=== PATIENT | female | born 1990 | race Caucasian/White ===

== ENCOUNTER 2021-06-19 14:32 | Emergency (ER) | payer OTHER, SELFPAY ==
--- NOTE | ~2021-06-19 | XR_ITS ---
EXAMINATION: XR hip RT min 2V DATE: 06/19/2021 15:04 INDICATION: Right hip pain. TECHNIQUE: 3 views of right hip were obtained. COMPARISON: Pelvis and hip radiographs 09/19/2018 FINDINGS: Bone alignment is normal. No fracture. Right hip joint space is normal. Surgical clips over lie the pelvis. IMPRESSION: 1. Normal right hip. Reviewed, dictated and finalized at location A. GER RADIATION IMPRESSION: 1. Normal right hip.
[2021-06-19 14:38] VITALS: BP 122/94; PULSE 105; RESP 16; TEMP 36.9; O2SAT 100
--- NOTE | 2021-06-19 15:16 | ED.LOWEXIN ---
HPI - Extremity Injury (Lower) General Chief Complaint: Extremity Injury, Lower Stated Complaint: right hip pain Source: patient and RN notes reviewed Mode of arrival: ambulatory History of Present Illness HPI Narrative: This is a 30-year-old female who presented to urgent care with complaints of right hip pain after syncopal episode. Patient is being seen by her primary care physician for her syncope episode she has a table tilt test next week. Patient notes that she woke up after having a syncopal episode with her hip against a table since then she has been having pain in her hip area she notes that her pain is more intense when she stands straight up and walk. She is not feeling any pain while sitting down. The patient denies SOB, CP, palpitation, extremity numbness, lightheadedness, dizziness, constipation, diarrhea, chills, or fever. MD complaint: hip injury Related Data Home Medications Medication Instructions Recorded Confirmed albuterol sulfate 90 mcg/actuation 1 puff INHALATION Q4H PRN 06/06/20 06/19/21 aerosol inhaler aripiprazole 2 mg tablet 15 mg PO DAILY 06/06/20 06/19/21 divalproex 250 mg tablet,delayed 250 mg PO ONCE tablet 06/06/20 06/19/21 release amitriptyline 25 mg PO HS 06/19/21 06/19/21 Allergies Allergy/AdvReac Type Severity Reaction Status Date / Time adhesive tape Allergy Mild Rash Verified 06/19/21 14:55 gluten Allergy Mild Nausea and Verified 06/19/21 14:55 Vomiting prochlorperazine Allergy Unknown Nausea and Verified 06/19/21 14:55 Vomiting Review of Systems Review of Systems: A 14 organ system Review of Systems was performed and pertinent positives included in the HPI, otherwise remaining ROS is negative. [facility] Past Medical History Medical History Anxiety Bipolar 1 disorder Celiac disease Inflammatory arthritis Ovarian cancer PTSD (post-traumatic stress disorder) Vitamin D deficiency Surgical History Surgical History H/O: hysterectomy Family History Family History Grandparent Diabetes mellitus Mother Lupus Fibromyalgia Raynaud disease Rheumatoid arthritis Sibling Meningitis Sibling Autism Social History Social History Smoking status: Never smoker Alcohol intake: current Alcohol use details: 1 drink every 6 motnhs Substance use: never Additional occupation/education comments: [employer] Gender identity (if verbalized by the patient): Female Exam Narrative: GENERAL: This is a well-nourished, well-developed patient, in no apparent distress. HEAD: normocephalic, atraumatic. EYES: PERRL. Sclera clear/white. Vision is grossly intact. EARS: External ears normal, auditory canals clear and without drainage, TMs normal without perforation. Hearing grossly intact. NOSE: External nose normal with no obvious nasal discharge, nares without redness, no rhinorrhea. THROAT: Mucous membranes moist, posterior pharynx clear. NECK: Neck supple, non-tender without lymphadenopathy, masses or thyromegaly. CARDIOVASCULAR: Regular rate and rhythm without murmurs, gallops, or rubs. RESPIRATORY: Clear to auscultation. Breath sounds equal bilaterally. No wheezes, rales, or rhonchi. GASTROINTESTINAL: Abdomen soft, non-tender, nondistended. Bowel sounds are active. No hepato-splenomegaly, or palpable masses. No guarding. SKIN: warm, intact with no suspicious lesions or rash, good texture and turgor. NEURO: awake, alert, and oriented to person, place and time. There were no obvious focal neurologic abnormalities. Steady gait EXTREMITIES: Normal range of motion. No edema. No calf tenderness. Negative Homans sign bilaterally. Right hip tenderness BACK: Nontender without deformity or crepitance. No flank tenderness. Course Co
== END 2021-06-19 15:18 | disposition home or self-care (01) ==
PROVIDERS: Emergency Provider Nurse Practitioner; PCP Family Medicine
DX: S79.911A Unspecified injury of right hip, initial encounter (principal); W19.XXXA Unspecified fall, initial encounter; F41.9 Anxiety disorder, unspecified; M06.9 Rheumatoid arthritis, unspecified; Z85.43 Personal history of malignant neoplasm of ovary
CPT/HCPCS: 73502; 99213; G0463

== ENCOUNTER 2025-01-15 16:04 | Emergency (ER) | payer OTHER, SELFPAY ==
--- NOTE | 2025-01-15 16:15 | ED.URI ---
HPI - URI/Sore Throat General Chief Complaint: Upper Respiratory Infection Stated Complaint: SORE THROAT/STUFFY NOSE/HEADACHE/COLD Time Seen by Provider: 01/15/25 16:34 Source: patient and RN notes reviewed Mode of arrival: ambulatory Limitations: no limitations History of Present Illness HPI Narrative: 34-year-old female presents with concern for sore throat, stuffy nose, headache, chills, fatigue, malaise. Reports symptoms started this morning. Not taken any medication for her symptoms. MD elicited complaint: rhinorrhea and nasal congestion Related Data Home Medications ?Medication ?Instructions ?Recorded ?Confirmed ?Last Taken ?Type albuterol sulfate 90 mcg/actuation 1 puff inhalation Q4H PRN Dyspnea 06/06/20 06/19/21 Unknown History aerosol inhaler aripiprazole 2 mg tablet (Abilify) 15 mg PO DAILY 06/06/20 06/19/21 Unknown History divalproex 250 mg tablet,delayed 250 mg PO ONCE 06/06/20 06/19/21 Unknown History release (Depakote) amitriptyline 25 mg tablet 25 mg PO HS 06/19/21 06/19/21 Unknown History atomoxetine 25 mg capsule mg PO 01/15/25 Unknown History erenumab-aooe 140 mg/mL mg subcut 01/15/25 Unknown History subcutaneous auto-injector (Aimovig Autoinjector) lithium carbonate 300 mg mg PO 01/15/25 Unknown History tablet,extended release lithium carbonate 450 mg mg PO 01/15/25 Unknown History tablet,extended release lumateperone 42 mg capsule mg PO 01/15/25 Unknown History (Caplyta) midodrine 5 mg tablet mg 01/15/25 Unknown History pregabalin 150 mg capsule mg 01/15/25 Unknown History Allergies Allergy/AdvReac Type Severity Reaction Status Date / Time adhesive tape Allergy Mild Rash Verified 01/15/25 16:35 gluten Allergy Mild Nausea and Verified 01/15/25 16:35 Vomiting prochlorperazine Allergy Unknown Nausea and Verified 01/15/25 16:35 Vomiting Review of Systems Review of Systems: CONSTITUTIONAL: Denies malaise, chills EYES: Denies visual changes, redness, or discharge. ENT: Reports rhinorrhea, congestion, sore throat. Denies sinus pain, otalgia CARDIOVASCULAR: Denies chest pain, palpitations, or edema. RESPIRATORY: Denies cough. Denies dyspnea. GASTROINTESTINAL: Denies abdominal pain, nausea, vomiting, diarrhea SKIN: Denies rash or itching. MUSCULOSKELETAL: Denies myalgia. NEUROLOGIC: Reports headache. All systems reviewed & are unremarkable except as noted in HPI and below PMFSH Past Medical History Medical History Anxiety Bipolar 1 disorder Celiac disease Inflammatory arthritis Ovarian cancer PTSD (post-traumatic stress disorder) Vitamin D deficiency Surgical History Surgical History H/O: hysterectomy Family History Family History Grandparent Diabetes mellitus Mother Lupus Fibromyalgia Raynaud disease Rheumatoid arthritis Sibling Meningitis Sibling Autism Social History Social History Smoking status: Never smoker Alcohol intake: current Alcohol use details: 1 drink every 6 motnhs Substance use: never Living arrangements: with family Occupation/Education: occupation Additional occupation/education comments: [employer] Gender identity (if verbalized by the patient): Female Comments At time of signature, agree with nursing past medical, surgical, social and family history. There is no relevant family history pertinent to the presenting complaint Exam Narrative: GENERAL: Well-appearing, well-nourished, and in no acute distress. HEAD: Normocephalic EYES: PERRLA, conjunctivae clear ENT: Nares clear, turbinates edematous and erythematous, clear discharge. Mucous membranes moist. TM pearly medeiros with dull light reflex bilaterally; no tragal tenderness. Oropharynx not erythematous without lesions. Tonsils not enlarged and without exudate, no drooling, no hoarseness, no trismus, uvula midline. NECK: Supple. No lymphadenopathy CHEST: Clear to auscultation, breath sounds equal. No wheezing, rhonchi, rales, or stridor. No respiratory distress, speaks in full sentences. HEART: Regular rate and rhythm. No murmur heard. SKIN: Warm, dry, no rash. NEURO: Alert and oriented x3. PSYCH: Normal mood and affect Course Course Emergency Course: Patient is aware of diagnosis, understands and agrees to treatment plan. Anticipatory guidance given. Patient agrees to follow-up as directed and is aware of reasons to seek care at the emergency department. Portions of this record may have been created with voice recognition software Level of Care: Express Care Visit Vital Signs Vital signs: Reviewed. MDM - URI/Sore Throat MDM Narrative Medical decision making narrative: Differential diagnosis considered: Mijares virus, strep pharyngitis, allergic rhinitis, upper respiratory tract infection, sinusitis, rhinosinusitis, nasopharyngitis. viral pharyngitis, otitis media, otitis externa, pneumonia, bronchitis, viral cough syndrome, viral syndrome, and influenza. Exam findings show no acute concerns or changes; patient is non-toxic appearing and is in no distress. Patient is appropriate for outpatient treatment and follow-up. Lab Data Attestation: I reviewed the patient's lab results. Critical Care Time Critical Care Time Critical Care Time: No Discharge Plan Discharge Clinical Impression: Upper respiratory infection Patient Disposition: Home Condition: Stable Instructions: Upper Respiratory Infection (ED) Additional Instructions: -Take strict precautions to prevent the spread of your virus. Be diligent about covering your cough (even when you are alone) and washing your hands frequently. -You may contagious until you have been symptom and/or fever free for 24 hours without fever reducing medicine -Alternate Ibuprofen and Tylenol for pain and fever relief (per package directions) -Drink plenty of fluid - drink fluid with electrolytes such as Gatorade or other oral re-hydration solution. Avoid caffeine, which can make dehydration worse. -Get plenty of rest to help your body heal. -Use a cool mist humidifier for chest and nasal congestion. -Eat RAW honey or use cough drops to ease throat discomfort -Do not smoke or expose children to secondhand smoke -Wash your hands frequently. -Please follow-up with your primary care doctor in the next 1-2 days if your symptoms do not improve. -If you have any worsening of symptoms or any other concerns please go to the ED immediately. -Please take medications as prescribed and continue taking your home medications as usual. Patient Language: Paraguayan Prescriptions: New pseudoephedrine HCl [12 Hour Decongestant] 120 mg tablet extended release 120 mg PO Q12H PRN (Reason: nasal congestion) Qty: 20 0RF ipratropium bromide 21 mcg (0.03 %) spray,non-aerosol 2 spray NASAL TID PRN (Reason: nasal drainage) Qty: 30 0RF Rx Instructions: administer into each nostril No Action amitriptyline 25 mg Tablet 25 mg PO HS midodrine 5 mg tablet Patient Comments: PT TAKING FOR LOW BLOOD PRESSURE. DOCTOR IS HOLDING MEDICINE 01/14/25,01/15/25 DUE TO ELEVATED BLOOD PRESSURE. lithium carbonate 300 mg tablet extended release PO lithium carbonate 450 mg tablet extended release PO atomoxetine 25 mg capsule PO pregabalin 150 mg capsule Aimovig Autoinjector 140 mg/mL auto-injector SUBCUT Caplyta 42 mg capsule PO divalproex [Depakote] 250 mg tablet,delayed release (DR/EC) 250 mg PO ONCE aripiprazole [Abilify] 2 mg tablet 15 mg PO DAILY albuterol sulfate 90 mcg/actuation HFA aerosol inhaler 1 puff inhalation Q4H PRN (Reason: Dyspnea) Follow-up/Referrals: Urban,Mayelin [Other]
[2025-01-15 16:21] VITALS: BP 133/96; PULSE 85; RESP 16; TEMP 36.4; O2SAT 100
[2025-01-15 16:38] LABS: EDCOVIDSCREEN Negative (Negative); EDINFLUASCREEN Negative (Negative); EDINFLUBSCREEN Negative (Negative)
== END 2025-01-15 16:46 | disposition home or self-care (01) ==
PROVIDERS: Emergency Provider Nurse Practitioner
DX: J06.9 Acute upper respiratory infection, unspecified (principal); Z20.822 Contact with and (suspected) exposure to COVID-19; K90.0 Celiac disease; M19.90 Unspecified osteoarthritis, unspecified site; Z85.41 Personal history of malignant neoplasm of cervix uteri; F31.9 Bipolar disorder, unspecified
CPT/HCPCS: 87426; 87804; 99213; G0463

== ENCOUNTER 2025-01-21 19:47 | Emergency (ER) | payer OTHER, SELFPAY ==
--- NOTE | ~2025-01-21 | XR_ITS ---
HISTORY: trip/fall, injury COMPARISON: 09/19/2018 TECHNIQUE: 3 views of the right knee were performed FINDINGS: No acute or subacute fracture, erosion, lytic or sclerotic lesion. Medial tibiofemoral joint space narrowing is identified. Small suprapatellar joint effusion is identified. The infrapatellar joint space is clear. IMPRESSION: Small suprapatellar joint effusion, without acute fracture. Reviewed, dictated and finalized at location A.
--- OUTSIDE RECORDS SUMMARY | 2025-01-21 19:50 | XMS_ITS | Clinical Summary ---
Author Organization [facility] Address [address] [place] [address] Care Team Providers Care Veterinary Medicine Doctor Name Role Phone Mayelin Ruffin MD Primary Care Provider [phone] Allergies Active Allergy Reactions Criticality Noted Date Comments Adhesive Rash Medium 03/31/2021 Amoxicillin Other (See comments) Low 10/22/2020 PCP prefers pt Does not take Prochlorperazine Vomiting Low 08/05/2019 Doxycycline Nausea And Vomiting,Nausea & Vomiting Low 11/16/2022 Gluten Stomach upset,Other (See comments) Low 02/21/2018 Morphine Unknown 04/21/2020 Acetaminophen Agitation Low 11/26/2024 Medications pregabalin (LYRICA) 100 mg capsule 3 Active Advair Diskus 250-50 mcg/dose diskus inhaler Inhale 1 puff 2 (two) times a day Active hydrOXYzine (ATARAX) 25 mg tablet Take 1 tablet (25 mg total) by mouth every 6 (six) hours as needed for itching 20 tablet 4 Active cetirizine (ZyrTEC) 10 mg tablet Take 1 tablet (10 mg total) by mouth daily as needed for allergies 30 tablet 4 Active Caplyta 42 mg capsule Take 1 capsule (42 mg total) by mouth daily 4 Active ubrogepant (Ubrelvy) 100 mg tablet Take 1 tablet (100 mg total) by mouth once as needed for migraine for up to 40 doses May repeat dose once in 2 hours if no relief. Do not exceed 2 doses in 24 hours. 10 tablet 3 5 Active lithium ER (ESKALITH) 450 mg CR tablet Take 1 tablet (450 mg total) by mouth daily Active midodrine (PROAMATINE) 5 mg tabletIndications: Symptomatic Orthostatic Hypotension Take 1 tablet (5 mg total) by mouth 3 (three) times a day 270 tablet 3 5 11/09/19 26 Active atomoxetine (STRATTERA) 25 mg capsule Take 1 capsule (25 mg total) by mouth daily Active erenumab-aooe (Aimovig Autoinjector) 140 mg/mL auto-injectorIndic ations:Chronic migraine without aura, with intractable migraine, so stated, with status migrainosus Inject 1 mL (140 mg total) under the skin every 30 (thirty) days 3 mL 3 5 Active omeprazole (PriLOSEC) 40 mg capsule Take 1 capsule (40 mg total) by mouth daily 4 Active ondansetron ODT (ZOFRAN-ODT) 4 mg disintegrating tablet DISSOLVE ONE TABLET ON THE TONGUE EVERY 6 HOURS NEEDED FOR NAUSEA AND VOMITING 5 Active Active Problems Problem Noted Date Diagnosed Date Vision loss 01/13/2025 Orthostatic hypotension 09/30/2023 Cramps of lower extremity 07/06/2023 Obesity 07/06/2023 Pharyngitis 07/06/2023 Upper respiratory infection 07/06/2023 Low back pain 07/06/2023 Cataplexy 06/29/2023 Post concussion syndrome 06/29/2023 Recurrent syncope 06/29/2023 Chronic migraine without aur a, with intractable migraine, so stated, with status migrainosus 06/29/2023 Morbid obesity with body mass index of 40.0-49.9 04/13/2023 Tremor 12/20/2022 Plantar fasciitis of right foot 04/14/2022 Bipolar affective disorder in remission 04/20/20 21 Fibromyalgia 04/20/2021 Chronic migraine without aur a without status migrainosus, not intractable 01/29/2021 PTSD (post-traumatic stress disorder) 01/22/2020 Prediabetes 11/22/2019 History of ovarian cancer 11/14/2018 Vitamin D deficiency 11/14/2018 Seasonal allergic rhinitis 10/27/2018 Left flank pain 05/09/2017 Apnea 05/09/2017 Menopausal syndrome 03/21/2017 Headache 03/08/2017 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 Malignant neoplasm of ovary 07/09/2015 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/2013 Anxiety 12/19/2013 Anaclitic depression 12/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 Chronic back pain 12/19/2013 Asthma 12/19/2013 Celiac disease 12/19/2013 Lumbago 12/19/2013 Lymphedema 12/19/2013 Cyst of breast 08/08/2011 Malignant neoplasm of ovary 08/08/2008 Resolved Problems Problem Noted Date Diagnosed Date Resolved Date Non-intractable vomiting 12/19/2019 Right lower quadrant abdominal pain 12/19/2019 03/20/2020 History of UTI 12/19/2019 03/20/2020 Encounters Date Type Department Care Team Description 01/18/2025 6:46 AM CDT - 01/18/2025 11:59 PM CDT Hospital Encounter [facility] [address] [place] [address] Vision loss, bilateral; Bilateral hearing loss, unspecified hearing loss type; Recurrent syncope Discharge Disposition: Discharge to home or self care 01/18/2025 6:46 AM CDT - 01/18/2025 11:59 PM CDT Hospital Encounter [facility] [address] [place] [address] Vision loss, bilateral; Bilateral hearing loss, unspecified hearing loss type; Recurrent syncope Discharge Disposition: Discharge to home or self care 01/18/2025 6:45 AM CDT - 01/18/2025 11:59 PM CDT Hospital Encounter [facility] [address] [place] [address] Witnessed seizure-like activity (HCC) Discharge Disposition: Discharge to home or self care 01/17/2025 Telephone [facility] [address] [place] [address] Tiff Saunders 01/13/2025 9:11 PM CDT - 01/14/2025 12:09 AM CDT Emergency [facility] [address] [place] [address] Bacilio Jones MD Vision loss (Primary Dx) Discharge Disposition: Discharge to home or self care 01/06/2025 Results Follow-Up [facility] [address] [place] [address] Ritu Hui NP Throat culture Throat 01/04/2025 6:15 PM CDT Office Visit [facility] [address] [place] [address] Natalie Figueroa PA Sore throat (Primary Dx) 01/04/2025 6:00 PM CDT - 01/04/2025 11:59 [place] [address] Sore throat Discharge Disposition: Discharge to home or self care 01/01/2025 Results Follow-Up [facility] [address] [place] [phone] Aby Vasquez MA Folate, Vitamin D 25 hydroxy, Thyroid Function [place], Additional followed-up results: 3 12/29/2024 10:50 AM CDT Lab [address] [address] Vision loss, bilateral; Bilateral hearing loss, unspecified hearing loss type; Recurrent syncope; Morbid obesity with body mass index of 40.0-49.9 (HCC) 12/12/2024 2:30 PM CDT Office Visit [facility] [address] [place] [phone] Javi Garcia NP Chronic migraine without aura, with intractable migraine, so stated, with status migrainosus (Primary Dx); Post concussion syndrome; Morbid obesity with body mass index of 40.0-49.9 ([facility]); Tremor; Vision loss, bilateral; Bilateral hearing loss, unspecified hearing loss type; Recurrent syncope; Witnessed seizure-like activity (HCC) 11/26/2024 8:44 PM CDT - 11/27/2024 1:35 AM CDT Emergency [facility] [address] [place] [address] Sussy Narayan MD Syncope and collapse (Primary Dx) Discharge Disposition: Discharge to home or self care from Last 3 Months Immunizations Immunization Administration Dates Next Due Pfizer SARS-CoV-2 Monovalent Vaccination (12+ Yrs) PURPLE 06/27/2021,06/06/2021 Surgical History Surgery Date Site/Laterality Comments HYSTERECTOMY PORTACATH PLACEMENT PORT REMOVAL Medical History Medical History Date Comments Personal history of other ve nous thrombosis and embolism History of deep venous throm bosis - (Added by TW Conv) Personal history of diseases of skin or subcutaneous tissue History of cyst of breast - (Added by TW Conv) Other disorders of lung Bleomyci n lung toxicity - (Added by TW Conv) Asthma Ovarian cancer (HCC) Headache, tension-type Migraine Bipolar 1 disorder (HCC) PTSD (post-traumatic stress disorder) Celiac artery aneurysm Syncope Covid-19 Sx onset 07/12, t ested pos 07/15 Heart failure (HCC) H/O blood clots Chronic kidney disease Family History Medical History Relation Name Comments Cerebral palsy Brother 1 Hypertension Brother 1 Seizures Brother 1 Cerebral palsy Brother 2 Hypertension Brother 2 Seizures Brother 2 Diabetes Father Hypertension Father Pancreatic cancer Father Stroke Father Thyroid cancer Father Arrhythmia Maternal Grandmother Hypertension Mother Migraines Mother Seizures Mother Arthritis Other Cancer Other Gout Other Heart disease Other Mental illness Other Relation Name Status Comments Brother 1 Brother 2 Father Maternal Grandmother Mother Other Social History Tobacco Use Types Packs/Day Years Used Date Smoking Tobacco: Never Smokeless Tobacco: Never Tobacco Cessation:Counseling Given: Not Answered Alcohol Use Standard Drinks/Week Comments Not Currently 0 (1 standard drink = 0.6 oz pur e alcohol) AUDIT-C Answer Date Recorded Q1: How often do you have a drink containing alc ohol? Monthly or less 10/14/2023 Q2: How many drinks containi ng alcohol do you have on a typical day when you are drinking? 1 or 2 10/14/2023 Q3: How often do you have si x or more drinks on one occasion? Never 10/14/2023 Personal Safety Answer Date Recorded Have you ever been in or are you currently in a harmful physical or emotional relationship or is someone making you feel afraid or unsafe? Denies 01/13/2025 Comments No Sex and Gender Information Value Date Recorded Sex Assigned at Not on file Legal Sex Female 8:28 AM DIRECTOR CLINICAL PHARMACOLOGY Gender Identity Female 01/22/2021 5:39 PM CDT Sexual Orientation Bisexual 01/22/2021 5: 39 PM CDT Obstetrics History Para Term AB IAB SAB Ectopic Multiple Livin g Live Births 0 0 0 0 0 0 0 0 0 0 0 Last Filed Vital Signs Vital Sign Reading Time Taken Comments Blood Pressure 150/74 01/13/2025 11:30 PM CDT Pulse 83 01/13/2025 11:30 PM CDT Temperature 36.7 C (98.1 F) 01/13/2025 8:10 PM CDT Respiratory Rate 18 01/13/2025 8:10 PM CDT Oxygen Saturation 100% 01/13/2025 11:30 PM CDT Inhaled Oxygen Concentration - - Weight 122.5 kg (270 lb) 01/13/2025 8:10 PM CDT Height 162.6 cm (5' 4) 01/13/2025 8:10 PM CDT Body Mass Index 46.35 01/13/2025 8:10 PM CDT Plan of Treatment Health Maintenance Due Date Last Done Comments Depression Screening 1989 Hepatitis C Screening 1989 Varicella Vaccines (1 of 2 - 13+ 2-dose series) 2002 Hepatitis B Screening 2007 Regular Well Visit/Exam 18-64 2007 Pneumococcal vaccine <65 (2 of 2 - PCV) 07/01/2021 07/01/2020 Covid-19 Vaccine (3 - 2023- season) 2024 06/27/2021, 06/06/2021 DTaP/Tdap/Td Vaccine (2 - Td or Tdap) 11/02/2027 11/01/2017 Influenza Vaccine Completed 08/30/2024, , 05/31/2022, Additional history exists HPV Vaccines Aged Out No longer eligi ble based on patient's age to complete this topic Procedures Procedure Name Priority Date/Time Associated Diagnosis Comments CTA HEAD NECK W WO CONTRAST Schedule Routine, Read Routine (OP Routine) 01/18/2025 9:10 AM CDT Vision loss, bilateral Bilateral hearing loss, unspecified hearing loss type Recurrent syncope MRI BRAIN WO CONTRAST Schedule Routine, Read Routine (OP Routine) 01/18/2025 7:48 AM CDT Vision loss, bilateral Bilateral hearing loss, unspecified hearing loss type Recurrent syncope CT HEAD WO CONTRAST ED 01/13/2025 1 0:05 PM CDT EGFR STAT 01/13/2025 8:31 PM CDT HCG, BLOOD, QUANTITATIVE STAT 01/13/2025 8:31 PM CDT DIFFERENTIAL AUTO STAT 01/13/2025 8:3 1 PM CDT COMPREHENSIVE METABOLIC PANEL STAT 01/13/2025 8:31 PM CDT CBC WITH AUTO DIFFERENTIAL STAT 01/13/2025 8:31 PM CDT ECG 12-LEAD Routine 01/13/2025 8:23 PM CDT THROAT CULTURE Routine 01/04/2025 6:01 PM CDT Sore throat POCT RAPID STREP Routine 01/04/2025 5:56 PM CDT Sore throat LIPID PANEL Routine 12/29/2024 10:58 AM CDT Morbid obesity with body mass index of 40.0-49.9 (HCC) VITAMIN B12 Routine 12/29/2024 10:58 AM CDT Vision loss, bilateral Bilateral hearing loss, unspecified hearing loss type Recurrent syncope THYROID FUNCTION CASCADE Routine 12/29/2024 10:58 AM CDT Vision loss, bilateral Bilateral hearing loss, unspecified hearing loss type Recurrent syncope VITAMIN D 25 HYDROXY Routine 12/29/2024 10:58 AM CDT Vision loss, bilateral Bilateral hearing loss, unspecified hearing loss type Recurrent syncope FOLATE Routine 12/29/2024 10:58 AM CDT Vision loss, bilateral Bilateral hearing loss, unspecified hearing loss type Recurrent syncope URINALYSIS, MICROSCOPIC ONLY STAT 11/26/2024 11:31 PM CDT URINALYSIS AND REFLEX TO MICROSCOPIC AND CULTURE STAT 11/26/2024 11:31 PM CDT POCT HCG, URINE Routine 11/26/2024 11:[address] HEAD WO CONTRAST ED 11/26/2024 1 0:02 PM CDT LITHIUM LEVEL Add-On 11/26/2024 9:28 PM CDT EGFR STAT 11/26/2024 8:22 PM CDT DIFFERENTIAL AUTO STAT 11/26/2024 8:2 2 PM CDT COMPREHENSIVE METABOLIC PANEL STAT 11/26/2024 8:22 PM CDT CBC WITH AUTO DIFFERENTIAL STAT 11/26/2024 8:22 PM CDT ECG 12-LEAD STAT 11/26/2024 8:17 PM CDT from Last 3 Months Results * CTA Head Neck W WO Contrast (01/18/2025 9:10 AM CDT) Anatomical Region Laterality Modality Head and Neck N/A Computed Tomogra phy 01/18/2025 11:4 4 AM CDT Narrative 01/18/2025 10:11 PM CDT EXAM DESCRIPTION: CTA HEAD NECK W WO CONTRAST REASON FOR STUDY: Neuro deficit, acute, stroke suspected Intermittent vision loss and difficulty finding words x 1 month. Hx of ovarian cancer TECHNIQUE: Axial images were first obtained through the brain without contrast. Axial dynamic scanning technique with dynamic contrast enhancement through the intracranial and extracranial carotid and vertebral arteries. Multiplanar reconstruction. All stenosis measurements are based on NASCET criteria. 3D MIP images rendered on scanning unit and reviewed at time of interpretation. Automated exposure control was used as a dose optimization technique for this examination. CONTRAST TYPE/DOSE: 100mL of IOVERSOL 350 MG IODINE/ML INTRAVENOUS SYRINGE injected via intravenous COMPARISON: No comparison FINDINGS: BRAIN CEREBRUM: No hemorrhage, edema or mass effect. No recent infarct. Brain parenchyma volume well-maintained. WHITE MATTER: Normal. POSTERIOR FOSSA: No masses. No hemorrhage. No evidence for acute infarction. EXTRA-AXIAL SPACES: No fluid collections. No masses. ORBITS: Stable coarse calcification of the superolateral right globe. No significant abnormality. CALVARIUM: No fracture. SINUSES/MASTOIDS: No fluid or mucosal thickening. OTHER: No other significant abnormality. INTRACRANIAL VESSELS [place]: The anterior, middle, posterior cerebral arteries are all patent. No evidence of aneurysm or focal stenosis. POSTERIOR CIRCULATION: The distal vertebral arteries are patent as is the basilar artery. No aneurysm. BRAIN: No gross enhancing lesions as visualized. CAROTID CTA RIGHT CAROTIDS: No internal, external or common carotid stenosis. LEFT CAROTIDS: No internal, external or common carotid stenosis. LEFT VERTEBRAL: Patent. No significant stenosis. No dissection. RIGHT VERTEBRAL: Patent. No significant stenosis. No dissection. AORTIC ARCH: Normal three-vessel origin. Bilateral subclavian arteries are patent. No dissection. NECK SOFT TISSUE: No mass, adenopathy. No thyroid nodule greater than 1 cm. INCLUDED LUNGS: No acute abnormality. No worrisome nodules. OTHER: No other significant finding. IMPRESSION: BRAIN: No acute abnormalities. INTRACRANIAL CTA: Normal. CAROTID CTA: Normal CTA of the extra-cranial carotid and vertebral arteries. THIS IS AN ELECTRONICALLY VERIFIED FINAL REPORT 01/18/2025 10:11 PM - Electronically signed by Paul Acosta M.D. LC: LAMONTE Report ID: [id number] Reading Location: [id number] Procedure Note Reina Acosta MD - 01/18/2025 EXAM DESCRIPTION: CTA HEAD NECK W WO CONTRAST REASON FOR STUDY: Neuro deficit, acute, stroke suspected Intermittent vision loss and difficulty finding words x 1 month. Hx ofovarian cancer TECHNIQUE: Axial images were first obtained through the brain without contrast. Axial dynamic scanning technique with dynamic contrast enhancement throughthe intracranial and extracranial carotid and vertebral arteries. Multiplanar reconstruction. All stenosis measurements are based on NASCET criteria. 3D MIP images rendered on scanning unit and reviewed at time of interpretation. Automated exposure control was used as a dose optimization technique forthis examination. CONTRAST TYPE/DOSE: 100mL of IOVERSOL 350 MG IODINE/ML INTRAVENOUSSYRINGE injected via intravenous COMPARISON: No comparison FINDINGS: BRAIN CEREBRUM: No hemorrhage, edema or mass effect. No recent infarct. Brain parenchyma volume well-maintained. WHITE MATTER: Normal. POSTERIOR FOSSA: No masses. No hemorrhage. No evidence for acuteinfarction. EXTRA-AXIAL SPACES: No fluid collections. No masses. ORBITS: Stable coarse calcification of the superolateral right globe.No significant abnormality. CALVARIUM: No fracture. SINUSES/MASTOIDS: No fluid or mucosal thickening. OTHER: No other significant abnormality. INTRACRANIAL VESSELS [place]: The anterior, middle, posterior cerebral arteries areall patent. No evidence of aneurysm or focal stenosis. POSTERIOR CIRCULATION: The distal vertebral arteries are patent as isthe basilar artery. No aneurysm. BRAIN: No gross enhancing lesions as visualized. CAROTID CTA RIGHT CAROTIDS: No internal, external or common carotid stenosis. LEFT CAROTIDS: No internal, external or common carotid stenosis. LEFT VERTEBRAL: Patent. No significant stenosis. No dissection. RIGHT VERTEBRAL: Patent. No significant stenosis. No dissection. AORTIC ARCH: Normal three-vessel origin. Bilateral subclavian arteriesare patent. No dissection. NECK SOFT TISSUE: No mass, adenopathy. No thyroid nodule greater than 1cm. INCLUDED LUNGS: No acute abnormality. No worrisome nodules. OTHER: No other significant finding. IMPRESSION: BRAIN: No acute abnormalities. INTRACRANIAL CTA: Normal. CAROTID CTA: Normal CTA of the extra-cranial carotid and vertebralarteries. THIS IS AN ELECTRONICALLY VERIFIED FINAL REPORT 01/18/2025 10:11 PM - Electronically signed by Paul Acosta M.D. LC: LAMONTE Report ID: [id number] Reading Location: [id number] Javi Garcia NP IMG CT PROCEDURES Final Res ult * MRI Brain WO Contrast (01/18/2025 7:48 AM CDT) Anatomical Region Laterality Modality Head and Neck N/A Magnetic Resonan ce 01/18/2025 11:4 4 AM CDT Narrative 01/18/2025 10:13 PM CDT EXAM DESCRIPTION: MRI BRAIN WO CONTRAST REASON FOR STUDY: Neuro deficit, acute, stroke suspected Pt c/o vision loss and hearing loss for approx 1 month. No known injury. Pt states hx of migraines. Has not noticed headaches with these new symptoms. expressed concern of seizure-like activity during her previous syncopal episodes. Patient states occasionally she feels as if she is staring off into space and notes that her family is told she is hard to rouse during these episodes. Patient does report history of having pseudoseizures as diagnosis but she is unsure of specifics. TECHNIQUE: Multiplanar imaging includes non-contrasted T1, T2, FLAIR, and diffusion with ADC map sequences. Additional sequence(s) sensitive to blood products. Images stored on PACS. COMPARISON: No comparison FINDINGS: CEREBRUM: Images limited by excessive patient motion artifact. Within limitation, no hemorrhage, edema, or mass effect. No abnormality on blood sensitive gradient T2 weighted sequences to indicate hemosiderin or other chronic blood breakdown product. Thin-section coronal and T2 images were obtained perpendicular to the medial temporal lobes. The hippocampal formations are symmetric in size and signal. No findings present to indicate mesial temporal sclerosis as a cause for possible seizures. WHITE MATTER: Normal. POSTERIOR FOSSA: Brainstem and cerebellum appear unremarkable. DIFFUSION IMAGING: No recent infarction. EXTRAAXIAL SPACES: No hemorrhage. No mass. BRAIN VOLUME: Within normal limits for age. PITUITARY: Unremarkable. VASCULATURE: No flow disturbance identified. ORBITS: No masses. Globes normal. PARANASAL SINUSES AND MASTOIDS: Well-aerated with no fluid levels. No mucosa thickening. OTHER: No other significant finding. IMPRESSION: Motion compromised study. Within limitation, no abnormality identified. No acute infarction. No mass. No findings to indicate mesial temporal sclerosis as a cause for possible seizures. THIS IS AN ELECTRONICALLY VERIFIED FINAL REPORT 01/18/2025 10:13 PM - Electronically signed by Paul Acosta M.D. LC: LAMONTE Report ID: [id number] Reading Location: [id number] Procedure Note Reina Acosta MD - 01/18/2025 EXAM DESCRIPTION: MRI BRAIN WO CONTRAST REASON FOR STUDY: Neuro deficit, acute, stroke suspected Pt c/o vision loss and hearing loss for approx 1 month. No known injury.Pt states hx of migraines. Has not noticed headaches with these new symptoms. expressed concern of seizure-like activity during her previous syncopal episodes. Patient states occasionally she feels as if she is staring off into space and notes that her family is told she is hard torouse during these episodes. Patient does report history of havingpseudoseizures as diagnosis but she is unsure of specifics. TECHNIQUE: Multiplanar imaging includes non-contrasted T1, T2, FLAIR, and diffusion with ADC map sequences. Additional sequence(s) sensitive toblood products. Images stored on PACS. COMPARISON: No comparison FINDINGS: CEREBRUM: Images limited by excessive patient motion artifact. Within limitation, no hemorrhage, edema, or mass effect. No abnormality onblood sensitive gradient T2 weighted sequences to indicate hemosiderin or other chronic blood breakdown product. Thin-section coronal and T2 images were obtained perpendicular to the medial temporal lobes. The hippocampal formations are symmetric in size and signal. No findings present toindicate mesial temporal sclerosis as a cause for possible seizures. WHITE MATTER: Normal. POSTERIOR FOSSA: Brainstem and cerebellum appear unremarkable. DIFFUSION IMAGING: No recent infarction. EXTRAAXIAL SPACES: No hemorrhage. No mass. BRAIN VOLUME: Within normal limits for age. PITUITARY: Unremarkable. VASCULATURE: No flow disturbance identified. ORBITS: No masses. Globes normal. PARANASAL SINUSES AND MASTOIDS: Well-aerated with no fluid levels. [place] thickening. OTHER: No other significant finding. IMPRESSION: Motion compromised study. Within limitation, no abnormality identified. No acute infarction. No mass. No findings to indicate mesial temporalsclerosis as a cause for possible seizures. THIS IS AN ELECTRONICALLY VERIFIED FINAL REPORT 01/18/2025 10:13 PM - Electronically signed by Paul Acosta M.D. LC: LAMONTE Report ID: [id number] Reading Location: [id number] Javi Garcia TENTERER IMG MRI PROCEDURES Final Re sult * CT Head WO Contrast (01/13/2025 10:05 PM CDT) Anatomical Region Laterality Modality Head and Neck N/A Computed Tomogra phy 01/13/2025 10:1 3 PM CDT Narrative 01/13/2025 10:22 PM CDT EXAM DESCRIPTION: CT HEAD WO CONTRAST REASON FOR STUDY: Vision loss, binocular, vision loss lelo c/o dizziness states has periods of hearing and vision loss x 1 month Pt also stated she as new onset of headache since visit TECHNIQUE: Axial images acquired through the brain without intravenous contrast. Images stored on PACS. Automated exposure control was used as a dose optimization technique for this examination. COMPARISON: Head CT comparison 11/26/2024. MRI brain from 04/08/2020. FINDINGS: BRAIN: No hemorrhage, edema or mass effect. No recent infarct. Normal white matter. EXTRA-AXIAL SPACES: No fluid collections. No masses. CALVARIUM: No fracture. SINUSES/MASTOIDS: No fluid or mucosal thickening. ORBITS: There is a coarse calcification of the right superolateral globe. Please correlate with clinical factors. OTHER: No other significant abnormality. IMPRESSION: No acute intracranial findings. Coarse calcification of the right superolateral globe. Please correlate with clinical factors. THIS IS AN ELECTRONICALLY VERIFIED FINAL REPORT 01/13/2025 10:22 PM - Electronically signed by Paul Acosta M.D. LC: LAMONTE Report ID: [id number] Reading Location: [id number] Procedure Note Reina Acosta MD - 01/13/2025 EXAM DESCRIPTION: CT HEAD WO CONTRAST REASON FOR STUDY: Vision loss, binocular, vision loss lelo c/o dizziness states has periods of hearing and vision loss x 1 month Pt also stated she as new onset of headache since visit TECHNIQUE: Axial images acquired through the brain without intravenous contrast. Images stored on PACS. Automated exposure control was used asa dose optimization technique for this examination. COMPARISON: Head CT comparison 11/26/2024. MRI brain from 04/08/2020. FINDINGS: BRAIN: No hemorrhage, edema or mass effect. No recent infarct. Normal white matter. EXTRA-AXIAL SPACES: No fluid collections. No masses. CALVARIUM: No fracture. SINUSES/MASTOIDS: No fluid or mucosal thickening. ORBITS: There is a coarse calcification of the right superolateralglobe. Please correlate with clinical factors. OTHER: No other significant abnormality. IMPRESSION: No acute intracranial findings. Coarse calcification of the right superolateral globe. Please correlatewith clinical factors. THIS IS AN ELECTRONICALLY VERIFIED FINAL REPORT 01/13/2025 10:22 PM - Electronically signed by Paul Acosta M.D. LC: LAMONTE Report ID: [id number] Reading Location: [place] [address] Bacilio Jones MD IMG CT PROCEDURES Final Resu lt * eGFR (01/13/2025 8:31 PM CDT) eGFR 90 >=60 mL/min/1. 73 m2 Comment: Interpretive Data Reference Interval Normal >/= 90 mL/min/1.73m2 Mildly decreased* 60 - 89 mL/min/1.73m2 Mildly to moderately decreased 45 - 59 mL/min/1.73m2 Moderately to severely decreased 30 - 44 mL/min/1.73m2 Severely decreased 15 - 29 mL/min/1.73m2 Kidney Failure < 15 mL/min/1.73m2 *Relative to young adult level Estimated glomerular filtration rate is determined by the 2020 CKD-EPI equation recommended by the National Kidney Foundation (A Unifying Approach to GFR Estimation: Recommendations of the NKF-ASK Task Force on Reassessing the Inclusion of Race in Diagnosing Kidney Disease, JASN 202). The CKD-EPI equation should not be used for patients with unstable renal function and has not been validated in children and those over 70. Current interpretive data was last reviewed 2021. Blood 01/13/2025 8:31 PM CDT 01/13/2025 8:35 PM CDT us Bacilio Jones MD LAB BLOOD ORDERABLES Final R esult GE[facility] CESPED[facility] ([place]) 1 [facility] [place] [address] * Differential, auto (01/13/2025 8:31 PM CDT) Neutrophil abs 3.03 1.50 - 6.50 K/cumm Imm gran abs 0.03 0.00 - 0.10 K/cumm [facility] ([place]) Lymphocyte abs 2.44 0.80 - 3.30 K/cumm [facility] ([place]) Monocyte abs 0.64 0.20 - 0.80 K/cumm [facility] ([place]) Eosinophil abs 0.16 0.00 - 0.50 K/cumm [facility] ([place]) Basophil abs 0.06 0.00 - 0.10 K/cumm [facility] ([place]) Neutrophil pct 47.6 % [facility] ([place]) Comment: Interpretive Data Percent cell count reference ranges are not reported, since discordance with absolute values may lead to misinterpretation of CBC data. Current Interpretive Data was last revised on 2017. Imm gran pct 0.5 % [facility] ([place]) Comment: Interpretive Data Percent cell count reference ranges are not reported, since discordance with absolute values may lead to misinterpretation of CBC data. Current Interpretive Data was last revised on 2017. Lymphocyte pct 38.4 % [facility] ([place]) Comment: Interpretive Data Percent cell count reference ranges are not reported, since discordance with absolute values may lead to misinterpretation of CBC data. Current Interpretive Data was last revised on 2017. Monocyte pct 10.1 % [facility] ([place]) Comment: Interpretive Data Percent cell count reference ranges are not reported, since discordance with absolute values may lead to misinterpretation of CBC data. Current Interpretive Data was last revised on 2017. Eosinophil pct 2.5 % [facility] ([place]) Comment: Interpretive Data Percent cell count reference ranges are not reported, since discordance with absolute values may lead to misinterpretation of CBC data. Current Interpretive Data was last revised on 2017. Basophil pct 0.9 % [facility] ([place]) Comment: Interpretive Data Percent cell count reference ranges are not reported, since discordance with absolute values may lead to misinterpretation of CBC data. Current Interpretive Data was last revised on 2017. Blood 01/13/2025 8:31 PM CDT 01/13/2025 8:35 PM CDT Bacilio Jones MD LAB BLOOD ORDERABLES Final R esult [facility] ([place]) 1 [facility] Department [place] [address] * CBC with auto differential (01/13/2025 8:31 PM CDT) WBC 6.36 3.80 - 9.90 K/cumm Hgb 13.6 11.9 - 15.5 g/dL [facility] ([place]) Hct 41.0 35.6 - 45.5 % [facility] ([place]) Plt 238 150 - 400 K/cumm [facility] ([place]) MPV 9.9 9.1 - 12.3 fL [facility] ([place]) RBC 4.65 3.90 - 5.20 M/cumm [facility] ([place]) MCV 88.2 81.3 - 96.4 fL [facility] ([place]) MCH 29.2 27.1 - 33.3 pg [facility] ([place]) MCHC 33.2 32.3 - 35.7 g/dL [facility] ([place]) RDW CV 13.9 11.1 - 14.9 % [facility] ([place]) RDW SD 44.9 35.7 - 48.1 fL [facility] ([place]) NRBC abs 0.00 0.00 - 0.01 K/cumm [facility] ([place]) Blood 01/13/2025 8:31 PM CDT 01/13/2025 8:35 PM CDT Bacilio Jones MD LAB BLOOD ORDERABLES Final R esult Performing Organization Address City/[facility]/ZIP Co de Phone Number GE[facility] C[facility]ED[facility] ([place]) 1 [facility] [place] [address] * hCG, blood, quantitative (01/13/2025 8:31 PM CDT) [facility] hCG, quant <5.0 0.0 - 5.0 IUnits/L Comment: Interpretive Data Male: < 5 IU/L Non- premenopausal Female: <5 IU/L The [employer]ani hCG Beta Quant assay procedure was used. Results from different manufacturers or methods may not be comparable. Serial testing should be performed using the same method. Interpretive Data was last revised on 2023 Blood 01/13/2025 8:31 PM CDT 01/13/2025 8:56 PM CDT Bacilio Jones MD LAB BLOOD ORDERABLES Edited Result - Final Performing Organization Address [facility] Co de Phone Number [facility] ([place]) 1 [facility] [place] [address] * Comprehensive metabolic panel (01/13/2025 8:31 PM CDT) [facility] Sodium 136 135 - 145 mmol/L Potassium, pl 4.0 3.3 - 4.9 mmol/L [facility] ([place]) Chloride 99 97 - 110 mmol/L [facility] ([place]) CO2 26 22 - 32 mmol/L [facility] ([place]) Anion gap 12 2 - 15 mmol/L [facility] ([place]) BUN 10 6 - 25 mg/dL [facility] ([place]) Creatinine 0.86 0.60 - 1.10 mg/dL [facility] ([place]) Glucose 88 70 - 199 mg/dL [facility] ([place]) Comment: Interpretive Data Fasting glucose >/= 126 mg/dl is diagnostic for diabetes. Fasting is defined as no caloric intake for at least 8 hours. Fasting glucose between 100 mg/dl to 125 mg/dl is diagnostic of prediabetes. In a patient with classic symptoms of hyperglycemia or hyperglycemic crisis, a random glucose >/= 200 mg/dl is diagnostic for diabetes. In the absence of unequivocal hyperglycemia, results should be confirmed by repeat testing. The classification and Diagnosis of Diabetes Diabetes Care 2021; 46: S19-S40. Current interpretive data was last revised 2022. Calcium 10.1 8.5 - 10.3 mg/dL [facility] ([place]) Bilirubin, total 0.3 0.1 - 1.2 mg/dL [facility] ([place]) Protein, pl 7.6 6.5 - 8.5 g/dL [facility] ([place]) Albumin 4.4 3.5 - 5.0 g/dL [facility] ([place]) Alk phos 86 40 - 130 Units/L [facility] ([place]) ALT 34 7 - 45 Units/L [facility] ([place]) AST 23 10 - 45 Units/L [facility] ([place]) Blood 01/13/2025 8:31 PM CDT 01/13/2025 8:35 PM CDT Bacilio Jones MD LAB BLOOD ORDERABLES Final R esult [facility] ([place]) 1 [facility] Department of Laboratories [place] [id number] * ECG 12 lead (01/13/2025 8:23 PM CDT) 01/13/2025 8:23 PM CDT Narrative [facility] - 01/14/2025 6:41 AM CDT Vent Rate: 89 bpm RR Interval: 674 msec [place] Interval: 129 msec QRS Duration: 98 msec QT Interval: 348 msec QTC Interval: 394 msec P-R-T [place]: 15 - 11 - 4 degrees IMPRESSION: SINUS RHYTHM POSSIBLE LEFT ATRIAL ENLARGEMENT [-0.1mV P WAVE IN V1/V2] POSSIBLE ANTERIOR MYOCARDIAL INFARCTION , OF INDETERMINATE AGE [30 ms Q WAVE IN V3/V4, OR R < 0.2 mV IN V4] ABNORMAL ECG NO CHANGE FROM PREVIOUS TRACING NOTED Electronically Signed By: Hermes Ricci MD Bacilio Jones MD ECG ORDERABLES Final Result [facility] * Throat culture Throat (01/04/2025 6:01 PM CDT) Report Final Report: No growth of pathogens. Comment:Testing performed by : [facility], [address] [facility], [place]., [address] Throat 01/04/2025 6:01 PM CDT 01/05/2025 5:42 AM CDT Narrative GEOFF - 01/06/2025 1:51 AM CDT Testing performed by [facility] Microbiology Laboratory ([phone]). Natalie GALVIN LAB MICROBIOLOGY - GENERAL ORDERABLES Final Result Performing Organization Address [facility]/ZIP Co de Phone Number [place] [address] Department [place] [address] * POCT rapid strep A (01/04/2025 5:56 PM CDT) Rapid Strep A, POC Negative Negative Swab 01/04/2025 5:56 PM CDT Natalie GALVIN POINT OF CARE TEST ORDERABLES Final Result * Thyroid Function [place] (12/29/2024 10:58 AM CDT) TSH 1.77 0.30 - 4.20 mcIUnit/mL Blood 12/29/2024 10:5 8 AM CDT 12/29/2024 11:25 AM CDT Javi Garcia NP LAB BLOOD ORDERABLES Final Result [facility] ([place]) 1 [facility] Department [place] [address] * (ABNORMAL) Vitamin D 25 hydroxy (12/29/2024 10:58 AM CDT) Vitamin D 25-OH 9(L) 30 - 80 ng/mL Blood 12/29/2024 10:5 8 AM CDT 12/29/2024 11:25 AM CDT Javi Garcia TENTERER LAB BLOOD ORDERABLES Final Result GEOFF CESPEDES ([place]) 1 [facility] [place] [address] * Folate (12/29/2024 10:58 AM CDT) [facility] Folic acid 8.7 >=5.0 ng/mL Comment:Slightly Hemolyzed S pecimen. Results may be affected. Blood 12/29/2024 10:5 8 AM CDT 12/29/2024 11:25 AM CDT Javi Garcia TENTERER LAB BLOOD ORDERABLES Final Result Performing Organization Address City/[facility]/ZIP Co de Phone Number GEOFF CESPEDES ([place]) 1 [facility] [place] [address] * Vitamin B12 (12/29/2024 10:58 AM CDT) [facility] Vitamin B12 734 230 - 1,250 pg/mL Blood 12/29/2024 10:5 8 AM CDT 12/29/2024 11:25 AM CDT Javi Garcia TENTERER LAB BLOOD ORDERABLES Final Result Performing Organization Address City/[facility]/ZIP Co de Phone Number GEOFF CESPEDES ([place]) 1 [facility] [place] [address] * Lipid panel (12/29/2024 10:58 AM CDT) [facility] Cholesterol 169 30 - 199 mg/dL Comment: Interpretive Data Ages < or = 19 years Acceptable: <170 mg/dL Borderline high: 170-199 mg/dL High: >or= 200 mg/dL Ages > or = 20 years Desirable: <200 mg/dL Borderline high: 200-239 mg/dL High: >or= 240 mg/dL Literature References: 1. Expert Panel on Integrated Guidelines for Cardiovascular Health and Risk Reduction in Children and Adolescents. Pediatrics 2011;128:S213 2. NCEP Expert Panel. Circulation 2004;110:227 Current Interpretive Data was last revised on 2018. Triglycerides 77 <=149 mg/dL [facility] [place]) Comment: Interpretive Data Ages < or = 9 years Acceptable: <75 mg/dL Borderline high: 75-99 mg/dL High: >or= 100 mg/dL Ages 10 to 20 years Acceptable: <90 mg/dL Borderline high: 90-129 mg/dL High: >or= 130 mg/dL Ages > or = 20 years Desirable: <150 mg/dL Borderline high: 150-199 mg/dL High: 200-499 mg/dL Very high: >or= 499 mg/dL Literature References: 1. Expert Panel on Integrated Guidelines for Cardiovascular Health and Risk Reduction in Children and Adolescents. Pediatrics 2011;128:S213 2. NCEP Expert Panel. Circulation 2004;110:227 Current Interpretive Data was last revised on 2018. HDL 60 >=40 mg/dL [facility] [place]) Comment: Interpretive Data Ages < or = 19 years Acceptable: >45 mg/dL Borderline low: 40-45 mg/dL Low: <40 mg/dL Ages > or = 20 years Desirable: >or= 60 mg/dL Low: <40 mg/dL Literature References: 1. Expert Panel on Integrated Guidelines for Cardiovascular Health and Risk Reduction in Children and Adolescents. Pediatrics 2011;128:S213 2. NCEP Expert Panel. Circulation 2004;110:227 Current Interpretive Data was last revised on 2018. LDL, calculated 94 <=129 mg/dL [facility] [place]) Comment: Interpretive Data Ages < or = 19 years Acceptable: <110 mg/dL Borderline high: 110-129 mg/dL High: >or= 130 mg/dL Ages > or = 20 years Optimal: <100 mg/dL Near optimal: 100-129 mg/dL Borderline high: 130-159 mg/dL High: >160 mg/dL Calculated using the Peres LDL-C estimating equation. This equation was implemented on 2024. Prior to this date LDL-C was estimated using the Friedewald equation. Literature References: 1. Expert Panel on Integrated Guidelines for Cardiovascular Health and Risk Reduction in Children and Adolescents. Pediatrics 2011;128:S213 2. NCEP Expert Panel. Circulation 2004;110:227 3. Ja Man et al. STEWART Cardiol. 2019December 06;5(5):540-548. doi: 10.1001/[email or web address].2020.0013 Current Interpretive Data was last revised on 2024. Non-HDL Cholesterol 109 mg/dL [facility] C[facility] ([place]) Comment: Interpretive Data Ages < or = 19 years Acceptable: <120 mg/dL Borderline high: 120-144 mg/dL High: >145 mg/dL Ages > or = 20 years When triglycerides are >200 mg/dL, Non-HDL cholesterol is a secondary target of therapy with treatment goals that are 30 mg/dL greater than the LDL cholesterol target. Literature References: 1. Expert Panel on Integrated Guidelines for Cardiovascular Health and Risk Reduction in Children and Adolescents. Pediatrics 2011;128:S213 2. NCEP Expert Panel. Circulation 2004;110:227 Current Interpretive Data was last revised on 2018. Chol/HDL ratio 3 [facility] C[facility] ([place]) Blood 12/29/2024 10:5 8 AM CDT 12/29/2024 11:25 AM CDT Javi Garcia NP LAB BLOOD ORDERABLES Final Result [facility] C[facility] ([place]) 1 [facility] Department [place] [address] * (ABNORMAL) Urinalysis reflex to microscopic and culture Urine (11/26/2024 11:31 PM CDT) Color, ur Straw Yellow Clarity, ur Clear Clear GEOFF Ramirez ([place]) Specific gravity, ur 1.011 1.003 - 1.030 [facility] C[facility] ([place]) pH, urine 6.5 [facility] C[facility]ED[facility] ([place]) Comment: Interpretive Data U rine pH is affected by diet, medications, systemic acid-base disturbances, and renal tubular function. pH may affect urinary stone formation. For example, urine pH below 6.0 may help reduce the tendency for calcium phosphate stones and pH greater than 6.0 may reduce the tendency for uric acid stone formation. Source: [facility] [place] Current Interpretive Data was last revised on 2017 Protein, ur ql Negative Negative [facility] ([place]) Glucose, ur ql Negative Negative [facility] ([place]) Ketones, ur Negative Negative [facility] ([place]) Bilirubin, ur Negative Negative [facility] ([place]) Blood, ur Negative Negative [facility] ([place]) Urobilinogen, ur <2.0 <2.0 mg/dL [facility] ([place]) Nitrite, ur Negative Negative [facility] ([place]) Leukocyte esterase, ur 2+(A) Negative [facility] ([place]) UA reflex comment Reflex to microscopic UA will be performed. [facility] ([place]) Urine 11/26/2024 11:3 1 PM CDT 11/27/2024 12:18 AM CDT us Sussy Narayan MD LAB MICROBIOLOGY - GENERAL ORDER LEE Final Result Performing Organization Address City/[facility] Co de Phone Number [facility] ([place]) 1 [facility] Department [place] [address] * (ABNORMAL) Urinalysis, microscopic only (11/26/2024 11:31 PM CDT) WBC, ur 0-5 0 - 5 /HPF RBC, ur 0-2 0 - 2 /HPF [facility] ([place]) Epithelial cells, squamous, ur 1-5 0 - 5 /HPF [facility] ([place]) Bacteria, ur Trace(A) [facility] ([place]) Culture Reflex Comment Reflex conditions for urine culture (WBC >10) not met. [facility] ([place]) Urine 11/26/2024 11:3 1 PM CDT 11/27/2024 12:18 AM CDT us Leeroy Aleman MD LAB URINE ORDERABLES Final Res ult [facility] ([place]) 1 [facility] Department [place] [address] * POCT hCG, urine (11/26/2024 11:28 PM CDT) HCG, ur, POC Negative Negative Lot Number [id number] QC Backgroud Clear Acceptable QC Control Line Acceptable Urine 11/26/2024 11:2 8 PM CDT us Sussy Narayan MD POINT OF CARE TEST ORDERABLES Fi nal Result * CT Head WO Contrast (11/26/2024 10:02 PM CDT) Anatomical Region Laterality Modality Head and Neck N/A Computed Tomogra phy 11/26/2024 10:2 1 PM CDT Narrative 11/26/2024 10:25 PM CDT EXAM DESCRIPTION: CT HEAD WO CONTRAST REASON FOR STUDY: Syncope/presyncope, cerebrovascular cause suspected Multiple near syncope episodes today. TECHNIQUE: Axial images acquired through the brain without intravenous contrast. Images stored on PACS. Automated exposure control was used as a dose optimization technique for this examination. COMPARISON: 04/08/2020 FINDINGS: BRAIN: No hemorrhage, edema or mass effect. No recent infarct. The medeiros-white matter differentiation is preserved. No cerebral or cerebellar volume loss. Normal size and morphology of the ventricular system. No acute intraventricular hemorrhage. Basal cisterns are patent. No midline shift. EXTRA-AXIAL SPACES: No fluid collections. No masses. CALVARIUM: No fracture. SINUSES/MASTOIDS: No fluid or mucosal thickening. ORBITS: No significant abnormality. OTHER: No other significant abnormality. IMPRESSION: No acute intracranial findings. THIS IS AN ELECTRONICALLY VERIFIED FINAL REPORT 11/26/2024 10:25 PM - Electronically signed by Kelvin Levy M.D. AT: AT Report ID: [id number] Reading Location: [id number] Procedure Note Kelvin Levy MD - 11/26/2024 EXAM DESCRIPTION: CT HEAD WO CONTRAST REASON FOR STUDY: Syncope/presyncope, cerebrovascular cause suspected Multiple near syncope episodes today. TECHNIQUE: Axial images acquired through the brain without intravenous contrast. Images stored on PACS. Automated exposure control was used asa dose optimization technique for this examination. COMPARISON: 04/08/2020 FINDINGS: BRAIN: No hemorrhage, edema or mass effect. No recent infarct. The medeiros-white matter differentiation is preserved. No cerebral or cerebellar volume loss. Normal size and morphology of the ventricular system. Noacute intraventricular hemorrhage. Basal cisterns are patent. No midlineshift. EXTRA-AXIAL SPACES: No fluid collections. No masses. CALVARIUM: No fracture. SINUSES/MASTOIDS: No fluid or mucosal thickening. ORBITS: No significant abnormality. OTHER: No other significant abnormality. IMPRESSION: No acute intracranial findings. THIS IS AN ELECTRONICALLY VERIFIED FINAL REPORT 11/26/2024 10:25 PM - Electronically signed by Kelvin Levy M.D. AT: AT Report ID: [id number] Reading Location: [id number] us Sussy Narayan MD IMG CT PROCEDURES Final Result * [place] level (11/26/2024 9:28 PM CDT) [place] 0.6 0.6 - 1.2 mmol/L Comment:Testing performed by : [facility], [address] [place]., [address] Blood 11/26/2024 9:28 PM CDT 11/27/2024 8:56 AM CDT us Sussy Narayan MD LAB BLOOD ORDERABLES Final Resul t GEOFF CESPEDES ([place]) 1 [facility] Department [place] [address] * eGFR (11/26/2024 8:22 PM CDT) eGFR >90 >=60 mL/min/1. 73 m2 Comment: Interpretive Data Reference Interval Normal >/= 90 mL/min/1.73m2 Mildly decreased* 60 - 89 mL/min/1.73m2 Mildly to moderately decreased 45 - 59 mL/min/1.73m2 Moderately to severely decreased 30 - 44 mL/min/1.73m2 Severely decreased 15 - 29 mL/min/1.73m2 Kidney Failure < 15 mL/min/1.73m2 *Relative to young adult level Estimated glomerular filtration rate is determined by the 2020 CKD-EPI equation recommended by the National Kidney Foundation (A Unifying Approach to GFR Estimation: Recommendations of the NKF-ASK Task Force on Reassessing the Inclusion of Race in Diagnosing Kidney Disease, JASN 2020). The CKD-EPI equation should not be used for patients with unstable renal function and has not been validated in children and those over 70. Current interpretive data was last reviewed 2021. Blood 11/26/2024 8:22 PM CDT 11/26/2024 8:25 PM CDT us Leeroy Aleman MD LAB BLOOD ORDERABLES Final Res ult [facility] ([place]) 1 [facility] Department [place] [address] * Differential, auto (11/26/2024 8:22 PM CDT) Neutrophil abs 3.95 1.50 - 6.50 K/cumm Imm gran abs 0.02 0.00 - 0.10 K/cumm [facility] ([place]) Lymphocyte abs 2.05 0.80 - 3.30 K/cumm [facility] ([place]) Monocyte abs 0.57 0.20 - 0.80 K/cumm [facility] ([place]) Eosinophil abs 0.24 0.00 - 0.50 K/cumm [facility] ([place]) Basophil abs 0.06 0.00 - 0.10 K/cumm [facility] ([place]) Neutrophil pct 57.2 % [facility] ([place]) Comment: Interpretive Data Percent cell count reference ranges are not reported, since discordance with absolute values may lead to misinterpretation of CBC data. Current Interpretive Data was last revised on 2017. Imm gran pct 0.3 % [facility] ([place]) Comment: Interpretive Data Percent cell count reference ranges are not reported, since discordance with absolute values may lead to misinterpretation of CBC data. Current Interpretive Data was last revised on 2017. Lymphocyte pct 29.8 % [facility] ([place]) Comment: Interpretive Data Percent cell count reference ranges are not reported, since discordance with absolute values may lead to misinterpretation of CBC data. Current Interpretive Data was last revised on 2017. Monocyte pct 8.3 % [facility] ([place]) Comment: Interpretive Data Percent cell count reference ranges are not reported, since discordance with absolute values may lead to misinterpretation of CBC data. Current Interpretive Data was last revised on 2017. Eosinophil pct 3.5 % [facility] ([place]) Comment: Interpretive Data Percent cell count reference ranges are not reported, since discordance with absolute values may lead to misinterpretation of CBC data. Current Interpretive Data was last revised on 2017. Basophil pct 0.9 % [facility] ([place]) Comment: Interpretive Data Percent cell count reference ranges are not reported, since discordance with absolute values may lead to misinterpretation of CBC data. Current Interpretive Data was last revised on 2017. Blood 11/26/2024 8:22 PM CDT 11/26/2024 8:25 PM CDT us Sussy Narayan MD LAB BLOOD ORDERABLES Final Resul t [facility] ([place]) 1 [facility] Department [place] [address] * CBC with auto differential (11/26/2024 8:22 PM CDT) WBC 6.89 3.80 - 9.90 K/cumm Hgb 13.7 11.9 - 15.5 g/dL [facility] C[facility] ([place]) Hct 41.2 35.6 - 45.5 % [facility] ([place]) Plt 259 150 - 400 K/cumm [facility] ([place]) MPV 9.6 9.1 - 12.3 fL [facility] RBC 4.75 3.90 - 5.20 M/cumm [facility] ([place]) MCV 86.7 81.3 - 96.4 fL [facility] ([place]) MCH 28.8 27.1 - 33.3 pg [facility] ([place]) MCHC 33.3 32.3 - 35.7 g/dL [facility] ([place]) RDW CV 13.4 11.1 - 14.9 % [facility] ([place]) RDW SD 43.1 35.7 - 48.1 fL [facility] NRBC abs 0.00 0.00 - 0.01 K/cumm [facility] Blood 11/26/2024 8:22 PM CDT 11/26/2024 8:25 PM CDT us Sussy Narayan MD LAB BLOOD ORDERABLES Final Resul t [facility] ([place]) 1 [facility] [place] [address] * Comprehensive metabolic panel (11/26/2024 8:22 PM CDT) Sodium 138 135 - 145 mmol/L Potassium, pl 4.0 3.3 - 4.9 mmol/L [facility] Chloride 102 97 - 110 mmol/L [facility]) CO2 22 22 - 32 mmol/L [facility] ([place]) Anion gap 14 2 - 15 mmol/L [facility] BUN 16 6 - 25 mg/dL [facility] Creatinine 0.85 0.60 - 1.10 mg/dL [facility] ([place]) Glucose 95 70 - 199 mg/dL [facility] ([place]) Comment: Interpretive Data Fasting glucose >/= 126 mg/dl is diagnostic for diabetes. Fasting is defined as no caloric intake for at least 8 hours. Fasting glucose between 100 mg/dl to 125 mg/dl is diagnostic of prediabetes. In a patient with classic symptoms of hyperglycemia or hyperglycemic crisis, a random glucose >/= 200 mg/dl is diagnostic for diabetes. In the absence of unequivocal hyperglycemia, results should be confirmed by repeat testing. The classification and Diagnosis of Diabetes Diabetes Care 2021; 46: S19-S40. Current interpretive data was last revised 2022. Calcium 10.2 8.5 - 10.3 mg/dL [facility] ([place]) Bilirubin, total 0.2 0.1 - 1.2 mg/dL [facility] ([place]) Protein, pl 7.8 6.5 - 8.5 g/dL [facility] ([facility]) Albumin 4.6 3.5 - 5.0 g/dL [facility] Alk phos 95 40 - 130 Units/L [facility] ALT 38 7 - 45 Units/L [facility] ([facility]) AST 28 10 - 45 Units/L [facility] Comment:Slightly Hemolyzed S pecimen Blood 11/26/2024 8:22 PM CDT 11/26/2024 8:25 PM CDT us Sussy Narayan MD LAB BLOOD ORDERABLES Final Resul t Performing Organization Address City/[facility] de Phone Number GEOFF [facility] ([facility]) 1 [facility] Department [place] [address] * ECG 12 lead (11/26/2024 8:17 PM CDT) 11/26/2024 8:17 PM CDT Narrative [facility] - 11/27/2024 6:49 AM CDT Vent Rate: 100 bpm RR Interval: 598 msec [place] Interval: 126 msec QRS Duration: 108 msec QT Interval: 349 msec QTC Interval: 406 msec P-R-T [place]: 11 - 10 - 4 degrees IMPRESSION: SINUS TACHYCARDIA POSSIBLE LEFT ATRIAL ENLARGEMENT [-0.1mV P WAVE IN V1/V2] NONSPECIFIC ST \T\ T-WAVE ABNORMALITY ABNORMAL RHYTHM ECG NO CHANGE FROM PREVIOUS TRACING NOTED Electronically Signed By: Hermes Ricci MD us Sussy Narayan MD ECG ORDERABLES Final Result [facility] from Last 3 Months Insurance IDPA [facility] OPEN ACCESS [facility] ALLEGIANCE CIGNA ALLEGIANCE CIGNA ALLEGIANCE Care Teams Veterinary Medicine Doctor Relationship Specialty Start Date End Date Mayelin Ruffin MD [address] [place] [address] PCP - General Family Medicine 07/12/23
--- OUTSIDE RECORDS SUMMARY | 2025-01-21 19:50 | XMS_ITS | Encounter Summary ---
Author Organization [facility] Address [address] [place] [address] Care Team Providers Care Traffic Enumerator Name Role Phone Mayelin Ruffin MD Primary Care Provider [phone] Encounter Details Date Type Department Care Team (Late st Contact Info) Description 11/27/2024 Results Follow-Up [facility] - Family Medicine [address] [place] [address], [place] [address] Arash Abdullahi MD [address] [place] [phone] Social History Tobacco Use Types Packs/Day Years Used Date Smoking Tobacco: Never Smokeless Tobacco: Never Alcohol Use Standard Drinks/Week Comments Yes 0 (1 standard drink = 0.6 oz pur e alcohol) on holidays/special occasions PHQ-2 Answer Date Recorded Patient Health Questionnaire-2 Score 0 11/27/2024 Comments No Sex and Gender Information Value Date Recorded Sex Assigned at Female 07/05/2023 4:04 PM COMPUTER CUSTOMER SUPPORT SPECIALIST Legal Sex Female 4:40 PM CDT Gender Identity Female 07/05/2023 4:04 PM COMPUTER CUSTOMER SUPPORT SPECIALIST Sexual Orientation Bisexual 07/05/2023 4: 04 PM COMPUTER CUSTOMER SUPPORT SPECIALIST documented as of this encounter Functional Status * Over the past 2 weeks, how often have you been bothered by any of the following problems? Question Answer Date of Assessment Author Little interest or pleasure in doing things Not at all 11/27/2024 2:55 PM CDT Teresa Bowen MA Feeling down, depressed, or hopeless Not at all 11/27/2024 2:55 PM CDT Teresa Bowen MA Patient Health Questionnaire -2 Score 0 11/27/2024 2:55 PM CDT Teresa Bowen MA documented as of this encounter Plan of Treatment Upcoming Encounters Date Type Department Care Team (Late st Contact Info) Description 01/31/2025 1:00 PM CDT Office Visit [facility] - Family Medicine [address] [place] [address], [place] [phone] Mayelin Ruffin MD [address] [place] [address] [address] [place] [phone] 02/12/2025 4:20 PM CDT Office [place] [facility] [place] [address] [place] [address] [address] [place] [address] Candace Perez MD [address] [place] [address] [address] [place] [phone] 02/27/2025 2:40 PM CDT Office Visit [facility] - Family Medicine [address] [place] [phone] Mayelin Ruffin MD [address] [place] [address] [address] [place] [phone] 03/07/2025 3:30 PM CDT Office Visit [facility] - Cardiology [address] [facility], [facility] [address] [place] [address] Laurie Pop MD [address] [facility] [address] [place] [address] documented as of this encounter Visit Diagnoses Not on filedocumented in this encounter Care Teams Traffic Enumerator Relationship Specialty Start Date End Date Mayelin Ruffin MD [address] [place] [address] [address] [place] [address] PCP - General Family Medicine 06/29/23 documented as of this encounter
--- OUTSIDE RECORDS SUMMARY | 2025-01-21 19:50 | XMS_ITS | Encounter Summary ---
Author Organization [facility] Address [address] [place] [place] [address] Care Team Providers Care Painter Assistant Name Role Phone Mayelin Ruffin MD Primary Care Provider [phone] Reason for Visit * Reason Onset Date Comments MEDICATION REFILL 01/20/2025 Encounter Details Date Type Department Care Team (Late st Contact Info) Description 01/20/2025 Refill [facility] - Family Medicine [address] [place] [address], [facility] [place] [phone] Mayelin Ruffin MD [address] [place] [phone] MEDICATION REFILL Social History Tobacco Use Types Packs/Day Years Used Date Smoking Tobacco: Never Smokeless Tobacco: Never Alcohol Use Standard Drinks/Week Comments Yes 0 (1 standard drink = 0.6 oz pur e alcohol) on holidays/special occasions PHQ-2 Answer Date Recorded Patient Health Questionnaire-2 Score 0 11/27/2024 Comments No Sex and Gender Information Value Date Recorded Sex Assigned at Female 07/05/2023 4:04 PM FILM PROCESSING SHIFT SUPERVISOR Legal Sex Female 4:40 PM CDT Gender Identity Female 07/05/2023 4:04 PM FILM PROCESSING SHIFT SUPERVISOR Sexual Orientation Bisexual 07/05/2023 4: 04 PM FILM PROCESSING SHIFT SUPERVISOR documented as of this encounter Miscellaneous Notes * Telephone Encounter - Teresa Bowen MA - 01/21/2025 9:33 AM CDT Refill Request Svitlana Pabon DANIEL: 01/14/25 NOV due: NOV scheduled: 01/31/2025 LRF: 06/28/24 Qty Disp: 60 # of refills: 5 Allergies: Allergies[1] Pended Medication Order: Requested Prescriptions Pending Prescriptions Disp Refills pregabalin (Lyrica) 150 MG capsule 60 capsule 5 Sig: Take 1 (one) capsule by mouth 2 times daily [1] Allergies Allergen Reactions Tylenol [Acetaminophen] Psychiatric Anger/aggression Compazine [Prochlorperazine] Vomiting Doxycycline Vomiting Morphine Unknown Amoxicillin Other PCP prefers pt Does not take PCP prefers pt Does not take Adhesive Sensitivity Rash Wound Dressing Adhesive Rash Gluten Meal GI Discomfort documented in this encounter Plan of Treatment Upcoming Encounters Date Type Department Care Team (Late st Contact Info) Description 01/31/2025 1:00 PM CDT Office Visit [facility] - Family Medicine [address] [place] [phone] Mayelin Ruffin MD [address] [place] [address] [address] [place] [phone] 02/12/2025 4:20 PM CDT Office Visit [facility] - [address] [address] Candace Perez MD [address] [place] [phone] 02/27/2025 2:40 PM CDT Office Visit [facility] - Family Medicine [address] [place] [phone] Mayelin Ruffin MD [address] [place] [address] [address] [place] [address] 03/07/2025 3:30 PM CDT Office Visit [facility] - Cardiology [address] [facility], [address] [place] [address] Laurie Pop MD [address] [facility] [address] [place] [address] documented as of this encounter Visit Diagnoses Diagnosis Fibromyalgia Mylagia and myositis, unspecified documented in this encounter Care Teams Painter Assistant Relationship Specialty Start Date End Date Mayelin Ruffin MD [address] [place] [phone] PCP - General Family Medicine 06/29/23 documented as of this encounter
--- OUTSIDE RECORDS SUMMARY | 2025-01-21 19:50 | XMS_ITS | Encounter Summary ---
Author Organization [facility] Address [address] [facility] [place] [address] Care Team Providers Care Meeting Specialist Name Role Phone Mayelin Ruffin MD Primary Care Provider [phone] Reason for Visit * Reason Comments Refill Request Encounter Details Date Type Department Care Team (Late st Contact Info) Description 01/20/2025 Refill [facility] Family Medicine [address] [place] [address], [facility] [place] [phone] Mayelin Ruffin MD [address] [place] [phone] Refill Request Social History Tobacco Use Types Packs/Day Years Used Date Smoking Tobacco: Never Smokeless Tobacco: Never Alcohol Use Standard Drinks/Week Comments Yes 0 (1 standard drink = 0.6 oz pur e alcohol) on holidays/special occasions PHQ-2 Answer Date Recorded Patient Health Questionnaire-2 Score 0 11/27/2024 Comments No Sex and Gender Information Value Date Recorded Sex Assigned at Female 07/05/2023 4:04 PM WAD BLANKING PRESS ADJUSTER Legal Sex Female 4:40 PM CDT Gender Identity Female 07/05/2023 4:04 PM WAD BLANKING PRESS ADJUSTER Sexual Orientation Bisexual 07/05/2023 4: 04 PM WAD BLANKING PRESS ADJUSTER documented as of this encounter Miscellaneous Notes * Telephone Encounter - Teresa Bowen MA - 01/21/2025 9:36 AM CDT Duplicate documented in this encounter Plan of Treatment Upcoming Encounters Date Type Department Care Team (Late st Contact Info) Description 01/31/2025 1:00 PM CDT [facility] [address] [place] [address], [place] [phone] Mayelin Ruffin MD [address] [place] [address] [address] [place] [address] 02/12/2025 4:20 PM CDT Office Visit [facility] - [place] [address] [facility] [address] [place] [address] Candace Perez MD [facility] [address] [place] [phone] 02/27/2025 2:40 PM CDT Office Visit [facility] - Family Medicine [address] [place] [address], [place] [address] Mayelin Ruffin MD [address] [place] [address] [address] [place] [address] 03/07/2025 3:30 PM CDT Office Visit [facility] - Cardiology [address] [facility], [facility] [address] [place] [address] Laurie Pop MD [address] [facility] [address] [place] [address] documented as of this encounter Visit Diagnoses Diagnosis Fibromyalgia Mylagia and myositis, unspecified documented in this encounter Care Teams Meeting Specialist Relationship Specialty Start Date End Date Mayelin Ruffin MD [address] [place] [address] [address] [place] [address] PCP - General Family Medicine 06/29/23 documented as of this encounter
--- OUTSIDE RECORDS SUMMARY | 2025-01-21 19:50 | XMS_ITS | Clinical Summary ---
Author Organization [facility] Address [address] [place] [address] Phone Care Team Providers Care Residential Direct Support Professional Name Role Phone Mono García MD Primary Care Provider [phone] Allergies Active Allergy Reactions Criticality Noted Date Comments Acetaminophen Other (see Comments) Medium 11/12/2024 Anger/aggression Amoxicillin Other (see Comments) Low 10/22/2020 PCP prefers pt Does not take PCP prefers pt Does not take PCP prefers pt Does not take PCP prefers pt Does not take Prochlorperazine Vomiting 04/21/2020 Methylphenidate Other (see Comments) 12/10/2024 Doxycycline Vomiting 11/16/2022 Gluten Meal Nausea,Other (see Comments) Low 02/21/2018 Other reaction(s): Stomach upset Wound Dressing Adhesive Rash Medium 03/31/2021 Medications midodrine (PROAMATINE) 5 MG Tablet 2 Active ondansetron (ZOFRAN-ODT) 4 MG TABLET DISPERSIBLE 0 Active albuterol 108 (90 Base) MCG/ACT Aerosol Solution take 2 Puffs by inhalation. 8 Active hydrOXYzine (ATARAX) 25 MG Tablet Take 25 mg by mouth 3 times daily as needed for Anxiety. 5 Active lithium (ESKALITH) 450 MG Tablet Controlled Release Take 450 mg by mouth daily. Active omeprazole (PriLOSEC) 40 MG CAPSULE DELAYED RELEASE Take 1 Capsule by mouth daily. 4 Active Nurtec 75 MG TABLET DISPERSIBLE Take 75 mg by mouth as needed for Other (Migraine). 5 Active Ubrogepant 100 MG Tablet Take 100 mg by mouth as needed for Other (Migraine). 5 Active clonazePAM (KlonoPIN) 0.5 MG Tablet Take 0.5 mg by mouth as needed for Anxiety. Active Aimovig 140 MG/ML Solution Auto-injector by Subcutaneous route every 30 days. 4 Active Caplyta 42 MG Capsule Take 1 Capsule by mouth daily. 4 Active pregabalin (LYRICA) 150 MG Capsule Take 150 mg by mouth 2 times daily. Active ibuprofen (MOTRIN) 200 MG Tablet Take 200 mg by mouth every 8 hours as needed for Moderate or more severe pain. Active acetaminophen (TYLENOL) 500 MG Tablet Take 500 mg by mouth every 4 hours as needed for Moderate or more severe pain. Active dicyclomine (BENTYL) 20 MG Tablet Take 1 Tablet by mouth every 6 hours. 30 Tablet 5 Active Active Problems Problem Noted Date Diagnosed Date Bipolar 1 disorder with moderate ruma POTS (postural orthostatic tachycardia syndrome) 09/30/2023 Morbid obesity with body mass index of 40.0-49.9 04/13/2023 Fibromyalgia 04/20/2021 PTSD (post-traumatic stress disorder) 01/22/2020 Prediabetes 11/22/2019 Asthma 12/19/2013 Encounters Date Type Department Care Team Description 12/10/2024 12:30 PM CDT [facility] [address] [place] [address] Debby Quintana, OIL WELL LOGGING ENGINEER, AUDITOR SUPERVISOR Acute non-recurrent pansinusitis (Primary Dx); Acute cough; Nonintractable headache, unspecified chronicity pattern, unspecified headache type Discharge Disposition: Discharged to home or Selfcare 12/10/2024 Travel from Last 3 Months Immunizations Immunization Administration Dates Next Due Influenza Vaccine 08/30/2024 Influenza Vaccine, Quadrivalent, PF 04/09,05/31/2022,07/22/2021,2019 Influenza, Injectable, Quadrivalent 04/2019,05/26/2018,03/08/2018,2015 Influenza, Seasonal, Injecta ble, Undefined 04/14/2020 Influenza,Split Virus,Trivalent,Injectable,PF 08/30/2024 Pneumococcal Vaccine Adult - 23 Valent 07/01/2020 TDAP Vaccine 11/01/2017 Social History Tobacco Use Types Packs/Day Years Used Date Smoking Tobacco: Never Smokeless Tobacco: Never Tobacco Cessation:Counseling Given: Not Answered Alcohol Use Standard Drinks/Week Comments Not Currently 0 (1 standard drink = 0.6 oz pur e alcohol) Sexually Active Control Partners Comments Yes Comments No Sex and Gender Information Value Date Recorded Sex Assigned at Not on file Legal Sex Female 11:37 PM CDT Gender Identity Not on file Sexual Orientation Not on file Last Filed Vital Signs Vital Sign Reading Time Taken Comments Blood Pressure 142/92 12/10/2024 12:38 PM CDT Pulse 98 12/10/2024 12:38 PM CDT Temperature 36.3 C (97.3 F) 12/10/2024 12:38 PM CDT Respiratory Rate 18 12/10/2024 12:38 PM CDT Oxygen Saturation 98% 12/10/2024 12:38 PM CDT Inhaled Oxygen Concentration - - Weight 122.5 kg (270 lb) 09/15/2024 9:12 PM COLDFUSION Height 162.6 cm (5' 4) 09/15/2024 9:12 PM COLDFUSION Body Mass Index 46.35 09/15/2024 9:12 PM COLDFUSION Plan of Treatment Health Maintenance Due Date Last Done Comments Hepatitis C Virus (HCV) Screening 1989 Hepatitis B Immunization (1 of 3 - 19+ 3-dose series) 2008 Pneumococcal Immunization Combined (2 of 2 - PCV) 07/01/2021 07/01/2020 SARS-COV-2 Immunization (3 - 2023- season) 2024 06/27/2021, 06/06/2021 Td Immunization Every 10 Years (Adults With 1 Tdap) 11/02/2027 11/01/2017 Respiratory Syncytial Virus (RSV) Immunization (Adult) (1 - 1-dose 75+ series) 2064 DTaP/Tdap/Td Immunization Discontinued 11/01/2017 TdaP Immunization Discontinued 11/01/2017 Influenza Immunization Completed , 08/30/2024, 05/05/2023, Additional history exists Human Papillomavirus (HPV) Immunization Aged Out No longer eligible based on patient's age to complete this topic Meningococcal Immunization (ACWY) Aged Out No longer eligible based on patient's age to complete this topic Rotavirus Immunization Aged Out No lo nger eligible based on patient's age to complete this topic Procedures Procedure Name Priority Date/Time Associated Diagnosis Comments POC INFLUENZA A AND B BY MOLECULAR Routine 12/10/2024 1:00 PM CDT Acute cough Nonintractable headache, unspecified chronicity pattern, unspecified headache type POC SARS-COV-2 BY MOLECULAR Routine 12/10/2024 1:00 PM CDT Acute cough from Last 3 Months Results * POC SARS-COV-2 BY MOLECULAR (12/10/2024 1:00 PM CDT) SARSCOV2 Negative Negative, INVALID PROCEDURE CONTROL Valid 12/10/2024 1:00 PM CDT Debby Quintana APRN, [place] POINT OF CARE TEST ING (MANUAL) Final Result * POC INFLUENZA A AND B BY MOLECULAR (12/10/2024 1:00 PM CDT) INFLUENZA A RNA Negative Negative, Invalid INFLUENZA B RNA Negative Negative, Invalid PROCEDURE CONTROL Valid 12/10/2024 1:00 PM CDT Debby Quintana APRN, AUDITOR SUPERVISOR POINT OF CARE TEST ING (MANUAL) Final Result from Last 3 Months Insurance [facility] Care Teams Residential Direct Support Professional Relationship Specialty Start Date End Date Mono García MD [address] [place] [phone] PCP - General Emergency Medicine 11/24/20
--- OUTSIDE RECORDS SUMMARY | 2025-01-21 19:50 | XMS_ITS | Referral Summary ---
Author Organization [facility] Address 1 [place] [address] Care Team Providers Care Gamma Facilities Operator Name Role Phone Mayelin Ruffin MD Primary Care Provider +1- [phone] Encounters Date Type Department Care Team Description 01/18/2025 6:46 AM CDT - 01/18/2025 11:59 PM CDT Hospital Encounter [facility] [address] [place] [address] Vision loss, bilateral; Bilateral hearing loss, unspecified hearing loss type; Recurrent syncope Discharge Disposition: Discharge to home or self care 01/18/2025 6:46 AM CDT - 01/18/2025 11:59 PM CDT Hospital Encounter [facility] [address] [place] [address] Vision loss, bilateral; Bilateral hearing loss, unspecified hearing loss type; Recurrent syncope Discharge Disposition: Discharge to home or self care 01/18/2025 6:45 AM CDT - 01/18/2025 11:59 PM CDT Hospital Encounter [facility] Neu[facility] Disorders Testing [address] [place] [address] Witnessed seizure-like activity (HCC) Discharge Disposition: Discharge to home or self care 01/17/2025 Telephone [facility] [address] [place] [address] Tiff Saunders 01/13/2025 9:11 PM CDT - 01/14/2025 12:09 AM CDT Emergency [facility] Emergency Department 1 [place] [address] Bacilio Jones MD Vision loss (Primary Dx) Discharge Disposition: Discharge to home or self care 01/06/2025 Results Follow-Up [facility] [address] [place] [address] Ritu Hui NP Throat culture Throat 01/04/2025 6:00 PM CDT - 01/04/2025 11:59 PM CDT Hospital Encounter [address] [address] Sore throat Discharge Disposition: Discharge to home or self care 01/04/2025 6:15 PM CDT Office Visit [facility] [address] [place] [address] Natalie Figueroa PA Sore throat (Primary Dx) 01/01/2025 Results Follow-Up [facility] [address] [place] [phone] Aby Vasquez MA Folate, Vitamin D 25 hydroxy, Thyroid Function [place], Additional followed-up results: 3 12/29/2024 10:50 AM CDT Lab [address] [address] Vision loss, bilateral; Bilateral hearing loss, unspecified hearing loss type; Recurrent syncope; Morbid obesity with body mass index of 40.0-49.9 (HCC) 12/12/2024 2:30 PM CDT Office Visit [facility] [address] [place] [phone] Javi Garcia NP Chronic migraine without aura, with intractable migraine, so stated, with status migrainosus (Primary Dx); Post concussion syndrome; Morbid obesity with body mass index of 40.0-49.9 ([facility]); Tremor; Vision loss, bilateral; Bilateral hearing loss, unspecified hearing loss type; Recurrent syncope; Witnessed seizure-like activity (HCC) 11/26/2024 8:44 PM CDT - 11/27/2024 1:35 AM CDT Emergency [facility] Emergency Department 1 [place] [address] Sussy Narayan MD Syncope and collapse (Primary Dx) Discharge Disposition: Discharge to home or self care from Last 3 Months Allergies Active Allergy Reactions Criticality Noted Date [...] 12/19/2019 03/20/2020 History of UTI 12/19/2019 03/20/2020 Immunizations Immunization Administration Dates Next Due Pfizer SARS-CoV-2 Monovalent Vaccination (12+ Yrs) PURPLE 06/27/2021,06/06/2021 Social History Tobacco Use Types Packs/Day Years [...] on file Legal Sex Female 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 INTRACRANIAL VESSELS [place]: The anterior, middle, posterior cerebral [...] Paul Acosta M.D. LC: [place]TE Report ID: [id number] Reading Location: [id number] Procedure Note Reina Acosta MD - 01/18/2025 [...] OTHER: No other significant abnormality. INTRACRANIAL VESSELS [place]: The anterior, middle, posterior cerebral [...] Paul Acosta M.D. LC: [place]TE Report ID: [id number] Reading Location: [place] [address] Javi Garcia NP IMG CT PROCEDURES Final [...] 10:13 PM - Electronically signed by Paul Marteopherson M.D. LC: [place]TE Report ID: [id number] Reading Location: [id number] Procedure Note Reina Acosta MD - 01/18/2025 [...] 10:13 PM - Electronically signed by Paul Sotoerson M.D. LC: [place]AM[place]TE Report ID: [id number] Reading Location: [id number] Javi Garcia RETIREMENT ADMINISTRATOR IMG MRI PROCEDURES Final Re sult * [...] Paul Acosta M.D. LC: LAMONTE Report ID: [id number] Reading Location: [id number] Procedure Note Reina Acosta MD - 01/13/2025 [...] Paul Acosta M.D. LC: LAMONTE Report ID: [id number] Reading Location: [id number] Bacilio Jones MD IMG CT PROCEDURES Final [...] MD LAB BLOOD ORDERABLES Final R esult [facility] ([place]) 1 [facility] [place] [address] * Differential, auto (01/13/2025 8:31 PM CDT) Neutrophil abs 3.03 1.50 - 6.50 K/cumm Imm gran abs 0.03 0.00 - 0.10 K/cumm [facility] ([place]) Lymphocyte abs 2.44 0.80 - 3.30 K/cumm [facility] ([place]) Monocyte abs 0.64 0.20 - 0.80 K/cumm [facility] ([place]) Eosinophil abs 0.16 0.00 - 0.50 K/cumm [facility] ([place]) Basophil abs 0.06 0.00 - 0.10 K/cumm [facility] ([place]) Neutrophil pct 47.6 % [facility] ([place]) Comment: Interpretive Data Percent cell count reference ranges are not reported, since discordance with absolute values may lead to misinterpretation of CBC data. Current Interpretive Data was last revised on 2017. Imm gran pct 0.5 % [facility] ([place]) Comment: Interpretive Data Percent cell count reference ranges are not reported, since discordance with absolute values may lead to misinterpretation of CBC data. Current Interpretive Data was last revised on 2017. Lymphocyte pct 38.4 % [facility] ([place]) Comment: Interpretive Data Percent cell count reference ranges are not reported, since discordance with absolute values may lead to misinterpretation of CBC data. Current Interpretive Data was last revised on 2017. Monocyte pct 10.1 % [facility] ([place]) Comment: Interpretive Data Percent cell count reference ranges are not reported, since discordance with absolute values may lead to misinterpretation of CBC data. Current Interpretive Data was last revised on 2017. Eosinophil pct 2.5 % [facility] ([place]) Comment: Interpretive [...] MD LAB BLOOD ORDERABLES Final R esult [facility] ([place]) 1 [facility] Department [place] [address] * CBC with auto differential (01/13/2025 8:31 [...] BLOOD ORDERABLES Final R esult [facility] ([place]) 1 [facility] [place] [address] * hCG, blood, quantitative (01/13/2025 8:31 PM CDT) hCG, quant <5.0 0.0 - 5.0 IUnits/L [...] LAB BLOOD ORDERABLES Edited Result - Final [facility] ([place]) 1 [place] [address] * Comprehensive metabolic panel (01/13/2025 8:31 PM CDT) Sodium 136 135 - 145 mmol/L Potassium, pl 4.0 3.3 - 4.9 mmol/L [facility] ([place]) Chloride 99 97 - 110 mmol/L [facility] ([place]) CO2 26 22 - 32 mmol/L [facility] ([place]) Anion gap 12 2 - 15 mmol/L [facility] ([place]) BUN 10 6 - 25 mg/dL [facility] ([place]) Creatinine 0.86 0.60 - 1.10 mg/dL [facility] ([place]) Glucose 88 70 - 199 mg/dL [facility] ([place]) Comment: Interpretive Data Fasting glucose >/= [...] Final R esult [facility] ([place]) 1 [facility] [place] [address] * ECG 12 lead (01/13/2025 8:23 PM CDT) 01/13/2025 8:23 PM CDT Narrative [facility] - 01/14/2025 6:41 AM CDT Vent Rate: 89 bpm RR Interval: 674 msec NM Interval: 129 msec QRS Duration: 98 msec QT Interval: 348 msec QTC Interval: 394 msec P-R-T Ashby: 15 - 11 - 4 degrees IMPRESSION: SINUS RHYTHM POSSIBLE LEFT ATRIAL ENLARGEMENT [-0.1mV P WAVE IN V1/V2] POSSIBLE ANTERIOR MYOCARDIAL INFARCTION , OF INDETERMINATE AGE [30 ms Q WAVE IN V3/V4, OR R < 0.2 mV IN V4] ABNORMAL ECG NO CHANGE FROM PREVIOUS TRACING NOTED Electronically Signed By: Hermes Ricci MD Bacilio Jones MD ECG ORDERABLES Final Result [facility] * Throat culture Throat (01/04/2025 6:01 PM CDT) Report Final Report: No growth of pathogens. Comment:Testing performed by : [facility], [address] [place]., [address] Throat 01/04/2025 6:01 PM CDT 01/05/2025 5:42 AM CDT Narrative [facility] - 01/06/2025 1:51 AM CDT Testing performed by [facility] Microbiology Laboratory ([phone]). Natalie GALVIN LAB MICROBIOLOGY - GENERAL ORDERABLES Final Result Performing Organization Address [facility] Co de Phone Number [facility] [address] [address] Department of Laboratories [place], [place] [phone] * POCT rapid strep A (01/04/2025 5:56 PM CDT) Pathologist [facility] Rapid Strep A, POC Negative Negative Swab 01/04/2025 5:56 PM CDT Natalie GALVIN POINT OF CARE TEST ORDERABLES Final Result * Thyroid Function [place] (12/29/2024 10:58 AM CDT) TSH 1.77 0.30 - 4.20 mcIUnit/mL Blood 12/29/2024 10:5 8 AM CDT 12/29/2024 11:25 AM CDT Javi Garcia NP LAB BLOOD ORDERABLES Final Result Performing Organization Address City/[facility]/ZIP Co de Phone Number [facility] ([place]) 1 [facility] [place] [address] * (ABNORMAL) Vitamin D 25 hydroxy (12/29/2024 10:58 AM CDT) Pathologist [facility] Vitamin D 25-OH 9(L) 30 - 80 ng/mL Blood 12/29/2024 10:5 8 AM CDT 12/29/2024 11:25 AM CDT Javi Garcia RETIREMENT ADMINISTRATOR LAB BLOOD ORDERABLES Final Result [facility] ([place]) 1 [place] [address] * Folate (12/29/2024 10:58 AM CDT) [facility] Folic acid 8.7 >=5.0 ng/mL Comment:Slightly Hemolyzed S pecimen. Results may be affected. Blood 12/29/2024 10:5 8 AM CDT 12/29/2024 11:25 AM CDT Javi Garcia RETIREMENT ADMINISTRATOR LAB BLOOD ORDERABLES Final Result [facility] ([place]) 1 [facility] [place] [address] * Vitamin B12 (12/29/2024 10:58 AM CDT) Pathologist [facility] Vitamin B12 734 230 - 1,250 pg/mL Blood 12/29/2024 10:5 8 AM CDT 12/29/2024 11:25 AM CDT Javi Garcia RETIREMENT ADMINISTRATOR LAB BLOOD ORDERABLES Final Result [facility] ([place]) 1 [facility] [place] [address] * Lipid panel (12/29/2024 10:58 AM CDT) Cholesterol 169 30 - 199 mg/dL Comment: [...] on 2018. Triglycerides 77 <=149 mg/dL [facility] ([place]) Comment: Interpretive Data [...] on 2018. HDL 60 >=40 mg/dL [facility] ([place]) Comment: Interpretive Data Ages < or [...] 2018. LDL, calculated 94 <=129 mg/dL [facility] ([place]) Comment: Interpretive Data Ages < or = 19 years Acceptable: <110 mg/dL Borderline high: 110-129 mg/dL High: >or= 130 mg/dL Ages > or = 20 years Optimal: <100 mg/dL Near optimal: 100-129 mg/dL Borderline high: 130-159 mg/dL High: >160 mg/dL Calculated using the Ja LDL-C estimating equation. This equation was implemented on 2024. Prior to this date LDL-C was estimated using the Friedewald equation. Literature References: 1. Expert Panel on Integrated Guidelines for Cardiovascular Health and Risk Reduction in Children and Adolescents. Pediatrics 2011;128:S213 2. NCEP Expert Panel. Circulation 2004;110:227 3. Ja Man et al. STEWART Cardiol. 2020 December 06;5(5):540-548. doi: 10.1001/jamacardio.2020.0013 Current Interpretive Data was [...] 8 AM CDT 12/29/2024 11:25 AM CDT us Javi Garcia NP LAB BLOOD ORDERABLES Final Result [facility] ([place]) 1 [facility] Department [place] [address] * (ABNORMAL) Urinalysis reflex to microscopic and culture Urine (11/26/2024 11:31 PM CDT) Color, ur Straw Yellow Clarity, ur Clear Clear [facility] ([place]) Specific gravity, ur 1.011 1.003 - 1.030 [facility] ([place]) pH, urine 6.5 [facility] ([place]) Comment: Interpretive Data U rine pH is affected by diet, medications, systemic acid-base disturbances, and renal tubular function. pH may affect urinary stone formation. For example, urine pH below 6.0 may help reduce the tendency for calcium phosphate stones and pH greater than 6.0 may reduce the tendency for uric acid stone formation. Source: [facility] [place] Current Interpretive Data was last revised on [...] MICROBIOLOGY - GENERAL ORDER LEE Final Result [facility] ([place]) 1 [facility] Department [place] [address] * (ABNORMAL) Urinalysis, microscopic only (11/26/2024 11:31 [...] LAB URINE ORDERABLES Final Res ult [facility] ([place]) 1 [facility] [place] [address] * POCT hCG, urine (11/26/2024 11:28 PM [...] Kelvin Levy M.D. AT: AT Report ID: [id number] Reading Location: [id number] Procedure Note Kelvin Levy MD - 11/26/2024 [...] Kelvin Levy M.D. AT: AT Report ID: [id number] Reading Location: [id number] us Sussy Narayan MD IMG CT PROCEDURES Final Result * Shiro level (11/26/2024 9:28 PM CDT) Shiro 0.6 0.6 - 1.2 mmol/L Comment:Testing performed by : [facility], 1 [facility], [place]., [address] Blood 11/26/2024 9:28 PM CDT 11/27/2024 8:56 AM CDT us Sussy Narayan MD LAB BLOOD ORDERABLES Final Resul t [facility] ([place]) 1 [facility] Department [place] [address] * eGFR (11/26/2024 8:22 PM CDT) eGFR [...] MD LAB BLOOD ORDERABLES Final Res ult [facility]) 1 [facility] [place] [address] * Differential, auto (11/26/2024 8:22 PM CDT) Neutrophil abs 3.95 1.50 - 6.50 K/cumm Imm gran abs 0.02 0.00 - 0.10 K/cumm [facility] ([place]) Lymphocyte abs 2.05 0.80 - 3.30 K/cumm [facility] ([place]) Monocyte abs 0.57 0.20 - 0.80 K/cumm [facility] ([place]) Eosinophil abs 0.24 0.00 - 0.50 K/cumm [facility] ([place]) Basophil abs 0.06 0.00 - 0.10 K/cumm [facility] ([place]) Neutrophil pct 57.2 % [facility] ([place]) Comment: Interpretive [...] revised on 2017. Monocyte pct 8.3 % [facility] ([place]) Comment: Interpretive Data [...] CDT 11/26/2024 8:25 PM CDT us Sussy Narayna MD LAB BLOOD ORDERABLES Final Resul t [facility] ([place]) 1 [facility] Department [place] [address] * CBC with auto differential (11/26/2024 8:22 PM CDT) WBC 6.89 3.80 - 9.90 K/cumm Hgb 13.7 11.9 - 15.5 g/dL [facility] ([place]) Hct 41.2 35.6 - 45.5 % [facility] ([place]) Plt 259 150 - 400 K/cumm [facility] ([place]) MPV 9.6 9.1 - 12.3 fL [facility] ([place]) RBC 4.75 3.90 - 5.20 M/cumm [facility] ([place]) MCV 86.7 81.3 - 96.4 fL [facility] ([place]) MCH 28.8 27.1 - 33.3 pg [facility] ([place]) MCHC 33.3 32.3 - 35.7 g/dL [facility] ([place]) RDW CV 13.4 11.1 - 14.9 % [facility] ([place]) RDW SD 43.1 35.7 - 48.1 fL [facility] ([place] NRBC abs 0.00 0.00 - 0.01 K/cumm [facility] ([place] Blood 11/26/2024 8:22 PM CDT 11/26/2024 8:25 PM CDT us Sussy Narayan MD LAB BLOOD ORDERABLES Final Resul t [facility] ([place]) 1 [facility] Department [place] [address] * Comprehensive metabolic panel (11/26/2024 8:22 PM CDT) Sodium 138 135 - 145 mmol/L Potassium, pl 4.0 3.3 - 4.9 mmol/L [facility] ([place] Chloride 102 97 - 110 mmol/L [facility] ([place]) CO2 22 22 - 32 mmol/L [facility] ([place]) Anion gap 14 2 - 15 mmol/L [facility] ([place]) BUN 16 6 - 25 mg/dL [facility] ([place]) Creatinine 0.85 0.60 - 1.10 mg/dL [facility] ([place]) Glucose 95 70 - 199 mg/dL [facility] ([place] Comment: Interpretive Data Fasting glucose [...] Final Resul t [facility] ([place]) 1 [facility] [place] [address] * ECG 12 lead (11/26/2024 8:17 PM CDT) 11/26/2024 8:17 PM CDT Narrative [facility] - 11/27/2024 6:49 AM CDT Vent Rate: 100 bpm RR Interval: 598 msec NM Interval: 126 msec QRS Duration: 108 msec QT Interval: 349 msec QTC Interval: 406 msec P-R-T Ashby: 11 - 10 - 4 degrees IMPRESSION: SINUS TACHYCARDIA POSSIBLE LEFT ATRIAL ENLARGEMENT [-0.1mV P WAVE IN V1/V2] NONSPECIFIC ST \T\ T-WAVE ABNORMALITY ABNORMAL RHYTHM ECG NO CHANGE FROM PREVIOUS TRACING NOTED Electronically Signed By: Hermes Ricci MD us Sussy Narayan MD ECG ORDERABLES Final Result [facility] from Last 3 Months Insurance IDPA [facility] CIGNA OPEN ACCESS CIGNA ALLEGIANCE CIGNA ALLEGIANCE CIGNA ALLEGIANCE Care Teams Gamma Facilities Operator Relationship Specialty Start Date End Date Mayelin Ruffin MD [address] [place] [phone] PCP - General Family Medicine 07/12/23
--- OUTSIDE RECORDS SUMMARY | 2025-01-21 19:50 | XMS_ITS | Encounter Summary ---
Author Organization [facility] Healthcare Address [address] [place] [address] Care Team Providers Care Certified Flex Endoscope Reprocessor Name Role Phone Mayelin Ruffin MD Primary Care Provider +1- [phone] Encounter Details Date Type Department Care Team (Late st Contact Info) Description 01/01/2025 Results Follow-Up [facility] [address] [place] [address] [address] [address] Aby Vasquez MA Folate, Vitamin D 25 hydroxy, Thyroid Function [address], Additional followed-up results: 3 Social History Tobacco Use Types Packs/Day Years Used Date Smoking Tobacco: Never Smokeless Tobacco: Never Alcohol Use Standard Drinks/Week Comments Not Currently [...] making you feel afraid or unsafe? 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 Pt stated the CT she had in the ER showed something behind her right eye she was wondering if that was still there.Also was wondering if you got her EEG results. * Result Encounter Note - Aby Vasquez MA - 01/01/2025 8:45 AM CDT Lvm/ sent my chart message regarding lab results. documented in this encounter Plan of Treatment Not on file documented as of this encounter Visit Diagnoses Not on filedocumented in this encounter Care Teams Certified Flex Endoscope Reprocessor Relationship Specialty Start Date End Date Mayelin Ruffin MD [address] [place] [address] PCP - General Family Medicine 07/12/23 documented as of this encounter
--- OUTSIDE RECORDS SUMMARY | 2025-01-21 19:50 | XMS_ITS ---
Author Organization [facility] [employer] Address [address] [place] [address] Care Team Providers Care Gas Blender Name Role Phone RICHARD HOWARD MD Primary Care Provider Unavailab Xiang Lala Unavailable [phone] Allergies Allergen (clinical drug ingredient) Drug/Non Drug Allergy documented on EMR Reaction Allergy Type Onset Date Status Compazine Unknown Drug Allergy 12/08/2023 Active Gluten Gluten Unknown Allergy 12/08/2023 Active REASON FOR VISIT Follow Up Medications Medication SIG (Take, Route, Frequency, Duration) Notes Start Date End Date Status Albuterol Sulfate (2.5 MG/3ML) 0.083% Inhalation 12/08/2023 Active Or[place]own Carbonate ER 450 MG 1 tablet at bedtime Orally Once a day for 30 days Active Cetirizine HCl 10 MG Oral 12/08/2023 Active AIMOVIG AUTOINJECTOR 140 MG/ML SUBCUTANEOUS AUTO-INJECTOR *Reorder from [employer] for eRx and Interaction Alerts* 12/08/2023 Active Pregabalin 100 MG Oral 12/08/2023 A ctive hydrOXYzine HCl 25 MG 1 tablet Orally three times a day for 30 days As needed Active Orrstown Carbonate ER 450 MG 1 tablet at bedtime Orally Once a day for 30 days Active Midodrine HCl 2.5 MG Oral 12/08/2023 Active Nurtec 75 MG Oral *Reorder from [employer] for eRx and Interaction Alerts* 12/08/2023 Active Caplyta 42 MG 1 capsule Orally Once a day for 30 days Active clonazePAM 0.5 MG 1 tablet Oral Once a day for 30 days As needed Active Social History Sex Assigned At : Social History Observation Description Sex Assigned At Female Vital Signs Blood pressure systolic 142 mm Hg 01/08/20 25 Blood pressure diastolic 95 mm Hg 025 Heart Rate 80 /min 01/07/2025 Height 64.00 in 01/07/2025 Weight 270 lbs 01/07/2025 BMI 46.34 kg/m2 01/07/2025 Height-cm 162.56 cm 01/07/2025 Weight-kg 122.47 kg 01/07/2025 Encounters Encounter Location Date Provider [facility] [address] [facility] [address] [place] [address] 01/07/2025 Xiang Argueta Encounter for screen ing for depression Z13.31 ; Encounter for screening for cardiovascular disorders Z13.6 ; Dietary counseling and surveillance Z71.3 ; Bipolar disorder, current episode mixed, moderate F31.62 ; Post-traumatic stress disorder, chronic F43.12 ; Generalized anxiety disorder F41.1 ; Primary insomnia F51.01 ; Other extermination supervisor (current) drug therapy Z79.899 ; Major depressive disorder, recurrent severe without psychotic features 296.33 and Attention and concentration deficit R41.840 Assessments Encounter Date Diagnosis (ICD Code) Assessment Notes Treatment Notes Treatment Clinical Notes Section Notes 01/07/2025 Encounter for screening for depression (ICD-10 - Z13.31) 01/07/2025 Encounter for screening for cardiovascular disorders (ICD-10 - Z13.6) 01/07/2025 Dietary counseling and surveillance (ICD-10 - Z71.3) 01/07/2025 Bipolar disorder, current episode mixed, moderate (ICD-10 - F31.62) [place]own level:Performed on: 2024-11-27 09:17:21Result: 0.6 mmol/L (within normal range). 01/07/2025 Post-traumatic stress disorder, chronic (ICD-10 - F43.12) 01/07/2025 Generalized anxiety disorder (ICD-10 - F41.1) clonazepam 0.5mg daily prn, hydroxyzine 25mg tid prn 01/07/2025 Primary insomnia (ICD-10 - F51.01) 01/07/2025 Other senior care (current) drug therapy (ICD-10 - Z79.899) 01/07/2025 Major depressive disorder, recurrent severe without psychotic features (ICD9-CM - 296.33) 01/07/2025 Attention and concentration deficit (ICD-10 - R41.840) Negative reaction to Concerta. DO NOT recommend stimulant use. Plan Of Treatment Medication Medication Name Sig Start Date Stop Date Notes Atomoxetine HCl 25 MG 1 capsule Orally d aily for 30 days 01/07/2025 hydrOXYzine HCl 25 MG 1 tablet Orally th ree times a day for 30 days Orrstown Carbonate ER 450 MG 1 tablet at bedtime Orally Once a day for 30 days Caplyta 42 MG 1 capsule Orally Onc e a day for 30 days clonazePAM 0.5 MG 1 tablet Oral Once a day for 30 days Treatment Notes Assessment Notes Bipolar disorder, current ep isode mixed, moderate [place] level:Performed on: 2024-11-27 09:17:21Result: 0.6 mmol/L (within normal range). Generalized anxiety disorder clonazepam 0.5mg daily prn, hydroxyzine 25mg tid prn Attention and concentration deficit Nega tive reaction to Concerta. DO NOT recommend stimulant use. Next Appt Details Follow Up: 4 Weeks, Reason: f/u adhd, anxiety Provider Name:Maya Mojica, 02/14/2025 03:00:00 PM, [address] [facility] [address] [facility] [address], [place], [address], Progress Notes * WQAARYANCYIA CDOB:[birth year] (34 yo F)Acc No.[id number]:01/07/2025 Patient: LAWSON RAGLAND Provider: XIOMY GUZMAN :1990 A ge:34 Y S ex:Female Date:01/07/2025 Address:[address] [place], [place] [id number] Pcp:RICHARD HOWARD MD Subjective: * Chief Complaints: * 1 . Follow Up. * HPI: D epression screening: PHQ-9 L ittle interest or pleasure in doing things?Several days F eeling down, depressed, or hopeless N early every day T rouble falling or staying asleep, or sleeping too much N early every day F eeling tired or having little energy N early every day P oor appetite or overeating N early every day F eeling bad about yourself or that you are a failure, or have let yourself or your family down N early every day T rouble concentrating on things, such as reading the newspaper or watching television M ore than half the days M oving or speaking so slowly that other people could have noticed; or the opposite, being so fidgety or restless that you have been moving around a lot more than usual N early every day T houghts that you would be better off or of hurting yourself in some way N ot at all T otal Score 2 1 I nterpretation S evere Depression Intervention D epression Screening Findings P ositmichael F ollow-Up for Depression M entco health care management, Psychiatric follow-up S uicide Risk Assessment Performed 0 01/07/2025 __ date H istory of Presenting Problem: Elevated BP Elevated or Hypertensive blood pressure readingThe patient was seen today for Tele visit. [place] seen at [place] Pt is seen at other than [facility] the session was conducted via a HIPAA-compliance audio/visual platform. Anger management a ge 8 would throw knives at her mom. Anxiety w ith excessive worry, with panic attacks, with restlessness, with excessive worry, which has been long-standing, aggravated by, difficult work, financial and/or relationship issues. Depression w ith feelings of guilt, with decreased concentration, with inability to function, with difficulty sleeping, with feeling of hopelessness and helplessness, with sad mood. Mood lability b ipolar d/o. Psychosis r eports hallucinations, auditory and visual.? Sleep disturbance w ith difficulty falling asleep, with difficulty staying asleep. ADHD h er mom reports she was always easily distracted, would be attention seeking, pester people. Depression screening done She started Atomoxetine for ADHD. Reports she has had increase in moodiness, not able to enjoy things, nightmares. P ast Medication history: Depakote- tremors, P rozac- violent, lamotrigine- vomiting, celexa, Wellbutrin, Seroquel- sick, Latuda- nausea, melatonin, ambien, Zyprexa, vraylar- stomach issues, risperidone, abilify, buspar, Concerta- no appetite, vomit if tried to eat, atomoxetine- made zhang. * Medical History: [facility] ward: Bipolar affective disorder, current episode depression, Bipolar I disorder, Celiac disease, Chronic post-traumatic stress disorder, Generalized anxiety disorder, Long-term current use of drug therapy, Long-term drug therapy, Migraine, Moderate mixed bipolar I disorder, Nightmares associated with chronic post-traumatic stress disorder, Obesity, Osteoarthritis, Primary insomnia, ,, Imported from Highlights: On November 02, 2024, the patient had multiple encounters with healthcare providers at [facility]. The patient was seen by Dr. Nitin Eason DO, for an anesthesia event. The same day, the patient underwent surgery for biliary dyskinesia, a condition affecting the gallbladder, under the care of Dr. Savanna Roberts MD. The patient also had a hospital encounter on the same day for the same condition, again under the care of Dr. Roberts. Additionally, the patient had a travel event on the same day, but no healthcare provider was involved in this event., Imported from PhoneAndPhone: The patient had an emergency visit on 11/26/2024 at [facility], attended by Dr. Sussy Narayan, due to syncope and collapse. The following day, 11/27/2024, the patient had a hospital encounter, followed by a results follow-up with Dr. Arash Abdullahi at [facility]. During an office visit on the same day with Dr. Abdullahi, several issues were identified: bacteria in urine, dilated cardiomyopathy, dysuria, and psychogenic syncope. The patient was also followed up after hospital discharge. Additionally, the patient has uncomplicated asthma of unspecified severity and persistence.. * Social History: M igrated Social History: M igrated Social History: Alcohol Intake: Occasional 01/21/2022,Tobacco Years: Never smoker 06/10/2020,Smoking Status: 0 09/14/2023. * Medications: T aking Midodrine HCl 2.5 MG Tablet Oral , Taking Nurtec 75 MG Tablet Disintegrating Oral , Notes to Pharmacist: *Reorder from [employer] for eRx and Interaction Alerts*, Taking Pregabalin 100 MG Capsule Oral , Taking Cetirizine HCl 10 MG Tablet Oral , Taking AIMOVIG AUTOINJECTOR 140 MG/ML SUBCUTANEOUS AUTO-INJECTOR , Notes to Pharmacist: *[facility] eRx and Interaction Alerts*, Taking Albuterol Sulfate (2.5 MG/3ML) 0.083% Nebulization Solution Inhalation , Taking Orrstown Carbonate ER 450 MG Tablet Extended Release 1 tablet at bedtime Orally Once a day , Taking Caplyta 42 MG Capsule 1 capsule Orally Once a day , Taking clonazePAM 0.5 MG Tablet 1 tablet Oral Once a day As needed, Taking hydrOXYzine HCl 25 MG Tablet 1 tablet Orally three times a day As needed, Taking Orrstown Carbonate ER 450 MG Tablet Extended Release 1 tablet at bedtime Orally Once a day , Taking Atomoxetine HCl 25 MG Capsule 1 capsule Orally daily , stop date 02/05/2025, Medication List reviewed and reconciled with the patient * Allergies: C ompazine: Allergy - Onset Date 12/08/2023, Gluten: Allergy - Onset Date 12/08/2023. Objective: * Vitals: B P:142/95mm Hg, HR:80/min, Wt:270lbs, Wt-k.47 kg, Ht: 64.00 in, Ht-cm: 162.56 cm, BMI:46.34Index, Body Surface Area: 2.35. * Examination: P sychiatry: Appearance: w ell-groomed, well-nourished, .... Affect / mood: a ppropriate, full range. Attention: g ood. Attitude: c ooperative. Suicidal ideation: n one. Memory status: n o impairment noted. Degree of awareness of surroundings: w ithin normal limits.? Delusions: n o. Hallucinations: n o. Insight: g ood. Intellectual functioning: n o impairment noted. Judgement: g ood. Orientation: a wake, alert and oriented x 3. Perceptual disorders: n o perceptual disorder noted. Psychomotor activity: w ithin normal range. Speech / language: a ppropriate pitch/modulation, clear and coherent, normal rate, volume, and articulation (RVR), proper grammar used. Thought content: a ppropriate. Thought process: i ntact. Assessment: * Assessment: 1. E ncounter for screening for depression - Z13.31 (Primary) 2 . E ncounter for screening for cardiovascular disorders - Z13.6 3 . D ietary counseling and surveillance - Z71.3 4 . B ipolar disorder, current episode mixed, moderate - F31.62 5 . P ost-traumatic stress disorder, chronic - F43.12 6 .?Generalized anxiety disorder - F41.1 7 . P rimary insomnia - F51.01 ? 8 . O ther senior care (current) drug therapy - Z79.899 9 . M ajor depressive disorder, recurrent severe without psychotic features - 296.33 1 0. A ttention and concentration deficit - R41.840 Plan: * Treatment: 2. G eneralized anxiety disorder Continue clonazePAM Tablet, 0.5 MG, 1 tablet, Oral, Once a day As needed, 30 days, 30 Tablet, Refills 1; R efill hydrOXYzine HCl Tablet, 25 MG, 1 tablet, Orally, three times a day As needed, 30 days, 90 Tablet, Refills 3. Notes: clonazepam 0.5mg daily prn, hydroxyzine 25mg tid prn 3. A ttention and concentration deficit Stop Atomoxetine HCl Capsule, 25 MG, 1 capsule, Orally, daily, 30 days, 30 Capsule. Notes: Negative reaction to Concerta. DO NOT recommend stimulant use. * Procedure Codes: 9 6127 BEHAV ASSMT W/SCORE & DOCD/STAND INSTRUMENT, 1036F TOBACCO NON-USER, G8950 PREHTN/HTN BP DOC INDCD F/U DOC, G8950 PREHTN/HTN BP DOC INDCD F/U DOC, G8431 CLIN DEPRESSION SCREEN DOC, G8753 MOST RECENT SYSTOLIC BP >= 140MM HG, G8755 MOST RECENT DIASTOLIC BP >= 90MM HG * Preventive Medicine: Counseling: B P Management: PRE-HYPERTENSIVE FOLLOW-UP PLAN: F ollow-up 2-3 months LIFESTYLE RECOMMENDATION: L ifestyle education REFERRAL TO ALTERNATIVE / PRIMARY CARE PROVIDER: R eferral to general physician Screenings: D epression screening Have you had a recent depression screening? Y es * Follow Up: 4 Weeks (Reason: f/u adhd, anxiety) * Billing Information: * Visit Code: 25840 OFFICE OUTPATIENT VISIT 25 MINUTES DETAILED HISTORY AND EXAM/MODERATE MEDICAL DECISION MAKING. * Procedure Codes: 69819 BEHAV ASSMT W/SCORE & DOCD/STAND INSTRUMENT. 1036F TOBACCO NON-USER. G8950 PREHTN/HTN BP DOC INDCD F/U DOC. G8950 PREHTN/HTN BP DOC INDCD F/U DOC. G8431 CLIN DEPRESSION SCREEN DOC. G8753 MOST RECENT SYSTOLIC BP >= 140MM HG. G8755 MOST RECENT DIASTOLIC BP >= 90MM HG. * Electronic signature of Juan Luis beckman Kendall PMHNP on 01/21/2025 at 07:50 PM CDT Sign off status: Pending * Provider: Ezio ARGUETA PMHNP Date: 01/07/2025 Generated for Sridhar ramírez/Rosina/Thai on: 0 01/21/2025 07:50 PM CDT History and Physical Notes * HPI (History of Present Illness) Category Sub-Category Detail Notes Category Not es History of Presenting Problem Anxiety with excessive worry, with p anic attacks, with restlessness, with excessive worry, which has been long-standing, aggravated by, difficult work, financial and/or relationship issues Depression screening done She started Atomoxetine for ADHD. Reports she has had increase in moodiness, not able to enjoy things, nightmares. Depression with feelings of belkys lt, with decreased concentration, with inability to function, with difficulty sleeping, with feeling of hopelessness and helplessness, with sad mood Anger management age 8 would throw kn anand at her mom Sleep disturbance with difficulty fall ing asleep, with difficulty staying asleep Psychosis reports hallucinatio ns, auditory and visual Mood lability bipolar d/o ADHD her mom reports she was always easily distracted, would be attention seeking, pester people Depression screening PHQ-9 Little inte rest or pleasure in doing things: Several days Feeling down, depressed, or hopeless: Ne tatiana every day Trouble falling or staying asleep, or sl eeping too much: Nearly every day Feeling tired or having little energy: N early every day Poor appetite or overeating: Nearly ever y day Feeling bad about yourself o r that you are a failure, or have let yourself or your family down: Nearly every day Trouble concentrating on thi ngs, such as reading the newspaper or watching television: More than half the days Moving or speaking so slowly that other people could have noticed; or the opposite, being so fidgety or restless that you have been moving around a lot more than usual: Nearly every day Thoughts that you would be b sree off or of hurting yourself in some way: Not at all Total Score: 21 Interpretation: Severe Depression Intervention Depression Screening Findings: P ositve Follow-Up for Depression: [facility] health care management, Psychiatric follow-up Suicide Risk Assessment Performed: 01/07 __ date Examination Category Sub-Category Detail Notes Category Not es Psychiatry Appearance: well-groomed, well-nourished , ... Attitude: cooperative Psychomotor activity: within normal rang e Attention: good Degree of awareness of surroundings: wit hin normal limits Orientation: awake, alert and dede ented x 3 Affect / mood: appropriate, full ra nge Speech / language: appropriate pitch/mo dulation, clear and coherent, normal rate, volume, and articulation (RVR), proper grammar used Insight: good Judgement: good Thought process: intact Thought content: appropriate Perceptual disorders: no perceptual diso rder noted Suicidal ideation: none Intellectual functioning: no impairment noted Memory status: no impairment noted Delusions: no Hallucinations: no
--- OUTSIDE RECORDS SUMMARY | 2025-01-21 19:50 | XMS_ITS | Encounter Summary ---
Author Organization [facility] Address [address] [place] [address] Phone Care Team Providers Care Hand Candle Molder Name Role Phone Mono García MD Primary Care Provider Terry Looney MD Primary Care Provider Mayelin Ruffin MD Primary Care Provider [phone] Encounter Details Date Type Department Care Team (Late st Contact Info) Description 01/12/2021 Telephone [facility] Cardiology [address] [facility] [address] [place] [address] [place] [address] Aleta Do Social History Tobacco Use Types Packs/Day Years Used Date Smoking Tobacco: Never Smokeless Tobacco: Never Alcohol Use Standard Drinks/Week Comments Not Currently 0 (1 standard drink = 0.6 oz pur e alcohol) Comments No Sex and Gender Information Value Date Recorded Sex Assigned at Not on file Legal Sex Female 8:28 AM ORGANIZATIONAL EFFECTIVENESS CONSULTANT Gender Identity Female 01/22/2021 5:39 PM CDT Sexual Orientation Bisexual 01/22/2021 5: 39 PM CDT documented as of this encounter Plan of Treatment Not on file documented as of this encounter Visit Diagnoses Not on filedocumented in this encounter Additional Health Concerns Infection Onset Date Last Indicated Resolved Time COVID: Suspected 07/15/2022 07/15/2022 07/15/2022 3:39 PM ORGANIZATIONAL EFFECTIVENESS CONSULTANT COVID19 07/15/2022 07/15/2022 07/25/2022 3:07 AM ORGANIZATIONAL EFFECTIVENESS CONSULTANT COVID: Recovered Comment:Added based on recent COVID infection. 07/25/2022 07/27/2022 10/23/2022 3:05 AM C DT COVID: Suspected 07/06/2023 07/06/2023 07/06/2023 5:14 PM ORGANIZATIONAL EFFECTIVENESS CONSULTANT COVID: Suspected 02/28/2024 02/28/2024 02/28/2024 6:59 PM CDT documented as of this encounter Care Teams Hand Candle Molder Relationship Specialty Start Date End Date Mono García MD [address] [facility] [place] [address] PCP - General 11/05/20 03/28/22 Terry Looney MD [address] [facility] [address] [place] [address] PCP - General Family Medicine 03/29/22 07/11/23 Mayelin Ruffin MD [address] [place] [address] PCP - General Family Medicine 07/12/23 documented as of this encounter
--- OUTSIDE RECORDS SUMMARY | 2025-01-21 19:50 | XMS_ITS | Encounter Summary ---
Author Organization [facility] Healthcare Address [address] [place] [address] Care Team Providers Care Per Diem Physical Therapist Name Role Phone Mayelin Ruffin MD Primary Care Provider [phone]- [phone] Encounter Details Date Type Department Care Team (Late st Contact Info) Description 01/06/2025 Results Follow-Up [facility] Medical Group Convenient Care at [address] [address] Ritu Hui, CARPET LAYER HELPER [address] [place] [address] Throat culture Throat Social History Tobacco Use Types Packs/Day Years [...] on file Legal Sex Female 8:28 AM FRUIT DRYER Gender Identity Female 01/22/2021 5:39 PM CDT Sexual Orientation Bisexual 01/22/2021 5: 39 PM CDT documented as of this encounter Miscellaneous Notes * Result Encounter Note - Tammie Dong MA - 01/06/2025 10:08 AM CDT Patient notified. documented in this encounter Plan of Treatment Not on file documented as of this encounter Visit Diagnoses Not on filedocumented in this encounter Care Teams Per Diem Physical Therapist Relationship Specialty Start Date End Date Mayelin Ruffin MD [address] [place] [phone] PCP - General Family Medicine 07/12/23 documented as of this encounter
--- OUTSIDE RECORDS SUMMARY | 2025-01-21 19:50 | XMS_ITS | Encounter Summary ---
Author Organization [facility] Address [address] [facility] [place] [address] Care Team Providers Care Warehouse Worker 2Nd Shift Name Role Phone Mayelin Rufifn MD Primary Care Provider Encounter Details Date Type Department Care Team (Late Contact Info) Description 01/15/2025 Results Follow-Up [facility] - Family [address], [place] [phone] Arash Abdullahi MD [address] [place] [phone] Social History Tobacco Use Types Packs/Day Years Used Date Smoking Tobacco: Never Smokeless Tobacco: Never Alcohol Use Standard Drinks/Week Comments Yes 0 (1 standard drink = 0.6 oz pur e alcohol) on holidays/special occasions PHQ-2 Answer Date Recorded Patient Health Questionnaire-2 Score 0 11/27/2024 Comments No Sex and Gender Information Value Date Recorded Sex Assigned at Female 07/05/2023 4:04 PM COMMERCIAL APPRAISER Legal Sex Female 4:40 PM CDT Gender Identity Female 07/05/2023 4:04 PM COMMERCIAL APPRAISER Sexual Orientation Bisexual 07/05/2023 4: 04 PM COMMERCIAL APPRAISER documented as of this encounter Plan of Treatment Upcoming Encounters Date Type Department Care Team (Late Contact Info) Description 01/31/2025 1:00 PM CDT Office Visit [facility] - [address] [phone] Mayelin Ruffin MD [address] [facility] [address] [place] [phone] 02/12/2025 4:20 PM CDT Office Visit [facility] Group - GI [address] [facility] [address] [place] [address] Candace Perez MD [address] [facility] [address] [place] [phone] 02/27/2025 2:40 PM CDT Office Visit [facility] - Family Medicine [facility] [facility], [place] [phone] Mayelin Ruffin MD [address] [facility] [address] [place] [phone] 03/07/2025 3:30 PM CDT Office Visit [facility] - Cardiology [address] [facility] [address] [place] [address] Laurie Pop MD [address] [facility] [address] [place] [address] documented as of this encounter Visit Diagnoses Not on filedocumented in this encounter Care Teams Warehouse Worker 2Nd Shift Relationship Specialty Start Date End Date Mayelin Ruffin MD [address] [facility] [address] [place] [phone] PCP - General Family Medicine 06/29/23 documented as of this encounter
--- OUTSIDE RECORDS SUMMARY | 2025-01-21 19:51 | XMS_ITS | Patient Health Record ---
Author Organization [facility] Address [address] [place] [address] Care Team Providers Care Ore Charger Name Role Phone RICHARD HOWARD MD Primary Care Provider Unavailab Xiang Lala Unavailable [phone] Maya Mojica Unavailable [phone] Bishop Natarajan Unavailable [phone] Allergies Allergen (clinical drug ingredient) Drug/Non Drug Allergy documented on EMR Reaction Allergy Type Onset Date Status Compazine Unknown Drug Allergy 12/08/2023 Active Gluten Gluten Unknown Allergy 12/08/2023 Active Results Component Value Reference Range Notes UDT Reviewed date:11/19/2024 05:10:40 PM Interpretation: Performing Lab: Notes/Report: THC NEG 0 - 50 ng/ml Cocaine NEG 0 - 300 ng/ml Amphetamine NEG 0 - 1000 ng/ml Buprenorphine (BUP) NEG 0 - 10 ng/ml Secobarbital (Bar) NEG 0 - 300 ng/ml Oxazepam (BZO) NEG 0 - 300 ng/ml 3-pozuqhnaak-0,4-mkltjagk-7,3-diphenylpyrrolidine (CYNTHIA P) NEG 0 - 300 ng/ml Methamphetamine (MET) NEG 0 - 1000 ng/ml Methylenedioxymethamphetamine (MDMA) NEG 0 - 500 ng/ml Morphine (MOP 300/[id number]) NEG 0 - 300 ng/ml Methadone (MTD) NEG 0 - 300 ng/ml Phencyclidine (PCP) NEG 0 - 25 ng/ml Nortriptyline (TCA) NEG 0 - 1000 ng/ml Oxycodone NEG 0 - 300 ng/ml x NEG 0 - 300 ng/ml Reason For Referral No Information Medications Medication SIG (Take, Route, Frequency, Duration) Notes Start Date End Date Status Albuterol Sulfate (2.5 MG/3ML) 0.083% Inhalation 12/08/2023 Active Pregabalin 100 MG Oral 12/08/2023 A ctive Nurtec 75 MG Oral *[facility] and Interaction Alert[facility]* 12/08/2023 Active AIMOVIG AUTOINJECTOR 140 MG/ML SUBCUTANEOUS AUTO-INJECTOR *Reorder from [facility] for eRx and Interaction Alerts* 12/08/2023 Active Cetirizine HCl 10 MG Oral 12/08/2023 Active hydrOXYzine HCl 25 MG 1 tablet Orally three times a day for 30 days As needed Active clonazePAM 0.5 MG 1 tablet Oral Once a day for 30 days As needed Active [place] Carbonate ER 450 MG 1 tablet at bedtime Orally Once a day for 30 days Active Caplyta 42 MG 1 capsule Orally Once a day for 30 days Active [place] Carbonate ER 450 MG 1 tablet at bedtime Orally Once a day for 30 days Active Immunizations Vaccine Route Administration Date Status Comme nts Influenza virus vaccine, quadrivalent (IIV4), split virus, 0.25 mL dosage Unknown 08/19/2015 Administered Influenza virus vaccine, quadrivalent (IIV4), split virus, 0.25 mL dosage Unknown 03/08/2018 Administered Influenza virus vaccine, quadrivalent (IIV4), split virus, 0.25 mL dosage Unknown 06/16/2019 Administered Influenza, injectable, MDCK, preservative free Unknown 06/16/2019 Administered Influenza, quadrivalent, spl it virus Unknown 06/16/2019 Administered Novel [id number], preservative free Unknown 04/10/2020 Administered Pfizer Biontech Covid-19 Vac cine 2nd dose Unknown 06/06/2021 Administered Pfizer Biontech Covid-19 Vac cine 2nd dose Unknown 06/27/2021 Administered Tdap Unknown 11/01/2017 Administered Social History Tobacco Use: Social History Observation Description Date Details (start date - stop date) Never Smoker NA - NA Sex Assigned At : Social History Observation Description Sex Assigned At Female Tobacco Control (Standard) Question Answer Notes Tobacco use: Nonsmoker AUDIT-C (Standard) Question Answer Notes Points 2 Interpretation Negative Did you have a drink contain ing alcohol in the past year? Yes How often did you have six o r more drinks on one occasion in the past year? Less than monthly (1 point) How many drinks did you have on a typical day when you were drinking in the past year? 1 or 2 drinks (0 point) How often did you have a dri nk containing alcohol in the past year? Monthly or less (1 point) Problems Problem Type SNOMED Code ICD Code Onset Dates Problem Status W/U Status Risk Notes Problem Bipolar affective disorder, currently depressed, mild (838553645) Bipolar disorder, current episode depressed, mild (F31.31) Active confirmed Problem Bipolar affective disorder, currently depressed, moderate (349424710) Bipolar disorder, current episode depressed, moderate (F31.32) 12/08/19 24 Active confirmed Problem Mixed bipolar affective disorder, moderate (145254033) Bipolar disorder, current episode mixed, moderate (F31.62) Active confirmed Problem Generalized anxiety disorder (81443285) Generalized anxiety disorder (F41.1) 12/08/19 24 Active confirmed Problem Posttraumatic stress disorder (85084404) Post-traumatic stress disorder, chronic (F43.12) 12/08/19 24 Active confirmed Problem Primary insomnia (4445065) Primary insomnia (F51.01) 12/08/19 24 Active confirmed Problem Attention deficit hyperactivity disorder, predominantly inattentive type (disorder) (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) Attention and concentration deficit (R41.840) Active confirmed Problem Attention deficit hyperactivity disorder (497910975) ADHD (attention deficit hyperactivity disorder) (F90.9) Active confirmed Vital Signs Heart Rate 80 /min 01/07/2025 Height-cm 162.56 cm 01/07/2025 Blood pressure diastolic 95 mm Hg 01/07/2025 Weight-kg 122.47 kg 01/07/2025 Height 64.00 in 01/07/2025 Blood pressure systolic 142 mm Hg 01/07/2025 Weight 270 lbs 01/07/2025 BMI 46.34 kg/m2 01/07/2025 Procedures Procedure Date Ordered Date Performed Result Body Sit e ADHD Testing 11/06/2024 11/19/2024 N/A Encounters Encounter Location Date Provider Diagnosis [facility] [place] [facility] [address] [address] 03/05/2024 Maya Mojica Post-traumatic stres s disorder, chronic F43.12 ; Bipolar disorder, current episode depressed, mild F31.31 and Generalized anxiety disorder F41.[address] [facility] [address] [facility] [address] [place] [address] 05/03/[address] 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 [address] [facility] [address] [place] [address] 01/26/2024 Xiang Argueta Bipolar disorder, current episode depressed, moderate F31.32 ; Post-traumatic stress disorder, chronic F43.12 ; Generalized anxiety disorder F41.1 and Primary insomnia F51.[address] [facility] [address] [facility] [address] [place] [address] 03/20/2024 Xiang Argueta Bipolar disorder, current episode depressed, moderate F31.32 ; Post-traumatic stress disorder, chronic F43.12 ; Generalized anxiety disorder F41.1 and Primary insomnia F51.[address] [facility] [address] [facility] [address] [place] [address] 05/08/2024 Xiang Argueta Bipolar disorder, current episode depressed, moderate F31.32 ; Post-traumatic stress disorder, chronic F43.12 ; Generalized anxiety disorder F41.1 and Primary insomnia F51.01 [facility], [facility] [address] [place] [address] 05/28/2024 Maya Mojica Bipolar disorder, current episode depressed, moderate F31.32 ; Post-traumatic stress disorder, chronic F43.12 and Generalized anxiety disorder F41.[address] [facility] [address] [place] [address] 06/05/2024 Xiang Shaha Post-traumatic stres s disorder, chronic F43.12 ; Generalized anxiety disorder F41.1 ; Primary insomnia F51.01 and Bipolar disorder, current episode mixed, moderate F31.62 [facility], [facility] [address] [address] 06/26/2024 Maya Hemann Bipolar disorder, current episode depressed, moderate F31.32 ; Post-traumatic stress disorder, chronic F43.12 and Generalized anxiety disorder F41.[address] [facility] [address] [address] 07/04/2024 Xiang Argueta Post-traumatic stres s disorder, chronic F43.12 ; Generalized anxiety disorder F41.1 ; Primary insomnia F51.01 and Bipolar disorder, current episode mixed, moderate F31.[address] [facility] [address] [address] 2024 Maya Hemann Bipolar disorder, current episode depressed, moderate F31.32 ; Post-traumatic stress disorder, chronic F43.12 and Generalized anxiety disorder F41.[address] 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 [address] [address] 08/20/2024 Maya Hemann Bipolar disorder, current episode depressed, moderate F31.32 ; Post-traumatic stress disorder, chronic F43.12 and Generalized anxiety disorder F41.[address] [facility] [address] [address] 08/31/2024 Maya Hemann Bipolar disorder, current episode depressed, moderate F31.32 ; Post-traumatic stress disorder, chronic F43.12 and Generalized anxiety disorder F41.1 [facility], [facility] [address] [address] 09/12/2024 Xiang Argueta Post-traumatic stres s disorder, chronic F43.12 ; Generalized anxiety disorder F41.1 ; Primary insomnia F51.01 ; Bipolar disorder, current episode mixed, moderate F31.62 ; Other alf (current) drug therapy Z79.899 and Major depressive disorder, recurrent severe without psychotic features 296.33 [place] [address] [address] 09/14/2024 Maya Hemann Bipolar disorder, current episode depressed, moderate F31.32 ; Post-traumatic stress disorder, chronic F43.12 and Generalized anxiety disorder F41.1 [place] [address] [address] 10/03/2024 Maya Hemann Bipolar disorder, current episode depressed, moderate F31.32 ; Post-traumatic stress disorder, chronic F43.12 and Generalized anxiety disorder F41.1 [place] [address] [address] 10/22/2024 Xiang Shaha [place] [address] [address] 11/06/2024 Xiang Argueta Bipolar disorder, current episode mixed, moderate F31.62 ; Post-traumatic stress disorder, chronic F43.12 ; Generalized anxiety disorder F41.1 ; Primary insomnia F51.01 ; 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.899 ; Major depressive disorder, recurrent severe without psychotic features 296.33 and Attention and concentration deficit R41.840 [place] [address] [address] 11/14/2024 Maya Hemann Bipolar disorder, current episode depressed, moderate F31.32 ; Post-traumatic stress disorder, chronic F43.12 and Generalized anxiety disorder F41.1 [place] [address] [address] 11/19/2024 Bishop Natarajan Lack of concentratio n R41.840 [place] [address] [address] 11/21/2024 Xiangsteven Negrooza Bipolar disorder, current episode mixed, moderate F31.62 ; Post-traumatic stress disorder, chronic F43.12 ; Generalized anxiety disorder F41.1 ; Primary insomnia F51.01 ; Other alf (current) drug therapy Z79.899 ; Major depressive disorder, recurrent severe without psychotic features 296.33 and ADHD (attention deficit hyperactivity disorder) F90.[address] [facility] [address] [place] [address] 11/23/2024 Maya Hemann Bipolar disorder, current episode depressed, moderate F31.32 ; Post-traumatic stress disorder, chronic F43.12 ; Generalized anxiety disorder F41.1 and ADHD (attention deficit hyperactivity disorder) F90.[address] [facility] [address] [place] [address] 12/07/2024 Xiang Argueta Bipolar disorder, current episode mixed, moderate F31.62 ; Post-traumatic stress disorder, chronic F43.12 ; Generalized anxiety disorder F41.1 ; Primary insomnia F51.01 ; Other alf (current) drug therapy Z79.899 ; Major depressive disorder, recurrent severe without psychotic features 296.33 and Attention and concentration deficit R41.[address] [facility] [address] [facility] [address] [place] [address] 01/08/2025 Maya Hemann Bipolar disorder, current episode depressed, moderate F31.32 ; Post-traumatic stress disorder, chronic F43.12 ; Generalized anxiety disorder F41.1 ; ADHD (attention deficit hyperactivity disorder) F90.9 and Encounter for screening for depression Z13.31 [facility], [facility] [address] [facility] [address] [place] [address] 01/16/2025 Maya Hemann Bipolar disorder, current episode depressed, moderate F31.32 ; Post-traumatic stress disorder, chronic F43.12 ; Generalized anxiety disorder F41.1 and ADHD (attention deficit hyperactivity disorder) F90.9 [facility], [facility] [address] [facility] [address] [place] [address] 01/08/2025 Xiang Argueta [facility], [facility] [address] [place] [address] 02/01/2024 Xiang Argueta [facility], [facility] [address] [facility] [address] [place] [address] 05/28/2024 Maya Mojica [facility], [facility] [address] [place] [address] 01/30/2024 Maya Mojica [facility], [facility] [address] [place] [address] 02/12/2024 [facility], [facility] [address] [place] [address] 05/22/2024 Maya [facility], [facility] [address] [place] [address] 05/22/2024 Maya [facility], [facility] [address] [place] [address] 09/14/2024 Xiang Argueta [facility], [facility] [address] [place] [address] 09/14/2024 [facility] [address] [place] [address] 10/01/2024 [facility], [facility] [address] [place] [address] 10/01/2024 [facility], [facility] [address] [place] [address] 10/01/2024 [facility] [address] [place] [address] 11/22/2024 [facility], [facility] [address] [place] [address] 11/28/2024 [facility], [facility] [address] [place] [address] 11/29/2024 [facility], [facility] [address] [place] [address] 12/14/2024 Xiang Argueta Assessments Encounter Date Diagnosis (ICD Code) Assessment Notes Treatment Notes Treatment Clinical Notes Section Notes 01/16/2025 Bipolar disorder, current episode depressed, moderate (ICD-10 - F31.32) 03/05/2024 Post-traumatic stress disorder, chronic (ICD-10 - F43.12) 05/28/2024 Bipolar disorder, current episode depressed, moderate (ICD-10 - F31.32) 05/28/2024 Post-traumatic stress disorder, chronic (ICD-10 - F43.12) 06/05/2024 Post-traumatic stress disorder, chronic (ICD-10 - F43.12) 1. Bipolar depression - mixed episode: - Patient reports worsening symptoms, including suicidal thoughts, irritability, racing thoughts, and difficulty sleeping. - Continue Caplyta 42 mg daily for bipolar disorder. Plan: - Initiate oxcarbazepine 150 mg twice a day as a mood stabilizer. - Reevaluate the effectiveness of the medication regimen in one month. 2. Insomnia: - Patient reports difficulty falling asleep and staying asleep, leading to exhaustion. Plan: - Encourage good sleep hygiene practices. - Monitor response to oxcarbazepine as it may help stabilize sleep patterns. 3. Anxiety: - Patient reports anxiety levels remaining stable. - Continue clonazepam as needed for anxiety. - Continue hydroxyzine 25 mg three times a day as needed for anxiety. 4. PTSD-related nightmares: - Continue prazosin 2 mg at bedtime for nightmares. 5. Impulsivity and financial concerns: - Patient reports managing impulsivity and maintaining control over finances. Plan: - Encourage continued self-monitoring and use of coping strategies. Follow-up: - Schedule a follow-up appointment in one month to assess the patient's response to the new medication regimen and overall mental health status. - Cancel the previously scheduled June 08 appointment. 06/26/2024 Bipolar disorder, current episode depressed, moderate (ICD-10 - F31.32) 06/26/2024 Post-traumatic stress disorder, chronic (ICD-10 - F43.12) 07/04/2024 Post-traumatic stress disorder, chronic (ICD-10 - F43.12) 1. Fibromyalgia: - Patient is currently on Lyrica 150 mg twice a day for fibromyalgia pain management. Plan: - Reevaluate in the spring and consider decreasing the dose to 100 mg twice a day if symptoms improve. 2. Urinary Tract Infection (UTI) : - Patient is currently on Keflex for the UTI. Plan: - Continue taking the prescribed antibiotics as directed. 3. Dissociative Identity Disorder (DID) - Suspected: - Patient reports recent therapy session with Maya, who suggested the possibility of DID. Plan: - Encourage the patient to continue therapy sessions and further evaluation for a definitive diagnosis. 4. Post-Traumatic Stress Disorder (PTSD): - Patient is currently on prazosin 2 mg at bedtime for PTSD symptoms. Plan: - Continue with the current regimen and monitor for any changes in symptoms. 5. Bipolar Disorder: - Patient is currently on oxcarbazepine 150 mg twice a day and reports some improvement in mood stability. Plan: - Increase the dose of Oxcarbazepine to 300 mg twice a day. - Monitor for any changes in symptoms. 6. Anxiety: - Patient is currently on clonazepam as needed for anxiety and hydroxyzine twice a day. Plan: - Refill hydroxyzine prescription. - Continue with the current regimen. 7. COVID-19: - Patient reports having contracted COVID-19 four times since February. Plan: - Encourage the patient to follow public health guidelines and maintain proper hygiene. - Advise patient to consult with their primary care provider for any concerns related to COVID-19. Follow-up: - Schedule a follow-up appointment in one month to assess the patient's response to the increased oxcarbazepine dose and overall mental health status. - The appointment can be conducted via telehealth if the patient prefers. 08/15/2024 Post-traumatic stress disorder, chronic (ICD-10 - F43.12) 1. Agitation and irritability: - Patient reports increased aggression and irritability since starting oxcarbazepine. Plan: - Discontinue oxcarbazepine by decreasing to once a day for 3 days, then stop. - Monitor patient's mood and irritability. 2. Insomnia: - Patient reports difficulty sleeping, going to bed at 5 AM and waking up at 8:30 AM for the past 3 nights. Plan: - Start lithium ER 300 mg at bedtime to help stabilize mood and potentially improve sleep. - Monitor sleep patterns and adjust treatment as needed. 3. Anxiety: - Patient reports increased anxiety since starting intense therapy with Maya. - Currently taking hydroxyzine twice a day. Plan: - Continue hydroxyzine as prescribed. - Monitor anxiety levels and consider adjusting medication or therapy as needed. 4. Bipolar disorder: - Patient has tried Depakote and lamotrigine with adverse effects. - Oxcarbazepine not providing desired results. Plan: - Start lithium ER 300 mg at bedtime as a mood stabilizer. - Monitor patient's mood and response to medication. - Adjust dosage or consider alternative treatments if necessary. 5. Weight management: - Patient's weight has remained stable since May 08. Plan: - Monitor weight during lithium treatment, as it can cause weight gain. - Encourage patient to maintain a healthy diet and exercise routine. 6. [place] level monitoring: Plan: - Have patient check lithium level at least a week after starting, preferably 10-12 hours after the night dose. - Monitor levels routinely to ensure therapeutic range. 7. Follow-up: Plan: - Schedule a follow-up appointment to assess patient's response to lithium and overall mental health status. - Adjust treatment plan as needed. 08/31/2024 Bipolar disorder, current episode depressed, moderate (ICD-10 - F31.32) 08/31/2024 Post-traumatic stress disorder, chronic (ICD-10 - F43.12) 09/14/2024 Bipolar disorder, current episode depressed, moderate (ICD-10 - F31.32) 09/14/2024 Post-traumatic stress disorder, chronic (ICD-10 - F43.12) 10/03/2024 Bipolar disorder, current episode depressed, moderate (ICD-10 - F31.32) 10/03/2024 Post-traumatic stress disorder, chronic (ICD-10 - F43.12) 11/06/2024 Bipolar disorder, current episode mixed, moderate (ICD-10 - F31.62) 11/19/2024 Lack of concentration (ICD-10 - R41.840) ADHD Clinical Report Summary - Svitlana Zavaleta Date of : 1990 Age Group: Female, 35-44 Assessment Date: November 19, 2024 1. ADHD Screening - ASRS Questionnaire Part A (Predictive): 6 Part B (Supporting): 12 Interpretation: Indicative of ADHD. The score in Part A exceeds the clinical threshold of 3, confirming a pattern of attention-related difficulties. The high Part B score reinforces broader symptom impact across daily life. 2. Cognitive Markers Summary Markers Outside Typical Range: 2 Attention (Feature Match): Elevated error rate Working Memory (Token Search): Low-average performance These markers reflect executive functioning vulnerabilities typical of ADHD, particularly within attentional control and working memory. 3. Cognitive Task Breakdown Planning (Spatial Planning) Score: 25 Percentile: 79 Interpretation: Strong planning skills. Suggests preserved ability to organize and sequence steps toward a goal, which can help compensate for other ADHD-related deficits. Spatial Working Memory (Token Search) Score: 5 Percentile: 23 Interpretation: Below-average performance in holding and updating visual-spatial information. May manifest as difficulty juggling tasks, retaining locations, or following visual-spatial instructions. Attention (Feature Match) Errors: 4 Percentile: 94 Reaction Time: 3003ms (49th percentile) Impulsivity: Less accurate but not faster Interpretation: High error rate indicates inattentiveness. Combined with a typical reaction speed, this suggests lapses in focus rather than impulsive speed. Performance is effortful but inconsistent. Response Inhibition (Double Trouble) Errors: 8 Percentile: 71 Overall Reaction Time: 3572ms (98th percentile) Variability: 1040ms (82nd percentile) Interpretation: Delayed and highly variable performance. Reflects cognitive overload or mental fatigue under interference, aligning with executive control difficulties often seen in ADHD. Sustained Attention (SART) Commission Errors: 15 (73rd percentile) Reaction Time Variability: 159ms (62nd percentile) Slowing After Errors: 94ms (78th percentile) Interpretation: Performance reflects preserved sustained attention with an effective adaptive response to errors. This suggests an effort to self-regulate despite executive strain. 4. Congruency of Results The profile is congruent: Subjective (ASRS) and objective ([place]) findings align. Impairments are primarily in working memory, attentional accuracy, and inhibitory consistency, which are barkley executive domains often impacted in ADHD. 5. Recommendations Clinical Follow-Up Proceed with clinical interview focused on real-life functional impacts such as task completion, organization, and impulsivity in personal and professional settings. If functioning is impaired, consider supporting documentation (e.g., employer or partner input). Medication Consideration Stimulant or non-stimulant ADHD treatment may be appropriate. Recommend to do routine urine drug screen, frequent follow-up to adjust dose, and monitor changes in blood pressure and weight. Cognitive Training Working Memory: Use apps like OpenBook, n-back tasks, or strategic sequencing games. Attention and Inhibition: Engage with attention games (e.g., Stroop or Go/No-Go tasks) and mindfulness-based focus practices. Consistency and Self-Monitoring: Build routines with break points and visual feedback to maintain consistent effort over time. Daily Strategies Use task chunking with brief timed intervals to manage attention. Incorporate checklists, reminder systems, and external structure to reduce cognitive load. Include exercise, sleep hygiene, and low-distraction workspaces to optimize baseline attention. 12/07/2024 Bipolar disorder, current episode mixed, moderate (ICD-10 - F31.62) [place] level:Perform ed on: 2024-11-27 09:17:21Resul t: 0.6 mmol/L (within normal range). 01/08/2025 Bipolar disorder, current episode depressed, moderate (ICD-10 - F31.32) 01/08/2025 Post-traumatic stress disorder, chronic (ICD-10 - F43.12) 01/26/2024 Bipolar disorder, current episode depressed, moderate (ICD-10 - F31.32) 1. Bipolar Depression - Patient is currently on Caplyta 10.5 mg daily, with some improvement in symptoms but PHQ-9 score remains at 14, indicating ongoing depression. Plan: - Increase Caplyta to 21 mg daily at bedtime. - Monitor for any side effects or changes in mood. - Reassess depression symptoms in one month. 2. Generalized anxiety disorder - Patient reports controlling panic attacks without the use of clonazepam, using hydroxyzine instead. Plan: - Continue clonazepam 0.5 mg daily as needed. - Encourage the use of hydroxyzine for panic attacks. 3. Nightmares - Patient is on prazosin 1 mg in the morning and 3 mg at bedtime, with a significant reduction in nightmares. Plan: - Continue prazosin at the current dosage. - Monitor for any changes in the frequency or intensity of nightmares. 4. POTS (Postural Orthostatic Tachycardia Syndrome) - Patient reports no recent passing out episodes and is considering driving again. Plan: - Encourage the patient to consult with their care giver and neurologist before making a decision about driving. - Monitor for any changes in POTS symptoms. Follow-up in one month to assess the patient's response to the increased Caplyta dosage and overall mental health status. 01/16/2025 Post-traumatic stress disorder, chronic (ICD-10 - F43.12) 01/07/2025 Encounter for screening for depression (ICD-10 - Z13.31) 11/23/2024 Bipolar disorder, current episode depressed, moderate (ICD-10 - F31.32) 11/23/2024 Post-traumatic stress disorder, chronic (ICD-10 - F43.12) 11/21/2024 Bipolar disorder, current episode mixed, moderate (ICD-10 - F31.62) 11/14/2024 Bipolar disorder, current episode depressed, moderate (ICD-10 - F31.32) 11/14/2024 Post-traumatic stress disorder, chronic (ICD-10 - F43.12) 09/12/2024 Post-traumatic stress disorder, chronic (ICD-10 - F43.12) 08/20/2024 Bipolar disorder, current episode depressed, moderate (ICD-10 - F31.32) 08/20/2024 Post-traumatic stress disorder, chronic (ICD-10 - F43.12) 2024 Bipolar disorder, current episode depressed, moderate (ICD-10 - F31.32) 2024 Post-traumatic stress disorder, chronic (ICD-10 - F43.12) 05/08/2024 Bipolar disorder, current episode depressed, moderate (ICD-10 - F31.32) 1. Hallucinations post-COVID infection: - Patient reports experiencing hallucinations, including high-pitched screams and shadowy visions, since recovering from COVID. These symptoms have been causing significant distress and sleep disturbances. Plan: - Increase Caplyta from 21 mg to 42 mg daily. Patient can take two 21 mg tablets to achieve the new dosage. - Monitor patient's response to the increased dosage and adjust as needed. 2. Anxiety and sleep disturbances: - Patient has been using clonazepam to help with sleep but does not want to continue using it long-term. The hallucinations and recent life changes have been contributing to increased anxiety and difficulty sleeping. Plan: - Address hallucinations with the increased Caplyta dosage, which may help alleviate anxiety and improve sleep. - Encourage the patient to practice good sleep hygiene and consider non-pharmacologi roger interventions for anxiety management, such as therapy or relaxation techniques. 3. Follow-up: - Schedule a follow-up appointment in 4-6 weeks to assess the patient's response to the increased Caplyta dosage and address any ongoing concerns. 03/20/2024 Bipolar disorder, current episode depressed, moderate (ICD-10 - F31.32) 1. Bipolar Depression - Patient is currently on Caplyta 10.5 mg daily, with some improvement in symptoms but PHQ-9 score remains at 14, indicating ongoing depression. Plan: - Increase Caplyta to 21 mg daily at bedtime. - Monitor for any side effects or changes in mood. - Reassess depression symptoms in one month. 2. Generalized anxiety disorder - Patient reports controlling panic attacks without the use of clonazepam, using hydroxyzine instead. Plan: - Continue clonazepam 0.5 mg daily as needed. - Encourage the use of hydroxyzine for panic attacks. 3. Nightmares - Patient is on prazosin 1 mg in the morning and 3 mg at bedtime, with a significant reduction in nightmares. Plan: - Continue prazosin at the current dosage. - Monitor for any changes in the frequency or intensity of nightmares. 4. POTS (Postural Orthostatic Tachycardia Syndrome) - Patient reports no recent passing out episodes and is considering driving again. Plan: - Encourage the patient to consult with their care giver and neurologist before making a decision about driving. - Monitor for any changes in POTS symptoms. Follow-up in one month to assess the patient's response to the increased Caplyta dosage and overall mental health status. 03/05/2024 Bipolar disorder, current episode depressed, mild (ICD-10 - F31.31) 03/05/2024 Generalized anxiety disorder (ICD-10 - F41.1) 09/12/2024 Generalized anxiety disorder (ICD-10 - F41.1) clonazepam 0.5mg daily prn, hydroxyzine 25mg tid prn 03/20/2024 Post-traumatic stress disorder, chronic (ICD-10 - F43.12) 1. Bipolar Depression - Patient is currently on Caplyta 10.5 mg daily, with some improvement in symptoms but PHQ-9 score remains at 14, indicating ongoing depression. Plan: - Increase Caplyta to 21 mg daily at bedtime. - Monitor for any side effects or changes in mood. - Reassess depression symptoms in one month. 2. Generalized anxiety disorder - Patient reports controlling panic attacks without the use of clonazepam, using hydroxyzine instead. Plan: - Continue clonazepam 0.5 mg daily as needed. - Encourage the use of hydroxyzine for panic attacks. 3. Nightmares - Patient is on prazosin 1 mg in the morning and 3 mg at bedtime, with a significant reduction in nightmares. Plan: - Continue prazosin at the current dosage. - Monitor for any changes in the frequency or intensity of nightmares. 4. POTS (Postural Orthostatic Tachycardia Syndrome) - Patient reports no recent passing out episodes and is considering driving again. Plan: - Encourage the patient to consult with their care giver and neurologist before making a decision about driving. - Monitor for any changes in POTS symptoms. Follow-up in one month to assess the patient's response to the increased Caplyta dosage and overall mental health status. 05/08/2024 Post-traumatic stress disorder, chronic (ICD-10 - F43.12) 1. Hallucinations post-COVID infection: - Patient reports experiencing hallucinations, including high-pitched screams and shadowy visions, since recovering from COVID. These symptoms have been causing significant distress and sleep disturbances. Plan: - Increase Caplyta from 21 mg to 42 mg daily. Patient can take two 21 mg tablets to achieve the new dosage. - Monitor patient's response to the increased dosage and adjust as needed. 2. Anxiety and sleep disturbances: - Patient has been using clonazepam to help with sleep but does not want to continue using it long-term. The hallucinations and recent life changes have been contributing to increased anxiety and difficulty sleeping. Plan: - Address hallucinations with the increased Caplyta dosage, which may help alleviate anxiety and improve sleep. - Encourage the patient to practice good sleep hygiene and consider non-pharmacologi roger interventions for anxiety management, such as therapy or relaxation techniques. 3. Follow-up: - Schedule a follow-up appointment in 4-6 weeks to assess the patient's response to the increased Caplyta dosage and address any ongoing concerns. 2024 Generalized anxiety disorder (ICD-10 - F41.1) 08/20/2024 Generalized anxiety disorder (ICD-10 - F41.1) 11/14/2024 Generalized anxiety disorder (ICD-10 - F41.1) 11/21/2024 Post-traumatic stress disorder, chronic (ICD-10 - F43.12) 11/23/2024 Generalized anxiety disorder (ICD-10 - F41.1) 01/07/2025 Encounter for screening for cardiovascular disorders (ICD-10 - Z13.6) 01/26/2024 Post-traumatic stress disorder, chronic (ICD-10 - F43.12) 1. Bipolar Depression - Patient is currently on Caplyta 10.5 mg daily, with some improvement in symptoms but PHQ-9 score remains at 14, indicating ongoing depression. Plan: - Increase Caplyta to 21 mg daily at bedtime. - Monitor for any side effects or changes in mood. - Reassess depression symptoms in one month. 2. Generalized anxiety disorder - Patient reports controlling panic attacks without the use of clonazepam, using hydroxyzine instead. Plan: - Continue clonazepam 0.5 mg daily as needed. - Encourage the use of hydroxyzine for panic attacks. 3. Nightmares - Patient is on prazosin 1 mg in the morning and 3 mg at bedtime, with a significant reduction in nightmares. Plan: - Continue prazosin at the current dosage. - Monitor for any changes in the frequency or intensity of nightmares. 4. POTS (Postural Orthostatic Tachycardia Syndrome) - Patient reports no recent passing out episodes and is considering driving again. Plan: - Encourage the patient to consult with their care giver and neurologist before making a decision about driving. - Monitor for any changes in POTS symptoms. Follow-up in one month to assess the patient's response to the increased Caplyta dosage and overall mental health status. 08/15/2024 Generalized anxiety disorder (ICD-10 - F41.1) clonazepam 0.5mg daily prn, hydroxyzine 25mg tid prn 1. Agitation and irritability: - Patient reports increased aggression and irritability since starting oxcarbazepine. Plan: - Discontinue oxcarbazepine by decreasing to once a day for 3 days, then stop. - Monitor patient's mood and irritability. 2. Insomnia: - Patient reports difficulty sleeping, going to bed at 5 AM and waking up at 8:30 AM for the past 3 nights. Plan: - Start lithium ER 300 mg at bedtime to help stabilize mood and potentially improve sleep. - Monitor sleep patterns and adjust treatment as needed. 3. Anxiety: - Patient reports increased anxiety since starting intense therapy with Maya. - Currently taking hydroxyzine twice a day. Plan: - Continue hydroxyzine as prescribed. - Monitor anxiety levels and consider adjusting medication or therapy as needed. 4. Bipolar disorder: - Patient has tried Depakote and lamotrigine with adverse effects. - Oxcarbazepine not providing desired results. Plan: - Start lithium ER 300 mg at bedtime as a mood stabilizer. - Monitor patient's mood and response to medication. - Adjust dosage or consider alternative treatments if necessary. 5. Weight management: - Patient's weight has remained stable since May 08. Plan: - Monitor weight during lithium treatment, as it can cause weight gain. - Encourage patient to maintain a healthy diet and exercise routine. 6. [place] level monitoring: Plan: - Have patient check lithium level at least a week after starting, preferably 10-12 hours after the night dose. - Monitor levels routinely to ensure therapeutic range. 7. Follow-up: Plan: - Schedule a follow-up appointment to assess patient's response to lithium and overall mental health status. - Adjust treatment plan as needed. 01/08/2025 Generalized anxiety disorder (ICD-10 - F41.1) 12/07/2024 Post-traumatic stress disorder, chronic (ICD-10 - F43.12) 11/06/2024 Post-traumatic stress disorder, chronic (ICD-10 - F43.12) 10/03/2024 Generalized anxiety disorder (ICD-10 - F41.1) 09/14/2024 Generalized anxiety disorder (ICD-10 - F41.1) 08/31/2024 Generalized anxiety disorder (ICD-10 - F41.1) 06/05/2024 Generalized anxiety disorder (ICD-10 - F41.1) clonazepam 0.5mg daily prn, hydroxyzine 25mg tid prn 1. Bipolar depression - mixed episode: - Patient reports worsening symptoms, including suicidal thoughts, irritability, racing thoughts, and difficulty sleeping. - Continue Caplyta 42 mg daily for bipolar disorder. Plan: - Initiate oxcarbazepine 150 mg twice a day as a mood stabilizer. - Reevaluate the effectiveness of the medication regimen in one month. 2. Insomnia: - Patient reports difficulty falling asleep and staying asleep, leading to exhaustion. Plan: - Encourage good sleep hygiene practices. - Monitor response to oxcarbazepine as it may help stabilize sleep patterns. 3. Anxiety: - Patient reports anxiety levels remaining stable. - Continue clonazepam as needed for anxiety. - Continue hydroxyzine 25 mg three times a day as needed for anxiety. 4. PTSD-related nightmares: - Continue prazosin 2 mg at bedtime for nightmares. 5. Impulsivity and financial concerns: - Patient reports managing impulsivity and maintaining control over finances. Plan: - Encourage continued self-monitoring and use of coping strategies. Follow-up: - Schedule a follow-up appointment in one month to assess the patient's response to the new medication regimen and overall mental health status. - Cancel the previously scheduled June 08 appointment. 07/04/2024 Generalized anxiety disorder (ICD-10 - F41.1) clonazepam 0.5mg daily prn, hydroxyzine 25mg tid prn 1. Fibromyalgia: - Patient is currently on Lyrica 150 mg twice a day for fibromyalgia pain management. Plan: - Reevaluate in the spring and consider decreasing the dose to 100 mg twice a day if symptoms improve. 2. Urinary Tract Infection (UTI) : - Patient is currently on Keflex for the UTI. Plan: - Continue taking the prescribed antibiotics as directed. 3. Dissociative Identity Disorder (DID) - Suspected: - Patient reports recent therapy session with Maya, who suggested the possibility of DID. Plan: - Encourage the patient to continue therapy sessions and further evaluation for a definitive diagnosis. 4. Post-Traumatic Stress Disorder (PTSD): - Patient is currently on prazosin 2 mg at bedtime for PTSD symptoms. Plan: - Continue with the current regimen and monitor for any changes in symptoms. 5. Bipolar Disorder: - Patient is currently on oxcarbazepine 150 mg twice a day and reports some improvement in mood stability. Plan: - Increase the dose of Oxcarbazepine to 300 mg twice a day. - Monitor for any changes in symptoms. 6. Anxiety: - Patient is currently on clonazepam as needed for anxiety and hydroxyzine twice a day. Plan: - Refill hydroxyzine prescription. - Continue with the current regimen. 7. COVID-19: - Patient reports having contracted COVID-19 four times since February. Plan: - Encourage the patient to follow public health guidelines and maintain proper hygiene. - Advise patient to consult with their primary care provider for any concerns related to COVID-19. Follow-up: - Schedule a follow-up appointment in one month to assess the patient's response to the increased oxcarbazepine dose and overall mental health status. - The appointment can be conducted via telehealth if the patient prefers. 06/26/2024 Generalized anxiety disorder (ICD-10 - F41.1) 05/28/2024 Generalized anxiety disorder (ICD-10 - F41.1) 01/16/2025 Generalized anxiety disorder (ICD-10 - F41.1) 06/05/2024 Primary insomnia (ICD-10 - F51.01) 1. Bipolar depression - mixed episode: - Patient reports worsening symptoms, including suicidal thoughts, irritability, racing thoughts, and difficulty sleeping. - Continue Caplyta 42 mg daily for bipolar disorder. Plan: - Initiate oxcarbazepine 150 mg twice a day as a mood stabilizer. - Reevaluate the effectiveness of the medication regimen in one month. 2. Insomnia: - Patient reports difficulty falling asleep and staying asleep, leading to exhaustion. Plan: - Encourage good sleep hygiene practices. - Monitor response to oxcarbazepine as it may help stabilize sleep patterns. 3. Anxiety: - Patient reports anxiety levels remaining stable. - Continue clonazepam as needed for anxiety. - Continue hydroxyzine 25 mg three times a day as needed for anxiety. 4. PTSD-related nightmares: - Continue prazosin 2 mg at bedtime for nightmares. 5. Impulsivity and financial concerns: - Patient reports managing impulsivity and maintaining control over finances. Plan: - Encourage continued self-monitoring and use of coping strategies. Follow-up: - Schedule a follow-up appointment in one month to assess the patient's response to the new medication regimen and overall mental health status. - Cancel the previously scheduled June 08 appointment. 08/15/2024 Primary insomnia (ICD-10 - F51.01) 1. Agitation and irritability: - Patient reports increased aggression and irritability since starting oxcarbazepine. Plan: - Discontinue oxcarbazepine by decreasing to once a day for 3 days, then stop. - Monitor patient's mood and irritability. 2. Insomnia: - Patient reports difficulty sleeping, going to bed at 5 AM and waking up at 8:30 AM for the past 3 nights. Plan: - Start lithium ER 300 mg at bedtime to help stabilize mood and potentially improve sleep. - Monitor sleep patterns and adjust treatment as needed. 3. Anxiety: - Patient reports increased anxiety since starting intense therapy with Maya. - Currently taking hydroxyzine twice a day. Plan: - Continue hydroxyzine as prescribed. - Monitor anxiety levels and consider adjusting medication or therapy as needed. 4. Bipolar disorder: - Patient has tried Depakote and lamotrigine with adverse effects. - Oxcarbazepine not providing desired results. Plan: - Start lithium ER 300 mg at bedtime as a mood stabilizer. - Monitor patient's mood and response to medication. - Adjust dosage or consider alternative treatments if necessary. 5. Weight management: - Patient's weight has remained stable since May 08. Plan: - Monitor weight during lithium treatment, as it can cause weight gain. - Encourage patient to maintain a healthy diet and exercise routine. 6. [place] level monitoring: Plan: - Have patient check lithium level at least a week after starting, preferably 10-12 hours after the night dose. - Monitor levels routinely to ensure therapeutic range. 7. Follow-up: Plan: - Schedule a follow-up appointment to assess patient's response to lithium and overall mental health status. - Adjust treatment plan as needed. 07/04/2024 Primary insomnia (ICD-10 - F51.01) 1. Fibromyalgia: - Patient is currently on Lyrica 150 mg twice a day for fibromyalgia pain management. Plan: - Reevaluate in the spring and consider decreasing the dose to 100 mg twice a day if symptoms improve. 2. Urinary Tract Infection (UTI) : - Patient is currently on Keflex for the UTI. Plan: - Continue taking the prescribed antibiotics as directed. 3. Dissociative Identity Disorder (DID) - Suspected: - Patient reports recent therapy session with Maya, who suggested the possibility of DID. Plan: - Encourage the patient to continue therapy sessions and further evaluation for a definitive diagnosis. 4. Post-Traumatic Stress Disorder (PTSD): - Patient is currently on prazosin 2 mg at bedtime for PTSD symptoms. Plan: - Continue with the current regimen and monitor for any changes in symptoms. 5. Bipolar Disorder: - Patient is currently on oxcarbazepine 150 mg twice a day and reports some improvement in mood stability. Plan: - Increase the dose of Oxcarbazepine to 300 mg twice a day. - Monitor for any changes in symptoms. 6. Anxiety: - Patient is currently on clonazepam as needed for anxiety and hydroxyzine twice a day. Plan: - Refill hydroxyzine prescription. - Continue with the current regimen. 7. COVID-19: - Patient reports having contracted COVID-19 four times since February. Plan: - Encourage the patient to follow public health guidelines and maintain proper hygiene. - Advise patient to consult with their primary care provider for any concerns related to COVID-19. Follow-up: - Schedule a follow-up appointment in one month to assess the patient's response to the increased oxcarbazepine dose and overall mental health status. - The appointment can be conducted via telehealth if the patient prefers. 11/06/2024 Generalized anxiety disorder (ICD-10 - F41.1) clonazepam 0.5mg daily prn, hydroxyzine 25mg tid prn 12/07/2024 Generalized anxiety disorder (ICD-10 - F41.1) clonazepam 0.5mg daily prn, hydroxyzine 25mg tid prn 01/08/2025 ADHD (attention deficit hyperactivity disorder) (ICD-10 - F90.9) 01/26/2024 Generalized anxiety disorder (ICD-10 - F41.1) 1. Bipolar Depression - Patient is currently on Caplyta 10.5 mg daily, with some improvement in symptoms but PHQ-9 score remains at 14, indicating ongoing depression. Plan: - Increase Caplyta to 21 mg daily at bedtime. - Monitor for any side effects or changes in mood. - Reassess depression symptoms in one month. 2. Generalized anxiety disorder - Patient reports controlling panic attacks without the use of clonazepam, using hydroxyzine instead. Plan: - Continue clonazepam 0.5 mg daily as needed. - Encourage the use of hydroxyzine for panic attacks. 3. Nightmares - Patient is on prazosin 1 mg in the morning and 3 mg at bedtime, with a significant reduction in nightmares. Plan: - Continue prazosin at the current dosage. - Monitor for any changes in the frequency or intensity of nightmares. 4. POTS (Postural Orthostatic Tachycardia Syndrome) - Patient reports no recent passing out episodes and is considering driving again. Plan: - Encourage the patient to consult with their care giver and neurologist before making a decision about driving. - Monitor for any changes in POTS symptoms. Follow-up in one month to assess the patient's response to the increased Caplyta dosage and overall mental health status. 01/16/2025 ADHD (attention deficit hyperactivity disorder) (ICD-10 - F90.9) 01/07/2025 Dietary counseling and surveillance (ICD-10 - Z71.3) 11/21/2024 Generalized anxiety disorder (ICD-10 - F41.1) clonazepam 0.5mg daily prn, hydroxyzine 25mg tid prn 11/23/2024 ADHD (attention deficit hyperactivity disorder) (ICD-10 - F90.9) 09/12/2024 Primary insomnia (ICD-10 - F51.01) 05/08/2024 Generalized anxiety disorder (ICD-10 - F41.1) clonazepam 0.5mg daily prn, hydroxyzine 25mg tid prn 1. Hallucinations post-COVID infection: - Patient reports experiencing hallucinations, including high-pitched screams and shadowy visions, since recovering from COVID. These symptoms have been causing significant distress and sleep disturbances. Plan: - Increase Caplyta from 21 mg to 42 mg daily. Patient can take two 21 mg tablets to achieve the new dosage. - Monitor patient's response to the increased dosage and adjust as needed. 2. Anxiety and sleep disturbances: - Patient has been using clonazepam to help with sleep but does not want to continue using it long-term. The hallucinations and recent life changes have been contributing to increased anxiety and difficulty sleeping. Plan: - Address hallucinations with the increased Caplyta dosage, which may help alleviate anxiety and improve sleep. - Encourage the patient to practice good sleep hygiene and consider non-pharmacologi roger interventions for anxiety management, such as therapy or relaxation techniques. 3. Follow-up: - Schedule a follow-up appointment in 4-6 weeks to assess the patient's response to the increased Caplyta dosage and address any ongoing concerns. 03/20/2024 Generalized anxiety disorder (ICD-10 - F41.1) 1. Bipolar Depression - Patient is currently on Caplyta 10.5 mg daily, with some improvement in symptoms but PHQ-9 score remains at 14, indicating ongoing depression. Plan: - Increase Caplyta to 21 mg daily at bedtime. - Monitor for any side effects or changes in mood. - Reassess depression symptoms in one month. 2. Generalized anxiety disorder - Patient reports controlling panic attacks without the use of clonazepam, using hydroxyzine instead. Plan: - Continue clonazepam 0.5 mg daily as needed. - Encourage the use of hydroxyzine for panic attacks. 3. Nightmares - Patient is on prazosin 1 mg in the morning and 3 mg at bedtime, with a significant reduction in nightmares. Plan: - Continue prazosin at the current dosage. - Monitor for any changes in the frequency or intensity of nightmares. 4. POTS (Postural Orthostatic Tachycardia Syndrome) - Patient reports no recent passing out episodes and is considering driving again. Plan: - Encourage the patient to consult with their care giver and neurologist before making a decision about driving. - Monitor for any changes in POTS symptoms. Follow-up in one month to assess the patient's response to the increased Caplyta dosage and overall mental health status. 03/20/2024 Primary insomnia (ICD-10 - F51.01) 1. Bipolar Depression - Patient is currently on Caplyta 10.5 mg daily, with some improvement in symptoms but PHQ-9 score remains at 14, indicating ongoing depression. Plan: - Increase Caplyta to 21 mg daily at bedtime. - Monitor for any side effects or changes in mood. - Reassess depression symptoms in one month. 2. Generalized anxiety disorder - Patient reports controlling panic attacks without the use of clonazepam, using hydroxyzine instead. Plan: - Continue clonazepam 0.5 mg daily as needed. - Encourage the use of hydroxyzine for panic attacks. 3. Nightmares - Patient is on prazosin 1 mg in the morning and 3 mg at bedtime, with a significant reduction in nightmares. Plan: - Continue prazosin at the current dosage. - Monitor for any changes in the frequency or intensity of nightmares. 4. POTS (Postural Orthostatic Tachycardia Syndrome) - Patient reports no recent passing out episodes and is considering driving again. Plan: - Encourage the patient to consult with their care giver and neurologist before making a decision about driving. - Monitor for any changes in POTS symptoms. Follow-up in one month to assess the patient's response to the increased Caplyta dosage and overall mental health status. 05/08/2024 Primary insomnia (ICD-10 - F51.01) 1. Hallucinations post-COVID infection: - Patient reports experiencing hallucinations, including high-pitched screams and shadowy visions, since recovering from COVID. These symptoms have been causing significant distress and sleep disturbances. Plan: - Increase Caplyta from 21 mg to 42 mg daily. Patient can take two 21 mg tablets to achieve the new dosage. - Monitor patient's response to the increased dosage and adjust as needed. 2. Anxiety and sleep disturbances: - Patient has been using clonazepam to help with sleep but does not want to continue using it long-term. The hallucinations and recent life changes have been contributing to increased anxiety and difficulty sleeping. Plan: - Address hallucinations with the increased Caplyta dosage, which may help alleviate anxiety and improve sleep. - Encourage the patient to practice good sleep hygiene and consider non-pharmacologi roger interventions for anxiety management, such as therapy or relaxation techniques. 3. Follow-up: - Schedule a follow-up appointment in 4-6 weeks to assess the patient's response to the increased Caplyta dosage and address any ongoing concerns. 09/12/2024 Bipolar disorder, current episode mixed, moderate (ICD-10 - F31.62) 11/21/2024 Primary insomnia (ICD-10 - F51.01) 01/07/2025 Bipolar disorder, current episode mixed, moderate (ICD-10 - F31.62) [place] level:Perform ed on: 2024-11-27 09:17:21Resul t: 0.6 mmol/L (within normal range). 01/26/2024 Primary insomnia (ICD-10 - F51.01) 1. Bipolar Depression - Patient is currently on Caplyta 10.5 mg daily, with some improvement in symptoms but PHQ-9 score remains at 14, indicating ongoing depression. Plan: - Increase Caplyta to 21 mg daily at bedtime. - Monitor for any side effects or changes in mood. - Reassess depression symptoms in one month. 2. Generalized anxiety disorder - Patient reports controlling panic attacks without the use of clonazepam, using hydroxyzine instead. Plan: - Continue clonazepam 0.5 mg daily as needed. - Encourage the use of hydroxyzine for panic attacks. 3. Nightmares - Patient is on prazosin 1 mg in the morning and 3 mg at bedtime, with a significant reduction in nightmares. Plan: - Continue prazosin at the current dosage. - Monitor for any changes in the frequency or intensity of nightmares. 4. POTS (Postural Orthostatic Tachycardia Syndrome) - Patient reports no recent passing out episodes and is considering driving again. Plan: - Encourage the patient to consult with their care giver and neurologist before making a decision about driving. - Monitor for any changes in POTS symptoms. Follow-up in one month to assess the patient's response to the increased Caplyta dosage and overall mental health status. 12/07/2024 Primary insomnia (ICD-10 - F51.01) 11/06/2024 Primary insomnia (ICD-10 - F51.01) 08/15/2024 Bipolar disorder, current episode mixed, moderate (ICD-10 - F31.62) 1. Agitation and irritability: - Patient reports increased aggression and irritability since starting oxcarbazepine. Plan: - Discontinue oxcarbazepine by decreasing to once a day for 3 days, then stop. - Monitor patient's mood and irritability. 2. Insomnia: - Patient reports difficulty sleeping, going to bed at 5 AM and waking up at 8:30 AM for the past 3 nights. Plan: - Start lithium ER 300 mg at bedtime to help stabilize mood and potentially improve sleep. - Monitor sleep patterns and adjust treatment as needed. 3. Anxiety: - Patient reports increased anxiety since starting intense therapy with Maya. - Currently taking hydroxyzine twice a day. Plan: - Continue hydroxyzine as prescribed. - Monitor anxiety levels and consider adjusting medication or therapy as needed. 4. Bipolar disorder: - Patient has tried Depakote and lamotrigine with adverse effects. - Oxcarbazepine not providing desired results. Plan: - Start lithium ER 300 mg at bedtime as a mood stabilizer. - Monitor patient's mood and response to medication. - Adjust dosage or consider alternative treatments if necessary. 5. Weight management: - Patient's weight has remained stable since May 08. Plan: - Monitor weight during lithium treatment, as it can cause weight gain. - Encourage patient to maintain a healthy diet and exercise routine. 6. [place] level monitoring: Plan: - Have patient check lithium level at least a week after starting, preferably 10-12 hours after the night dose. - Monitor levels routinely to ensure therapeutic range. 7. Follow-up: Plan: - Schedule a follow-up appointment to assess patient's response to lithium and overall mental health status. - Adjust treatment plan as needed. 07/04/2024 Bipolar disorder, current episode mixed, moderate (ICD-10 - F31.62) 1. Fibromyalgia: - Patient is currently on Lyrica 150 mg twice a day for fibromyalgia pain management. Plan: - Reevaluate in the spring and consider decreasing the dose to 100 mg twice a day if symptoms improve. 2. Urinary Tract Infection (UTI) : - Patient is currently on Keflex for the UTI. Plan: - Continue taking the prescribed antibiotics as directed. 3. Dissociative Identity Disorder (DID) - Suspected: - Patient reports recent therapy session with Maya, who suggested the possibility of DID. Plan: - Encourage the patient to continue therapy sessions and further evaluation for a definitive diagnosis. 4. Post-Traumatic Stress Disorder (PTSD): - Patient is currently on prazosin 2 mg at bedtime for PTSD symptoms. Plan: - Continue with the current regimen and monitor for any changes in symptoms. 5. Bipolar Disorder: - Patient is currently on oxcarbazepine 150 mg twice a day and reports some improvement in mood stability. Plan: - Increase the dose of Oxcarbazepine to 300 mg twice a day. - Monitor for any changes in symptoms. 6. Anxiety: - Patient is currently on clonazepam as needed for anxiety and hydroxyzine twice a day. Plan: - Refill hydroxyzine prescription. - Continue with the current regimen. 7. COVID-19: - Patient reports having contracted COVID-19 four times since February. Plan: - Encourage the patient to follow public health guidelines and maintain proper hygiene. - Advise patient to consult with their primary care provider for any concerns related to COVID-19. Follow-up: - Schedule a follow-up appointment in one month to assess the patient's response to the increased oxcarbazepine dose and overall mental health status. - The appointment can be conducted via telehealth if the patient prefers. 06/05/2024 Bipolar disorder, current episode mixed, moderate (ICD-10 - F31.62) 1. Bipolar depression - mixed episode: - Patient reports worsening symptoms, including suicidal thoughts, irritability, racing thoughts, and difficulty sleeping. - Continue Caplyta 42 mg daily for bipolar disorder. Plan: - Initiate oxcarbazepine 150 mg twice a day as a mood stabilizer. - Reevaluate the effectiveness of the medication regimen in one month. 2. Insomnia: - Patient reports difficulty falling asleep and staying asleep, leading to exhaustion. Plan: - Encourage good sleep hygiene practices. - Monitor response to oxcarbazepine as it may help stabilize sleep patterns. 3. Anxiety: - Patient reports anxiety levels remaining stable. - Continue clonazepam as needed for anxiety. - Continue hydroxyzine 25 mg three times a day as needed for anxiety. 4. PTSD-related nightmares: - Continue prazosin 2 mg at bedtime for nightmares. 5. Impulsivity and financial concerns: - Patient reports managing impulsivity and maintaining control over finances. Plan: - Encourage continued self-monitoring and use of coping strategies. Follow-up: - Schedule a follow-up appointment in one month to assess the patient's response to the new medication regimen and overall mental health status. - Cancel the previously scheduled June 08 appointment. 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 Agitation and irritability: - Patient reports increased aggression and irritability since starting oxcarbazepine. Plan: - Discontinue oxcarbazepine by decreasing to once a day for 3 days, then stop. - Monitor patient's mood and irritability. 2. Insomnia: - Patient reports difficulty sleeping, going to bed at 5 AM and waking up at 8:30 AM for the past 3 nights. Plan: - Start lithium ER 300 mg at bedtime to help stabilize mood and potentially improve sleep. - Monitor sleep patterns and adjust treatment as needed. 3. Anxiety: - Patient reports increased anxiety since starting intense therapy with Maya. - Currently taking hydroxyzine twice a day. Plan: - Continue hydroxyzine as prescribed. - Monitor anxiety levels and consider adjusting medication or therapy as needed. 4. Bipolar disorder: - Patient has tried Depakote and lamotrigine with adverse effects. - Oxcarbazepine not providing desired results. Plan: - Start lithium ER 300 mg at bedtime as a mood stabilizer. - Monitor patient's mood and response to medication. - Adjust dosage or consider alternative treatments if necessary. 5. Weight management: - Patient's weight has remained stable since May 08. Plan: - Monitor weight during lithium treatment, as it can cause weight gain. - Encourage patient to maintain a healthy diet and exercise routine. 6. [place] level monitoring: Plan: - Have patient check lithium level at least a week after starting, preferably 10-12 hours after the night dose. - Monitor levels routinely to ensure therapeutic range. 7. Follow-up: Plan: - Schedule a follow-up appointment to assess patient's response to lithium and overall mental health status. - Adjust treatment plan as needed. 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 DO NOT recommend stimulant use. 11/21/2024 ADHD (attention deficit hyperactivity disorder) (ICD-10 - F90.9) Use task chunking with brief timed intervals to manage attention.Inc orporate checklists, reminder systems, and external structure to reduce cognitive load.Include exercise, sleep hygiene, and low-distracti on workspaces to optimize baseline attention. Working Memory: Use apps like OpenBook, n-back tasks, or strategic sequencing games.Attenti on and Inhibition: Engage with attention games (e.g., Stroop or Go/No-Go tasks) and mindfulness-b ased focus practices.Con sistency and Self-Monitori ng: Build routines with break points and visual feedback to maintain consistent effort over time. 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 DO NOT recommend stimulant use. 09/12/2024 Other 1. Bipolar Disorder: - Patient reports improvement in mood stability since starting lithium, with a decrease in the need for lacrimalase. - Patient's lithium level was 0.5 on 08/25, which is below the preferred range of 0.6 to 1.2. Plan: - Increase lithium ER to 450 mg once a day. - Monitor for side effects and therapeutic response. - Recheck lithium level in 2 weeks, 12 hours after the last dose. - Adjust the dose as needed based on the results and clinical response. 2. Anxiety: - Patient stopped taking anxiety medication in the afternoon due to sleepiness. Plan: - Continue hydroxyzine and clonazepam as needed for anxiety symptoms. 3. ADHD and OCD symptoms: - Patient reports worsening of ADHD and OCD symptoms. Plan: - Hold off on ADHD testing until mood is stabilized. - Reevaluate attention symptoms after mood stabilization. 4. Sleep disturbances and nightmares: - Patient stopped taking prazosin for nightmares and reports no nightmares in the past two weeks. Plan: - Continue monitoring sleep quality. - Consider reintroducing prazosin if nightmares recur. 5. Oxcarbazepine discontinuation: - Patient has successfully tapered off oxcarbazepine and switched to lithium. Plan: - Monitor for any withdrawal symptoms or mood changes related to the discontinuation of oxcarbazepine. Follow-up: - Schedule a follow-up appointment in one month, either in-person or virtual, to assess the patient's response to the increased lithium dose and overall mental health status. 11/06/2024 Girish Zavaleta, female patient with bipolar disorder and suspected ADHD, recently underwent gallbladder removal surgery, presenting with ongoing irritability and difficulty functioning in the evenings. Bipolar Disorder Assessment: Patient reports relative mood stability when adherent to current medication regimen. Recent gallbladder surgery (functioning at 13%) may have impacted medication efficacy. Patient experiences irritability, particularly in the evenings. No current manic symptoms reported. [place] level in August was 0.5, prompting a dosage increase. Recent labs from hospital stay are pending. Plan: - Continue [place] ER 450 mg PO daily - Continue Caplyta 42 mg PO daily - Continue Clonazepam 0.5 mg PO daily PRN - Obtain lithium level - Consider lithium dose adjustment based on lab results if mood symptoms persist - Follow up in one month Suspected Attention Deficit Hyperactivity Disorder (ADHD) Assessment: Patient reports significant difficulty functioning between 3:30 PM and 8:00 PM, describing symptoms consistent with ADHD. Previous discussions about ADHD testing were deferred to optimize lithium levels. Patient has not been previously treated for ADHD. Differential diagnosis includes bipolar disorder vs. comorbid ADHD. Plan: - Schedule ADHD testing (45-60 minute in-office assessment) - Defer consideration of ADHD medication until after testing and evaluation of results Post-cholecystect gretel Status Assessment: Patient underwent laparoscopic cholecystectomy last Tuesday for a gallbladder functioning at 13%. Reports good post-operative recovery with minimal pain medication use. Appetite has returned, and patient is able to tolerate previously restricted foods. Plan: - Monitor blood sugar due to increased food intake post-surgery - Continue post-operative pain management as needed (patient reports using pain medication 3-4 times since surgery) the note is transcribed using speech recognition software. It is a reflection of a visit with the patient. It might have some inaccuracy, including medication names and transcribing errors, though efforts have been made to correct them. 11/21/2024 Girish Zavaleta, adult female, presents with symptoms of ADHD including feeling overwhelmed, difficulty keeping schedule on track, and trouble with task management. Attention Deficit Hyperactivity Disorder (ADHD) Assessment: Patient completed [facility] ADHD test on November 19, 2024, which was indicative of ADHD. Cognitive markers summary reflected executive functioning vulnerabilities typical of ADHD, particularly in attentional control and working memory. Spatial working memory was below average, manifesting as difficulty juggling tasks, retaining locations, and following instructions. Attention section showed high error rate indicating inattentiveness, with typical reaction speed, suggesting lapses in focus rather than impulsive speed. Response inhibition section demonstrated delayed and highly variable performance rates, reflecting cognitive overload or mental fatigue under interference. Sustained attention portion reflected preserved sustained attention with effective adaptive response to errors. Patient reports difficulty completing tasks, tendency to add more tasks before finishing current ones, and feeling overwhelmed when plans don't follow her mental expectations. Time management issues and procrastination are noted, which are common in ADHD. Patient has been using energy drinks to help with focus and calmness, though cautioned about potential side effects. Plan: - Initiate Concerta 18 mg PO daily in the morning for 14 days - Informed patient of stimulant nature, quicker onset of action compared to non-stimulants - Discussed potential for weight loss as a side effect - Patient to message provider before 14-day supply is finished to report effectiveness - Follow-up appointment scheduled in one month - Recommended behavioral modifications in addition to medication: - Setting timers - Using digital tools - Keeping calendars - Advised caution with energy drink consumption due to potential for increased anxiety and blood pressure the note is transcribed using speech recognition software. It is a reflection of a visit with the patient. It might have some inaccuracy, including medication names and transcribing errors, though efforts have been made to correct them. 12/07/2024 Girish Zavaleta, a patient with a history of lithium use, presented with severe side effects after starting methylphenidate (Concerta) for ADHD, including anorexia, vomiting, and transient visual and auditory disturbances. Adverse reaction to methylphenidate (Concerta) Assessment: Patient started methylphenidate (Concerta) 5 days ago and experienced severe side effects, including anorexia, vomiting, and inability to eat or drink. These symptoms progressed to episodes of transient blindness and deafness, leading to an ER visit. The patient discontinued the medication 4 days ago, but continued to experience intermittent sensory disturbances for 3-4 days after stopping. The severity of symptoms, particularly the sensory disturbances, may have been exacerbated by dehydration and potential lithium toxicity, although lithium level was 0.6 at the ER. The patient also reported loss of creativity while on the medication. Plan: - Discontinue methylphenidate (Concerta) permanently due to severe adverse reactions. - Educate patient on the importance of maintaining adequate hydration, especially while on lithium therapy. - Initiate atomoxetine 25 mg PO daily as a non-stimulant alternative for ADHD treatment. - Follow up in one month to assess response to atomoxetine and monitor for any side effects. Attention Deficit Hyperactivity Disorder (ADHD) Assessment: Patient has a history of ADHD with afternoon meltdowns. The methylphenidate trial showed improvement in afternoon symptoms but was discontinued due to severe side effects. Patient expresses willingness to try non-stimulant medication options or explore therapy before further pharmacological interventions. Plan: - Initiate atomoxetine 25 mg PO daily as a non-stimulant treatment for ADHD. - Educate patient that atomoxetine is less likely to affect creativity compared to stimulant medications. - Consider exploring therapy options as an adjunct or alternative to medication management. - Follow up in one month to assess efficacy and tolerability of atomoxetine. the note is transcribed using speech recognition software. It is a reflection of a visit with the patient. It might have some inaccuracy, including medication names and transcribing errors, though efforts have been made to correct them. Plan Of Treatment Future Test Test Name Order Date LITHIUM (613) 09/18/2024 Next Appt Details Provider Name:Maya Mojica, 02/14/2025 03:00:00 PM, [address], [place], [address], Insurance Providers Payer Name Payer Address Payer Phone Subscriber Number Group Number Insured Name Patient Relationship to Insured Coverage Start Date Coverage End Date [employer] - [employer] [address] [place] [phone] [id number] [employer]LLIN[employer]ULEIMAR[employer] Spouse - patient is the spouse of the insured Medical (General) History Medical History History ICD Code Problems: Bipolar affective disorder, cu rrent episode depression Bipolar I disorder Celiac disease Chronic post-traumatic stress disorder Generalized anxiety disorder Long-term current use of drug therapy Long-term drug therapy Migraine Moderate mixed bipolar I disorder Nightmares associated with chronic post- traumatic stress disorder Obesity Osteoarthritis Primary insomnia , Imported from Highlights: On November 02, 2024, the patient had multiple encounters with healthcare providers at [facility]. The patient was seen by Dr. Nitin [...] no healthcare provider was involved in this event. undefined Imported from Highlights: Th e patient had an emergency visit on 11/26/2024 at [facility], attended by Dr. Sussy Narayan, due to syncope and collapse. The following day, 11/27/2024, the patient had a hospital encounter, followed by a results follow-up with Dr. Arash Abdullahi at [facility]. During an office visit on the same day with Dr. Abdullahi, several issues were identified: bacteria in urine, dilated cardiomyopathy, dysuria, and psychogenic syncope. The patient was also followed up after hospital discharge. Additionally, the patient has uncomplicated asthma of unspecified severity and persistence. Surgical History Surgery Date(Month/Year) Hysterectomy/revise vagina (88792) 08/08 Other 03/08/2009
--- OUTSIDE RECORDS SUMMARY | 2025-01-21 19:51 | XMS_ITS | Clinical Summary ---
Author Organization [facility] Address [address] [place] [address] Care Team Providers Care Hearing Care Professional Name Role Phone Mayelin Ruffin MD Primary Care Provider [phone] Source Comments [facility],non-owned Affiliates and Associated Physician Practices is amultiple site organization consisting of ambulatory clinics and hospital sitesin [place], [place], [place] and [place]. This disclosure is being madepursuant to the Care Everywhere program and may not contain all information available regarding this patient. Last updated 18.[facility] Allergies Active Allergy Reactions Criticality Noted Date Comments Adhesive Sensitivity Rash Medium 03/31/2021 Amoxicillin Other Low 10/22/2020 PCP prefers pt Does not take PCP prefers pt Does not take Prochlorperazine Vomiting 02/21/2018 Doxycycline Vomiting 11/16/2022 Gluten Meal GI Discomfort 02/21/2018 Morphine Unknown 04/21/2020 Acetaminophen Psychiatric Medium 11/12/2024 Anger/aggression Wound Dressing Adhesive Rash Medium 03/31/2021 Medications * Be aware that medications may not be up to date on this document. Alwaysverify current medications with the patient. rizatriptan (Maxalt) 10 MG tablet TAKE 1 TABLET BY MOUTH EVERY 2 HOURS NEEDED SOON FEEL HEADACHE IS COMING. NOT TO EXCEED 2 TABLETS IN 24 HOURS 03/21/20 23 Active hydrOXYzine HCl (Atarax) 25 MG tablet Take 1 (one) tablet by mouth 3 times daily as needed 04/25/20 23 Active fluticasone-sa lmeterol (Advair Diskus) 250-50 MCG/ACT inhaler Inhale 1 (one) puff by mouth 2 times daily 60 Each 1 06/29/20 23 Active albuterol HFA (Proventil; Ventolin; Proair) 108 (90 Base) MCG/ACT inhaler INHALE 2 PUFFS BY MOUTH EVERY 4 HOURS NEEDED 6.7 g 2 08/23/19 24 Active cetirizine (ZyrTEC) 10 MG tablet Take 1 (one) tablet by mouth once daily as needed 12/20/19 24 Active Caplyta 10.5 MG CAPS Take 1 capsule by mouth once daily Takes 42 mg at bedtime 01/13/20 24 Active Nurtec 75 MG tablet as needed 12/21/19 24 Active triamcinolone acetonide (Kenalog) 0.1 % cream Apply to affected area 2 times daily 15 g 04/03/20 24 Active Additional Information Patient not taking.Reported on 01/14/2025 lithium CR (Lithobid) 300 MG tablet Take 1 (one) tablet by mouth at bedtime 08/15/19 25 Active erenumab-aooe (Aimovig) 140 MG/ML auto injector pen INJECT 1 SYRINGE SUBCUTANEOUSLY ONCE EVERY MONTH 3 mL 10/19/19 25 Active clonazePAM (KlonoPIN) 0.5 MG tablet Take 1 (one) tablet by mouth nightly as needed for Anxiety Active acetaminophen (Tylenol) 325 MG tablet Take 2 (two) tablets by mouth every 6 hours as needed for Pain Maximum allowable Acetaminophen amount = 4 Grams (4000 mg) / 24 hours. 30 tablet 11/03/19 25 Active Additional Information Patient not taking.Reported on 01/14/2025 oxyCODONE, immediate release, (Roxicodone) 5 MG tabletIndicati ons:Biliary dyskinesia Take 1 (one) tablet by mouth every 6 hours as needed for Pain 12 tablet 11/03/19 25 Active Additional Information Patient not taking.Reported on 01/14/2025 senna-docusate (Senokot-S) 8.6-50 MG tablet Take 1 (one) tablet by mouth once daily 30 tablet 11/03/19 25 Active Additional Information Patient not taking.Reported on 01/14/2025 ibuprofen (Motrin) 600 MG tablet Take 1 (one) tablet by mouth every 6 hours as needed for Pain 30 tablet 11/03/19 25 Active Additional Information Patient not taking.Reported on 01/14/2025 ondansetron, disintegrating , (Zofran ODT) 4 MG tablet Take 1 (one) tablet by mouth every 6 hours as needed for Nausea/Vomiting Allow tablet to dissolve on the tongue 12 tablet 11/03/19 25 Active cyclobenzaprin e (Flexeril) 10 MG tablet Take 1 (one) tablet by mouth 3 times daily 30 tablet 11/13/19 25 Active Additional Information Patient not taking.Reported on 01/14/2025 nitrofurantoin monohyd macro crystals (Macrobid) 100 MG capsuleIndicat ions:Dysuria,B acteria in urine Take 1 (one) capsule by mouth 2 times daily with morning and evening meal 10 capsule 11/28/19 25 Active Additional Information Patient not taking.Reported on 01/14/2025 pregabalin (Lyrica) 150 MG capsuleIndicat ions:Fibromyal donald Take 1 (one) capsule by mouth 2 times daily 60 capsule 5 01/22/20 25 026 Active midodrine (Proamatine) 5 MG tablet 2 times daily 02/09/20 23 025 Discontin ued(List Clean-Up) pregabalin (Lyrica) 150 MG capsuleIndicat ions:Fibromyal donald Take 1 (one) capsule by mouth 2 times daily 60 capsule 5 06/28/20 24 025 Discontin ued(Reord er) Active Problems Problem Noted Date Diagnosed Date Dilated cardiomyopathy 11/27/2024 Biliary dyskinesia 10/17/2024 Bipolar 1 disorder with moderate ruma POTS (postural orthostatic tachycardia syndrome) 09/30/2023 11/14/2023 PTSD (post-traumatic stress disorder) 06/29/2023 Chronic migraine without aur a, with intractable migraine, so stated, with status migrainosus 06/29/2023 Post concussion syndrome 06/29/2023 Celiac disease 06/29/2023 Morbid obesity with body mass index of 40.0-49.9 04/13/2023 11/14/2023 Tremor 12/20/2022 06/29/2023 Fibromyalgia 04/20/2021 Prediabetes 11/22/2019 11/14/2023 Vitamin D deficiency 11/14/2018 11/14/2023 Seasonal allergic rhinitis 10/27/201811/13 Apnea 05/09/2017 11/14/2023 Asthma 12/19/2013 06/29/2023 Cyst of breast 08/08/2011 11/14/2023 History of ovarian cancer 08/07/20082023 Overview (11/14/2023): Stage 3C when found; bilateral oophorectomy, hysterectomy with cervix and fallopian tubes - oncologist is at [facility] - s/p tumor removal - currently in remission since 10/10/2010 Resolved Problems Problem Noted Date Diagnosed Date Resolved Date Cramps of lower extremity 07/06/2023 11/14/2023 Pharyngitis 07/06/2023 11/14/2023 11/14/2023 Upper respiratory infection 07/06/2023 11/14/2023 11/14/2023 Recurrent syncope 06/29/2023 11/14/2023 Cataplexy 06/29/2023 11/14/2023 History of ovarian cancer 06/29/2023 Plantar fasciitis of right foot 04/14/2022 11/14/2023 Bipolar affective disorder in remission 04/20/2021 04/20/2021 Bipolar affective disorder in remission 04/20/2021 11/14/2023 Left flank pain 05/09/2017 11/14/2023 11/14/2023 Menopausal syndrome 03/21/2017 11/14/2023 11/14/19 24 Encounters Date Type Department Care Team Description 01/20/2025 Refill [facility] - Family Medicine [address] [place] [phone] Mayelin Ruffin MD MEDICATION REFILL 01/20/2025 Refill [facility] - Family Medicine [address] [place] [phone] Mayelin Ruffin MD Refill Request 01/15/2025 Telephone [facility] - Centralized Scheduling [address] [place] [phone] Mayelin Ruffin MD Patient Requested Call 01/15/2025 Results Follow-Up [facility] Family [facility] [address] [place] [phone] Arash Abdullahi MD 01/14/2025 4:35 PM CDT - 01/14/2025 11:59 PM CDT Hospital Encounter [facility] OP DRAW STATION [address] [place] [phone] Arash Abdullahi MD Discharge Disposition: Home or Self Care 01/14/2025 3:40 PM CDT Office Visit [facility] Family [facility] [address] [place] [phone] Arash Abdullahi MD Dizziness (Primary Dx); Mild pulmonary hypertension (HCC); Dilated cardiomyopathy (HCC); POTS (postural orthostatic tachycardia syndrome) 01/14/2025 Travel 01/14/[address] [facility] - Centralized Scheduling [address] [place] [phone] Mayelin Ruffin MD Question 11/27/2024 3:37 PM CDT - 11/27/2024 11:59 PM CDT Hospital Encounter [facility] OP DRAW STATION [address] [place] [phone] Discharge Disposition: Home or Self Care 11/27/2024 3:20 PM CDT Office Visit [facility] Family Medicine [address] [place] [phone] Arash Abdullahi MD Hospital discharge follow-up (Primary Dx); Psychogenic syncope; Dysuria; Bacteria in urine; Dilated cardiomyopathy (HCC); Uncomplicated asthma, unspecified asthma severity, unspecified whether persistent (HCC) 11/27/2024 Results Follow-Up [facility] Family Medicine [address] [place] [phone] Arash Abdullahi MD 11/27/2024 Travel 11/12/2024 2:30 PM CDT Office Visit [facility] - General Surgery [address] [facility] [address] [place] [address] Savanna Roberts MD Surgery follow-up (Primary Dx) 11/02/2024 7:27 AM CDT Anesthesia Event [facility] [address] [place] [phone] Nitin Eason DO Levin, Vitaly F, MD 11/02/2024 7:15 AM CDT - 11/02/2024 8:[address] [facility] [address] [place] [phone] Savanna Roberts MD LAPAROSCOPIC CHOLECYSTECTOMY 11/02/2024 5:33 AM CDT - 11/02/2024 10:57 AM CDT Hospital Encounter [facility] [address] [place] [phone] Savanna Roberts MD Surgery General Discharge Disposition: Home or Self Care 11/02/2024 Travel from Last 3 Months Immunizations Immunization Administration Dates Next Due INFLUENZA VACCINE, TRIV. (AF LURIA, FLUZONE TRIVALENT; 6MO+) (IIV3) 04/14/2020 FLU VACCINE QUAD IIV4 SPLIT 0.25 ML IM 06/16/2019,05/26/2018,08/19/2015 INFLUENZA VACCINE, QUADR. (A FLURIA, FLUZONE QUADRIVALENT; 6MO+) (IIV4) 03/08/2018 INFLUENZA VACCINE, QUADR. (F LUZONE; FLULAVAL; FLUARIX; AFLURIA QUADRIVALENT; 6MO+), 0.5 ML (IIV4) 05/05/2023,05/31/2022,07/22/2021,2019 INFLUENZA VACCINE, TRIV. (FL UZONE; FLULAVAL; FLUARIX; AFLURIA TRIVALENT; 6MO+), 0.5 ML (IIV3) 08/30/2024 PNEUMOCOCCAL PPSV23 07/01/2020 TDAP (7yrs+) 11/01/2017 Family History Medical History Relation Name Comments Autism Spectrum Disorder Brother 1 Bipolar Disorder Brother 1 Autism Spectrum Disorder Brother 2 jennifer f and blind Seizures Brother 3 Seizures Brother 4 Cancer - Pancreatic Father metastas is to thyroid Brain Tumor Mother Lupus Mother Other Mother fibromyalgia, r aynauds Other - Rheumatologic Mother Relation Name Status Comments Brother 1 Brother 2 Brother 3 Alive Brother 4 Alive Father Mother Social History Tobacco Use Types Packs/Day Years Used Date Smoking Tobacco: Never Smokeless Tobacco: Never Tobacco Cessation:Counseling Given: Not Answered Alcohol Use Standard Drinks/Week Comments Yes 0 (1 standard drink = 0.6 oz pur e alcohol) on holidays/special occasions PHQ-2 Answer Date Recorded Patient Health Questionnaire-2 Score 0 11/27/2024 Comments No Sex and Gender Information Value Date Recorded Sex Assigned at Female 07/05/2023 4:04 PM DOCUMENT CONTROL COORDINATOR Legal Sex Female 4:40 PM CDT Gender Identity Female 07/05/2023 4:04 PM DOCUMENT CONTROL COORDINATOR Sexual Orientation Bisexual 07/05/2023 4: 04 PM DOCUMENT CONTROL COORDINATOR Last Filed Vital Signs Vital Sign Reading Time Taken Comments Blood Pressure 137/95 01/14/2025 3:29 PM CDT Pulse 107 01/14/2025 3:29 PM CDT Temperature 36.5 C (97.7 F) 11/02/2024 9:10 AM CDT Respiratory Rate 18 11/12/2024 1:27 PM CDT Oxygen Saturation 96% 01/14/2025 3:29 PM CDT Inhaled Oxygen Concentration - - Weight 121.1 kg (267 lb) 01/14/2025 3:29 PM CDT Height 162.6 cm (5' 4) 01/14/2025 3:29 PM CDT Body Mass Index 45.83 01/14/2025 3:29 PM CDT Plan of Treatment Upcoming Encounters Date Type Department Care Team (Late st Contact Info) Description 01/31/2025 1:00 PM CDT Office Visit [facility] - Family Medicine [address] [place] [address], [place] [phone] Mayelin Ruffin MD [address] [place] [address] [place] [phone] 02/12/2025 4:20 PM CDT Office Visit [facility] - [address] [address] Candace Perez MD [address] [place] [phone] 02/27/2025 2:40 PM CDT Office Visit [facility] - Family Medicine [facility] [facility], [place] [phone] Mayelin Ruffin MD [address] [facility] [address] [place] [phone] 03/07/2025 3:30 PM CDT Office Visit [facility] - Cardiology [address] [facility] [place] [phone] Laurie Pop MD [address] [facility] [address] [place] [address] Health Maintenance Due Date Last Done Comments HIV SCREENING 2004 HEPATITIS C SCREENING 07/22/2007 HEPATITIS B VACCINE (1 of 3 - 19+ 3-dose series) 2008 PNEUMOCOCCAL VACCINE (2 of 2 - PCV) 07/01/2021 07/01/2020 COVID-19 VACCINE (3 - season) 2024 06/27/2021, 06/06/2021 DTAP/TDAP/TD VACCINES (2 - Td or Tdap) 11/02/2027 11/01/2017 ZOSTER VACCINE (1 of 2) 2039 INFLUENZA VACCINE Completed 08/30/2024, , 05/31/2022, Additional history exists HIB VACCINE Aged Out No longer eligi ble based on patient's age to complete this topic HPV VACCINE Aged Out No longer eligi ble based on patient's age to complete this topic MENINGOCOCCAL (Group B) VACCINE SHARED DECISION-MAKING Aged Out No longer eligible based on patient's age to complete this topic MENINGOCOCCAL GROUPS A/C/Y/W VACCINE Aged Out No longer eligible based on patient's age to complete this topic PAP SMEAR Discontinued Procedures Procedure Name Priority Date/Time Associated Diagnosis Comments TROPONIN-I HIGH SENSITIVE Routine 01/14/2025 5:21 PM CDT Dizziness URINALYSIS W/MICROSCOPIC REFLEX TO CULTURE Routine 11/27/2024 4:51 PM CDT Dysuria Bacteria in urine CARDIAC RHYTHM STRIP ORDER 11/06/2024 5:22 PM CDT PATHOLOGY TISSUE EXAM (STL) Routine 11/02/2024 8:03 AM CDT Biliary dyskinesia ENDOTRACHEAL TUBE NOTE Routine 11/02/2024 7:49 AM CDT NC LAP,CHOLECYSTECTOMY 11/02/2024 7:14 AM CDT Biliary dyskinesia Case Notes 11/02/24 POSITION: SUPINE LENGTH: 60 CASE #: 1ST EQUIPMENT: N/A Special Needs NEEDS 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 from Last 3 Months Results * TROPONIN-I HIGH SENSITIVE (01/14/2025 5:21 PM CDT) Troponin I High Sensitive <3 <=14 ng/L 01/14/2025 9:26 PM CDT [facility] Blood BLOOD SPECIMEN / Unknown Lab Venipuncture / Unknown 01/14/2025 5:21 PM CDT 01/14/2025 6:05 PM CDT us Arash Abdullahi MD LAB - CHEMISTRY ORDERABLES Final Result Performing Organization Address [facility]/ZIP Co de Phone Number [address] [address], [facility] [phone] * (ABNORMAL) URINALYSIS W/MICROSCOPIC REFLEX TO CULTURE (11/27/2024 4:51 PM CDT) Color UA Colorless(A ) Yellow, Straw 11/27/2024 5:37 PM CDT [facility] Clarity UA Clear Clear 11/27/2024 5:37 PM CDT [facility] Glucose UA Normal Normal 11/27/2024 5:37 PM CDT [facility] Bilirubin UA Negative Negative 11/27/2024 5:37 PM CDT [facility] Ketone UA Negative Negative 11/27/2024 5:37 PM CDT [facility] Specific [place] UA 1.010 1.005 - 1.030 11/27/2024 5:37 PM CDT [facility] Blood UA Negative Negative 11/27/2024 5:37 PM CDT [facility] pH UA 6.5 5.0 - 9.0 pH 11/27/2024 5:37 PM CDT [facility] Protein UA Negative Negative 11/27/2024 5:37 PM CDT [facility] Urobilinogen UA Normal Normal mg/dL 11/27/2024 5:37 PM CDT [facility] Nitrite UA Negative Negative 11/27/2024 5:37 PM CDT [facility] Leukocyte Esterase UA Negative Negative 11/27/2024 5:37 PM CDT [facility] RBC UA 0-2 0 - 5 # /hpf 11/27/2024 5:37 PM CDT [facility] WBC UA 0-5 0 - 5 # /hpf 11/27/2024 5:37 PM T [facility] Bacteria UA None Seen None Seen 11/27/2024 5:37 PM T [facility] Squamous Epithelial Cells 3-5 0 - 5 /hpf 11/27/2024 5:37 PM T [facility] Urine MID-STREAM URINE SPECIMEN / Unknown Collection / Unknown 11/27/2024 4:51 PM CDT 11/27/2024 5:29 PM CDT us Arash Abdullahi MD LAB - URINALYSIS ORDERABLES Arlin l Result Performing Organization Address [facility]/State/[facility] Co de Phone Number [address] [address], [facility] [phone] * CARDIAC RHYTHM STRIP ORDER (11/06/2024 5:22 PM CDT) Narrative 11/06/2024 5:22 PM CDT Ordered by an unspecified provider. us Scanned Document CARDIAC SERVICES ORDERABLES Fin al Result * PATHOLOGY TISSUE EXAM (STL) (11/02/2024 8:03 AM CDT) Case Report Surgical Pathology Report Case: [id number] Authorizing Provider: Savanna Roberts MD Collected: 11/02/2024 08:03 AM Ordering Location: [facility] Received: 11/02/2024 08:26 AM Pathologist: Rayray Hood MD Specimen: Gallbladder 11/05/2024 12:55 PM [facility] Final Diagnosis Gallbladder, cholecystectomy: - Chronic cholecystitis - Cholesterolosis 11/05/2024 12:[address] [facility] at 1255 CDT Clinical History K82.8 11/05/2024 12:[address] [facility] Gross Description The requisition and specimen container are identified with the patient's name and date of . Received in formalin, specimen A gallbladder is a 7.6 x 3.4 x 2.5 cm intact gallbladder with 0.5 cm portion of attached cystic duct. The serosa is perez-pink to purple, edematous with scattered hemorrhage. Opening shows yellow-red edematous mucosa with diffuse yellow stippling and trabeculation. The wall ranges from 0.1 to 0.3 cm in thickness. The lumen contains yellow-brown liquid bile. There are no stones or gross lesions. Heater Tender sections are submitted in cassette A1. /IKD 11/05/2024 12:55 PM [facility] Microscopic Description Microscopic examination substantiates the diagnosis above. 11/05/2024 12:55 PM [facility] Pathologist Location at [facility] 11/05/2024 12:[address] [facility] Disclaimer All histochemical and/or immunohistochemical results are interpreted with controls that demonstrate appropriate staining reactions before reporting results. Note on use of immunocytochemistry reagents: This test was developed and its performance characteristic determined by [facility], Department of Laboratory Medicine. It has not been cleared or approved by the U.S. Food and Drug Administration (FDA). The FDA has determined that such clearance or approval is not necessary. The test is used for clinical purpose. It should not be regarded as investigational or for research. This laboratory is certified to perform high complexity testing. The performance characteristics of the IHC/PRACHI assays have been validated on formalin-fixed paraffin embedded tissues only. The assays have not been validated on decalcified tissues. Results should be interpreted with caution. 11/05/2024 12:[address] [facility] Embedded Images 11/05/2024 12:[address] [facility] Pathology/Cytology ENTIRE GALLBLADDER / Unknown 11/02/2024 8:03 AM CDT 11/02/2024 8:26 AM CDT Comment:Pre-op diagnosis: Biliary dyskinesia [K82.8] us Savanna Roberts MD LAB - PATHOLOGY/CYTOLOGY LACEY BRANDON Final Result [facility] [address] [place] [address] * ETT LINE PERFORMABLE (11/02/2024 7:49 AM CDT) Narrative Rashad Wallace APRN-CRNA - 11/02/2024 7:49 AM CDT Rashad Wallace APRN-CRNA 11/02/2024 7:49 AM Endotracheal Tube Placement: Patient Location: OR. Intubation Event Date/Time: 11/02/2024 7:38 AM Procedure: intubation (11374) Procedure Section: Sedation: under general anesthesia. Indications for Airway Management: anesthesia Induction: standard IV Patient Position: supine Mask Ventilation: easy. Blade Type: Video Blade Size: 3 Laryngoscopy View: grade 1 (full cords) Intubation Adjuncts: stylet and video laryngoscope Tube: endotracheal tube Placement: oral Tube type: cuff - inflated Tube Size (MM): 7 Depth of Insertion (CM): 21 Measured From: teeth Cuff Inflated With: air Number of Attempts: 1. Placement Verified By: direct visualization and CO2 monitor Tube secured with: adhesive tape. Dentition unchanged? Yes Difficult Airway? No. Procedure Start Time: 11/02/2024 7:38 AM. Staff Section Anesthesia Provider: Rashad Wallace APRN-CRNA, Performed the procedure us Nitin Eason DO GENERAL ANESTHESIA ORDERABLES F inal Result from Last 3 Months Insurance [employer] Care Teams Hearing Care Professional Relationship Specialty Start Date End Date Mayelin Ruffin MD [address] [place] [phone] PCP - General Family Medicine 06/29/23
--- OUTSIDE RECORDS SUMMARY | 2025-01-21 19:51 | XMS_ITS | Data Portability ---
Author Organization [facility] Address [address] [place] [address] Assessment No assessment recorded. Plan of Treatment Reminders Order Date Submit Date Provider Last Modified By Organization Details Last Modified Time Details Appointments None recorded. Lab PPD (purified protein derivative ), skin test 2017 018 [email or web address] In-Office Order, Internal Use Only DO Not Attach Compendium DO Not Attach Compendium, Do Not Delete/merge, [id number] 8 12:40:03 MMR immunity, serum 2017 018 KLARISSA [facility], [address], [address], [address], 8 17:12:42 Referral urologist referral - please call patient to schedule appt. 2016 017 [email or web address] Not available 7 11:29:53 Procedures None recorded. Surgeries None recorded. Imaging None recorded. Medication Orders butalbital -acetamino phen-caffe ine 50 mg-325 mg-40 mg tablet 2017 018 [address] , [address], [place], [place], [id number], 8 13:20:41 amoxicilli n 500 mg capsule 2016 017 [id number], [address] , [place], [place], [id number], 7 13:19:08 ibuprofen 800 mg tablet 2016 017 INTERFACE [facility]- [address] , [address], [place], [place], [id number], 7 13:22:34 Patient TargetsNo targets recorded. Patient InstructionsNo instructions recorded. Reason for Referral Urologist Referral for Histo ry of hematuria Hematuria/ left flank pain please call patient to schedule appt. Referring Physician: Maximo Taveras, Internal Medicine, Encounter Date: 05/09/2017 Results Created Date Observation Date Name Description Value Unit Range Abnormal Flag Note LastModifiedBy Organization Detail LastModifiedTime 11/02/19 18 11/02/2017 MMR immun ity, serum rubella antibodies, IgG 4.39 index immune >0.99 Non-i mmune <0.90 Equiv ocal 0.90 - 0.99 Immun e >0.99 Not Available [facility] ([facility]) [address] [facility], [place], [address], 11/02/2017 17:12:42 11/02/19 18 11/02/2017 MMR immun ity, serum rubeola Ab, IgG 106.0 AU/mL immune >29.9 Negat randal <25.0 Equiv ocal 25.0 - 29.9 Posit randal >29.9 Prese nce of antib odies to Rubeo la is presu mptiv e evide nce of immun ity excep t when acute infec tion is suspe cted. Not Available [facility] ([facility]) [address] [facility], [place], [address], 11/02/2017 17:12:42 11/02/19 18 11/02/2017 MMR immun ity, serum mumps abs, IgG 12.8 AU/mL immune >10.9 Negat randal <9.0 Equiv ocal 9.0 - 10.9 Posit randal >10.9 A posit randal resul t gener ally indic ates past expos ure to Mumps virus or previ ous vacci natio n. Not Available [facility] ([facility]) [address] [facility], [place], [address], 11/02/2017 17:12:42 11/04/19 18 11/03/2017 PPD (nestor fied prote in deriv ative ), skin test Result Negati ve Not Available In-Office Order Internal Use Only DO Not Attach Compendium DO Not Attach Compendium, Do Not Delete/merge, [id number] 11/01/2017 12:51:45 04/27/20 17 04/26/2017 CT, abdom en + pelvi s, w/o contr ast No observ ation record ed. [address] [place], [address], 05/09/2017 14:37:18 10/12/19 18 10/11/2017 [place], kidne y No observ ation record ed. [address] (Imaging) [address] [place], [address], 10/20/2017 10:36:02 Result Notes None recorded. Problems Name Problem SNOMED Code Status Onset Date Resolution Date Notes Provider Name and Address Organization Details Recorded Time Tendernes s of mastoid 831963889 Active 2016 left Maximo Taveras MD Attn: Accounting ,[address] [place], [address] , [facility] 7 13:13:13 Active immunizat ion Active 2017 Maximo Taveras MD Attn: Accounting ,[address] [place], [address] , [place] - [facility] 8 12:50:34 Tuberculo sis screening Active 2017 Maximo Taveras MD Attn: Accounting ,[address] [place], [address] , [facility] 8 12:51:05 Bipolar disorder 60058656 Active Followe by Sybil Gonzalez in [facility]) Roxanne Au PA-C Attn: Accounting ,[address] [place], [address] , [place] [facility] 6 14:50:46 Malignant neoplasm of ovary 493171510 Active 2008 Stage 3C when found; bilateral oophorecto my, hysterecto my with cervix and fallopian tubes - oncologist is at [facility] - s/p tumor removal - currently in remission since 10/10/2010 Roxanne Au PA-C Attn: Accounting ,[address] [place], [place], [address] [place] [address] , [place] - [facility] 6 11:52:16 Asthma 724573467 Active Roxanne Au PA-C Attn: Accounting ,[address] [place], [place], [address] [place] [address] , [facility] 6 14:50:46 Cyst of breast 126500827 Active 2011 has been told in the past d/t caffeine 2011 Roxanne Au PA-C Attn: Accounting ,[address] [place], [place], [address] [place] [address] , [place] - [facility] 6 14:53:28 Chronic back pain 245941234 Active Laura Cooney MA null, [place] [facility] 6 15:56:47 Obesity 207181327 Active Roxanne Au PA-C Attn: Accounting ,[address] [place], [place], [address] [place] [address] , [place] - [facility] 6 11:52:16 Celiac disease 671794786 Active diagnosed as a baby and then re-dagnose d at 17 Roxanne Au PA-C Attn: Accounting ,[address] [place], [address] , [place] [facility] 6 14:53:28 Upper respirato ry infection 74743686 Active Roxanne Au PA-C Attn: Accounting ,[address] [place], [address] , [place] [facility] 6 11:52:16 Cramp in lower limb 232744686 Active Roxanne Au PA-C Attn: Accounting ,[address] [place], [address] , [place] [facility] 6 14:50:46 Increased liver function 68381536 Active Roxanne Au PA-C Attn: Accounting ,[address] [facility], [place], [address] , [place] [facility] 6 14:50:46 Allergic dispositi on 180274608 Active Roxanne Au PA-C Attn: Accounting ,[address] [facility], [place], [address] , [place] [facility] 6 14:50:46 Low back pain 196189482 Active Maximo Taveras MD Attn: Accounting ,[address] [facility], [place], [address] , [place] [facility] 6 13:11:57 Pharyngit is 682420106 Active Laura Cooney MA null, [place] [facility] 6 15:56:47 Headache 31642527 Active 2016 Maximo Taveras MD Attn: Accounting ,[address] [facility], [place], [address] , [place] [facility] 7 13:05:26 Menopausa l syndrome 767160833 Active 2016 Clifford Breen null, [place] [facility] 7 11:56:29 Apnea 2352662 Active 2016 Maximo Taveras MD Attn: Accounting ,[address] [facility], [place], [address] , [place] [facility] 7 14:43:44 Left flank pain 991153243 Active 2016 Maximo Taveras MD Attn: Accounting ,[address] [facility], [place], [address] , [place] [facility] 7 14:47:34 History of hematuria 512644967 Active 2016 Maximo Taveras MD Attn: Accounting ,[address] [facility], [place], [address] , [place] [facility] 7 14:48:04 Notes:Bleomycin toxicity - i n remission Problem Notes None recorded. Procedures Surgical History Date Name Laterality Status Provider Name and Address Organization Details Recorded Time 07/14/20 16 Date of Last Pap Smear completed Zaira Caraballo MA [facility] 09/02/2016 14:56:17 08/08/19 09 Hysterectomy completed Ebony LoganBENJAMÍN [facility] 08/19/2015 14:32:35 08/08/19 09 Other completed Ebony YasmanyBENJAMÍN [facility] 08/19/2015 14:32:35 Imaging Results None recorded. Procedure Notes None recorded. Medical Equipment None Reported. Allergies Allergen ID Allergen Name Allergen Category Reaction Reaction Severity Criticality Documentation Date Start Date Code Code System Note Provider Name and Address Organization Details Recorded Time 40546 Compazine medicatio n vomiting Not available Not available 08/19/2015 62520 6 RxNorm Ebony LoganBENJAMÍN null, [facility] 6 14:32:35 Medications Name Sig Start Date Stop Date Status Note LastModified by Organization Details LastModified Time Prescripti on - New active Not Available Not Available Not Available Prescripti on - Prior Authorizat ion Request active Not Available Not Available Not Available carisoprod ol 350 mg tablet Take 1 tablet every day by oral route at bedtime. 2016 active Not Available Not Available Not Avai lable cyclobenza chrissy 10 mg tablet Take 1 tablet(s ) 3 times a day by oral route. active Not Available Not Available No t Available amoxicilli n 500 mg capsule Take 1 capsule twice a day by oral route. 2016 active Not Available Not Available Not Avai lable medroxypro gesterone 10 mg tablet Take 1 tablet daily active Not Available Not Available No t Available buspirone 5 mg tablet active Not Available Not Available Not Available neomycin-p olymyxin-h ydrocort 3.5 mg/mL-10,0 00 unit/mL-1 % ear solution active Not Available Not Available Not Available albuterol sulfate 2.5 mg/3 mL (0.083 %) solution for nebulizati on active Not Available Not Available Not Available divalproex 250 mg tablet,del ayed release active Not Available Not Available Not Available cetirizine 10 mg tablet Take 1 tablet every day by oral route. 2015 active Not Available Not Available Not Avai lable azithromyc in 250 mg tablet active Not Available Not Available Not Available ibuprofen 800 mg tablet active Not Available Not Available Not Available hydrocodon e 5 mg-acetami nophen 325 mg tablet active Not Available Not Available No t Available ondansetro n HCl 4 mg tablet active Not Available Not Available Not Available prednisone 20 mg tablet active Not Available Not Available Not Available Provera 5 mg tablet Take 1 tablet every day by oral route. 2016 active Not Available Not Available Not Avai lable olanzapine 10 mg tablet Take 1 tablet every day by oral route for 30 days. active Rx by Sybil Nix Not Available Not Available Not Available acetaminop hen 500 mg tablet Take 1 tablet every 8 hours by oral route as needed. 2016 active Not Available Not Available Not Avai lable butalbital -acetamino phen-caffe ine 50 mg-325 mg-40 mg tablet Take 1 tablet every 6 hours by oral route. 11/08 completed Not Available Not Available Not Available ondansetro n 8 mg disintegra ting tablet active Not Available Not Available Not Available meloxicam 7.5 mg tablet active Not Available Not Available Not Available trazodone 100 mg tablet active Not Available Not Available Not Available divalproex 125 mg tablet,del ayed release active Not Available Not Available Not Available butalbital -aspirin-c affeine 50 mg-325 mg-40 mg capsule Take 1 capsule every 6 hours by oral route as needed. 2017 active Not Available Not Available Not Avai lable estradiol 2 mg tablet TAKE 1 TABLET DAILY active Not Available Not Available No t Available olanzapine 15 mg tablet 08/19 completed Not Available Not Available Not Available norethindr one acetate 5 mg tablet 1 qd active Not Available Not Available No t Available loratadine 10 mg tablet active Not Available Not Available Not Available metoclopra mide 10 mg tablet active Not Available Not Available Not Available amoxicilli n 875 mg-potassi um clavulanat e 125 mg tablet active Not Available Not Available Not Available Daily-Gaby tablet TAKE 1 TABLET BY MOUTH DAILY 2017 active Not Available Not Available Not Avai lable Evening Seney 500 mg capsule Take 1 capsule every day by oral route at bedtime. 2016 active Not Available Not Available Not Avai lable escitalopr am 10 mg tablet 08/19 completed Not Available Not Available Not Available escitalopr am 20 mg tablet Take 1 tablet every day by oral route for 30 days. active Not Available Not Available No t Available Vitamin D3 10 mcg (400 unit) capsule TAKE 1 CAPSULE BY MOUTH TWICE A DAY 2017 active Not Available Not Available Not Avai lable calcium 600 mg (as carbonate) -vitamin D3 10 mcg (400 unit) tablet TAKE 1 TABLET BY MOUTH TWICE A DAY 2017 active Not Available Not Available Not Avai lable vitamin E (dl, acetate) 180 mg (400 unit) capsule Take 1 capsule twice a day by oral route. 2016 active Not Available Not Available Not Avai lable Latuda 40 mg tablet active Not Available Not Available No t Available calcium 600 mg (as carbonate) -vitamin D3 20 mcg (800 unit) tablet Take 1 tablet twice a day by oral route for 30 days. 2016 active Not Available Not Available Not Avai lable Latuda 60 mg tablet active Not Available Not Available No t Available Asmanex HFA 100 mcg/actuat ion aerosol inhaler Inhale 2 puffs twice a day by inhalati on route. 2015 active Not Available Not Available Not Avai lable Vitals Date Recorded Body height Body mass index (BMI) Body weight Body temperature Oxygen saturation Oxygen saturation in Arterial blood by Pulse oximetry Heart rate Systolic blood pressure Diastolic blood pressure Provider Name and Address Organization Details Last Updated DateTime 8 165.1 cm 40.1 kg/m2 233438. 19 g 98.3 [degF] 99 % 99 % 60 /min 124 mm[Hg] 82 mm[Hg] Laura Cooney MA [facility] 8 11:50:18 Date Recorded Body height Body mass index (BMI) Body weight Body temperature Oxygen saturation Oxygen saturation in Arterial blood by Pulse oximetry Heart rate Systolic blood pressure Diastolic blood pressure Provider Name and Address Organization Details Last Updated DateTime 8 165.1 cm 40.1 kg/m2 778986. 19 g 98.3 [degF] 99 % 99 % 102 /min 126 mm[Hg] 80 mm[Hg] Laura Cooney [place] - [facility] 8 12:10:01 Date Recorded Body height Body mass index (BMI) Body weight Body temperature Oxygen saturation Oxygen saturation in Arterial blood by Pulse oximetry Heart rate Systolic blood pressure Diastolic blood pressure Provider Name and Address Organization Details Last Updated DateTime 7 165.1 cm 40.6 kg/m2 378434. 54 g 98.5 [degF] 99 % 99 % 81 /min 124 mm[Hg] 82 mm[Hg] Laura Cooney MA [facility] 7 14:19:35 Date Recorded Body height Body mass index (BMI) Body weight Body temperature Oxygen saturation Oxygen saturation in Arterial blood by Pulse oximetry Heart rate Systolic blood pressure Diastolic blood pressure Provider Name and Address Organization Details Last Updated DateTime 7 165.1 cm 40.4 kg/m2 897117. 23 g 98.5 [degF] 99 % 99 % 82 /min 122 mm[Hg] 78 mm[Hg] Laura Cooney MA [facility] 7 12:53:44 Social History Question Answer Notes LastModified by Organizat ion Details LastModified Time Tobacco Smoking Status Never Smoker Ebony Jade MA [facility], [facility] 08/19/2015 14:32:35 Do You Have An Advance Directive? No [email or web address] Information not available 08/19/2015 Is Blood Transfusion Acceptable In An Emergency? Yes Information not available 09/02/2016 What Is Your Level Of Caffeine Consumption? Moderate [email or web address] Information not available 08/19/2015 How Much Tobacco Do You Chew? None [email or web address] Information not available 08/19/2015 What Type Of Diet Are You Following? REGULAR [email or web address] Information not available 08/19/2015 Which Illicit Or Recreational Drugs Have You Used? 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 No [email or web address] Information not available 08/19/2015 Hard Of Hearing Or Deaf In One Or Both Ears? No [email or web address] Information not available 08/19/2015 Legally Blind In One Or Both Eyes? No [email or web address] Information not available 08/19/2015 Live Alone Or With Others? With Others [email or web address] Information not available 08/19/2015 What Was The Date Of Your Most Recent Tobacco Screening? 11/01/2017 Information not available 03/01/2019 How Many Children Do You Have? 0 [email or web address] Information not available 08/19/2015 Performs Monthly Self-breast Exam? No Discuss Self Exams C Pt And Given Info To Pt, Cbma Information not available 09/02/2016 Do You Use Protection During Sex? Always [email or web address] Information not available 08/19/2015 Seat Belts Used Routinely Yes [email or web address] Information not available 08/19/2015 Are You Sexually Active? Yes [email or web address] Information not available 08/19/2015 Smoke Alarm In Home Yes [email or web address] Information not available 08/19/2015 At What Age Did You Start Smoking Tobacco? 0 [email or web address] Information not available 08/19/2015 Are You Passively Exposed To Smoke? No [email or web address] Information not available 08/19/2015 How Much Tobacco Do You Smoke? No Information not available 08/19/2015 General Stress Level Low [email or web address] Information not available 08/19/2015 How Many Years Have You Smoked Tobacco? 0 [email or web address] Information not available 08/19/2015 Sex: Unknown Functional Status Question Answer Note LastModified by Organizat ion Details LastModified Time What is your level of alcohol consumption? Occasional [email or web address] Information not available 08/19/2015 Are you currently employed? No Information not available 08/19/2015 Are you able to care for yourself? 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 None [email or web address] Information not available 08/19/2015 Mental Status None recorded. Family History Relationship Description Onset Age of this Age Resolved Age Notes LastModified by Organization Details LastModified Time Mother Asthma [email or web address] Not available 12:11:25 Mother Tachycardia [email or web address] Not availabl e 01/27/2016 12:11:25 Brother Asthma [email or web address] Not available 12:11:25 Brother Attention deficit hyperactivit y disorder mroyma Not available 01/26 12:11:25 Brother Hypercholest erolemia mroyma Not available 2015 12:11:25 Father Heart disease mroyma Not available 2015 12:11:25 Father Malignant tumor of pancreas 65 65 [email or web address] Not available 2015 14:50:21 Medical History Condition Response Muscle, Joint, or Bone Problems Y Seizures/Epilepsy Y Acid Reflux (GERD) Y Cancer Y Blood Clots Y Asthma Y Gynecological History Statement/Question Response Abnormal Pap N STIs/STDs N HPV Vaccine N Current Control Method Hysterectom y If Post Menopausal, Age at Menopause 18 Sexually Active? Y Menses Monthly N Date of Last Pap Smear 07/14/2016 Sexual Problems? N LMP Approximate Desired Control Method None Obstetrics History GPAL:G 0 P 0 0 0 0 Type Value Multiple Births 0 Full Term 0 Induced 0 Spontaneous 0 Premature 0 Living 0 Ectopics 0 Total 0 Immunizations Vaccine Type Date Status Note Provider Nam e and Address Organization Details Recorded Time Tdap 8 completed Not Available [facility] 08/25/2019 02:35:21 Influenza, split virus, quadrivalent, preservative 6 completed Not Available [facility] 08/25/2019 02:32:12 Past Encounters Encounter ID Performer Location Encounter Start Date Encounter Closed Date Diagnosis/Indication Diagnosis SNOMED-CT Code Diagnosis ICD10 Code Diagnosis Note [id number] Fred Soto MD [facility] (Adult Med) [address] [place] [id number] 0 08/19/2015 13:57:36 08/19/2015 18:07:49 Chronic back pain 576945143 R52 Fell while doing chemo in 2008 and broke her back Obesity 519312735 E66.9 25YO F with a hx/o ovarian cancer s/p tumor, bilateral oophorecto my, JONAS with cervix removal in 2008 and is currently in remission here to establish care. Active or passive immunization 924230981 Z23 Upper resp iratory infection 47413742 J06.9 Advised to increase liquid intake Malignant neoplasm of ovary 661710934 C56.9 In remission Would like OBGYN to follow patient d/t hx/o cancer Oncology is also following patient and she f/u's with them yearly Bipolar disorder 0037459 4 F31.9 Followed by psych at [place] [id number] [facility] [address] [place] [phone] 09/10/2015 14:24:24 09/10/2015 14:55:07 Asthma 018826719 J45.909 States she has been on Advair in the past but right now she only has a rescue inhaler - when she has a maintenanc e inhaler she does not have issues with cough Will try Asmanex because it is covered under her insurance Cramp in lower limb 4499 52385 R25.2 Flexeril has helped for leg spasms and cramping in the past Will use PRN for leg cramps [id number] MD Jerry Baca (Adult Med) [address] [place] [phone] 11/11/2015 13:57:01 11/11/2015 14:52:22 Asthma 782121318 J45.909 States she has been on Advair in the past but right now she only has a rescue inhaler - when she has a maintenanc e inhaler she does not have issues with cough Will try Asmanex because it is covered under her insurance Bipolar disorder 9381203 4 F31.9 Followed by psych at [place] Increased liver function 90058476 R94.5 Chronic back pain 139299 002 R52 WIll refer to PT - back pain worsens after working out - discussed she may need help strengthen ing her back muscles Allergic disposition 609 757776 Z91.09 Cramp in lower limb 4499 38760 R25.2 flexeril working well [id number] [facility] [address] [place] [phone] 01/27/2016 11:55:00 01/27/2016 18:02:54 Low back pain 158623494 M54.5 [id number] MD Jerry Soni (Adult Med) [address] [place] [address] [phone] 04/19/2016 13:31:53 04/20/2016 10:00:29 Pharyngitis 381267778 J02.9 Strep screen negative Chronic back pain 942373 002 R52 Pain in throat 282744177 R07.0 [id number] MD Jerry Mchugh ([employer]) [address] [place] [address] [id number] 09/02/2016 14:04:49 09/06/2016 14:26:40 Bipolar disorder 66805139 F31.9 Menopausal syndrome 1237 86116 N95.9 Family [facility] surveillance 993711202 Z30.09 Fibrocysti c disease of breast 96112144 N60.12 Malignant neoplasm of ovary 087548101 C56.9 [id number] MD Jerry Soni (Adult Med) [address] [place] [address] [id number] 03/08/2017 10:50:35 03/08/2017 13:14:41 Cramp in lower limb 217586675 R25.2 Will try other muscle relaxant Headache 31012287 R51 [id number] MD Jerry Mchugh ([employer]) [address] [place] [address] [phone] 03/21/2017 09:44:04 03/22/2017 16:14:54 Menopausal syndrome 084258081 N95.9 Malignant neoplasm of ovary 477804325 C56.9 Stage 3C when found; bilateral oophorecto my, hysterecto my with cervix and fallopian tubes - oncologist is at [facility] - s/p tumor removal - currently in remission since 10/10/2010 Obesity 774025422 E66.9 [id number] MD Jerry Soni (Adult Med) [address] [place] [address] [id number] 05/09/2017 12:53:17 05/09/2017 15:21:36 History of hematuria 182227942 Z87.448 Left flank pain 77698751 9 R10.9 [id number] MD Jerry Soni (Adult Med) [address] [place] [address] [id number] 07/12/2017 11:34:50 07/12/2017 13:58:33 Asthma 654296865 J45.909 Headache 96772617 R51 Tenderness of mastoid 27 5234975 H92.09 [id number] MD Jerry Soni (Adult Med) [address] [place] [id number] 10/10/2017 11:21:06 10/10/2017 16:47:23 Headache 33427380 R51 Possible migraine. Discussed use of fioricet [id number] Maximo Taveras MD [facility] (Adult Med) [address] [place] [address] 11/01/2017 11:52:51 11/01/2017 15:29:34 Active immunization 20466996 Z23 Tuberculos is screening 804696218 Z11.1 Health Concerns Section Related Observation LastModified by Organization Detai ls LastModified Time None Recorded Concern Status LastModified by Organization Details LastModified Time None Recorded Advance Directives Directive N: Payers Insurance Date Sequence Insurance Name Policy Number Policy Christianson Covered Member ID Christianson Member ID Guarantor Name 12/11/2019 2 [place] Svitlana Chunky [id number] Svitlana Chunky 04/16/2018 PAYMENT PLAN Svitlana Chunky 12/11/2019 1 [place] [facility] Svitlana Chunky [id number] Svitlana Chunky 07/31/2017 PAYMENT PLAN Svitlana Chunky Notes Date Note Type Note Provider Name and Address Organization Details Recorded Time 05/09/2017 text/html Persist left fla nk pain x3wks. CT abdomen non-revealing. Pain persists. Hx of renal stones about two years ago Maximo Taveras MD Attn: Accounting,[address] [facility], [place], [address], [facility] 05/09/2017 14:56:22 07/12/2017 text/html Headaches have recurred since last visit. She has had to use her inhalers and has experienced left ear pain. Denies sore throat. Maximo Taveras MD Attn: Accounting,[address] [facility], [place], [address], [facility] 07/12/2017 13:20:15 10/10/2017 text/html Seen in urgent care one week ago for three day headache associated with photophobia, noise sensitivity and nausea. Pain in frontal and occipital areas. This was first episode. Maximo Taveras MD Attn: Accounting,[address] [place], [address], [facility] 10/10/2017 12:19:21 11/01/2017 text/html Needs pre-employment physical Maximo Taveras MD Attn: Accounting,[address] [facility], [place], [address], [place] [facility] 11/01/2017 12:54:35 OBGyn Episode No OBEpisode recorded.
--- OUTSIDE RECORDS SUMMARY | 2025-01-21 19:51 | XMS_ITS | Clinical Summary ---
Author Organization [facility] [employer] [place] Address [address] [place] [address] [place] [address] Care Team Providers Care Real Estate Underwriter Name Role Phone Mayelin Ruffin MD Primary Care Provider [phone] Allergies Active Allergy Reactions Criticality Noted Date Comments Adhesive Rash Medium 03/31/2021 Amoxicillin Other (See Comments) Low 10/22/2020 PCP prefers pt Does not take Doxycycline Nausea and Vomiting Low 11/18/2022 Gluten Other (See Comments) Low 02/21/2018 Other reaction(s): Stomach upset Morphine Unknown 04/21/2020 Prochlorperazine Nausea and Vomiting Low 11/20/2017 Medications albuterol HFA 90 mcg inhalerIndicatio ns:Mild intermittent asthma, unspecified whether complicated Take 2 Puffs by inhalation every 4 hours as needed for Shortness of Breath. 18 Gram 3 0 Active albuterol (PROVENTIL,SHWETA AUBREE) 2.5 mg /3 mL (0.083 %) Solution for NebulizationIndi cations:Mild intermittent asthma without complication Take 3 mL (2.5 mg) by inhalation every 4 hours as needed for Shortness of Breath or Wheezing. 90 mL 2 1 Active erenumab-aooe (AIMOVIG) 70 mg/mL Auto-Injector Inject 140 mg by subcutaneous injection. 1 Active triamcinolone acetonide (KENALOG) 0.1 % Cream Apply to affected area 2 times daily. 30 Gram 1 Active midodrine (PROAMATINE) 2.5 mg Tablet Take 2 Tablets by mouth 3 times daily. 2 Active divalproex (DEPAKOTE ER) 500 mg Extended Release 24 hour tablet Take by mouth 2 times daily. Pt states she takes 500mg morning and 1000mg nightly 2 Active clonazePAM (KlonoPIN) 0.5 mg Tablet Take 0.5 mg by mouth 1 time daily as needed. 2 Active vitamin E, dl,tocopheryl acet, (vitamin E, DL,acetate,) 400 unit Capsule 2 times daily. Active rimegepant (Nurtec ODT) 75 mg Tablet, Rapid Dissolve TAKE 1 TABLET (75 MG TOTAL) BY MOUTH DAILY NEEDED (MIGRAINE) 2 Active prazosin (MINIPRESS) 2 mg capsule Take 1 Capsule by mouth daily. 2 Active amitriptyline (ELAVIL) 25 mg tabletIndication s:Sleep disturbances Take 2 Tablets (50 mg) by mouth daily at bedtime. 180 Tablet 3 Active pregabalin (LYRICA) 100 mg CapsuleIndicatio ns:Fibromyalgia TAKE 1 CAPSULE EVERY 12 HOURS 180 Capsule 3 Active ondansetron (ZOFRAN ODT) 4 mg Tablet, Rapid Dissolve Take 1 Tablet (4 mg) by mouth every 8 hours as needed for Nausea/Emesis. Dissolve tablet on top of tongue, then swallow with saliva. 10 Tablet 3 Active ARIPiprazole (ABILIFY) 30 mg tablet Take 30 mg by mouth daily. 3 Active Insulin Milliken, Disposable, (Abigail Pen Needle) 32 gauge x 5/32 Needle 30 Each by [facility].(Non-Drug; Combo Route) route daily. 30 Each 3 Active Active Problems Problem Noted Date Diagnosed Date Morbid obesity with body mass index of 40.0-49.9 04/13/2023 Tremor 12/20/2022 Plantar fasciitis of right foot 04/14/2022 Fibromyalgia 04/14/2022 PTSD (post-traumatic stress disorder) 01/22/2020 Prediabetes 11/22/2019 Celiac disease 11/14/2018 History of ovarian cancer 11/14/2018 History of pseudoseizure 11/14/2018 Vitamin D deficiency 11/14/2018 Seasonal allergic rhinitis 10/27/2018 Asthma 02/28/2018 Anxiety 12/19/2013 Bronchial asthma 12/19/2013 Malignant neoplasm of ovary 08/08/2008 Resolved Problems Problem Noted Date Diagnosed Date Resolved Date Bipolar disorder, current ep isode mixed, moderate 11/14/2018 10/01/2020 Immunizations Immunization Administration Dates Next Due (ADACEL/BOOSTRIX)(10 YR UP) TDAP VACCINE, 0.5ML, IM 11/01/2017 (PFIZER)(12 YR UP) COVID-19 VACCINE - EMERGENCY USE AUTHORIZATION, MRNA, [id number](PF) 30 MCG/0.3 ML IM SUSP 06/27/2021,06/06/2021 (PNEUMOVAX 23)(50 YRS UP) PN EUMOCOCCAL POLYSACCHARIDE (PPV23) 0.5 ML, IM 07/01/2020 INFLUENZA VACCINE QUADRIVALENT 6 MOS UP IM 05/26,08/19/2015 INFLUENZA VACCINE QUADRIVALE NT 6 MOS UP PF IM 05/31/2022,07/22/2021,04/10/2020 Influenza Seasonal Unspecifi ed Formulation IM 04/14/2020 Family History Medical History Relation Name Comments Blindness Brother 1 Jtc Hearing Loss Brother 1 Jtc Hypertension Brother 1 Jtc No Known Problems Brother 2 Cancer Father Godfrey Heart Disease Father Godfrey Reall bad chf before he was 45 cardiomapthy hereditary start at 19 Hypertension Father Godfrey Other Father Godfrey 3 heart attacks before 50 Pancreatic Cancer Father Godfrey Stroke Father Godfrey Before 50 Thyroid Cancer Father Godfrey No Known Problems Maternal Grandfather Heart Disease Maternal Grandmother Great grandma Afib and had a pacemaker Asthma Mother [place] Other Mother [place] fibro SLE Mother [place] Unknown Paternal Grandfather Not sure Unknown Paternal Grandmother Not sure Relation Name Status Comments Brother 1 Jtc Alive Brother 2 Alive Father Godfrey Maternal Grandfather Alive Maternal Grandmother Great grandma Alive Mother [place] Alive Paternal Grandfather Not sure Paternal Grandmother Not sure Social History Tobacco Use Types Packs/Day Years Used Date Smoking Tobacco: Never Smokeless Tobacco: Never Tobacco Cessation:Counseling Given: Not Answered Alcohol Use Standard Drinks/Week Comments Not Currently 0 (1 standard drink = 0.6 oz pur e alcohol) occasionally Comments No Sex and Gender Information Value Date Recorded Sex Assigned at Not on file Legal Sex Female 9:53 AM CDT Gender Identity Not on file Sexual Orientation Not on file Last Filed Vital Signs Vital Sign Reading Time Taken Comments Blood Pressure 122/82 04/13/2023 7:18 AM CDT Pulse 62 04/13/2023 7:18 AM CDT Temperature 36.3 C (97.4 F) 04/13/2023 7:18 AM CDT Respiratory Rate 18 04/13/2023 7:18 AM CDT Oxygen Saturation 97% 04/13/2023 7:18 AM CDT Inhaled Oxygen Concentration - - Weight 131.5 kg (290 lb) 04/13/2023 7:18 AM CDT Height 165.1 cm (5' 5) 04/13/2023 7:18 AM CDT Body Mass Index 48.26 04/13/2023 7:18 AM CDT Plan of Treatment Health Maintenance Due Date Last Done Comments HEPATITIS B VACCINES (1 of 3 - 19+ 3-dose series) 2008 COVID-19 Vaccine ( season) 2024 06/27/2021, 06/06/2021 Pre-Diabetes and Diabetes Screening 11/18/2025 11/18/2022, 04/14/2022, 04/15/2021, Additional history exists DTAP/TDAP/TD VACCINES (2 - Td or Tdap) 11/02/2027 11/01/2017 INFLUENZA VACCINE Completed 08/30/2024, , 05/31/2022, Additional history exists HPV VACCINES Aged Out No longer eligi ble based on patient's age to complete this topic Procedures Procedure Name Priority Date/Time Associated Diagnosis Comments HEMOGLOBIN A1C Routine 11/18/2022 8:55 AM CDT Screening for condition from Last 3 Months or Most Recently Relevant to Health Maintenance Results * HEMOGLOBIN A1C (11/18/2022 8:55 AM CDT) HEMOGLOBIN A1C 5.5 <5.7 % of total Hgb [facility] Comment: For the purpose of screening for the presence of diabetes: <5.7% Consistent with the absence of diabetes 5.7-6.4% Consistent with increased risk for diabetes (prediabetes) > or =6.5% Consistent with diabetes This assay result is consistent with a decreased risk of diabetes. Currently, no consensus exists regarding use of hemoglobin A1c for diagnosis of diabetes in children. According to [place] Diabetes Association (ADA) guidelines, hemoglobin A1c <7.0% represents optimal control in non- diabetic patients. Different metrics may apply to specific patient populations. Standards of Medical Care in Diabetes(ADA). ESTIMATED AVERAGE GLUCOSE (MG/DL) 111 mg/dL [facility] ESTIMATED AVERAGE GLUCOSE (MMOL/L) 6.2 mmol/L [facility] Comment: Test Performed at: [facility] [id number] [facility] [place] [address] Elma Stoll MD Blood 11/18/2022 8:55 AM CDT 11/19/2022 5:47 AM CDT Natalie Quintana PRODUCT CRAFTSMAN CHEMISTRY ORDERABLES F inal Result [facility] [phone] [facility] [id number] [facility] [place] [address] from Last 3 Months or Most Recently Relevant to Health Maintenance Insurance [facility] OPEN ACCESS Care Teams Real Estate Underwriter Relationship Specialty Start Date End Date Mayelin Ruffin MD [address] [facility] [address] [place] [phone] PCP - General Family Practice 09/19/23
[2025-01-21 19:53] VITALS: BP 136/90; PULSE 88; RESP 14; TEMP 36.3; O2SAT 99
[2025-01-21 20:09] LABS: BEDSIDEPREGUCG Negative (Negative)
--- OUTSIDE RECORDS SUMMARY | 2025-01-21 20:31 | XMS_ITS | Encounter Summary ---
Author Organization [facility] Healthcare Address [address] [place] [address] Care Team Providers Care Manager Primary Name Role Phone Mayelin Ruffin MD Primary Care Provider [phone] Encounter Details Date Type Department Care Team (Late st Contact Info) Description 01/01/2025 Results Follow-Up [facility] [address] [place] [address] [address], [place] [address] Aby Vasquez MA Folate, Vitamin D 25 hydroxy, Thyroid Function Vinson, Additional followed-up results: 3 Social History Tobacco [...] on file Legal Sex Female 8:28 AM SOLARIS ADMINISTRATOR Gender Identity Female 01/22/2021 5:39 PM CDT [...] on filedocumented in this encounter Care Teams Manager Primary Relationship Specialty Start Date End Date Mayelin Ruffin MD [address] [place] [address] PCP - General Family Medicine 07/12/23 documented as of this encounter
--- OUTSIDE RECORDS SUMMARY | 2025-01-21 20:32 | XMS_ITS | Clinical Summary ---
Author Organization [facility] [employer] Address [address] [facility] [place] [address] Care Team Providers Care Clay Pigeon Setter Name Role Phone Mayelin Ruffin MD Primary Care Provider [phone] Source Comments [facility],non-owned Affiliates and Associated Physician Practices is amultiple site organization consisting of ambulatory clinics and hospital sitesin [place], [place], [place] and [place]. This disclosure is being madepursuant to the Care Everywhere program and may not contain all information available regarding this patient. Last updated 18.[facility] Allergies Active Allergy Reactions Criticality Noted Date [...] and fallopian tubes - oncologist is at [facility] - s/p tumor removal - currently in [...] [facility] [address] [place] [phone] Mayelin Ruffin MD MEDICATION REFILL 01/20/2025 Refill [facility] [address] [place] [phone] Mayelin Ruffin MD Refill Request 01/15/2025 Telephone [facility] - Centralized Scheduling [address] [place] [phone] Mayelin Ruffin MD Patient Requested Call 01/15/2025 Results Follow-Up [facility] Family [facility] [address] [place] [phone] Arash Abdullahi MD 01/14/2025 4:35 PM CDT - 01/14/2025 11:59 PM CDT Hospital Encounter [facility] OP DRAW STATION [address] [place] [address] Arash Abdullahi MD Discharge Disposition: Home or Self Care 01/14/2025 3:40 PM CDT Office Visit [facility] Family Medicine [address] [place] [phone] Arash Abdullahi MD Dizziness (Primary Dx); Mild pulmonary hypertension (HCC); Dilated cardiomyopathy (HCC); POTS (postural orthostatic tachycardia syndrome) 01/14/2025 Travel 01/14/2025 Telephone [facility] - Centralized Scheduling [address] [place] [address] Mayelin Ruffin MD Question 11/27/2024 3:37 PM CDT - 11/27/2024 11:59 PM CDT Hospital Encounter [facility] OP DRAW STATION [address] [place] [address] Discharge Disposition: Home or Self Care 11/27/2024 3:20 PM CDT Office Visit [facility] Physician [facility] Family [facility] [address] [place] [phone] Arash Abdullahi MD Hospital discharge follow-up (Primary Dx); Psychogenic syncope; Dysuria; Bacteria in urine; Dilated cardiomyopathy (HCC); Uncomplicated asthma, unspecified asthma severity, unspecified whether persistent (HCC) 11/27/2024 Results Follow-Up [facility] Physician [facility] [address] [place] [phone] Arash Abdullahi MD 11/27/2024 Travel 11/12/2024 2:30 PM CDT Office Visit [facility] - [facility] Surgery [address] [facility] [address] [place] [address] Savanna Roberts MD Surgery follow-up (Primary Dx) 11/02/2024 7:27 AM CDT Anesthesia Event [facility] [address] [place] [address] Nitin Eason DO Levin, Vitaly F, MD 11/02/2024 7:15 AM CDT - 11/02/2024 8:45 AM CDT Surgery [facility] [address] [place] [address] Savanna Roberts MD LAPAROSCOPIC CHOLECYSTECTOMY 11/02/2024 5:33 AM CDT - 11/02/2024 10:57 AM CDT Hospital Encounter [facility] [address] [place] [address] Savanna Roberts MD Surgery General Discharge Disposition: [...] Sex Assigned at Female 07/05/2023 4:04 PM DIRECTOR OF MATH Legal Sex Female 4:40 PM CDT Gender Identity Female 07/05/2023 4:04 PM DIRECTOR OF MATH Sexual Orientation Bisexual 07/05/2023 4: 04 PM DIRECTOR OF MATH Last Filed Vital Signs Vital Sign Reading [...] Description 01/31/2025 1:00 PM CDT Office Visit [facility] - Family Medicine [address] [place] [address], [place] [phone] Mayelin Ruffin MD [address] [place] [address] [place] [phone] 02/12/2025 4:20 PM CDT Office Visit [facility] - [address] [address] Candace Perez MD [address] [place] [phone] 02/27/2025 2:40 PM CDT [facility] [facility], [place] [phone] Mayelin Ruffin MD [address] [facility] [address] [place] [phone] 03/07/2025 3:30 PM CDT Office Visit [facility] - Cardiology [address] [facility] [place] [address] Laurie Pop MD [address] [facility] [address] [place] [address] Health Maintenance Due Date Last Done Comments [...] TUBE NOTE Routine 11/02/2024 7:49 AM CDT [place] LAP,CHOLECYSTECTOMY 11/02/2024 7:14 AM CDT Biliary dyskinesia Case Notes 11/02/24 POSITION: SUPINE LENGTH: 60 CASE #: 1ST EQUIPMENT: N/A Special Needs NEEDS METAL SPRAYING MACHINE OPERATOR from Last 3 Months Results * TROPONIN-I HIGH SENSITIVE (01/14/2025 5:21 PM CDT) Troponin I High Sensitive <3 <=14 ng/L 01/14/2025 9:26 PM CDT [facility] Blood BLOOD SPECIMEN / Unknown Lab Venipuncture / Unknown 01/14/2025 5:21 PM CDT 01/14/2025 6:05 PM CDT us Arash Abdullahi MD LAB - CHEMISTRY ORDERABLES Final Result Performing Organization Address [facility]/ZIP Co de Phone Number [address] [address], [facility] [phone] * (ABNORMAL) URINALYSIS W/MICROSCOPIC REFLEX TO CULTURE (11/27/2024 4:51 PM CDT) Color UA Colorless(A ) Yellow, Straw 11/27/2024 5:37 PM CDT [facility] Clarity UA Clear Clear 11/27/2024 5:37 PM CDT [facility] Glucose UA Normal Normal 11/27/2024 5:37 PM CDT [facility] Bilirubin UA Negative Negative 11/27/2024 5:37 PM CDT [facility] Ketone UA Negative Negative 11/27/2024 5:37 PM CDT [facility] Specific [place] UA 1.010 1.005 - 1.030 11/27/2024 5:37 PM CDT [facility] Blood UA Negative Negative 11/27/2024 5:37 PM CDT [facility] pH UA 6.5 5.0 - 9.0 pH 11/27/2024 5:37 PM CDT [facility] Protein UA Negative Negative 11/27/2024 5:37 PM CDT [facility] Urobilinogen UA Normal Normal mg/dL 11/27/2024 5:37 PM CDT [facility] Nitrite UA Negative Negative 11/27/2024 5:37 PM CDT [facility] Leukocyte Esterase UA Negative Negative 11/27/2024 5:37 PM CDT [facility] RBC UA 0-2 0 - 5 # /hpf 11/27/2024 5:37 PM CDT [facility] WBC UA 0-5 0 - 5 # /hpf 11/27/2024 5:37 PM T [facility] Bacteria UA None Seen None Seen 11/27/2024 5:37 PM T [facility] Squamous Epithelial Cells 3-5 0 - 5 /hpf 11/27/2024 5:37 PM T [facility] Urine MID-STREAM URINE SPECIMEN / Unknown Collection / Unknown 11/27/2024 4:51 PM CDT 11/27/2024 5:29 PM CDT us Arash Abdullahi MD LAB - URINALYSIS ORDERABLES Arlin l Result Performing Organization Address [facility]/State/[facility] Co de Phone Number [address] [address], [facility] [phone] * CARDIAC RHYTHM STRIP ORDER (11/06/2024 5:22 PM CDT) Narrative 11/06/2024 5:22 PM CDT Ordered by an unspecified provider. us Scanned Document CARDIAC SERVICES ORDERABLES Fin al Result * PATHOLOGY TISSUE EXAM (STL) (11/02/2024 8:03 AM CDT) Case Report Surgical Pathology Report Case: [id number] Authorizing Provider: Savanna Roberts MD Collected: 11/02/2024 08:03 AM Ordering Location: [facility] Received: 11/02/2024 08:26 AM Pathologist: Rayray Hood MD Specimen: Gallbladder 11/05/2024 12:55 PM [facility] Final Diagnosis Gallbladder, cholecystectomy: - Chronic cholecystitis - Cholesterolosis 11/05/2024 12:55 PM T [facility] at 1255 CDT Clinical History K82.8 11/05/2024 12:55 PM T [facility] Gross Description The requisition and specimen [...] There are no stones or gross lesions. Pasteurizer Helper sections are submitted in cassette A1. /IKD 11/05/2024 12:55 PM [facility] Microscopic Description Microscopic examination substantiates the diagnosis above. 11/05/2024 12:55 PM [facility] Pathologist Location at [facility] 11/05/2024 12:55 PM T [facility] Disclaimer All histochemical and/or immunohistochemical results are interpreted with controls that demonstrate appropriate staining reactions before reporting results. Note on use of immunocytochemistry reagents: This test was developed and its performance characteristic determined by [facility], Department of Laboratory Medicine. It has [...] interpreted with caution. 11/05/2024 12:55 PM CDT [facility] Embedded Images 11/05/2024 12:55 PM CDT [facility] Pathology/Cytology ENTIRE GALLBLADDER / Unknown 11/02/2024 8:03 AM CDT 11/02/2024 8:26 AM CDT Comment:Pre-op diagnosis: Biliary dyskinesia [K82.8] us Savanna Roberts MD LAB - PATHOLOGY/CYTOLOGY LACEY BRANDON Final Result [facility] [address] [place] [address] * ETT LINE PERFORMABLE (11/02/2024 7:49 AM CDT) Narrative Rashad Wallace APRN-CRNA - 11/02/2024 7:49 AM CDT Rashad Wallace APRN-CRNA 11/02/2024 7:49 AM Endotracheal Tube Placement: Patient Location: OR. Intubation Event Date/Time: 11/02/2024 7:38 AM Procedure: intubation ([id number]) Procedure Section: Sedation: under general anesthesia. Indications [...] Last 3 Months Insurance [employer] Care Teams Clay Pigeon Setter Relationship Specialty Start Date End Date Mayelin Ruffni MD [address] [place] [phone] PCP - General Family Medicine 06/29/23
--- OUTSIDE RECORDS SUMMARY | 2025-01-21 20:32 | XMS_ITS | Encounter Summary ---
Author Organization [facility] Address [address] [place] [address] Phone Care Team Providers Care Binder Technician Name Role Phone Mono García MD Primary Care Provider Terry Looney MD Primary Care Provider Mayelin Ruffin MD Primary Care Provider [phone]- [phone] Encounter Details Date Type Department Care Team (Late st Contact Info) Description 01/12/2021 Telephone [facility] Cardiology [address] [facility] Medicine 8th [place] [address] [place] [address] Aleta Do Social History Tobacco Use Types Packs/Day Years Used Date Smoking Tobacco: Never Smokeless Tobacco: Never Alcohol Use Standard Drinks/Week Comments Not Currently 0 (1 standard drink = 0.6 oz pur e alcohol) Comments No Sex and Gender Information Value Date Recorded Sex Assigned at Not on file Legal Sex Female 8:28 AM SUPERINTENDENT PLANT PROTECTION Gender Identity Female 01/22/2021 5:39 PM CDT Sexual Orientation Bisexual 01/22/2021 5: 39 PM CDT documented as of this encounter Plan of Treatment Not on file documented as of this encounter Visit Diagnoses Not on filedocumented in this encounter Additional Health Concerns Infection Onset Date Last Indicated Resolved Time COVID: Suspected 07/15/2022 07/15/2022 07/15/2022 3:39 PM SUPERINTENDENT PLANT PROTECTION COVID19 07/15/2022 07/15/2022 07/25/2022 3:07 AM SUPERINTENDENT PLANT PROTECTION COVID: Recovered Comment:Added based on recent COVID infection. 07/25/2022 07/27/2022 10/23/2022 3:05 AM C DT COVID: Suspected 07/06/2023 07/06/2023 07/06/2023 5:14 PM SUPERINTENDENT PLANT PROTECTION COVID: Suspected 02/28/2024 02/28/2024 02/28/2024 6:59 PM CDT documented as of this encounter Care Teams Binder Technician Relationship Specialty Start Date End Date Mono García MD [address] [place] [address] PCP - General 11/05/20 03/28/22 Terry Looney MD [address] [facility] [address] [place] [address] PCP - General Family Medicine 03/29/22 07/11/23 Mayelin Ruffin MD [address] [place] [phone] PCP - General Family Medicine 07/12/23 documented as of this encounter
--- OUTSIDE RECORDS SUMMARY | 2025-01-21 20:32 | XMS_ITS | Encounter Summary ---
Author Organization [facility] Address [address] [facility] [place] [address] Care Team Providers Care Diffusion Furnace Operator Name Role Phone Mayelin Ruffin MD Primary Care Provider [phone] Reason for Visit * Reason Comments Refill Request Encounter Details Date Type Department Care Team (Late st Contact Info) Description 01/20/2025 Refill [facility] - Family Medicine [address] [place] [address], [facility] [place] [phone] Mayelin Ruffin MD [address] [place] [phone] Refill Request Social History Tobacco Use Types Packs/Day Years Used Date Smoking Tobacco: Never Smokeless Tobacco: Never Alcohol Use Standard Drinks/Week Comments Yes 0 (1 standard drink = 0.6 oz pur e alcohol) on holidays/special occasions PHQ-2 Answer Date Recorded Patient Health Questionnaire-2 Score 0 11/27/2024 Comments No Sex and Gender Information Value Date Recorded Sex Assigned at Female 07/05/2023 4:04 PM CASEWORKER PROTECTIVE SERVICES Legal Sex Female 4:40 PM CDT Gender Identity Female 07/05/2023 4:04 PM CASEWORKER PROTECTIVE SERVICES Sexual Orientation Bisexual 07/05/2023 4: 04 PM CASEWORKER PROTECTIVE SERVICES documented as of this encounter Miscellaneous Notes * Telephone Encounter - Teresa Bowen MA - 01/21/2025 9:36 AM CDT Duplicate documented in this encounter Plan of Treatment Upcoming Encounters Date Type Department Care Team (Late st Contact Info) Description 01/31/2025 1:00 PM CDT Office [facility] [address] [place] [address], [place] [address] Mayelin Ruffin MD [address] [place] [address] [address] [place] [address] 02/12/2025 4:20 PM CDT Office Visit [facility] - GI [address] [facility] [address] [place] [address] Candace Perez MD [facility] [address] [place] [phone] 02/27/2025 2:40 PM CDT Office Visit [facility] - Family Medicine [address] [place] [address], [place] [address] Mayelin Ruffin MD [address] [place] [address] [address] [place] [address] 03/07/2025 3:30 PM CDT Office Visit [facility] - Cardiology [address] [facility], [facility] [address] [place] [address] Laurie Pop MD [address] [facility] [address] [place] [address] documented as of this encounter Visit Diagnoses Diagnosis Fibromyalgia Mylagia and myositis, unspecified documented in this encounter Care Teams Diffusion Furnace Operator Relationship Specialty Start Date End Date Mayelin Ruffin MD [address] [place] [address] [address] [place] [address] PCP - General Family Medicine 06/29/23 documented as of this encounter
--- OUTSIDE RECORDS SUMMARY | 2025-01-21 20:32 | XMS_ITS | Encounter Summary ---
Author Organization [facility] Address [address] [facility] [place] [address] Care Team Providers Care Pole Setter Name Role Phone Mayelin Ruffin MD Primary Care Provider [phone] Reason for Visit * Reason Onset Date Comments MEDICATION REFILL 01/20/2025 Encounter Details Date Type Department Care Team (Late st Contact Info) Description 01/20/2025 Refill [facility] - Family Medicine [address] [place] [address], [facility] [place] [phone] Mayelin Ruffin MD [address] [place] [phone] MEDICATION REFILL Social History Tobacco Use Types Packs/Day Years Used Date Smoking Tobacco: Never Smokeless Tobacco: Never Alcohol Use Standard Drinks/Week Comments Yes 0 (1 standard drink = 0.6 oz pur e alcohol) on holidays/special occasions PHQ-2 Answer Date Recorded Patient Health Questionnaire-2 Score 0 11/27/2024 Comments No Sex and Gender Information Value Date Recorded Sex Assigned at Female 07/05/2023 4:04 PM LANDSCAPE MANAGEMENT TECHNICIAN Legal Sex Female 4:40 PM CDT Gender Identity Female 07/05/2023 4:04 PM LANDSCAPE MANAGEMENT TECHNICIAN Sexual Orientation Bisexual 07/05/2023 4: 04 PM LANDSCAPE MANAGEMENT TECHNICIAN documented as of this encounter Miscellaneous Notes [...] Description 01/31/2025 1:00 PM CDT Office Visit [facility] - Family Medicine [address] [place] [phone] Mayelin Ruffin MD [address] [place] [address] [address] [place] [phone] 02/12/2025 4:20 PM CDT Office Visit [facility] - [address] [address] Candace Perez MD [address] [place] [phone] 02/27/2025 2:40 PM CDT Office Visit [facility] - Family Medicine [address] [place] [phone] Mayelin Ruffin MD [address] [place] [address] [address] [place] [address] 03/07/2025 3:30 PM CDT Office Visit [facility] - Cardiology [address] [facility] [place] [address] Laurie Pop MD [address] [facility] [address] [place] [address] documented as of this encounter Visit Diagnoses Diagnosis Fibromyalgia Mylagia and myositis, unspecified documented in this encounter Care Teams Pole Setter Relationship Specialty Start Date End Date Mayelin Ruffin MD [address] [place] [phone] PCP - General Family Medicine 06/29/23 documented as of this encounter
--- OUTSIDE RECORDS SUMMARY | 2025-01-21 20:32 | XMS_ITS | Clinical Summary ---
Author Organization [facility] Address [address] [place] [address] Phone Care Team Providers Care Marketing Research Coordinator Name Role Phone Mono García MD Primary Care Provider [phone] Allergies Active Allergy Reactions Criticality Noted Date [...] 12/10/2024 12:30 PM CDT [facility] [address] [place] [address] Debby Quintana, PLAN REP, BOOKKEEPING TEACHER Acute non-recurrent pansinusitis (Primary Dx); Acute cough; [...] 122.5 kg (270 lb) 09/15/2024 9:12 PM LAST [facility]WYER Height 162.6 cm (5' 4) 09/15/2024 9:12 PM LAST SAWYER Body Mass Index 46.35 09/15/2024 9:12 PM LAST SAWYER Plan of Treatment Health Maintenance Due Date [...] 12/10/2024 1:00 PM CDT Debby Quintana APRN, BOOKKEEPING TEACHER POINT OF CARE TEST ING (MANUAL) Final Result from Last 3 Months Insurance [facility] Care Teams Marketing Research Coordinator Relationship Specialty Start Date End Date Mono García MD [address] [place] [phone] PCP - General Emergency Medicine 11/24/20
--- OUTSIDE RECORDS SUMMARY | 2025-01-21 20:32 | XMS_ITS | Clinical Summary ---
Author Organization [facility] Address 1 [place] [address] Care Team Providers Care Nursing Agency Manager Name Role Phone Mayelin Ruffin MD Primary Care Provider [phone] Allergies Active Allergy Reactions Criticality Noted Date [...] - 01/18/2025 11:59 PM CDT Hospital Encounter [facility] 1 [place] [address] Vision loss, bilateral; Bilateral hearing loss, unspecified hearing loss type; Recurrent syncope Discharge Disposition: Discharge to home or self care 01/18/2025 6:46 AM CDT - 01/18/2025 11:59 PM CDT Hospital Encounter [facility] 1 [place] [address] Vision loss, bilateral; Bilateral hearing loss, unspecified hearing loss type; Recurrent syncope Discharge Disposition: Discharge to home or self care 01/18/2025 6:45 AM CDT - 01/18/2025 11:59 PM CDT Hospital Encounter [facility] Neurological Disorders Testing 1 [place] [address] Witnessed seizure-like activity (HCC) Discharge Disposition: Discharge to home or self care 01/17/2025 Telephone [facility] 1 [place] [address] Tiff Saunders 01/13/2025 9:11 PM CDT - 01/14/2025 12:09 AM CDT Emergency [facility] Emergency Department 1 [place] [address] Bacilio Jones MD Vision loss (Primary Dx) Discharge Disposition: Discharge to home or self care 01/06/2025 Results Follow-Up [facility] [place] [address] [facility] [address] [place] [address] Ritu Hui NP Throat culture Throat 01/04/2025 6:15 PM CDT Office Visit [facility] [place] [address] [facility] [address] [place] [address] Natalie Figueroa PA Sore throat (Primary Dx) 01/04/2025 6:00 PM CDT - 01/04/2025 11:59 PM [place] [address] Sore throat Discharge Disposition: Discharge to home or self care 01/01/2025 Results Follow-Up [facility] [address] [place] [phone] Aby Vasquez MA Folate, Vitamin D 25 hydroxy, Thyroid Function [place], Additional followed-up results: 3 12/29/2024 10:50 AM CDT Lab [address] [address] Vision loss, bilateral; Bilateral hearing loss, unspecified hearing loss type; Recurrent syncope; Morbid obesity with body mass index of 40.0-49.9 (HCC) 12/12/2024 2:30 PM CDT Office Visit [facility] [address] [place] [phone] Javi Garcia NP Chronic migraine without aura, with intractable migraine, so stated, with status migrainosus (Primary Dx); Post concussion syndrome; Morbid obesity with body mass index of 40.0-49.9 ([facility]); Tremor; Vision loss, bilateral; Bilateral hearing loss, unspecified hearing loss type; Recurrent syncope; Witnessed seizure-like activity (HCC) 11/26/2024 8:44 PM CDT - 11/27/2024 1:35 AM CDT Emergency [facility] Emergency Department 1 [place] [address] Sussy Narayan MD Syncope and collapse (Primary [...] on file 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 INTRACRANIAL VESSELS [place]: The anterior, middle, posterior cerebral [...] Paul Acosta M.D. LC: [place] Report ID: [id number] Reading Location: [id number] Procedure Note Reina Acosta MD - 01/18/2025 [...] OTHER: No other significant abnormality. INTRACRANIAL VESSELS [place]: The anterior, middle, posterior cerebral [...] Paul Acosta M.D. LC: [place] Report ID: [id number] Reading Location: [id number] Javi Garcia NP IMG CT PROCEDURES Final [...] Paul Acosta M.D. LC: [place] Report ID: [id number] Reading Location: [id number] Procedure Note Reina Acosta MD - 01/18/2025 [...] Paul Acosta M.D. LC: [place] Report ID: [id number] Reading Location: [id number] Javi Garcia MEDICAL ADMINISTRATIVE ASSISTANT IMG MRI PROCEDURES Final Re sult * [...] Paul Acosta M.D. LC: [place] Report ID: [id number] Reading Location: [id number] Procedure Note Reina Acosta MD - 01/13/2025 [...] Paul Acosta M.D. LC: [place] Report ID: [id number] Reading Location: [place] [address] Bacilio Jones MD IMG CT PROCEDURES Final [...] BLOOD ORDERABLES Final R esult [facility] ([place]) 1 [facility] Department [place] [address] * Differential, auto (01/13/2025 8:31 PM CDT) Neutrophil abs 3.03 1.50 - 6.50 K/cumm Imm gran abs 0.03 0.00 - 0.10 K/cumm [facility] ([place]) Lymphocyte abs 2.44 0.80 - 3.30 K/cumm [facility] ([place]) Monocyte abs 0.64 0.20 - 0.80 K/cumm [facility] ([place]) Eosinophil abs 0.16 0.00 - 0.50 K/cumm [facility] ([place]) Basophil abs 0.06 0.00 - 0.10 K/cumm [facility] ([place]) Neutrophil pct 47.6 % [facility] ([place]) Comment: Interpretive Data Percent cell count reference ranges are not reported, since discordance with absolute values may lead to misinterpretation of CBC data. Current Interpretive Data was last revised on 2017. Imm gran pct 0.5 % [facility] ([place]) Comment: Interpretive Data Percent cell count reference ranges are not reported, since discordance with absolute values may lead to misinterpretation of CBC data. Current Interpretive Data was last revised on 2017. Lymphocyte pct 38.4 % [facility] ([place]) Comment: Interpretive Data Percent cell count reference ranges are not reported, since discordance with absolute values may lead to misinterpretation of CBC data. Current Interpretive Data was last revised on 2017. Monocyte pct 10.1 % [facility] ([place]) Comment: Interpretive Data Percent cell count reference ranges are not reported, since discordance with absolute values may lead to misinterpretation of CBC data. Current Interpretive Data was last revised on 2017. Eosinophil pct 2.5 % [facility] ([place]) Comment: Interpretive Data Percent cell count reference [...] Final R esult [facility] ([place]) 1 [facility] Department [place] [address] * CBC with auto differential (01/13/2025 8:31 [...] ORDERABLES Final R esult Performing Organization Address City/[facility]/ZIP Co de Phone Number [facility] ([place]) 1 [facility] [place] [address] * hCG, blood, quantitative (01/13/2025 8:31 PM CDT) [facility] hCG, quant <5.0 0.0 - 5.0 IUnits/L [...] Edited Result - Final Performing Organization Address [facility] Co de Phone Number [facility] ([place]) 1 [facility] [place] [address] * Comprehensive metabolic panel (01/13/2025 8:31 PM CDT) [facility] Sodium 136 135 - 145 mmol/L Potassium, pl 4.0 3.3 - 4.9 mmol/L [facility] ([place]) Chloride 99 97 - 110 mmol/L [facility] ([place]) CO2 26 22 - 32 mmol/L [facility] ([place]) Anion gap 12 2 - 15 mmol/L [facility] ([place]) BUN 10 6 - 25 mg/dL [facility] ([place]) Creatinine 0.86 0.60 - 1.10 mg/dL [facility] ([place]) Glucose 88 70 - 199 mg/dL [facility] ([place]) Comment: Interpretive Data Fasting glucose [...] Final R esult [facility] ([place]) 1 [facility] Department of Laboratories [place] [id number] * ECG 12 lead (01/13/2025 8:23 PM CDT) 01/13/2025 8:23 PM CDT Narrative [facility] - 01/14/2025 6:41 AM CDT Vent Rate: 89 bpm RR Interval: 674 msec AL Interval: 129 msec QRS Duration: 98 msec QT Interval: 348 msec QTC Interval: 394 msec P-R-T [place]: 15 - 11 - 4 degrees IMPRESSION: SINUS RHYTHM POSSIBLE LEFT ATRIAL ENLARGEMENT [-0.1mV P WAVE IN V1/V2] POSSIBLE ANTERIOR MYOCARDIAL INFARCTION , OF INDETERMINATE AGE [30 ms Q WAVE IN V3/V4, OR R < 0.2 mV IN V4] ABNORMAL ECG NO CHANGE FROM PREVIOUS TRACING NOTED Electronically Signed By: Hermes Ricci MD Bacilio Jones MD ECG ORDERABLES Final Result [facility] * Throat culture Throat (01/04/2025 6:01 PM CDT) Report Final Report: No growth of pathogens. Comment:Testing performed by : [facility], [address] [facility], [place]., [address] Throat 01/04/2025 6:01 PM CDT 01/05/2025 5:42 AM CDT Narrative GE[facility] - 01/06/2025 1:51 AM CDT Testing performed by [facility] Microbiology Laboratory ([phone]). Natalie GALVIN LAB MICROBIOLOGY - GENERAL ORDERABLES Final Result Performing Organization Address [facility]/ZIP Co de Phone Number [place] [address] [address] Department [place] [address] * POCT rapid strep A (01/04/2025 5:56 PM CDT) Rapid Strep A, POC Negative Negative Swab 01/04/2025 5:56 PM CDT Natalie GALVIN POINT OF CARE TEST ORDERABLES Final Result * Thyroid Function [place] (12/29/2024 10:58 AM CDT) TSH 1.77 0.30 - 4.20 mcIUnit/mL Blood 12/29/2024 10:5 8 AM CDT 12/29/2024 11:25 AM CDT Javi Garcia NP LAB BLOOD ORDERABLES Final Result [facility] ([place]) 1 [facility] Department [place] [address] * (ABNORMAL) Vitamin D 25 hydroxy (12/29/2024 10:58 AM CDT) Vitamin D 25-OH 9(L) 30 - 80 ng/mL Blood 12/29/2024 10:5 8 AM CDT 12/29/2024 11:25 AM CDT Javi Garcia MEDICAL ADMINISTRATIVE ASSISTANT LAB BLOOD ORDERABLES Final Result [facility] ([place]) 1 [facility] [place] [address] * Folate (12/29/2024 10:58 AM CDT) [facility] Folic acid 8.7 >=5.0 ng/mL Comment:Slightly Hemolyzed S pecimen. Results may be affected. Blood 12/29/2024 10:5 8 AM CDT 12/29/2024 11:25 AM CDT Javi Garcia MEDICAL ADMINISTRATIVE ASSISTANT LAB BLOOD ORDERABLES Final Result Performing Organization Address City/[facility]/ZIP Co de Phone Number [facility] ([place]) 1 [facility] [place] [address] * Vitamin B12 (12/29/2024 10:58 AM CDT) [facility] Vitamin B12 734 230 - 1,250 pg/mL Blood 12/29/2024 10:5 8 AM CDT 12/29/2024 11:25 AM CDT Javi Garcia MEDICAL ADMINISTRATIVE ASSISTANT LAB BLOOD ORDERABLES Final Result Performing Organization Address City/[facility]/ZIP Co de Phone Number [facility] ([place]) 1 [facility] [place] [address] * Lipid panel (12/29/2024 10:58 AM CDT) [facility] Cholesterol 169 30 - 199 mg/dL Comment: [...] LAB BLOOD ORDERABLES Final Result [facility] ([place]) 1 [facility] Department [place] [address] * (ABNORMAL) Urinalysis reflex to microscopic and culture Urine (11/26/2024 11:31 PM CDT) Color, ur Straw Yellow Clarity, ur Clear Clear [facility] ([place]) Specific gravity, ur 1.011 1.003 - 1.030 [facility] ([place]) pH, urine 6.5 [facility] ([place]) Comment: Interpretive Data U rine pH is affected by diet, medications, systemic acid-base disturbances, and renal tubular function. pH may affect urinary stone formation. For example, urine pH below 6.0 may help reduce the tendency for calcium phosphate stones and pH greater than 6.0 may reduce the tendency for uric acid stone formation. Source: [facility] [employer] Current Interpretive Data was last revised on [...] ORDER LEE Final Result Performing Organization Address City/[facility] Co de Phone Number [facility] ([place]) 1 [facility] Department [place] [address] * (ABNORMAL) Urinalysis, microscopic only (11/26/2024 11:31 [...] Final Res ult [facility] ([place]) 1 [facility] Department [place] [address] * POCT hCG, urine (11/26/2024 11:28 PM [...] Kelvin Levy M.D. AT: AT Report ID: [id number] Reading Location: [id number] Procedure Note Kelvin Levy MD - 11/26/2024 [...] Kelvin Levy M.D. AT: AT Report ID: [id number] Reading Location: [id number] us Sussy Narayan MD IMG CT PROCEDURES Final Result * [place] level (11/26/2024 9:28 PM CDT) [place] 0.6 0.6 - 1.2 mmol/L Comment:Testing performed by : [facility], 1 [place] [address] Blood 11/26/2024 9:28 PM CDT 11/27/2024 8:56 AM CDT us Sussy Narayan MD LAB BLOOD ORDERABLES Final Resul t [facility] ([place]) 1 [facility] Department [place] [address] * eGFR (11/26/2024 8:22 PM [...] MD LAB BLOOD ORDERABLES Final Res ult [facility] ([place]) 1 [facility] Department [place] [address] * Differential, auto (11/26/2024 8:22 PM CDT) Neutrophil abs 3.95 1.50 - 6.50 K/cumm Imm gran abs 0.02 0.00 - 0.10 K/cumm [facility] ([place]) Lymphocyte abs 2.05 0.80 - 3.30 K/cumm [facility] ([place]) Monocyte abs 0.57 0.20 - 0.80 K/cumm [facility] ([place]) Eosinophil abs 0.24 0.00 - 0.50 K/cumm [facility] ([place]) Basophil abs 0.06 0.00 - 0.10 K/cumm [facility] ([place]) Neutrophil pct 57.2 % [facility] ([place]) Comment: Interpretive Data Percent cell count reference [...] Final Resul t [facility] ([place]) 1 [facility] Department [place] [address] * CBC with auto differential (11/26/2024 8:22 PM CDT) WBC 6.89 3.80 - 9.90 K/cumm Hgb 13.7 11.9 - 15.5 g/dL [facility] ([place]) Hct 41.2 35.6 - 45.5 % [facility] ([place]) Plt 259 150 - 400 K/cumm [facility] ([place]) MPV 9.6 9.1 - 12.3 fL [facility] RBC 4.75 3.90 - 5.20 M/cumm [facility] ([place]) MCV 86.7 81.3 - 96.4 fL [facility] ([place]) MCH 28.8 27.1 - 33.3 pg [facility] ([place]) MCHC 33.3 32.3 - 35.7 g/dL [facility] ([place]) RDW CV 13.4 11.1 - 14.9 % [facility] ([place]) RDW SD 43.1 35.7 - 48.1 fL [facility] NRBC abs 0.00 0.00 - 0.01 K/cumm [facility] Blood 11/26/2024 8:22 PM CDT 11/26/2024 8:25 PM CDT us Sussy Narayan MD LAB BLOOD ORDERABLES Final Resul t [facility] ([place]) 1 [facility] Department [place] [address] * Comprehensive metabolic panel (11/26/2024 8:22 PM CDT) Sodium 138 135 - 145 mmol/L Potassium, pl 4.0 3.3 - 4.9 mmol/L [facility] Chloride 102 97 - 110 mmol/L [facility]) CO2 22 22 - 32 mmol/L [facility] ([place]) Anion gap 14 2 - 15 mmol/L [facility] ([place]) BUN 16 6 - 25 mg/dL [facility] ([place]) Creatinine 0.85 0.60 - [...] ORDERABLES Final Resul t Performing Organization Address City/[facility] de Phone Number [facility] ([place]) 1 [facility] Department [place] [address] * ECG 12 lead (11/26/2024 8:17 PM CDT) 11/26/2024 8:17 PM CDT Narrative [facility] - 11/27/2024 6:49 AM CDT Vent Rate: 100 bpm RR Interval: 598 msec AL Interval: 126 msec QRS Duration: 108 msec QT Interval: 349 msec QTC Interval: 406 msec P-R-T [place]: 11 - 10 - 4 degrees IMPRESSION: SINUS TACHYCARDIA POSSIBLE LEFT ATRIAL ENLARGEMENT [-0.1mV P WAVE IN V1/V2] NONSPECIFIC ST \T\ T-WAVE ABNORMALITY ABNORMAL RHYTHM ECG NO CHANGE FROM PREVIOUS TRACING NOTED Electronically Signed By: Hermes Ricci MD us Sussy Narayan MD ECG ORDERABLES Final Result [facility] from Last 3 Months Insurance IDPA [facility] OPEN [facility] HMO/PPO Address: [address] [place] [address] [facility] ALLEGIANCE CIGNA ALLEGIANCE CIGNA ALLEGIANCE Care Teams Nursing Agency Manager Relationship Specialty Start Date End Date Mayelin Ruffin MD [address] [place] [address] PCP - General Family Medicine 07/12/23
--- OUTSIDE RECORDS SUMMARY | 2025-01-21 20:32 | XMS_ITS | Referral Summary ---
Author Organization [facility] Address 1 [place] [address] Care Team Providers Care Treasury Director Name Role Phone Mayelin Ruffin MD Primary Care Provider +1- [phone] Encounters Date Type Department Care Team Description 01/18/2025 6:46 AM CDT - 01/18/2025 11:59 PM CDT Hospital Encounter [facility] [address] [place] [address] Vision loss, bilateral; Bilateral hearing loss, unspecified hearing loss type; Recurrent syncope Discharge Disposition: Discharge to home or self care 01/18/2025 6:46 AM CDT - 01/18/2025 11:59 PM CDT Hospital Encounter [facility] 1 [place] [address] Vision loss, bilateral; Bilateral hearing loss, unspecified hearing loss type; Recurrent syncope Discharge Disposition: Discharge to home or self care 01/18/2025 6:45 AM CDT - 01/18/2025 11:59 PM CDT Hospital Encounter [facility] Neurological Disorders Testing [address] [place] [address] Witnessed seizure-like activity (HCC) Discharge Disposition: Discharge to home or self care 01/17/2025 Telephone [facility] [address] [place] [address] Tiff Saunders 01/13/2025 9:11 PM CDT - 01/14/2025 12:09 AM CDT Emergency [facility] Emergency Department 1 [place] [address] Bacilio Jones MD Vision loss (Primary Dx) Discharge Disposition: Discharge to home or self care 01/06/2025 Results Follow-Up [facility] at [address] [place] [address] Ritu Hui NP Throat culture Throat 01/04/2025 6:00 PM CDT - 01/04/2025 11:59 PM CDT Hospital Encounter [address] [address] Sore throat Discharge Disposition: Discharge to home or self care 01/04/2025 6:15 PM CDT Office Visit [facility] at [address] [place] [address] Natalie Figueroa PA Sore throat (Primary Dx) 01/01/2025 Results Follow-Up [facility] [address] [place] [phone] Aby Vasquez MA Folate, Vitamin D 25 hydroxy, Thyroid Function [place], Additional followed-up results: 3 12/29/2024 10:50 AM CDT Lab [address] [address] Vision loss, bilateral; Bilateral hearing loss, unspecified hearing loss type; Recurrent syncope; Morbid obesity with body mass index of 40.0-49.9 (HCC) 12/12/2024 2:30 PM CDT Office Visit [facility] [address] [place] [phone] Javi Garcia NP Chronic migraine without aura, with intractable migraine, so stated, with status migrainosus (Primary Dx); Post concussion syndrome; Morbid obesity with body mass index of 40.0-49.9 ([facility]); Tremor; Vision loss, bilateral; Bilateral hearing loss, unspecified hearing loss type; Recurrent syncope; Witnessed seizure-like activity (HCC) 11/26/2024 8:44 PM CDT - 11/27/2024 1:35 AM CDT Emergency [facility] Emergency Department 1 [place] [address] Sussy Narayan MD Syncope and collapse (Primary [...] on file Legal Sex Female 8:28 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 INTRACRANIAL VESSELS [place]: The anterior, middle, posterior cerebral [...] Paul Acosta M.D. LC: LAMONTE Report ID: [id number] Reading Location: [id number] Procedure Note Reina Acosta MD - 01/18/2025 [...] OTHER: No other significant abnormality. INTRACRANIAL VESSELS [place]: The anterior, middle, posterior cerebral [...] Paul Acosta M.D. LC: LAMONTE Report ID: [id number] Reading Location: [place] [address] Javi Garcia NP IMG CT PROCEDURES Final [...] Paul Marteopherson M.D. LC: LAMONTE Report ID: [id number] Reading Location: [id number] Procedure Note Reina Acosta MD - 01/18/2025 [...] Paul Sotoerson M.D. LC: LAMONTE Report ID: [id number] Reading Location: [id number] Javi Garcia DEVULCANIZER CHARGER IMG MRI PROCEDURES Final Re sult * [...] Paul Acosta M.D. LC: LAMONTE Report ID: [id number] Reading Location: [id number] Procedure Note Reina Acosta MD - 01/13/2025 [...] Paul Acosta M.D. LC: LAMONTE Report ID: [id number] Reading Location: [id number] Bacilio Jones MD IMG CT PROCEDURES Final [...] MD LAB BLOOD ORDERABLES Final R esult [facility] 1 [facility] [place] [address] * Differential, auto (01/13/2025 8:31 PM CDT) Neutrophil abs 3.03 1.50 - 6.50 K/cumm Imm gran abs 0.03 0.00 - 0.10 K/cumm [facility] ([place]) Lymphocyte abs 2.44 0.80 - 3.30 K/cumm [facility]) Monocyte abs 0.64 0.20 - 0.80 K/cumm [facility]) Eosinophil abs 0.16 0.00 - 0.50 K/cumm [facility]) Basophil abs 0.06 0.00 - 0.10 K/cumm [facility]) Neutrophil pct 47.6 % [facility] Comment: Interpretive Data Percent cell count reference ranges are not reported, since discordance with absolute values may lead to misinterpretation of CBC data. Current Interpretive Data was last revised on 2017. Imm gran pct 0.5 % [facility] Comment: Interpretive Data Percent cell count reference [...] 2017. Monocyte pct 10.1 % [facility] Comment: Interpretive Data Percent cell count reference [...] Final R esult [facility] ([place]) 1 [facility] Department [place] [address] * CBC with auto differential (01/13/2025 8:31 [...] Final R esult [facility] ([place] 1 [facility] [place] [address] * hCG, blood, quantitative (01/13/2025 8:31 PM [...] Result - Final [facility] ([place]) 1 [place] [address] * Comprehensive metabolic panel (01/13/2025 8:31 PM CDT) Sodium 136 135 - 145 mmol/L Potassium, pl 4.0 3.3 - 4.9 mmol/L [facility] ([place]) Chloride 99 97 - 110 mmol/L [facility] ([place]) CO2 26 22 - 32 mmol/L [facility] ([place]) Anion gap 12 2 - 15 mmol/L [facility] ([place]) BUN 10 6 - 25 mg/dL [facility] ([place]) Creatinine 0.86 0.60 - 1.10 mg/dL [facility] ([place]) Glucose 88 70 - 199 mg/dL [facility] ([place]) Comment: Interpretive Data Fasting glucose [...] Final R esult [facility] ([place] 1 [facility] [place] [address] * ECG 12 lead (01/13/2025 8:23 PM CDT) 01/13/2025 8:23 PM CDT Narrative [facility] - 01/14/2025 6:41 AM CDT Vent Rate: 89 bpm RR Interval: 674 msec NH Interval: 129 msec QRS Duration: 98 msec QT Interval: 348 msec QTC Interval: 394 msec P-R-T Pett[place]rew: 15 - 11 - 4 degrees IMPRESSION: SINUS RHYTHM POSSIBLE LEFT ATRIAL ENLARGEMENT [-0.1mV P WAVE IN V1/V2] POSSIBLE ANTERIOR MYOCARDIAL INFARCTION , OF INDETERMINATE AGE [30 ms Q WAVE IN V3/V4, OR R < 0.2 mV IN V4] ABNORMAL ECG NO CHANGE FROM PREVIOUS TRACING NOTED Electronically Signed By: Hermes Ricci MD Bacilio Jones MD ECG ORDERABLES Final Result [facility] * Throat culture Throat (01/04/2025 6:01 PM CDT) Report Final Report: No growth of pathogens. Comment:Testing performed by : [facility], 1 [place]., [address] Throat 01/04/2025 6:01 PM CDT 01/05/2025 5:42 AM CDT Narrative [facility] - 01/06/2025 1:51 AM CDT Testing performed by [facility] Microbiology Laboratory ([phone]). Natalie GALVIN LAB MICROBIOLOGY - GENERAL ORDERABLES Final Result Performing Organization Address [facility] Co de Phone Number [facility] [address] Department of Laboratories [place], [place] [id number] * POCT rapid strep A (01/04/2025 5:56 PM CDT) Pathologist [facility] Rapid Strep A, POC Negative Negative Swab 01/04/2025 5:56 PM CDT Natalie GALVIN POINT OF CARE TEST ORDERABLES Final Result * Thyroid Function [place] (12/29/2024 10:58 AM CDT) TSH 1.77 0.30 - 4.20 mcIUnit/mL Blood 12/29/2024 10:5 8 AM CDT 12/29/2024 11:25 AM CDT Javi Garcia NP LAB BLOOD ORDERABLES Final Result Performing Organization Address City/[facility]/ZIP Co de Phone Number [facility] ([place]) [address] [facility] [place] [address] * (ABNORMAL) Vitamin D 25 hydroxy (12/29/2024 10:58 AM CDT) Pathologist [facility] Vitamin D 25-OH 9(L) 30 - 80 ng/mL Blood 12/29/2024 10:5 8 AM CDT 12/29/2024 11:25 AM CDT Javi Garcia DEVULCANIZER CHARGER LAB BLOOD ORDERABLES Final Result [facility] 1 [place] [address] * Folate (12/29/2024 10:58 AM CDT) [facility] Folic acid 8.7 >=5.0 ng/mL Comment:Slightly Hemolyzed S pecimen. Results may be affected. Blood 12/29/2024 10:5 8 AM CDT 12/29/2024 11:25 AM CDT Javi Garcia DEVULCANIZER CHARGER LAB BLOOD ORDERABLES Final Result [facility] [address] [facility] [place] [address] * Vitamin B12 (12/29/2024 10:58 AM CDT) Pathologist [facility] Vitamin B12 734 230 - 1,250 pg/mL Blood 12/29/2024 10:5 8 AM CDT 12/29/2024 11:25 AM CDT Javi Garcia DEVULCANIZER CHARGER LAB BLOOD ORDERABLES Final Result [facility] [address] [facility] [place] [address] * Lipid panel (12/29/2024 10:58 AM CDT) [...] ORDERABLES Final Result [facility] ([place] 1 [facility] Department [place] [address] * (ABNORMAL) Urinalysis reflex to microscopic and culture Urine (11/26/2024 11:31 PM CDT) Color, ur Straw Yellow Clarity, ur Clear Clear [facility] ([place]) Specific gravity, ur 1.011 1.003 - 1.030 [...] tendency for uric acid stone formation. Source: [facility] [employer] Current Interpretive Data was last revised on [...] - GENERAL ORDER LEE Final Result [facility] COUNTS INCLUDE 234 BEDS AT [facility] ([place]) 1 [facility] Department [place] [address] * (ABNORMAL) Urinalysis, microscopic only (11/26/2024 11:31 [...] URINE ORDERABLES Final Res ult [facility] ([place]) 1 [facility] [place] [address] * POCT hCG, urine (11/26/2024 11:28 PM [...] Kelvin Levy M.D. AT: AT Report ID: [id number] Reading Location: [id number] Procedure Note Kelvin Levy MD - 11/26/2024 [...] Kelvin Levy M.D. AT: AT Report ID: [id number] Reading Location: [id number] us Sussy Narayan MD IMG CT PROCEDURES Final Result * [place] level (11/26/2024 9:28 PM CDT) [place] 0.6 0.6 - 1.2 mmol/L Comment:Testing performed by : [facility], 1 [facility], [place]., [address] Blood 11/26/2024 9:28 PM CDT 11/27/2024 8:56 AM CDT us Sussy Narayan MD LAB BLOOD ORDERABLES Final Resul t [facility] ([place] 1 [facility] [place] [address] * eGFR (11/26/2024 8:22 PM CDT) eGFR [...] MD LAB BLOOD ORDERABLES Final Res ult [facility]) 1 [facility] Department [place] [address] * Differential, auto (11/26/2024 8:22 PM CDT) [...] Final Resul t [facility] ([place]) 1 [facility] [place] [address] * CBC with auto differential (11/26/2024 8:22 [...] RDW SD 43.1 35.7 - 48.1 fL [facility] NRBC abs 0.00 0.00 - 0.01 K/cumm [facility] Blood 11/26/2024 8:22 PM CDT 11/26/2024 8:25 PM CDT us Sussy Narayan MD LAB BLOOD ORDERABLES Final Resul t [facility] ([place]) 1 [facility] Department [place] [address] * Comprehensive metabolic panel (11/26/2024 8:22 PM CDT) Sodium 138 135 - 145 mmol/L Potassium, pl 4.0 3.3 - 4.9 mmol/L [facility] Chloride 102 97 - 110 mmol/L [facility]) CO2 22 22 - 32 mmol/L [facility] ([place]) Anion gap 14 2 - 15 mmol/L [facility] ([place]) BUN 16 6 - 25 mg/dL [facility] Creatinine 0.85 0.60 - 1.10 mg/dL [facility] Glucose 95 70 - 199 mg/dL [facility] Comment: Interpretive Data [...] Final Resul t [facility] ([place] 1 [facility] [place] [address] * ECG 12 lead (11/26/2024 8:17 PM CDT) 11/26/2024 8:17 PM CDT Narrative [facility] - 11/27/2024 6:49 AM CDT Vent Rate: 100 bpm RR Interval: 598 msec NH Interval: 126 msec QRS Duration: 108 msec QT Interval: 349 msec QTC Interval: 406 msec P-R-T Pettigrew: 11 - 10 - 4 degrees IMPRESSION: SINUS TACHYCARDIA POSSIBLE LEFT ATRIAL ENLARGEMENT [-0.1mV P WAVE IN V1/V2] NONSPECIFIC ST \T\ T-WAVE ABNORMALITY ABNORMAL RHYTHM ECG NO CHANGE FROM PREVIOUS TRACING NOTED Electronically Signed By: Hermes Ricci MD us Sussy Narayan MD ECG ORDERABLES Final Result [facility] from Last 3 Months Insurance IDPA [facility] CIGNA OPEN ACCESS CIGNA ALLEGIANCE CIGNA ALLEGIANCE CIGNA ALLEGIANCE Care Teams Treasury Director Relationship Specialty Start Date End Date Mayelin Ruffin MD [address] [place] [phone] PCP - General Family Medicine 07/12/23
--- OUTSIDE RECORDS SUMMARY | 2025-01-21 20:32 | XMS_ITS | Encounter Summary ---
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 documented in this encounter Plan of Treatment Not on file documented as of this encounter Visit Diagnoses Not on filedocumented in this encounter Care Teams Mechanical Technician Relationship Specialty Start Date End Date Mayelin Ruffin MD [address] [place] [phone] PCP - General Family Medicine 07/12/23 documented as of this encounter
--- OUTSIDE RECORDS SUMMARY | 2025-01-21 20:32 | XMS_ITS | Encounter Summary ---
Author Organization [facility] Address [address] [facility] [place] [address] Care Team Providers Care Tassel Making Machine Operator Name Role Phone Mayelin Ruffin MD Primary Care Provider [phone] Encounter Details Date Type Department Care Team (Late Contact Info) Description 01/15/2025 Results Follow-Up [facility] - Family [address], [place] [phone] Arash Abdullahi MD [address] [place] [phone] Social History Tobacco Use Types Packs/Day Years Used Date Smoking Tobacco: Never Smokeless Tobacco: Never Alcohol Use Standard Drinks/Week Comments Yes 0 (1 standard drink = 0.6 oz pur e alcohol) on holidays/special occasions PHQ-2 Answer Date Recorded Patient Health Questionnaire-2 Score 0 11/27/2024 Comments No Sex and Gender Information Value Date Recorded Sex Assigned at Female 07/05/2023 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 Legal Sex Female 4:40 PM CDT Gender Identity Female 07/05/2023 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 ATTORNEY Sexual Orientation Bisexual 07/05/2023 4: 04 PM CITY ATTORNEY documented as of this encounter Plan of Treatment Upcoming Encounters Date Type Department Care Team (Late Contact Info) Description 01/31/2025 1:00 PM CDT Office Visit [facility] - [address] [phone] Mayelin Ruffin MD [address] [facility] [address] [place] [phone] 02/12/2025 4:20 PM CDT Office Visit [facility] - GI [address] [facility] [address] [place] [address] Candace Perez MD [address] [facility] [address] [place] [phone] 02/27/2025 2:40 PM CDT Office Visit [facility] - Family Medicine [facility], [place] [phone] Myaelin Ruffin MD [address] [facility] [address] [place] [phone] 03/07/2025 3:30 PM CDT Office Visit [facility] - Cardiology [address] [facility] [address] [place] [address] Laurie Pop MD [address] [facility] [address] [place] [address] documented as of this encounter Visit Diagnoses Not on filedocumented in this encounter Care Teams Tassel Making Machine Operator Relationship Specialty Start Date End Date Mayelin Ruffin MD [address] [facility] [address] [place] [phone] PCP - General Family Medicine 06/29/23 documented as of this encounter
--- OUTSIDE RECORDS SUMMARY | 2025-01-21 20:32 | XMS_ITS | Clinical Summary ---
Author Organization [facility] [employer] Address [address] [place] [address] [place] [address] Care Team Providers Care Haul Cane Brakeman Name Role Phone Mayelin Ruffin MD Primary Care Provider [phone]- [phone] Allergies Active Allergy Reactions Criticality Noted Date [...] mg by mouth daily. 3 Active Insulin [place], Disposable, (Abigail Pen Needle) 32 gauge x 5/32 Needle 30 Each by [facility].(Non-Drug; Combo Route) route daily. 30 Each 3 [...] COVID-19 VACCINE - EMERGENCY USE AUTHORIZATION, MRNA, [id number](PF) 30 MCG/0.3 ML IM SUSP 06/27/2021,06/06/2021 (PNEUMOVAX [...] diagnosis of diabetes in children. According to [place] Diabetes Association (ADA) guidelines, hemoglobin A1c <7.0% represents optimal control in non- diabetic patients. Different metrics may apply to specific patient populations. Standards of Medical Care in Diabetes(ADA). ESTIMATED AVERAGE GLUCOSE (MG/DL) 111 mg/dL [facility] ESTIMATED AVERAGE GLUCOSE (MMOL/L) 6.2 mmol/L [facility] Comment: Test Performed at: [facility] [address] [facility] [place] [address] Elma Stoll MD Blood 11/18/2022 8:55 AM CDT 11/19/2022 5:47 AM CDT Natalie Quintana SAMPLE STITCHER CHEMISTRY ORDERABLES F inal Result [facility] [phone] [facility] [address] [facility] [place] [address] from Last 3 Months or Most Recently Relevant to Health Maintenance Insurance [facility] OPEN ACCESS Care Teams Haul Cane Brakeman Relationship Specialty Start Date End Date Mayelin Ruffin MD [address] [facility] [address] [place] [phone] PCP - General Family Practice 09/19/23
--- OUTSIDE RECORDS SUMMARY | 2025-01-21 20:32 | XMS_ITS | Encounter Summary ---
Author Organization [facility] Address [address] [facility] [place] [address] Care Team Providers Care Pin Machine Tender Name Role Phone Mayelin Ruffin MD Primary Care Provider [phone] Encounter Details Date Type Department Care Team (Late st Contact Info) Description 11/27/2024 Results Follow-Up [facility] - Family Medicine [address] [place] [address], [place] [address] Arash Abdullahi MD [address] [place] [phone] Social History Tobacco Use Types Packs/Day Years Used Date Smoking Tobacco: Never Smokeless Tobacco: Never Alcohol Use Standard Drinks/Week Comments Yes 0 (1 standard drink = 0.6 oz pur e alcohol) on holidays/special occasions PHQ-2 Answer Date Recorded Patient Health Questionnaire-2 Score 0 11/27/2024 Comments No Sex and Gender Information Value Date Recorded Sex Assigned at Female 07/05/2023 4:04 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 Legal Sex Female 4:40 PM CDT Gender Identity Female 07/05/2023 4:04 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 Sexual Orientation Bisexual 07/05/2023 4: 04 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 documented as of this encounter Functional Status [...] Description 01/31/2025 1:00 PM CDT [facility] - Family Medicine [address] [place] [address], [place] [phone] Mayelin Ruffin MD [address] [place] [address] [address] [place] [phone] 02/12/2025 4:20 PM CDT Office Visit [facility] [place] [address] [place] [address] [address] [place] [address] Candace Perez MD [address] [place] [address] [address] [place] [phone] 02/27/2025 2:40 PM CDT Office Visit [facility] - Family Medicine [address] [place] [phone] Mayelin Ruffin MD [address] [place] [address] [address] [place] [phone] 03/07/2025 3:30 PM CDT Office Visit [facility] - Cardiology [address] [facility] [address] [place] [address] Laurie Pop MD [address] [facility] [address] [place] [address] documented as of this encounter Visit Diagnoses Not on filedocumented in this encounter Care Teams Pin Machine Tender Relationship Specialty Start Date End Date Mayelin Ruffin MD [address] [place] [address] [address] [place] [address] PCP - General Family Medicine 06/29/23 documented as of this encounter
[2025-01-21] MEDS: ACETAMINOPHEN 500 MG TABLET 1000 MG PO (21:37)
--- NOTE | 2025-01-21 21:48 | ED_ITS ---
HPI - Extremity Injury (Lower) General Chief Complaint: Extremity Injury, Lower Stated Complaint: Right Knee Injury - tripped in shower last night Time Seen by Provider: 01/21/25 20:18 Source: patient Mode of arrival: ambulatory Limitations: no limitations History of Present Illness HPI Narrative: This is a 34 year old female that presents to the ER for right knee pain. Reports she slipped in the shower last night. Reports pain worse with ambulation. Denies decreased ROM or numbness. Related Data Home Medications ?Medication ?Instructions ?Recorded ?Confirmed ?Last Taken ?Type albuterol sulfate 90 mcg/actuation 1 puff inhalation Q4H PRN Dyspnea 06/06/20 06/19/21 Unknown History aerosol inhaler aripiprazole 2 mg tablet (Abilify) 15 mg PO DAILY 06/06/20 06/19/21 Unknown History divalproex 250 mg tablet,delayed 250 mg PO ONCE 06/06/20 06/19/21 Unknown History release (Depakote) amitriptyline 25 mg tablet 25 mg PO HS 06/19/21 06/19/21 Unknown History atomoxetine 25 mg capsule mg PO 01/15/25 Unknown History erenumab-aooe 140 mg/mL mg subcut 01/15/25 Unknown History subcutaneous auto-injector (Aimovig Autoinjector) lithium carbonate 300 mg mg PO 01/15/25 Unknown History tablet,extended release lithium carbonate 450 mg mg PO 01/15/25 Unknown History tablet,extended release lumateperone 42 mg capsule mg PO 01/15/25 Unknown History (Caplyta) midodrine 5 mg tablet mg 01/15/25 Unknown History pregabalin 150 mg capsule mg 01/15/25 Unknown History Allergies Allergy/AdvReac Type Severity Reaction Status Date / Time adhesive tape Allergy Mild Rash Verified 01/21/25 19:58 gluten Allergy Mild Nausea and Verified 01/21/25 19:58 Vomiting prochlorperazine Allergy Unknown Nausea and Verified 01/21/25 19:58 Vomiting Review of Systems Review of Systems: CONSTITUTIONAL: Denies fever MUSCULOSKELETAL: Reports joint pain, and myalgia. NEUROLOGIC: Denies numbness All systems reviewed & are unremarkable except as noted in HPI and below PMFSH Past Medical History Medical History Anxiety Bipolar 1 disorder Celiac disease Inflammatory arthritis Ovarian cancer PTSD (post-traumatic stress disorder) Vitamin D deficiency Surgical History Surgical History H/O: hysterectomy Family History Family History Grandparent Diabetes mellitus Mother Lupus Fibromyalgia Raynaud disease Rheumatoid arthritis Sibling Meningitis Sibling Autism Social History Social History Smoking status: Never smoker Alcohol intake: current Alcohol use details: 1 drink every 6 motnhs Substance use: never Living arrangements: with family Occupation/Education: occupation Additional occupation/education comments: [employer] Gender identity (if verbalized by the patient): Female Exam Narrative: GENERAL: Well-appearing, well-nourished, and in no acute distress. HEAD: Normocephalic, atraumatic. EYES: EOMI. EXTREMITIES: Normal range of motion. No edema or obvious deformity. Normal DP pulse. Normal sensation SKIN: Warm, dry, no rash. NEURO: No focal deficits. Alert and oriented x3. PSYCH: Normal mood and affect Course Course Emergency Course: Patient updated on workup and agrees with plan of care Vital Signs Vital signs: Vital Signs Temperature 97.4 F L 01/21/25 19:53 Pulse Rate 88 01/21/25 19:53 Respiratory Rate 14 01/21/25 19:53 Blood Pressure 136/90 01/21/25 19:53 Pulse Oximetry 99 01/21/25 19:53 Oxygen Delivery Room Air 01/21/25 19:53 Temperature 97.4 F L 01/21/25 19:53 Pulse Rate 88 01/21/25 19:53 Respiratory Rate 14 01/21/25 19:53 Blood Pressure 136/90 01/21/25 19:53 Pulse Oximetry 99 01/21/25 19:53 Oxygen Delivery Room Air 01/21/25 19:53 MDM - Extremity Injury (Lower) MDM Narrative Medical decision making narrative: Patient presents the emergency department for right knee pain after an injury last night. She is neurovascularly intact. Right knee x-ray shows small suprapatellar joint effusion, no acute fracture. Patient placed in Ross wrap and given crutches. She is to follow up with primary provider. She was given warnings to return to the ER Differential Diagnosis Differential diagnosis: Likely acute internal derangement of knee Lab Data Attestation: I reviewed the patient's lab results. Labs: Lab Results 01/21/25 Range/Units 20:07 POC Urine HCG, Qual Negative (Negative) Imaging Data Radiologist's impression: ITS Impressions Knee X-Ray 01/21/25 20:50 IMPRESSION: Small suprapatellar joint effusion, without acute fracture. Critical Care Time Critical Care Time Critical Care Time: No Discharge Plan Discharge Clinical Impression: Right knee sprain Qualifiers: Encounter type: initial encounter Involved ligament of knee: unspecified ligament Qualified Code(s): S83.91XA - Sprain of unspecified site of right knee, initial encounter Patient Disposition: Home Condition: Stable Instructions: Knee Sprain (ED) Additional Instructions: Return to the ER if you experience fever, redness and swelling of your extremity, numbness or any other symptoms that are concerning to you Wear ROSS wrap and use crutches. No weight on the affected leg until able to bear weight without pain. Ice and elevate extremity. Pain medication as needed and directed. Follow up with your doctor for further care. Patient Language: French Prescriptions: No Action amitriptyline 25 mg Tablet 25 mg PO HS midodrine 5 mg tablet Patient Comments: PT TAKING FOR LOW BLOOD PRESSURE. DOCTOR IS HOLDING MEDICINE 01/14/25,01/15/25 DUE TO ELEVATED BLOOD PRESSURE. lithium carbonate 300 mg tablet extended release PO lithium carbonate 450 mg tablet extended release PO atomoxetine 25 mg capsule PO pregabalin 150 mg capsule Aimovig Autoinjector 140 mg/mL auto-injector SUBCUT Caplyta 42 mg capsule PO pseudoephedrine HCl [12 Hour Decongestant] 120 mg tablet extended release 120 mg PO Q12H PRN (Reason: nasal congestion) Qty: 20 0RF ipratropium bromide 21 mcg (0.03 %) spray,non-aerosol 2 spray NASAL TID PRN (Reason: nasal drainage) Qty: 30 0RF Rx Instructions: administer into each nostril divalproex [Depakote] 250 mg tablet,delayed release (DR/EC) 250 mg PO ONCE aripiprazole [Abilify] 2 mg tablet 15 mg PO DAILY albuterol sulfate 90 mcg/actuation HFA aerosol inhaler 1 puff inhalation Q4H PRN (Reason: Dyspnea) Follow-up/Referrals: PHYSICIAN NOT ON STAFF,NONSTAFF [Primary Care Provider] -
== END 2025-01-21 22:16 | disposition home or self-care (01) ==
PROVIDERS: Emergency Medicine; Emergency Provider Physician Assistant
DX: S83.91XA Sprain of unspecified site of right knee, initial encounter (principal); F41.9 Anxiety disorder, unspecified; F31.9 Bipolar disorder, unspecified; K90.0 Celiac disease; Z85.43 Personal history of malignant neoplasm of ovary; W18.2XXA Fall in (into) shower or empty bathtub, initial encounter
CPT/HCPCS: 73562; 81025; 99283; A9270

== ENCOUNTER 2025-05-04 22:08 | Emergency (ER) | payer OTHER, SELFPAY ==
[2025-05-04] VITALS (7 sets, daily range): BP systolic 121–142; BP diastolic 70–87; PULSE 83; RESP 20; TEMP 36.2; O2SAT 98–100
--- NOTE | 2025-05-04 22:45 | ED_ITS ---
HPI - Headache General Chief Complaint: Headache Stated Complaint: Migraine Time Seen by Provider: 05/04/25 22:15 History of Present Illness HPI Narrative: Patient is a 34-year-old female who presents to the ER with complaints of a migraine that started this morning. She reports she has a history of migraines and took all of her home medications around 2:00 p.m. without much relief. 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 She sees Neurology at [facility]. They advised her to come to the ER for a migraine cocktail. If this does not help relieve her headache then she is to go to [facility] tomorrow for specialized treatment. Patient prefers not to have a CT scan performed tonight. She reports her most recent CT scan was approximately 2 weeks ago. Patient reports she was recently taken off lithium, as her neurologist wondered if this was increasing the pressure in her head, causing her migraines to worsen. She denies any other medical history relevant to this ER visit. Patient endorses nausea and vomiting a little bit.She denies any recent sore throats, visual changes, or numbness/tingling her extremities. Related Data Home Medications ?Medication ?Instructions ?Recorded ?Confirmed ?Last Taken ?Type albuterol sulfate 90 mcg/actuation 1 puff inhalation Q 4H PRN Dyspnea 06/06/20 06/19/21 Unknown History aerosol inhaler aripiprazole 2 mg tablet (Abilify) 15 mg PO DAILY 05/1006/19/21 Unknown History divalproex 250 mg tablet,delayed 250 mg PO ONCE 06/19/21 Unknown History release (Depakote) amitriptyline 25 mg tablet 25 mg PO HS 06/19/21 Unknown History atomoxetine 25 mg capsule mg PO 01/15/25 Unknown Hist ory erenumab-aooe 140 mg/mL mg subcut 01/15/25 Unknown History subcutaneous auto-injector (Aimovig Autoinjector) lithium carbonate 300 mg mg PO 01/15/25 Unknown Hist ory tablet,extended release lithium carbonate 450 mg mg PO 01/15/25 Unknown Hist ory tablet,extended release lumateperone 42 mg capsule mg PO 01/15/25 Unknown His tory (Caplyta) midodrine 5 mg tablet mg 01/15/25 Unknown History pregabalin 150 mg capsule mg 01/15/25 Unknown History Allergies Allergy/AdvReac Type Severity Reaction Status Date / Time adhesive tape Allergy Mild Rash Verified 01/21/25 19:58 gluten Allergy Mild Nausea and Verified 01/21/25 19:58 Vomiting prochlorperazine Allergy Unknown Nausea and Verified 01/21/25 19:58 Vomiting Review of Systems Review of Systems: All systems reviewed & are unremarkable except as noted in HPI and below PMFSH Past Medical History Medical History Vitamin D deficiency Inflammatory arthritis Ovarian cancer Celiac disease Anxiety Bipolar 1 disorder PTSD (post-traumatic stress disorder) Surgical History Surgical History H/O: hysterectomy Family History Family History Grandparent Diabetes mellitus Mother Lupus Fibromyalgia Raynaud disease Rheumatoid arthritis Sibling Meningitis Sibling Autism Social History Social History Smoking status: Never smoker Alcohol intake: current Alcohol use details: 1 drink every 6 motnhs Substance use: never Living arrangements: with family Occupation/Education: occupation Additional occupation/education comments: [employer] Gender identity (if verbalized by the patient): Female Exam Narrative: GENERAL: Well appearing, well-nourished, non-toxic, in no acute distress. HEAD: Normocephalic, atraumatic. NECK: Supple. No adenopathy, no masses. RESPIRATORY: Airway patent, respirations nonlabored. Clear to auscultation bilaterally, no rales, rhonchi, wheezing. CARDIOVASCULAR: Regular rate and rhythm without murmurs, rubs, or gallops. Peripheral pulses 2+ and equal bilaterally. ABDOMINAL: Soft, nontender, nondistended, no hepatosplenomegaly. Normoactive BS. MUSCULOSKELETAL: Moves all extremities. Strength/ROM intact without gross deformities. SKIN: Warm, dry, normal color. No rashes. NEURO: A&O X3. Speech clear. Cranial nerves II-XII intact. No ataxic movements. PSYCHIATRIC: Appropriate mood and affect. Normal interaction. Course Vital Signs Vital signs: Vital Signs Temperature 36.2 C L 05/04/25 22:12 Pulse Rate 83 05/04/25 22:12 Respiratory Rate 20 05/04/25 22:12 Blood Pressure 141/87 H 05/04/25 22:12 Pulse Oximetry 100 05/04/25 22:12 Oxygen Delivery Room Air 05/04/25 22:12 Temperature 36.2 C L 05/04/25 22:12 Pulse Rate 83 05/04/25 22:12 Respiratory Rate 20 05/04/25 22:12 Blood Pressure 141/87 H 05/04/25 22:12 Pulse Oximetry 100 05/04/25 22:12 Oxygen Delivery Room Air 05/04/25 22:12 MDM - Headache MDM Narrative Medical decision making narrative: Patient is a 34-year-old female who presents to the ER with complaints of a migraine that started this morning. She reports she has a history of migraines and took all of her home medications around 2:00 p.m. without much relief. 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 She sees Neurology at [facility]. They advised her to come to the ER for a mi graine cocktail. If this does not help relieve her headache then she is to go to [facility] tomorrow for specialized treatment. Patient prefers not to have a CT scan performed tonight. She reports her most recent CT scan was approximately 2 weeks ago. Patient reports she was recently taken off lithium, as her neurologist wondered if this was increasing the pressure in her head, causing her migraines to worsen. She denies any other medical history relevant to this ER visit. Patient endorses nausea and vomiting a little bit.She denies any recent sore throats, visual changes, or numbness/tingling her extremities. Labs Ordered: None necessary Imaging Ordered: Patient requesting no CT scan Medications Ordered: 1 L normal saline IV bolus, Toradol 15 mg IV, Benadryl 25 mg IV, Decadron 10 mg IV, Reglan 10 mg IV, magnesium sulfate IV Diagnosis: migraine headache Patient Education/Shared MDM: Patient endorses improvement of symptoms following medication administration. She is strongly advised to maintain hydration status upon discharge and follow-up with her neurologist as soon as possible. She will not be discharged home with any new prescriptions. Strict return precautions provided. Patient verbalized understanding and is in agreement with plan. Vital signs stable at time of discharge. All questions answered. Differential Diagnosis Differential diagnosis: Likely migraine, tension headache, headache and other (Cluster headache) Discharge Plan Discharge Clinical Impression: Migraine, Headache Patient Disposition: Home Condition: Stable Instructions: Antibiotic Form, Migraine Headache (ED) Additional Instructions: Please return to the ER with any worsening symptoms. Follow-up with your neurologist as soon as possible. Take all medications as prescribed, including regularly scheduled medications. Please remember to drink lots of water. Patient Language: Vietnamese Prescriptions: No Action amitriptyline 25 mg Tablet 25 mg PO HS midodrine 5 mg tablet Patient Comments: PT TAKING FOR LOW BLOOD PRESSURE. DOCTOR IS HOLDING MEDICINE 01/14/25,01/15/25 DUE TO ELEVATED BLOOD PRESSURE. lithium carbonate 300 mg tablet extended release PO lithium carbonate 450 mg tablet extended release PO atomoxetine 25 mg capsule PO pregabalin 150 mg capsule Aimovig Autoinjector 140 mg/mL auto-injector SUBCUT Caplyta 42 mg capsule PO pseudoephedrine HCl [12 Hour Decongestant] 120 mg tablet extended release 120 mg PO Q12H PRN (Reason: nasal congestion) Qty: 20 0RF ipratropium bromide 21 mcg (0.03 %) spray,non-aerosol 2 spray NASAL TID PRN (Reason: nasal drainage) Qty: 30 0RF Rx Instructions: administer into each nostril divalproex [Depakote] 250 mg tablet,delayed release (DR/EC) 250 mg PO ONCE aripiprazole [Abilify] 2 mg tablet 15 mg PO DAILY albuterol sulfate 90 mcg/actuation HFA aerosol inhaler 1 puff inhalation Q4H PRN (Reason: Dyspnea) Follow-up/Referrals: PHYSICIAN NOT ON STAFF,NONSTAFF [Primary Care Provider] Time of Disposition: 00:08
[2025-05-04] MEDS: SODIUM CHLORIDE 0.9% IV 1,000 ML 999 ML IV CONT (23:20)
[2025-05-04] MEDS: METOCLOPRAMIDE HCL INJ 10 MG/2 ML VIAL IV PUSH (23:22)
[2025-05-04] MEDS: KETOROLAC 15 MG/ML VIAL (*BKC) IV PUSH (23:22)
[2025-05-04] MEDS: dexAMETHasone SOD PHOS INJ 10 MG/ML 1 ML VIAL IV PUSH (23:22)
[2025-05-04] MEDS: MAGNESIUM SULF 1 GM/D5W 100 ML 1 GM/100 ML BAG IVPB (23:27)
[2025-05-05] VITALS: BP 107/72; PULSE 52; RESP 18; O2SAT 98
[2025-05-05 00:01] VITALS: O2SAT 98
[2025-05-05 00:42] VITALS: BP 121/85; PULSE 60; RESP 14; O2SAT 98
== END 2025-05-05 00:43 | disposition home or self-care (01) ==
PROVIDERS: Emergency Provider Registered Nurse
DX: G43.909 Migraine, unspecified, not intractable, without status migrainosus (principal); M19.90 Unspecified osteoarthritis, unspecified site; Z85.43 Personal history of malignant neoplasm of ovary; F41.9 Anxiety disorder, unspecified; F31.9 Bipolar disorder, unspecified
CPT/HCPCS: 96365; 96375; 99284; J1100; J1200; J1885; J2765; J3475; J7030

== ENCOUNTER 2025-05-17 19:24 | Emergency (ER) | payer OTHER, SELFPAY ==
--- NOTE | ~2025-05-17 | CT_ITS ---
EXAMINATION: CT abdomen pelvis w con DATE: 05/17/2025 23:40 INDICATION: Abdominal pain. Difficulty urinating. TECHNIQUE: Computed tomography (CT) of the abdomen and pelvis was performed with 100 mL Omnipaque 350 intravenous contrast. Automated exposure control and iterative reconstruction technique were employed. The dose-length product was 1509.50 mGy-cm. COMPARISON: None. FINDINGS: The visualized portions of the lung bases demonstrate mild atelectasis. No pleural effusion. The heart size is normal. No pericardial effusion. The liver and spleen are normal. There are changes of cholecystectomy. The pancreas, adrenal glands, and kidneys are normal. There are no dilated loops of bowel. The appendix is normal. There is linear chronic calcified thrombus in the inferior vena cava, common iliac veins, and left external iliac vein. There are no pathologically enlarged lymph nodes. There is no free intraperitoneal fluid. There is mild thoracic spondylosis. Pelvic surgical clips are noted. IMPRESSION: 1. No etiology for the patient's symptoms. Reviewed, dictated and finalized at location E.
[2025-05-17 19:30] VITALS: BP 142/84; PULSE 75; RESP 18; TEMP 36.2; O2SAT 100
[2025-05-17 19:44] LABS: BEDSIDEPREGUCG Negative (Negative)
[2025-05-17 19:47] LABS: Add Urine Microscopic? YES; Appearance Urine Clear (Clear); Glucose Urine UA Negative (Negative); Leukocyte Esterase Ur Trace LEU/UL (Negative); Nitrate Urine Negative (Negative); Non Pathogenic Casts 0-2; Specific Grav Ur 1.007 (1.001-1.035)
[2025-05-17 21:29] VITALS: BP 129/79; PULSE 62; RESP 18; O2SAT 95
--- NOTE | 2025-05-17 22:07 | PC.NURSE ---
This Rn attempted to get IV on pt and was unsuccessful. PA notified. Rn with ultrasound certification will attempt on pt.
[2025-05-17 22:41] LABS: Hematocrit 38.9 % (37.0-47.0); Hemoglobin 13.0 g/dL (12.0-15.0); Immature Granulocyte Percent A 0.2 % (0-0.5); Lymphocytes Absolute Auto 1.93 K/mm3 (0.9-3.2); Mean Corpuscular HGB Conc 33.4 g/dl (32-36); Mean Corpuscular Hemoglobin 28.5 pg (26-34); Mean Corpuscular Volume 85.3 fl (80-100); Nucleated Red Blood Cells Absolute Auto 0.000 K/mm3 (0.0-0.012); Nucleated Red Blood Cells Perc 0.0 % (0.0-0.2); Platelet Count Result 188 k/mm3 (150-375); Red Blood Count 4.56 M/mm3 (4.2-5.4); White Blood Count 4.5 K/mm3 (4.5-10.0)
[2025-05-17 22:52] LABS: Alanine Aminotransferase 74 U/L (6-35); Albumin Level 4.7 g/dL (3.5-5.1); Alkaline Phosphatase 71 U/L (38-126); Anion Gap 8 mmol/L (4-12); Aspartate Amino Transferase 53 U/L (14-36); Bilirubin,Total 0.3 mg/dL (0.2-1.3); Blood Urea Nitrogen 18 mg/dL (7-17); Calcium 9.7 mg/dL (8.4-10.2); Carbon Dioxide 22 mmol/L (22-30); Chloride 109 mmol/L (98-107); Estimated CRCL calculation 105 ml/min; Estimated Glomerular Filt Rate > 60; Glucose 89 mg/dL (65-110); Potassium 3.8 mmol/L (3.4-5.0); Sodium 139 mmol/L (137-145); Total Protein 7.9 g/dL (6.3-8.2)
[2025-05-18 00:51] VITALS: BP 134/66; PULSE 72; RESP 18; O2SAT 100
[2025-05-18 01:01] VITALS: BP 130/98; PULSE 80; RESP 18; O2SAT 100
[2025-05-18] MEDS: MORPHINE SULFATE (*CRX) 4 MG/ML INJ IV PUSH (01:12)
[2025-05-18] MEDS: ONDANSETRON INJ 4 MG/2 ML VIAL IV PUSH (01:12)
[2025-05-18 01:16] VITALS: BP 132/80; PULSE 69; RESP 20; O2SAT 100
[2025-05-18 01:31] VITALS: BP 123/75; PULSE 76; RESP 18; O2SAT 99
[2025-05-18 01:46] VITALS: BP 112/77; PULSE 58; RESP 18; O2SAT 100
--- NOTE | 2025-05-18 02:05 | ED.GENADULT ---
HPI - General Adult General Chief complaint: Urogenital-Female Stated complaint: urinary urgency, decreased UO, hematuria Time Seen by Provider: 05/17/25 21:29 Source: patient Mode of arrival: ambulatory Limitations: no limitations History of Present Illness HPI narrative: Patient is a 34-year-old female, past medical history of ovarian cancer, s/p hysterectomy, who presents the ED with report of difficulty urinating. Patient reports she has been having intermittent urinary frequency, dysuria over the past few days. States this is not completely abnormal for her. She reports having decreased urine output today, states she went several hours without having to urinate despite drinking plenty of fluids. She feels urge to urinate, but is unable to pass any urine. States she has passed a small amount of blood, noticed most with wiping. Reports diffuse abdominal discomfort. Reports bilateral back pain, though states this is not abnormal for her either. Reports nausea, denies vomiting. Denies fevers. States she has history of kidney failure while undergoing treatment for her previous cancer in 2008. Related Data Home Medications ?Medication ?Instructions ?Recorded ?Confirmed ?Last Taken ?Type albuterol sulfate 90 mcg/actuation 1 puff inhalation Q4H PRN Dyspnea 06/06/20 06/19/21 Unknown History aerosol inhaler aripiprazole 2 mg tablet (Abilify) 15 mg PO DAILY 06/06/20 06/19/21 Unknown History divalproex 250 mg tablet,delayed 250 mg PO ONCE 06/06/20 06/19/21 Unknown History release (Depakote) amitriptyline 25 mg tablet 25 mg PO HS 06/19/21 06/19/21 Unknown History atomoxetine 25 mg capsule mg PO 01/15/25 Unknown History erenumab-aooe 140 mg/mL mg subcut 01/15/25 Unknown History subcutaneous auto-injector (Aimovig Autoinjector) lithium carbonate 300 mg mg PO 01/15/25 Unknown History tablet,extended release lithium carbonate 450 mg mg PO 01/15/25 Unknown History tablet,extended release lumateperone 42 mg capsule mg PO 01/15/25 Unknown History (Caplyta) midodrine 5 mg tablet mg 01/15/25 Unknown History pregabalin 150 mg capsule mg 01/15/25 Unknown History Allergies Allergy/AdvReac Type Severity Reaction Status Date / Time adhesive tape Allergy Mild Rash Verified 05/17/25 19:33 gluten Allergy Mild Nausea and Verified 05/17/25 19:33 Vomiting prochlorperazine Allergy Unknown Nausea and Verified 05/17/25 19:33 Vomiting Review of Systems Review of Systems: All systems reviewed & are unremarkable except as noted in HPI. All systems reviewed & are unremarkable except as noted in HPI and below PMFSH Past Medical History Medical History Vitamin D deficiency Inflammatory arthritis Ovarian cancer Celiac disease Anxiety Bipolar 1 disorder PTSD (post-traumatic stress disorder) Surgical History Surgical History H/O: hysterectomy Family History Family History Grandparent Diabetes mellitus Mother Lupus Fibromyalgia Raynaud disease Rheumatoid arthritis Sibling Meningitis Sibling Autism Social History Social History Smoking status: Never smoker Alcohol intake: current Alcohol use details: 1 drink every 6 motnhs Substance use: never Living arrangements: with family Occupation/Education: occupation Additional occupation/education comments: [employer] Gender identity (if verbalized by the patient): Female Exam Narrative: GENERAL: Well appearing, morbidly obese with BMI of 44.2, non-toxic, in no acute distress. HEAD: Normocephalic, atraumatic. RESPIRATORY: Airway patent, respirations nonlabored. Clear to auscultation bilaterally, no rales, rhonchi, wheezing. CARDIOVASCULAR: Regular rate and rhythm without murmurs, rubs, or gallops. ABDOMINAL: Soft, mild diffuse tenderness, worst over suprapubic region, no rebound, nondistended. Normoactive BS. No significant CVA tenderness MUSCULOSKELETAL: Moves all extremities. No gross deformities. PELVIC: Normal external genitalia. No evidence of bleeding. No genital lesions SKIN: Warm, dry, normal color. NEURO: A&O X3. Speech clear. Cranial nerves II-XII grossly intact. Steady gait. No ataxic movements. PSYCHIATRIC: Appropriate mood and affect. Normal interaction. Course Vital Signs Vital signs: Vital Signs Temperature 97.1 F L 05/17/25 19:30 Pulse Rate 75 05/17/25 19:30 Respiratory Rate 18 05/17/25 19:30 Blood Pressure 142/84 H 05/17/25 19:30 Pulse Oximetry 100 05/17/25 19:30 Oxygen Delivery Room Air 05/17/25 19:30 Temperature 98.2 F 05/18/25 03:05 Pulse Rate 80 05/18/25 03:05 Respiratory Rate 20 05/18/25 03:05 Blood Pressure 123/80 05/18/25 03:05 Pulse Oximetry 100 05/18/25 03:05 Oxygen Delivery Room Air 05/17/25 19:30 Medical Decision Making MDM Narrative Medical decision making narrative: Patient presented to ED with difficulty urinating, concern for UTI, abdominal discomfort. Vital signs are stable upon arrival. Patient in no acute distress. Bladder scan was performed, less then 180 mL of urine in bladder. Patient was able to urinate a large amount afterwards. No evidence of retention. Laboratory studies are unremarkable. No leukocytosis or anemia. Stable electrolytes. Stable kidney function. Minimal transaminitis. Normal bilirubin. Patient without focal right upper quadrant tenderness. UA with trace leuk esterase, 1+ blood, no signs of infection. Urine negative. CT scan of the abdomen/pelvis was obtained and without significant abnormalities. Does show possible enteritis. Pelvic exam was performed without evidence of bleeding. Discussed lab and imaging findings, overall reassuring findings with patient. Feel she is safe for discharge home with outpatient primary care and Urology follow-up. Discussed possibility of enteritis causing some discomfort. Will prescribe Bentyl for home. Discussed strict return precautions. She is in agreement with plan. Feels comfortable with discharge home. Discharged in stable condition. Medical Records Medical records reviewed: Yes I reviewed the external patient's medical records. Vital Signs Vital Signs: Vital Signs Temperature 97.1 F L 05/17/25 19:30 Pulse Rate 75 05/17/25 19:30 Respiratory Rate 18 05/17/25 19:30 Blood Pressure 142/84 H 05/17/25 19:30 Pulse Oximetry 100 05/17/25 19:30 Oxygen Delivery Room Air 05/17/25 19:30 Temperature 98.2 F 05/18/25 03:05 Pulse Rate 80 05/18/25 03:05 Respiratory Rate 20 05/18/25 03:05 Blood Pressure 123/80 05/18/25 03:05 Pulse Oximetry 100 05/18/25 03:05 Oxygen Delivery Room Air 05/17/25 19:30 Lab Data Lab results reviewed: Yes I reviewed the patient's lab results. 05/17/25 22:36 05/17/25 22:36 Labs: Lab Results 05/17/25 05/17/25 05/17/25 Range/Units 19:35 19:42 22:36 WBC 4.5 (4.5-10.0) K/mm3 RBC 4.56 (4.2-5.4) M/mm3 Hgb 13.0 (12.0-15.0) g/dL Hct 38.9 (37.0-47.0) % MCV 85.3 (80-100) fl MCH 28.5 (26-34) pg MCHC 33.4 (32-36) g/dl RDW 14.0 (11.5-14.5) % Plt Count 188 (150-375) k/mm3 MPV 10.5 H (7.4-10.4) fl Immature Gran % (Auto) 0.2 (0-0.5) % Neut % (Auto) 43.2 L (45.5-73.1) % Lymph % (Auto) 42.6 (18.3-44.2) % Collin % (Auto) 10.2 H (2.6-8.5) % Eos % (Auto) 2.9 (0-4.4) % Baso % (Auto) 0.9 (0.2-1.2) % Lymph # (Auto) 1.93 (0.9-3.2) K/mm3 Collin # (Auto) 0.5 (0.1-0.6) K/mm3 Eos # (Auto) 0.1 (0-0.3) K/mm3 Baso # (Auto) 0.0 (0.0-0.1) K/mm3 Abs Immat Gran (auto) 0.01 (0.00-0.031) K/mm3 Absolute Neuts (auto) 2.0 (1.3-6.7) K/mm3 Absolute Nucleated RBC 0.000 (0.0-0.012) K/mm3 Nucleated RBC % 0.0 (0.0-0.2) % Sodium 139 (137-145) mmol/L Potassium 3.8 (3.4-5.0) mmol/L Chloride 109 H (98-107) mmol/L Carbon Dioxide 22 (22-30) mmol/L Anion Gap 8 (4-12) mmol/L BUN 18 H (7-17) mg/dL Creatinine 0.82 (0.7-1.0) mg/dL Estim Creat Clear Calc 105 ml/min Estimated GFR > 60 (59 - ) Glucose 89 (65-110) mg/dL Calcium 9.7 (8.4-10.2) mg/dL Total Bilirubin 0.3 (0.2-1.3) mg/dL AST 53 H (14-36) U/L ALT 74 H (6-35) U/L Alkaline Phosphatase 71 (38-126) U/L Total Protein 7.9 (6.3-8.2) g/dL Albumin 4.7 (3.5-5.1) g/dL Urine Color Yellow (Yellow) Urine Appearance Clear (Clear) Urine pH 6.0 (5.0-9.0) Ur Specific [place] 1.007 (1.001-1.035) Urine Protein Negative (Negative) mg/dL Urine Glucose (UA) Negative (Negative) mg/dL Urine Ketones Negative (Negative) mg/dL Ur Blood (Man) 1+ H (Negative) Urine Nitrate Negative (Negative) Urine Bilirubin Negative (Negative) Urine Urobilinogen 0.2 (<2.0) mg/dL Leukocyte Esterase Rfl Trace H (Negative) RAAD/UL Urine RBC 0-2 (0-2) /hpf Urine WBC 0-5 (0-3) /hpf Ur Squamous Epith Cells None seen (Few) /hpf Urine Bacteria None seen /hpf Urine Casts 0-2 POC Urine HCG, Qual Negative (Negative) Imaging Data Attestation: I personally reviewed and interpreted this imaging study as follows: Radiologist's impression: STAT RAD CT abd/pelvis: Impression: Under distended bladder limits evaluation. Please correlate for urinalysis with concern for cystitis. Fluid and gas-filled small bowel loops may represent enteritis in the appropriate clinical setting. Discharge Plan Discharge Clinical Impression: Diffuse abdominal pain, Enteritis, Difficulty urinating Patient Disposition: Home Condition: Stable Instructions: Antibiotic Form, Dysuria (ED), Enteritis (ED) Additional Instructions: Your workup here was reassuring. Recommend Tylenol, ibuprofen, Bentyl as needed for further abdominal discomfort. Recommend follow-up with her primary care doctor and/or Urology for further evaluation. Return to the ED if you experience worsening or severe pain, difficulty urinating, unable to keep down food or drink, persistent fevers, or any other symptoms of concern. Patient Language: Lithuanian Prescriptions: New dicyclomine 20 mg tablet 20 mg PO TID PRN (Reason: Abdominal Discomfort) Qty: 10 0RF No Action amitriptyline 25 mg Tablet 25 mg PO HS midodrine 5 mg tablet Patient Comments: PT TAKING FOR LOW BLOOD PRESSURE. DOCTOR IS HOLDING MEDICINE 01/14/25,01/15/25 DUE TO ELEVATED BLOOD PRESSURE. lithium carbonate 300 mg tablet extended release PO lithium carbonate 450 mg tablet extended release PO atomoxetine 25 mg capsule PO pregabalin 150 mg capsule Aimovig Autoinjector 140 mg/mL auto-injector SUBCUT Caplyta 42 mg capsule PO pseudoephedrine HCl [12 Hour Decongestant] 120 mg tablet extended release 120 mg PO Q12H PRN (Reason: nasal congestion) Qty: 20 0RF ipratropium bromide 21 mcg (0.03 %) spray,non-aerosol 2 spray NASAL TID PRN (Reason: nasal drainage) Qty: 30 0RF Rx Instructions: administer into each nostril divalproex [Depakote] 250 mg tablet,delayed release (DR/EC) 250 mg PO ONCE aripiprazole [Abilify] 2 mg tablet 15 mg PO DAILY albuterol sulfate 90 mcg/actuation HFA aerosol inhaler 1 puff inhalation Q4H PRN (Reason: Dyspnea) Follow-up/Referrals: Mac Agosto MD [Physician, Urology] Referral Note: UROLOGY PHYSICIAN NOT ON STAFF,NONSTAFF [Primary Care Provider] Time of Disposition: 02:19
[2025-05-18 03:05] VITALS: BP 123/80; PULSE 80; RESP 20; TEMP 36.8; O2SAT 100
== END 2025-05-18 03:07 | disposition home or self-care (01) ==
PROVIDERS: Emergency Medicine; Emergency Provider Physician Assistant
DX: K52.9 Noninfective gastroenteritis and colitis, unspecified (principal); R30.0 Dysuria; R35.0 Frequency of micturition; R10.9 Unspecified abdominal pain; E55.9 Vitamin D deficiency, unspecified; M19.90 Unspecified osteoarthritis, unspecified site; K90.0 Celiac disease; F41.9 Anxiety disorder, unspecified; F31.9 Bipolar disorder, unspecified; F43.10 Post-traumatic stress disorder, unspecified; Z85.43 Personal history of malignant neoplasm of ovary; Z90.710 Acquired absence of both cervix and uterus; Z79.899 Other long term (current) drug therapy
CPT/HCPCS: 36415; 74177; 80053; 81001; 81025; 85025; 96374; 96375; 99284; J2270; J2405; Q9967

== ENCOUNTER 2025-05-24 20:15 | Emergency (ER) | payer OTHER, SELFPAY ==
--- OUTSIDE RECORDS SUMMARY | 2025-04-01 04:00 | XMS_ITS ---
Author Organization [facility] [employer] [facility] Address [facility] [address] Care Team Providers Care Field Court Researcher Name Role Phone LEE BECERRA, RICHARD Primary Care Provider Unavailab andry NegroozaXiang Unavailable [phone] Maya Cabrera Unavailable [phone] REASON FOR VISIT Therapy Follow Up Social History Sex Assigned At : Social History Observation Description Sex Assigned At Female Encounters Encounter Location Date Provider Diagnosis [facility] [place] [id number] [facility] [address] [place] [address] 04/01/2025 Maya Cabrera Plan Of Treatment Next Appt Details Provider Name:Maya Cabrera, 05/28/2025 02:00:00 PM, [address], [facility] [address], [place], [address], Progress Notes * LAWSON ZAVALETA CDOB:[birth year] (34 yo F)Acc No.[id number]:04/01/2025 Patient: LAWSON RAGLAND Provider: James CABRERA LCSW :1990 A ge:34 Y S ex:Female Date:04/01/2025 Address:[address] [place], [place] [id number] Pcp:RICHARD HOWARD MD Data: * Chief Complaints: * T herapy Follow Up Billing Information: * Procedure Codes: * Electronic signature of Maya Cabrera LCSW on 05/24/2025 at 08:18 PM CDT Sign off status: Pending Signatures: No Ad Hoc Signature Added * Provider: James CABRERA LCSW Date: 0 04/01/2025 Generated for Sridhar ramírez/Rosina/Thai on: 1 08:18 PM CDT
--- OUTSIDE RECORDS SUMMARY | 2025-05-08 09:30 | XMS_ITS ---
Author Organization [facility] [employer] [facility] Address [address] [facility] [address] [facility] [address] [place] [address] Care Team Providers Care Sport Internship Name Role Phone LEE BECERRA, RICHARD Primary Care Provider Unavailab Xiang Lala Unavailable [phone] REASON FOR VISIT Has other doctor's appt Social History Sex Assigned At : Social History Observation Description Sex Assigned At Female Encounters Encounter Location Date Provider Diagnosis [facility] [employer] [facility] [address] [facility] [address] [place] [address] 05/08/2025 Xiang Argueta Plan Of Treatment Next Appt Details Provider Name:Maya Mojica, 05/28/2025 02:00:00 PM, [address], [facility] [address], [place], [address], Progress Notes * LAWSON ZAVALETA CDOB:[birth year] (34 yo F)Acc No.[id number]:05/08/2025 Patient: LAWSON RAGLAND Melina Provider: XIOMY GUZMAN :1990 A ge:34 Y S ex:Female Date:05/08/2025 Address:[address] [place], [place] [id number] Pcp:RICHARD HOWARD MD Subjective: * Chief Complaints: * H as other doctor's appt * Electronic signature of XIOMY Lora on 05/24/2025 at 08:18 PM CDT Sign off status: Pending * Provider: MARY GUZMANP Date: 1 Generated for Sridhar ramírez/Rosina/Thai on: 08:18 PM CDT
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
--- OUTSIDE RECORDS SUMMARY | 2025-05-24 20:18 | XMS_ITS ---
Author Organization [facility] Address [address] [place] [address] Care Team Providers Care Decator Operator Name Role Phone Mayelin Ruffin MD Primary Care Provider [phone] Active Problems Problem Noted Date Diagnosed Date [...] breast 08/08/2011 Malignant neoplasm of ovary 08/08/2008 Current Treatment and Therapy Plans No current plan information found. Past Treatment and Therapy Plans No past plan information found. Lifetime Dose Tracking * Chemical Lifetime Dose Automatic Entry Manual Entr y Fluoro Time 0.383 minutes 0.383 minutes 0 minutes Air kerma at the reference point (Ka,r) 10.671 mGy 1 0.671 mGy 0 mGy Resolved Problems Problem Noted Date Diagnosed Date Resolved Date Non-intractable vomiting 12/19/2019 Right lower quadrant abdominal pain 12/19/2019 03/20/2020 History of UTI 12/19/2019 03/20/2020
--- OUTSIDE RECORDS SUMMARY | 2025-05-24 20:18 | XMS_ITS | Patient Health Record ---
Author Organization [facility] As appweevr [facility] Address [address] [place] [address] Care Team Providers Care Electrical Contacts Adjuster Name Role Phone RICHARD HOWARD MD Primary Care Provider Unavailab Xiang Lala Unavailable [phone] Maya Mojica Unavailable [phone] Bishop Natarajan Unavailable [phone] Allergies Allergen (clinical drug ingredient) Drug/Non Drug Allergy documented on EMR Reaction Allergy Type Onset Date Status Compazine Unknown Drug Allergy 12/08/2023 Active Gluten Gluten Unknown Allergy 12/08/2023 Active Results Component Value Reference Range Notes UDT Reviewed date:11/19/2024 05:10:40 PM Interpretation: Performing Lab: Notes/Report: Amphetamine (AMP) NEG 0 - 1000 ng/ml Buprenorphine (BUP) NEG 0 - 10 ng/ml Oxazepam (BZO) NEG 0 - 300 ng/ml Cocaine (CARLYN) NEG 0 - 300 ng/ml Methamphetamine (mAMP) NEG 0 - 300 ng/ml Methylenedioxymethamphetamine (MDMA) NEG 0 - 500 ng/ml Morphine (MOP) NEG 0 - 25 ng/ml Methadone (MTD) NEG 0 - 300 ng/ml Oxycodone (OXY) NEG 0 - 300 ng/ml THC NEG 0 - 50 ng/ml x NEG 0 - 1000 ng/ml x NEG 0 - 1000 ng/ml x NEG 0 - 300 ng/ml x NEG 0 - 300 ng/ml x NEG 0 - 300 ng/ml Reason For Referral No Information Medications Medication SIG (Take, Route, Frequency, Duration) Notes Start Date End Date Status AIMOVIG AUTOINJECTOR 140 MG/ML SUBCUTANEOUS AUTO-INJECTOR *Reorder from [facility] for eRx and Interaction Alerts* 12/08/2023 Active Albuterol Sulfate (2.5 MG/3ML) 0.083% Nebulization Solution Inhalation 12/08/2023 Active Pregabalin 100 MG Capsule Oral 12/08/2023 Active Cetirizine HCl 10 MG Tablet Oral 12/08/2023 Active Nurtec 75 MG Tablet Disintegrating Oral *Reorder from [facility] for eRx and Interaction Alerts* 12/08/2023 Active clonazePAM 0.5 MG Tablet 1 tablet Oral Once a day; Duration: 30 days As needed 05/09/2025 Active hydrOXYzine HCl 25 MG Tablet 1 tablet Orally three times a day; Duration: 30 days As needed 05/09/2025 Active Caplyta 42 MG Capsule 1 capsule Orally Once a day; Duration: 30 days 05/09/2025 Active Immunizations Vaccine Route Administration Date Status [...] spl it virus Unknown 06/16/2019 Administered Novel [id number], preservative free Unknown 04/10/2020 Administered Pfizer Biontech Covid-19 Vac cine 2nd dose Unknown 06/06/2021 Administered Pfizer Biontech Covid-19 Vac cine 2nd dose Unknown 06/27/2021 Administered Tdap Unknown 11/01/2017 Administered Social History Tobacco Use: Social History Observation Description Date Details (start date - stop date) Never Smoker NA - NA Sex Assigned At : Social History Observation Description Sex Assigned At Female Social History Miscellaneous: Social Info Question Answer Notes Advance Care Planning Are you your own decision-maker Yes Do you have Power of [employer] [facility] or [facility]? No Drug/Alcohol: Social Info Question Answer Notes AUDIT-C (Standard) Points 2 Interpretation Negative Did you have a drink contain ing alcohol in the past year? Yes How often did you have six or more drinks on one occasion in the past year? Less than monthly (1 point) How many drinks did you have on a typical day when you were drinking in the past year? 1 or 2 drinks (0 point) How often did you have a drink containing alcohol in the past year? Monthly or less (1 point) Tobacco Use: Social Info Question Answer Notes Tobacco Control (Standard) Tobacco use: Nonsmoker Additional Details Category Social Info Options Details Migrated Social History Migrated Social History Alcohol Intake: Occasional 01/21/2022,Tobacco Years: Never smoker 06/10/2020,Smoking Status: 0 09/14/2023 Problems Problem Type SNOMED Code ICD Code Onset Dates Problem Status W/U Status Risk Notes Problem Bipolar affective disorder, currently depressed, mild (370380354) Bipolar disorder, current episode depressed, mild (F31.31) Active confirmed Problem Bipolar affective disorder, currently depressed, moderate (997001278) Bipolar disorder, current episode depressed, moderate (F31.32) 12/08/19 24 Active confirmed Problem Mixed bipolar affective disorder, moderate (177076007) Bipolar disorder, current episode mixed, moderate (F31.62) Active confirmed Problem Generalized anxiety disorder (57645736) Generalized anxiety disorder (F41.1) 12/08/19 24 Active confirmed Problem Posttraumatic stress disorder (96414233) Post-traumatic stress disorder, chronic (F43.12) 12/08/19 24 Active confirmed Problem Primary insomnia (5485045) Primary insomnia (F51.01) 12/08/19 24 Active confirmed Problem Attention deficit hyperactivity disorder, predominantly inattentive type (disorder) (78957132) Attention and concentration deficit (R41.840) Active confirmed Problem Attention deficit hyperactivity disorder (272167772) ADHD (attention deficit hyperactivity disorder) (F90.9) Active [...] N/A Encounters Encounter Location Date Provider Diagnosis [facility] [address] [facility] [address] [place] [address] 05/09/2025 Xiang Argueta Bipolar disorder, current episode mixed, moderate F31.62 ; Post-traumatic stress disorder, chronic F43.12 ; Generalized anxiety disorder F41.1 ; Primary insomnia F51.01 and Attention and concentration deficit R41.840 [facility] [address] [facility] [address] [place] [address] 05/28/2024 Maya Hemann Bipolar disorder, current episode depressed, moderate F31.32 ; Post-traumatic stress disorder, chronic F43.12 and Generalized anxiety disorder F41.1 [facility] [address] [facility] [address] [place] [address] 06/05/2024 Xiang Argueta Post-traumatic stres s disorder, chronic F43.12 ; Generalized anxiety disorder F41.1 ; Primary insomnia F51.01 and Bipolar disorder, current episode mixed, moderate F31.62 [place] [address] [facility] [address] [place] [address] 06/26/2024 Maya Hemann Bipolar disorder, current episode depressed, moderate F31.32 ; Post-traumatic stress disorder, chronic F43.12 and Generalized anxiety disorder F41.1 [facility] [address] [facility] [address] [place] [address] 07/04/2024 Xiang Argueta Post-traumatic stres s disorder, chronic F43.12 ; Generalized anxiety disorder F41.1 ; Primary insomnia F51.01 and Bipolar disorder, current episode mixed, moderate F31.62 [place] [address] [facility] [address] [place] [address] 2024 Maya Hemann Bipolar disorder, current episode depressed, moderate F31.32 ; Post-traumatic stress disorder, chronic F43.12 and Generalized anxiety disorder F41.1 [facility] [address] [place] [address] 08/15/2024 Xiang Argueta Post-traumatic stres s disorder, chronic F43.12 ; Generalized anxiety disorder F41.1 ; Primary insomnia F51.01 ; Bipolar disorder, current episode mixed, moderate F31.62 and Other vermin exterminator (current) drug therapy Z79.899 [facility] [address] [place] [address] 08/20/2024 Maya Hemann Bipolar disorder, current episode depressed, moderate F31.32 ; Post-traumatic stress disorder, chronic F43.12 and Generalized anxiety disorder F41.1 [facility], [facility] [address] [place] [address] 08/31/2024 Maya Hemann Bipolar disorder, current episode depressed, moderate F31.32 ; Post-traumatic stress disorder, chronic F43.12 and Generalized anxiety disorder F41.1 [facility], [facility] [address] [place] [address] 09/12/2024 Xiang Argueta Post-traumatic stres s disorder, chronic F43.12 ; Generalized anxiety disorder F41.1 ; Primary insomnia F51.01 ; Bipolar disorder, current episode mixed, moderate F31.62 ; Other vermin exterminator (current) drug therapy Z79.899 and Major depressive disorder, recurrent severe without psychotic features 296.33 [facility] [address] [place] [address] 09/14/2024 Maya Hemann Bipolar disorder, current episode depressed, moderate F31.32 ; Post-traumatic stress disorder, chronic F43.12 and Generalized anxiety disorder F41.1 [facility] [address] [facility] [address] [place] [address] 10/03/2024 Maya Hemann Bipolar disorder, current episode depressed, moderate F31.32 ; Post-traumatic stress disorder, chronic F43.12 and Generalized anxiety disorder F41.1 [facility], [facility] [address] [place] [address] 10/22/2024 Xiang Argueta [facility] [address] [place] [address] 11/06/2024 Xiang Argueta Bipolar disorder, current episode mixed, moderate F31.62 ; Post-traumatic stress disorder, chronic F43.12 ; Generalized anxiety disorder F41.1 ; Primary insomnia F51.01 ; Other vermin exterminator (current) drug therapy Z79.899 ; Major depressive disorder, recurrent severe without psychotic features 296.33 and Attention and concentration deficit R41.840 [facility], [facility] [address] [place] [address] 11/14/2024 Maya Hemann Bipolar disorder, current episode depressed, moderate F31.32 ; Post-traumatic stress disorder, chronic F43.12 and Generalized anxiety disorder F41.[address] [address] 11/19/2024 Bishop Natarajan Lack of concentratio n R41.[address] [facility] [address] [place] [address] 11/21/2024 Xiang Argueta Bipolar disorder, current episode mixed, moderate F31.62 ; Post-traumatic stress disorder, chronic F43.12 ; Generalized anxiety disorder F41.1 ; Primary insomnia F51.01 ; Other vermin exterminator (current) drug therapy Z79.899 ; Major depressive disorder, recurrent severe without psychotic features 296.33 and ADHD (attention deficit hyperactivity disorder) F90.9 [facility] [employer] [address] [address] 11/23/2024 Maya Hemann Bipolar disorder, current episode depressed, moderate F31.32 ; Post-traumatic stress disorder, chronic F43.12 ; Generalized anxiety disorder F41.1 and ADHD (attention deficit hyperactivity disorder) F90.9 [facility] [employer] [address] [address] 12/07/2024 Xiang Argueta Bipolar disorder, current episode mixed, moderate F31.62 ; Post-traumatic stress disorder, chronic F43.12 ; Generalized anxiety disorder F41.1 ; Primary insomnia F51.01 ; Other vermin exterminator (current) drug therapy Z79.899 ; Major depressive disorder, recurrent severe without psychotic features 296.33 and Attention and concentration deficit R41.840 [facility] [employer] [place] [address] [facility] [address] [address] 01/07/2025 Xiang Argueta Encounter for screen ing for depression Z13.31 ; Encounter for screening for cardiovascular disorders Z13.6 ; Dietary counseling and surveillance Z71.3 ; Bipolar disorder, current episode mixed, moderate F31.62 ; Post-traumatic stress disorder, chronic F43.12 ; Generalized anxiety disorder F41.1 ; Primary insomnia F51.01 ; Other vermin exterminator (current) drug therapy Z79.899 ; Major depressive disorder, recurrent severe without psychotic features 296.33 and Attention and concentration deficit R41.840 [place] [address] [facility] [address] [address] 01/08/2025 Maya Hemann Bipolar disorder, current episode depressed, moderate F31.32 ; Post-traumatic stress disorder, chronic F43.12 ; Generalized anxiety disorder F41.1 ; ADHD (attention deficit hyperactivity disorder) F90.9 and Encounter for screening for depression Z13.[address] [address] 01/16/2025 Maya Hemann Bipolar disorder, current episode depressed, moderate F31.32 ; Post-traumatic stress disorder, chronic F43.12 ; Generalized anxiety disorder F41.1 and ADHD (attention deficit hyperactivity disorder) F90.[address] [address] 02/14/2025 Maya Hemann Bipolar disorder, current episode depressed, moderate F31.32 ; Post-traumatic stress disorder, chronic F43.12 ; Generalized anxiety disorder F41.1 and ADHD (attention deficit hyperactivity disorder) F90.9 [facility] [employer] [address] 02/18/2025 Xiang Argueta Bipolar disorder, current episode mixed, moderate F31.62 ; Post-traumatic stress disorder, chronic F43.12 ; Generalized anxiety disorder F41.1 ; Primary insomnia F51.01 and Attention and concentration deficit R41.840 [facility] [place] [id number] [address] 03/13/2025 Xiang Argueta Bipolar disorder, current episode mixed, moderate F31.62 ; Post-traumatic stress disorder, chronic F43.12 ; Generalized anxiety disorder F41.1 ; Primary insomnia F51.01 and Attention and concentration deficit R41.840 [place] [address] [address] 03/21/2025 Maya Hemann Bipolar disorder, current episode depressed, moderate F31.32 ; Post-traumatic stress disorder, chronic F43.12 ; Generalized anxiety disorder F41.1 and ADHD (attention deficit hyperactivity disorder) F90.9 [facility] [employer] [place] [address] [place] [address] 04/04/2025 Xiang Argueta Bipolar disorder, current episode mixed, moderate F31.62 ; Post-traumatic stress disorder, chronic F43.12 ; Generalized anxiety disorder F41.1 ; Primary insomnia F51.01 and Attention and concentration deficit R41.840 [facility], [facility] [address] [place] [address] 05/28/2024 [facility], [facility] [address] [place] [address] 01/08/20[facility] [address] [place] [address] 03/08/2025 [facility] [address] [place] [address] 03/08/2025 [facility], [facility] [address] [place] [address] 09/14/2024 [facility] [address] [place] [address] 09/14/2024 [facility] [address] [place] [address] 10/01/2024 [facility] [address] [place] [address] 10/01/2024 [facility] [address] [place] [address] 10/01/2024 [facility], [facility] [address] [place] [address] 11/22/2024 [facility] [address] [place] [address] 11/28/2024 [facility] [address] [place] [address] 11/29/2024 [facility] [address] [place] [address] 12/14/2024 [facility] [address] [place] [address] 02/13/2025 Xiang Argueta Generalized anxiety disorder F41.1 [facility], [facility] [address] [place] [address] 03/07/2025 Xiang Argueta [facility], [facility] [address] [place] [address] 03/07/2025 Xiang Argueta [facility], [facility] [address] [place] [address] 03/08/2025 Xiang Argueta [facility], [facility] [address] [place] [address] 03/08/2025 Xiang Argueta [facility], [facility] [address] [place] [address] 03/11/2025 Xiang Argueta [facility], [facility] [address] [place] [address] 03/11/2025 Xiang Argueta [facility], [facility] [address] [place] [address] 03/13/2025 Xiangsteven Negrooza [facility], [facility] [address] [facility] [address] [place] [address] 04/16/2025 Xiang Argueta Assessments Encounter Date Diagnosis (ICD Code) Assessment Notes Treatment Notes Treatment Clinical Notes Section Notes 05/28/2024 Bipolar disorder, current episode depressed, moderate [...] control over finances. Plan: - Encourage continued self-monitorin g and use of coping strategies. Follow-up: - [...] conducted via telehealth if the patient prefers. 2024 Bipolar disorder, current episode depressed, moderate (ICD-10 - F31.32) 2024 Post-traumatic stress disorder, chronic (ICD-10 - F43.12) 08/15/2024 Post-traumatic stress disorder, chronic (ICD-10 - [...] a healthy diet and exercise routine. 6. [place] level monitoring: Plan: - Have patient check lithium level at least a week after starting, preferably 10-12 hours after the night dose. - Monitor levels routinely to ensure therapeutic range. 7. Follow-up: Plan: - Schedule a follow-up appointment to assess patient's response to lithium and overall mental health status. - Adjust treatment plan as needed. 08/20/2024 Bipolar disorder, current episode depressed, moderate (ICD-10 - F31.32) 08/20/2024 Post-traumatic stress disorder, chronic (ICD-10 - F43.12) 08/31/2024 Bipolar disorder, current episode depressed, moderate [...] Post-traumatic stress disorder, chronic (ICD-10 - F43.12) 11/19/2024 Lack of concentration (ICD-10 - R41.840) ADHD Clinical Report Summary - Svitlana Zavaleta Date of : 1990 Age Group: Female, 35-44 Assessment Date: November 19, 2024 1. ADHD Screening - ASRS Questionnaire Part A (Predictive): 6 Part B (Supporting): 12 Interpretation: Indicative of ADHD. The score in Part A exceeds the clinical threshold of 3, confirming a pattern of attention-relate d difficulties. The high Part B score reinforces [...] Cognitive Training Working Memory: Use apps like [employer], n-back tasks, or strategic sequencing games. Attention and Inhibition: Engage with attention games (e.g., Stroop or Go/No-Go tasks) and mindfulness-base d focus practices. Consistency and Self-Monitoring: Build routines with break points and visual feedback to maintain consistent effort over time. Daily Strategies Use task chunking with brief timed intervals to manage attention. Incorporate checklists, reminder systems, and external structure to reduce cognitive load. Include exercise, sleep hygiene, and low-distraction workspaces to optimize baseline attention. 11/21/2024 Bipolar disorder, current episode mixed, moderate (ICD-10 - F31.62) 11/23/2024 Bipolar disorder, current episode depressed, moderate (ICD-10 - F31.32) 11/23/2024 Post-traumatic stress disorder, chronic (ICD-10 - F43.12) 12/07/2024 Bipolar disorder, current episode mixed, moderate (ICD-10 - F31.62) [place] level:Performed on: 2024-11-27 09:17:21Result: 0.6 mmol/L (within normal range). 01/07/2025 Encounter for screening for depression (ICD-10 - Z13.31) 01/08/2025 Bipolar disorder, current episode depressed, moderate (ICD-10 - F31.32) 01/08/2025 Post-traumatic stress disorder, chronic (ICD-10 - F43.12) 01/16/2025 Bipolar disorder, current episode depressed, moderate (ICD-10 - F31.32) 01/16/2025 Post-traumatic stress disorder, chronic (ICD-10 - F43.12) 02/13/2025 Generalized anxiety disorder (ICD-10 - F41.1) 02/14/2025 Bipolar disorder, current episode depressed, moderate (ICD-10 - F31.32) 02/14/2025 Post-traumatic stress disorder, chronic (ICD-10 - F43.12) 02/18/2025 Bipolar disorder, current episode mixed, moderate (ICD-10 - F31.62) [place] level:Performed on: 2024-11-27 09:17:21Result: 0.6 mmol/L (within normal range). 03/13/2025 Bipolar disorder, current episode mixed, moderate (ICD-10 - F31.62) [place] level:Performed on: 03/07/25 Result: 0.5 mmol/L (within normal range). CancelRx Response got Denied on 2025-05-09 12:01:51 for '[place] Carbonate ER 450 MG Tablet Extended Release'Pharmacy Notes: Unable to Cancel Rx. Please contact Pharmacy 03/13/2025 Post-traumatic stress disorder, chronic (ICD-10 - F43.12) 03/21/2025 Bipolar disorder, current episode depressed, moderate (ICD-10 - F31.32) 03/21/2025 Post-traumatic stress disorder, chronic (ICD-10 - F43.12) 04/04/2025 Bipolar disorder, current episode mixed, moderate (ICD-10 - F31.62) [place] level:Performed on: 03/07/25 Result: 0.5 mmol/L (within normal range). 04/04/2025 Post-traumatic stress disorder, chronic (ICD-10 - F43.12) 05/09/2025 Bipolar disorder, current episode mixed, moderate (ICD-10 - F31.62) 04/04/2025 Generalized anxiety disorder (ICD-10 - F41.1) clonazepam 0.5mg daily prn, hydroxyzine 25mg tid prn 03/21/2025 Generalized anxiety disorder (ICD-10 - F41.1) 03/13/2025 Generalized anxiety disorder (ICD-10 - F41.1) clonazepam 0.5mg daily prn, hydroxyzine 25mg tid prn 02/18/2025 Post-traumatic stress disorder, chronic (ICD-10 - F43.12) 05/09/2025 Post-traumatic stress disorder, chronic (ICD-10 - F43.12) 02/14/2025 Generalized anxiety disorder (ICD-10 - F41.1) 01/16/2025 Generalized anxiety disorder (ICD-10 - F41.1) 01/08/2025 Generalized anxiety disorder (ICD-10 - F41.1) 12/07/2024 Post-traumatic stress disorder, chronic (ICD-10 - F43.12) 11/23/2024 Generalized anxiety disorder (ICD-10 - F41.1) 01/07/2025 Encounter for screening for cardiovascular disorders (ICD-10 - Z13.6) 11/21/2024 Post-traumatic stress disorder, chronic (ICD-10 - F43.12) 11/14/2024 Generalized anxiety disorder (ICD-10 - F41.1) 11/06/2024 Post-traumatic stress disorder, chronic (ICD-10 - F43.12) 10/03/2024 Generalized anxiety disorder (ICD-10 - F41.1) 09/14/2024 Generalized anxiety disorder (ICD-10 - F41.1) 08/15/2024 Generalized anxiety disorder (ICD-10 - F41.1) [...] a healthy diet and exercise routine. 6. [place] level monitoring: Plan: - Have patient check lithium level at least a week after starting, preferably 10-12 hours after the night dose. - Monitor levels routinely to ensure therapeutic range. 7. Follow-up: Plan: - Schedule a follow-up appointment to assess patient's response to lithium and overall mental health status. - Adjust treatment plan as needed. 09/12/2024 Generalized anxiety disorder (ICD-10 - F41.1) clonazepam 0.5mg daily prn, hydroxyzine 25mg tid prn 08/31/2024 Generalized anxiety disorder (ICD-10 - F41.1) 08/20/2024 Generalized anxiety disorder (ICD-10 - F41.1) 2024 Generalized anxiety disorder (ICD-10 - F41.1) 06/05/2024 [...] control over finances. Plan: - Encourage continued self-monitorin g and use of coping strategies. Follow-up: - [...] 05/28/2024 Generalized anxiety disorder (ICD-10 - F41.1) 06/05/2024 [...] control over finances. Plan: - Encourage continued self-monitorin g and use of coping strategies. Follow-up: - Schedule a follow-up appointment in one month to assess the patient's response to the new medication regimen and overall mental health status. - Cancel the previously scheduled June 08 appointment. 07/04/2024 Primary insomnia (ICD-10 - F51.01) 1. [...] via telehealth if the patient prefers. 08/15/2024 Primary insomnia (ICD-10 - F51.01) 1. [...] a healthy diet and exercise routine. 6. [place] level monitoring: Plan: - Have patient check lithium level at least a week after starting, preferably 10-12 hours after the night dose. - Monitor levels routinely to ensure therapeutic range. 7. Follow-up: Plan: - Schedule a follow-up appointment to assess patient's response to lithium and overall mental health status. - Adjust treatment plan as needed. 09/12/2024 Primary insomnia (ICD-10 - F51.01) 11/06/2024 Generalized anxiety disorder (ICD-10 - F41.1) clonazepam 0.5mg daily prn, hydroxyzine 25mg tid prn 11/21/2024 Generalized anxiety disorder (ICD-10 - F41.1) clonazepam 0.5mg daily prn, hydroxyzine 25mg tid prn 01/07/2025 Dietary counseling and surveillance (ICD-10 - Z71.3) 11/23/2024 ADHD (attention deficit hyperactivity disorder) (ICD-10 - F90.9) 12/07/2024 Generalized anxiety disorder (ICD-10 - F41.1) clonazepam 0.5mg daily prn, hydroxyzine 25mg tid prn 01/16/2025 ADHD (attention deficit hyperactivity disorder) (ICD-10 - F90.9) 02/18/2025 Generalized anxiety disorder (ICD-10 - F41.1) clonazepam 0.5mg daily prn, hydroxyzine 25mg tid prn 02/14/2025 ADHD (attention deficit hyperactivity disorder) (ICD-10 - F90.9) 01/08/2025 ADHD (attention deficit hyperactivity disorder) (ICD-10 - F90.9) 03/13/2025 Primary insomnia (ICD-10 - F51.01) 03/21/2025 ADHD (attention deficit hyperactivity disorder) (ICD-10 - F90.9) 05/09/2025 Generalized anxiety disorder (ICD-10 - F41.1) clonazepam 0.5mg daily prn, hydroxyzine 25mg tid prn 04/04/2025 Primary insomnia (ICD-10 - F51.01) 04/04/2025 Attention and concentration deficit (ICD-10 - R41.840) Negative reaction to Concerta. DO NOT recommend stimulant use. 03/13/2025 Attention and concentration deficit (ICD-10 - R41.840) Negative reaction to Concerta. DO NOT recommend stimulant use. 02/18/2025 Primary insomnia (ICD-10 - F51.01) 05/09/2025 Primary insomnia (ICD-10 - F51.01) 12/07/2024 Primary insomnia (ICD-10 - F51.01) 01/07/2025 Bipolar disorder, current episode mixed, moderate (ICD-10 - F31.62) Brewerton level:Performed on: 2024-11-27 09:17:21Result: 0.6 mmol/L (within normal range). 11/21/2024 Primary insomnia (ICD-10 - F51.01) 11/06/2024 Primary insomnia (ICD-10 - F51.01) 09/12/2024 Bipolar disorder, current episode mixed, moderate (ICD-10 - F31.62) 08/15/2024 Bipolar disorder, current episode mixed, moderate [...] a healthy diet and exercise routine. 6. Brewerton level monitoring: Plan: - Have patient check [...] control over finances. Plan: - Encourage continued self-monitorin g and use of coping strategies. Follow-up: - Schedule a follow-up appointment in one month to assess the patient's response to the new medication regimen and overall mental health status. - Cancel the previously scheduled June 08 appointment. 08/15/2024 Other vermin exterminator (current) drug therapy (ICD-10 - Z79.899) 1. [...] a healthy diet and exercise routine. 6. Brewerton level monitoring: Plan: - Have patient check lithium level at least a week after starting, preferably 10-12 hours after the night dose. - Monitor levels routinely to ensure therapeutic range. 7. Follow-up: Plan: - Schedule a follow-up appointment to assess patient's response to lithium and overall mental health status. - Adjust treatment plan as needed. 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 DO NOT recommend stimulant use. 02/18/2025 Attention and concentration deficit (ICD-10 - R41.840) Negative reaction to Concerta. DO NOT recommend stimulant use. 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 Working Memory: Use apps like [employer], n-back tasks, or strategic sequencing games.Attention and Inhibition: Engage with attention games (e.g., Stroop or Go/No-Go tasks) and mindfulness-based focus practices.Consiste ncy and Self-Monitoring: Build routines with break points and visual feedback to maintain consistent effort over time. 01/07/2025 Primary insomnia (ICD-10 - F51.01) 12/07/2024 Attention and concentration deficit (ICD-10 - R41.840) Negative reaction to Concerta. DO NOT recommend stimulant use. 01/07/2025 Other usp (current) drug therapy (ICD-10 - Z79.899) 01/07/2025 [...] dose and overall mental health status. 11/06/2024 Other Svitlana Zavaleta, female patient with bipolar disorder and suspected ADHD, recently underwent gallbladder removal surgery, presenting with ongoing irritability and difficulty functioning in the evenings. Bipolar Disorder Assessment: Patient reports relative mood stability when adherent to current medication regimen. Recent gallbladder surgery (functioning at 13%) may have impacted medication efficacy. Patient experiences irritability, particularly in the evenings. No current manic symptoms reported. Brewerton level in August was 0.5, prompting a dosage increase. Recent labs from hospital stay are pending. Plan: - Continue Brewerton ER 450 mg PO daily - Continue [...] until after testing and evaluation of results Post-cholecystec pam Status Assessment: Patient underwent laparoscopic cholecystectomy last [...] Deficit Hyperactivity Disorder (ADHD) Assessment: Patient completed [employer] ADHD test on November 19, 2024, which [...] efforts have been made to correct them. 01/07/2025 Girish Zavaleta presents with worsening mood symptoms, sleep disturbances, and severe nightmares while on atomoxetine for ADHD, with a history of bipolar disorder and anxiety. Medication side effects (atomoxetine) Assessment: Patient reports significant side effects from atomoxetine, including emotional flattening, loss of enjoyment in activities, severe nightmares, and sleep disturbances. These side effects are causing significant distress and impacting daily functioning. The patient describes the nightmares as violent and disturbing, leading to night sweats and bedwetting. Sleep has been severely affected, with patient going to bed late (3-4 AM) and waking early (9 AM). The benefits of improved concentration do not outweigh the negative impacts on mood and sleep. Plan: - Discontinue atomoxetine 40 mg immediately - Monitor for improvement in mood and sleep patterns after discontinuation - Educate patient on potential withdrawal symptoms and when to seek medical attention Bipolar disorder Assessment: Patient is currently managed on Caplyta 42 mg for bipolar depression and lithium ER 450 mg daily at bedtime. Patient reports noticeable effects if lithium dose is missed, suggesting some degree of mood stabilization. However, patient is experiencing increased emotional lability, describing wanting to cry over everything and feeling depressed, though not to the extent of previous depressive episodes. Plan: - Continue Caplyta 42 mg for bipolar depression - Continue lithium ER 450 mg daily at bedtime - Monitor serum lithium levels (last level 0.6 on November 27) - Educate patient on importance of adequate hydration while on lithium - Monitor for changes in mood symptoms following atomoxetine discontinuation Anxiety Assessment: Patient reports ongoing anxiety symptoms and requests refill of hydroxyzine. Patient also mentions using clonazepam recently without noticeable effect, suggesting possible tolerance or inadequate dosing. Plan: - Refill hydroxyzine (dose not specified) - Reassess efficacy of current anxiety management at follow-up Neurological symptoms Assessment: Patient reports experiencing random thoughts of not being able to see or hear. Neurologist is investigating possible stenosis of the neck, post-concussion effects, and potential absence seizures. MRI and CTA scheduled for January 18 to evaluate these concerns. Plan: - Await results of scheduled MRI and CTA on January 18 - Follow up with neurology for interpretation of results and further management Vitamin D deficiency Assessment: Recent blood work revealed low vitamin D levels (reported as like 9). Plan: - Address vitamin D supplementation (dose not specified) the note is transcribed using speech recognition software. It is a reflection of a visit with the patient. It might have some inaccuracy, including medication names and transcribing errors, though efforts have been made to correct them. 02/18/2025 Other 11/26/24 lithium level 0.6 Svitlana Zavaleta, female patient with history of depression and anxiety, presents with worsening focus issues, self-destructive thoughts, and increased anxiety despite current medication regimen. Bipolar Disorder Assessment: Patient reports worsening symptoms including difficulty focusing, self-destructive thoughts, and increased anxiety. Current medication regimen includes Caplyta 42mg and lithium ER 450mg. Patient denies active suicidal ideation or self-harm but expresses thoughts of taking extra medication to calm down. Brewerton level was 0.6 on November 26. Patient's argumentativeness is increasing, though not as severe as before lithium treatment. Sleep has improved with current medication. Plan: - Continue Caplyta - Continue lithium ER - Monitor for worsening mood symptoms and medication efficacy - Follow up in 1 month Anxiety Disorder Assessment: Patient reports anxiety is through the roof and states the day is shot if morning anxiety medication is not taken within an hour of waking. Currently using hydroxyzine for morning anxiety management and clonazepam as needed. Plan: - Continue hydroxyzine - Continue clonazepam as needed - Monitor anxiety symptoms and medication efficacy Idiopathic Intracranial Hypertension (suspected) Assessment: Patient reports upcoming spinal tap to assess intracranial pressure due to extreme pressure on optical nerves causing vision loss. Possible shunt placement may be needed depending on pressure levels. Plan: - Defer medication changes pending results of intracranial pressure assessment and treatment - Await results of spinal tap and potential shunt placement the note is transcribed using speech recognition software. It is a reflection of a visit with the patient. It might have some inaccuracy, including medication names and transcribing errors, though efforts have been made to correct them. 03/13/2025 Other Svitlana Zavaleta, female patient with a history of psychiatric issues, recently hospitalized for increased intracranial pressure and vision concerns, presenting with ongoing management of idiopathic intracranial hypertension (IIH) and mood stabilization. Idiopathic Intracranial Hypertension (IIH) Assessment: Patient was recently hospitalized due to doubled intraocular pressure detected during an ophthalmology appointment, with risk of vision loss within 3 weeks if not addressed. Initial spinal tap resulted in a spinal leak. Lumbar puncture attempts in the ER were unsuccessful due to severe pain. Diagnosis of IIH was confirmed based on imaging studies and pressure readings (initial 13, increasing to 21.5 after Diamox administration). Patient reports 17 blown blood vessels. Initial treatment with Diamox resulted in severe reactions, including burning sensations. Currently on Topamax 150mg and 50mg for IIH management. Plan: - Continue Topamax for IIH management - Monitor efficacy of current medication regimen - Discuss potential need for surgical intervention (head shunt) if medication management proves ineffective - Follow up with rand maker as scheduled on March 21 Mood Disorder Assessment: Patient reports feeling not so good mentally. Current lithium level is 0.5, which is subtherapeutic compared to previous effective level of 0.6. Patient is currently on 450mg lithium at bedtime, along with Caplyta and Lyrica for mental health management. During recent hospitalization, there were issues with medication administration, including reduced Caplyta dosage and frequent use of as-needed medications, potentially causing rebound effects. Plan: - Increase lithium dosage to 750mg at bedtime - Continue Caplyta - Continue Lyrica - Follow up in 2 weeks to assess response to medication adjustments the note is transcribed using speech recognition software. It is a reflection of a visit with the patient. It might have some inaccuracy, including medication names and transcribing errors, though efforts have been made to correct them. 04/04/2025 Girish Zavaleta presents with worsening symptoms of idiopathic intracranial hypertension (IIH) including vision loss, despite recent medication adjustments, and is facing potential neurosurgical intervention. Idiopathic Intracranial Hypertension (IIH) Assessment: Patient reports worsening symptoms of IIH after initial improvement with new medication. She experienced complete vision loss twice recently, prompting after-hours consultations. 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 Eye pressure was reported as pretty good, but any pressure is considered dangerous due to the optic nerve's condition. Topamax dosage was recently increased, with one more potential increase allowed by the rand maker. Patient is being considered for shunt placement, with conflicting recommendations between neurology (head shunt) and ophthalmology (concerns about increased optical nerve pressure from surgical swelling with head shunt). Plan: - Increase Topamax to next dosage level as permitted by rand maker - Follow up with clinical neurologist on April 25 - Follow up with rand maker in 2-3 weeks - Continue monitoring for vision changes and IIH symptoms Medication Management - Brewerton Assessment: Patient is currently on lithium 450 mg and 300 mg, initiated around August (post-gallbladder surgery). She reports not noticing significant benefits from the 300 mg addition, experiencing increased fatigue instead. There are concerns about lithium potentially causing increased eye pressure, which conflicts with the need to reduce pressure to preserve vision. Plan: - Taper and discontinue lithium: - Week 1: Reduce to 450 mg daily - Week 2: Reduce to 300 mg daily - Week 3: Discontinue - Follow up in 3 weeks to assess response to lithium discontinuation the note is transcribed using speech recognition software. It is a reflection of a visit with the patient. It might have some inaccuracy, including medication names and transcribing errors, though efforts have been made to correct them. Plan Of Treatment Future Test Test Name Order Date LITHIUM (613) 09/18/2024 Next Appt Details Provider Name:Maya Mojica, 05/28/2025 02:00:00 PM, [address], [facility] [address], [place], [address], Insurance Providers Payer Name Payer Address Payer Phone Subscriber Number Group Number Insured Name Patient Relationship to Insured Coverage Start Date Coverage End Date [employer] - [employer] [address] [place] [address] [id number] [id number] Spouse - patient is the spouse of [...] had multiple encounters with healthcare providers at [facility]. The patient was seen by Dr. [...] had an emergency visit on 11/26/2024 at [facility], attended by Dr. Sussy Narayan, due to syncope and collapse. The following day, 11/27/2024, the patient had a hospital encounter, followed by a results follow-up with Dr. Arash Abdullahi at [facility]. During an office visit on the same day with Dr. Abdullahi, several issues were identified: bacteria in urine, dilated cardiomyopathy, dysuria, and psychogenic syncope. The patient was also followed up after hospital discharge. Additionally, the patient has uncomplicated asthma of unspecified severity and persistence. Surgical History Surgery Date(Month/Year) Hysterectomy/revise vagina (45860) 08/08 Other 03/08/2009
--- OUTSIDE RECORDS SUMMARY | 2025-05-24 20:18 | XMS_ITS | Encounter Summary ---
Author Organization [facility] Address [address] [place] [address] Phone Care Team Providers Care Developmental Specialist Name Role Phone Mono García MD Primary Care Provider Terry Looney MD Primary Care Provider [phone] Mayelin Ruffin MD Primary Care Provider [phone] Encounter Details Date Type Department Care Team (Late st Contact Info) Description 01/12/2021 Telephone [facility] Cardiology [address] [facility] 8th [place] [address] [place] [address] Aleta Do Social History Tobacco Use Types Packs/Day Years Used Date Smoking Tobacco: Never Smokeless Tobacco: Never Alcohol Use Standard Drinks/Week Comments Not Currently 0 (1 standard drink = 0.6 oz pur e alcohol) Comments No Sex and Gender Information Value Date Recorded Sex Assigned at Not on file Legal Sex Female 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 07/25/2022 07/27/2022 10/23/2022 3:05 AM C DT COVID: Suspected 07/06/2023 07/06/2023 07/06/2023 5:14 PM QUALITY ASSURANCE CLERK COVID: Suspected 02/28/2024 02/28/2024 02/28/2024 6:59 PM CDT documented as of this encounter Care Teams Developmental Specialist Relationship Specialty Start Date End Date Mono García MD [address] [place] [address] PCP - General 11/05/20 03/28/22 Terry Looney MD [address] [facility] [address] [place] [address] PCP - General Family Medicine 03/29/22 07/11/23 Mayelin Ruffin MD [address] [place] [id number] PCP - General Family Medicine 07/12/23 documented as of this encounter
--- OUTSIDE RECORDS SUMMARY | 2025-05-24 20:18 | XMS_ITS | Clinical Summary ---
Author Organization [facility] [employer] Address [address] [facility] [place] [address] Care Team Providers Care Roller Bearing Inspector Name Role Phone Mayelin Ruffin MD Primary Care Provider [phone] Source Comments [facility],non-owned Affiliates and Associated Physician Practices is amultiple site organization consisting of ambulatory clinics and hospital sitesin [place], [place], [place] and [place]. This disclosure is being madepursuant to the Care Everywhere program and may not contain all information available regarding this patient. Last updated 18.[facility] [employer] Allergies Active Allergy Reactions Criticality Noted Date Comments Adhesive Sensitivity Rash Medium 03/31/2021 Amoxicillin Other Low 10/22/2020 PCP prefers pt Does not take PCP prefers pt Does not take Compazine Unknown 12/08/2023 Acetazolamide Other 03/21/2025 [place] like mouth was on fire also tingling of toes Doxycycline Vomiting 11/16/2022 Gluten Meal Nausea and/or Vomiting,GI Discomfort High 02/21/2018 Causes severe abdominal pain, un retractable vomiting, mouth sores, hives Morphine Unknown 04/21/2020 Prochlorperazine Nausea and/or Vomiting,Vomiting 02/21/2018 Contains gluten Wound Dressing Adhesive Rash Medium 03/31/2021 Medications * Be aware that medications may not be up to date on this document. Alwaysverify current medications with the patient. hydrOXYzine HCl (Atarax) 25 MG tablet Take 1 (one) tablet by mouth 3 times daily as needed 023 Active albuterol HFA (Proventil; Ventolin; Proair) 108 (90 Base) MCG/ACT inhaler INHALE 2 PUFFS BY MOUTH EVERY 4 HOURS NEEDED 6.7 g 2 024 Active acetaminophen (Tylenol) 325 MG tablet Take 2 (two) tablets by mouth every 6 hours as needed for Pain Maximum allowable Acetaminophen amount = 4 Grams (4000 mg) / 24 hours. 30 tablet 025 Active fluticasone-jethro meterol (Advair Diskus) 250-50 MCG/ACT inhalerIndicati ons:Moderate persistent asthma without complication (HCC) Inhale 1 (one) puff by mouth 2 times daily 60 Each 1 025 Active Caplyta 42 MG capsule Take 1 (one) capsule by mouth once daily 025 Active topiramate (Topamax) 200 MG tablet Take 1 (one) tablet by mouth 2 times daily 180 tablet 2 025 Active ondansetron, disintegrating, (Zofran ODT) 4 MG tablet Take 1 (one) tablet by mouth every 6 hours as needed for Nausea/Vomiting Allow tablet to dissolve on the tongue 60 tablet 1 025 Active fremanezumab-vf rm (Ajovy) 225 MG/1.5ML injectionIndica tions:Insomnia, unspecified type,Migraine without aura and without status migrainosus, not intractable Inject 1.5 mL subcutaneously every 30 days 1.5 mL 5 025 Active butalbital-acet aminophen-caffe ine (Fioricet) 50-300-40 MG capsuleIndicati ons:Migraine without aura and without status migrainosus, not intractable Take 1 (one) capsule by mouth once daily as needed for Headache 20 capsule 2 025 Active Ubrelvy 100 MG tabletIndicatio ns:Insomnia, unspecified type,Psychogeni c nonepileptic seizure,Migrain e without aura and without status migrainosus, not intractable Take 1 (one) tablet by mouth daily as needed - may repeat one time for Migraine No more than 2 doses in 24 hours. 12 tablet 4 025 Active tirzepatide (Zepbound) 5 MG/0.5ML injectionIndica tions:Obesity,i diopathic intracranial hypertension Inject 5 (five) mg subcutaneously every 7 days (once a week) Reasons: Obesity, idiopathic intracranial hypertension 2 mL Active esomeprazole (NexIUM) 20 MG capsule Take 1 (one) capsule by mouth daily before breakfast 30 capsule 2 Active erenumab-aooe (Aimovig) 140 MG/ML auto injector pen INJECT 1 SYRINGE SUBCUTANEOUSLY ONCE EVERY MONTH 3 mL 025 2024 Discontinued(L ist Clean-Up) pregabalin (Lyrica) 150 MG capsuleIndicati ons:Fibromyalgi a Take 1 (one) capsule by mouth 2 times daily 60 capsule 5 025 2024 Discontinued(L ist Clean-Up) Ubrelvy 100 MG tablet Take 1 (one) tablet by mouth daily as needed - may repeat one time for Migraine 100 mg as a single dose; if symptoms persist or return, may repeat dose after >=2 hours. Maximum: 200 mg per 24 hours 025 2024 Discontinued(R eorder) tirzepatide (Zepbound) 2.5 MG/0.5ML injectionIndica tions:Obesity,i diopathic intracranial hypertension Inject 2.5 (two and one-half) mg subcutaneously every 7 days (once a week) Reasons: OBESITY, idiopathic intracranial hypertension 2 mL 025 2024 Discontinued lithium CR (Lithobid) 300 MG tablet Take 1 (one) tablet by mouth once daily Weaning off lithium 025 2024 Discontinued(L ist Clean-Up) butalbital-acet aminophen-caffe ine (Fioricet) 50-300-40 MG capsule Take 1 (one) capsule by mouth every 4 hours as needed for Headache 20 capsule 025 2024 Discontinued(R eorder) Active Problems Problem Noted Date Diagnosed Date Complicated migraine 05/06/2025 Encounter for medication management 04/16/2025 Hip injury 04/16/2025 Binocular vision loss 04/16/2025 Pseudotumor cerebri syndrome 03/31/2025 Pseudotumor cerebri 03/21/2025 Vision changes 03/06/2025 Dilated cardiomyopathy 11/27/2024 Biliary dyskinesia 10/17/2024 Bipolar 1 disorder with moderate ruma POTS (postural orthostatic tachycardia syndrome) 09/30/2023 11/14/2023 Inflammatory arthritis 07/06/2023 PTSD (post-traumatic stress disorder) 06/29/2023 Chronic migraine [...] and fallopian tubes - oncologist is at [facility] - s/p tumor removal - currently in remission since 10/10/2010 Resolved Problems Problem Noted Date Diagnosed Date Resolved Date Cramps of lower extremity 07/06/2023 11/14/2023 Upper respiratory infection 07/06/2023 11/14/2023 11/14/2023 Recurrent syncope 06/29/2023 11/14/2023 Cataplexy 06/29/2023 11/14/2023 History of ovarian cancer 06/29/2023 Plantar fasciitis of right foot 04/14/2022 11/14/2023 Bipolar affective disorder in remission 04/20/2021 04/20/2021 Bipolar affective disorder in remission 04/20/2021 11/14/2023 Left flank pain 05/09/2017 11/14/2023 11/14/2023 Menopausal syndrome 03/21/2017 11/14/2023 11/14/19 24 Encounters Date Type Department Care Team Description 05/14/2025 Travel 05/13/2025 Telephone [facility] - Internal Med [address] [place] [phone] Mayelin Ruffin MD Referral (To pulmonary) 05/08/2025 Telephone [facility] - Centralized Scheduling [address] [place] [address] Mayelin Ruffin MD Patient Requested Call 05/05/2025 11:35 PM CDT - 05/06/2025 3:11 AM CDT Emergency [facility] EMERGENCY DEPARTMENT [address] [place] [address] Marcus Sloan MD Acute intractable headache, unspecified headache type; Migraine with status migrainosus, not intractable, unspecified migraine type Discharge Disposition: Home or Self Care 05/04/2025 Telephone [facility] - Neurology [address] [place] [phone] Lilly Rome DO Headache 04/29/2025 Travel 04/25/2025 9:00 AM CDT Office Visit [facility] - Neurology [address] [place] [phone] Marie Parson, ADDICTIONS THERAPIST-RADIOGRAPHY TECHNICIAN Migraine without aura and without status migrainosus, not intractable (Primary Dx); Insomnia, unspecified type; Psychogenic nonepileptic seizure; IIH (idiopathic intracranial hypertension); Migraine with aura and without status migrainosus, not intractable 04/25/2025 Travel 04/19/2025 Orders Only [facility] - Family Medicine [address] [place] [phone] Cleo Daniel 04/19/2025 Refill [facility] - Family Medicine [address] [place] [phone] Mayelin Ruffin MD Headache; Refill Request; Patient Requested Call 04/19/2025 Telephone [facility] - Centralized Scheduling [address] [place] [address] Mayelin Ruffin MD Patient Requested Call 04/18/2025 8:20 AM CDT Clinical Support [facility] - Ophthalmology [address] [place] [phone] Daniel Calix MD IIOsorio (idiopathic intracranial hypertension) (Primary Dx); Papilledema 04/18/2025 8:15 AM CDT Office Visit [facility] - Ophthalmology [address] [place] [phone] Daniel Calix MD II (idiopathic intracranial hypertension) (Primary Dx); Papilledema 04/18/2025 8:10 AM CDT Clinical Support [facility] - Ophthalmology [address] [place] [phone] Daniel Calix MD II (idiopathic intracranial hypertension) (Primary Dx); Papilledema 04/18/2025 Travel 04/16/2025 Ophth Exam [facility] - Ophthalmology [address] [place] [phone] Elias Lozano MD 04/15/2025 10:22 PM CDT - 04/17/2025 7:45 PM CDT Hospital Encounter [facility] Early Admission Unit [address] [place] [address] [facility] Discharge Disposition: Home or Self Care 04/15/2025 Telephone [facility] - Ophthalmology [address] [place] [phone] Elias Lozano MD Eye Problem 04/09/2025 Telephone [facility] - Ophthalmology [address] [place] [phone] Carlos Youngblood MD Eye Problem 04/03/2025 11:40 AM CDT Clinical Support [facility] - Ophthalmology [address] [place] [phone] Daniel Calix MD Papilledema (Primary Dx) 04/03/2025 11:35 AM CDT [facility] Support [facility] [address] [place] [phone] Daniel Calix MD Papilledema (Primary Dx) 04/03/2025 11:30 AM CDT Clinical Support [facility] - Ophthalmology [address] [place] [phone] Daniel Calix MD Papilledema (Primary Dx) 04/03/2025 10:45 AM CDT Office Visit [facility] - Ophthalmology [address] [place] [phone] Daniel Calix MD Papilledema (Primary Dx); IIH (idiopathic intracranial hypertension) 04/03/2025 Travel 04/03/2025 Telephone [facility] - Family Medicine [facility] [place] [address] Nuvia Butler PA-C Vision Change 04/02/2025 Travel 04/01/2025 Telephone [facility] - Neurology [address] [place] [phone] Ceci Lr MD Follow-up 03/27/2025 Telephone [facility] - Ophthalmology [address] [place] [phone] Sanam Buck Question (Patient was calling back to see about scheduling she said she spoke to the international trade specialist physician last night message sent to Dr Youngblood to follow up) 03/26/2025 Telephone [facility] - Ophthalmology [address] [place] [phone] Carlos Youngblood MD Eye Problem 03/21/2025 4:00 PM CDT Office Visit [facility] Physician [facility] - Family Medicine [address] [place] [phone] Mayelin Ruffin MD Pseudotumor cerebri (Primary Dx); Morbid obesity (HCC); Dilated cardiomyopathy (HCC); Bipolar 1 disorder with moderate ruma (HCC) 03/21/2025 Travel 03/12/2025 Travel 03/12/2025 Transitional Care [facility] - Family Medicine [address] [place] [phone] Erica Conteh RN Hospital Follow-up 03/11/2025 Refill [facility] 5N ACUTE [address] [place] [address] Josy Phillips MD Refill Request 03/06/2025 12:17 AM CDT - 03/11/2025 2:09 PM CDT Hospital Encounter [facility] 5N ACUTE [address] [place] [address] Carol Munguia MD Atilgan, Deniz, MD Kafaie, Jafar, MD Neurology Discharge Disposition: Home or Self Care 03/05/2025 1:45 PM CDT Office Visit [facility] - Ophthalmology [address] [place] [phone] Daniel Calix MD Edema of optic disc of left eye (Primary Dx); Partial optic atrophy of right eye; Vision, loss, sudden, bilateral 03/05/2025 1:30 PM CDT Clinical Support [facility] - Ophthalmology [address] [place] [phone] Daniel Calix MD Papilledema (Primary Dx) 03/05/2025 1:25 PM CDT Clinical Support [facility] - Ophthalmology [address] [place] [phone] Daniel Calix MD Papilledema (Primary Dx) 03/05/2025 1:20 PM CDT Clinical Support [facility] - Ophthalmology [address] [place] [phone] Daniel Calix MD Vision, loss, sudden, bilateral (Primary Dx) 03/05/2025 Travel 03/02/2025 Orders Only [facility] - Family Medicine [address] [facility] [place] [address] Wild Patricio MD 02/28/2025 Travel 02/27/2025 2:40 PM CDT Video Visit [facility] Family Medicine [address] [place] [address], [place] [address] Mayelin Ruffin MD Chronic intractable headache, unspecified headache type ; Vision, loss, sudden, bilateral 02/26/2025 Telephone [facility] - Centralized Scheduling [address] [place] [phone] Mayelin Ruffin MD Patient Requested Call 02/23/2025 2:30 PM CDT - 02/23/2025 11:25 PM CDT Emergency [facility] EMERGENCY DEPARTMENT [address] [place] [address] Philippe Garcia MD History of lumbar puncture; Acute nonintractable headache, unspecified headache type Discharge Disposition: Home or Self Care 02/23/2025 Travel 02/22/2025 Telephone [facility] - Centralized Scheduling [facility] [place] [address] Mayelin Ruffin MD Patient Requested Call from Last 3 Months Immunizations Immunization Administration Dates Next Due INFLUENZA VACCINE, TRIV. (AF LURIA, FLUZONE TRIVALENT; 6MO+) (IIV3) 04/14/2020 FLU VACCINE QUAD IIV4 SPLIT 0.25 ML IM 06/16/2019,05/26/2018,08/19/2015 INFLUENZA A Q0Y1-84 VACCINE 04/10/2020 INFLUENZA VACCINE, CELL CULT URE, TRIV. (FLUCELVAX TRIVALENT; 6MO+), 0.5 ML (CCIIV3) 06/16/2019 INFLUENZA VACCINE, QUADR. (A FLURIA, FLUZONE QUADRIVALENT; [...] 3 Alive Brother 4 Alive Father Mother Alive Social History Tobacco Use Types Packs/Day Years Used Date Smoking Tobacco: Never Smokeless Tobacco: Never Alcohol Use Standard Drinks/Week Comments Not Currently 0 (1 standard drink = 0.6 oz pure alcohol) on holidays/special occasions AUDIT-C Answer Date Recorded Q1: How often do you have a drink containing alcohol? Never 04/16/2025 Q2: How many drinks containi ng alcohol do you have on a typical day when you are drinking? Patient does not drink Q3: How often do you have si x or more drinks on one occasion? Never 04/16/2025 Overall Financial Resource Strain (CARDIA) Answe r Date Recorded How hard is it for you to pa y for the very basics like food, housing, medical care, and heating? Not hard at all 04/16/2025 PHQ-2 Answer Date Recorded Patient Health Questionnaire-2 Score 0 02/27/2025 [facility] - Occupational Stress Questionnaire Answer Date Recorded Do you feel stress - tense, restless, nervous, or anxious, or unable to sleep at night because your mind is troubled all the time - these days? Not at all 04/16/2025 Hunger Vital Sign Answer Date Recorded Within the past 12 months, y ou worried that your food would run out before you got the money to buy more. Never true 04/16/20 25 Within the past 12 months, t he food you bought just didn't last and you didn't have money to get more. Never true 04/16/2025 PRAPARE - Transportation Answer Date Re corded In the past 12 months, has l ack of transportation kept you from medical appointments or from getting medications? No 04/2025 In the past 12 months, has l ack of transportation kept you from meetings, work, or from getting things needed for daily living? No 04/16/2025 Housing Stability Vital Sign Answer Ricardo e Recorded In the last 12 months, was t here a time when you were not able to pay the mortgage or rent on time? No 04/16/2025 In the past 12 months, how m any times have you moved where you were living? 0 04/16/2025 At any time in the past 12 m [facility], were you homeless or living in a correction (including now)? No 04/16/2025 Comments No Sex and Gender Information Value Date Recorded Sex Assigned at Female 07/05/2023 4:04 PM FOXING CUTTING MACHINE OPERATOR Legal Sex Female 4:40 PM CDT Gender Identity Female 07/05/2023 4:04 PM FOXING CUTTING MACHINE OPERATOR Sexual Orientation Bisexual 07/05/2023 4: 04 PM FOXING CUTTING MACHINE OPERATOR Last Filed Vital Signs Vital Sign Reading Time Taken Comments Blood Pressure 94/49 05/06/2025 2:30 AM CDT Pulse 58 05/06/2025 2:30 AM CDT Temperature 36.8 C (98.2 F) 05/05/2025 11:34 PM CDT Respiratory Rate 18 05/06/2025 2:30 AM CDT Oxygen Saturation 97% 05/06/2025 2:30 AM CDT Inhaled Oxygen Concentration 21% 04/17/2025 8 :41 AM CDT Weight 113.4 kg (250 lb) 05/05/2025 5:37 PM CDT Height 162.6 cm (5' 4) 05/05/2025 5:37 PM CDT Body Mass Index 42.91 05/05/2025 5:37 PM CDT Plan of Treatment Upcoming Encounters Date Type Department Care Team (Late st Contact Info) Description 06/26/2025 9:00 AM FOXING CUTTING MACHINE OPERATOR Office Visit [facility] - Neurology [address] [facility] [place] [address] Eva Salinas PA-C [address] [place] [address] 07/03/2025 2:30 PM FOXING CUTTING MACHINE OPERATOR Office Visit [facility] - Pulmonology [address] [facility] [place] [phone] Zia Warner DO [address] [place] [phone] 08/26/2025 3:00 PM FOXING CUTTING MACHINE OPERATOR Office Visit [facility] - Neurology [address] [facility] [place] [phone] Marie Parson, ADDICTIONS THERAPIST-RADIOGRAPHY TECHNICIAN [facility] [place] [phone] 09/25/2025 3:20 PM FOXING CUTTING MACHINE OPERATOR Office Visit [facility] - Sleep Services [address] [facility] [address] [place] [phone] Jeffeyr Dunaway MD [address] [facility] [address] [place] [address] Health Maintenance Due Date Last Done Comments HIV SCREENING 2004 HEPATITIS C SCREENING 07/22/2007 HEPATITIS B VACCINE (1 of 3 - 19+ 3-dose series) 2008 HPV VACCINE (1 - 3-dose SCDM series) 2016 PNEUMOCOCCAL VACCINE (2 of 2 - PCV) 07/01/2021 07/01/2020 COVID-19 VACCINE (3 - season) 2025 06/27/2021, 06/06/2021 INFLUENZA VACCINE (#1) 2025 , 05/05/2023, 05/31/2022, Additional history exists DTAP/TDAP/TD VACCINES (2 - Td or Tdap) 11/02/2027 11/01/2017 ZOSTER VACCINE (1 of 2) 2039 HIB VACCINE Aged Out No longer eligi ble based on patient's age to complete this topic MENINGOCOCCAL (Group B) VACCINE SHARED DECISION-MAKING Aged Out No longer eligible based on patient's age to complete this topic MENINGOCOCCAL GROUPS A/C/Y/W VACCINE Aged Out No longer eligible based on patient's age to complete this topic Procedures Procedure Name Priority Date/Time Associated Diagnosis Comments CT HEAD WO CONTRAST STAT 05/05/2025 6 :45 PM CDT Acute intractable headache, unspecified headache type COMPREHENSIVE METABOLIC PANEL STAT 05/05/2025 5:45 PM CDT CBC W AUTO DIFFERENTIAL STAT 05/05/2025 5:45 PM CDT OPTIC NERVE ANALYSIS OCT Routine 04/18/2025 8:09 AM CDT Papilledema IIH (idiopathic intracranial hypertension) CYTOLOGY NON-NUCLEAR MEDICAL TECHNOLOGIST PANEL (STL) STAT 04/17/2025 1:13 PM CDT Pseudotumor cerebri syndrome Pseudotumor cerebri Vision changes CELL COUNT W DIFFERENTIAL CSF STAT 04/17/2025 1:13 PM CDT PROTEIN CSF STAT 04/17/2025 1:13 PM CDT GLUCOSE CSF STAT 04/17/2025 1:13 PM CDT CULTURE CSF+GRAM STAIN STAT 04/17/2025 1:13 PM CDT FL LUMBAR PUNCTURE Routine 04/17/2025 1: 07 PM CDT Pseudotumor cerebri syndrome Pseudotumor cerebri Vision changes PT-INR STAT 04/17/2025 9:54 AM CDT CBC W/O DIFFERENTIAL Routine 04/17/2025 5:20 AM CDT PHOSPHORUS BLOOD Routine 04/17/2025 5:2 0 AM CDT MAGNESIUM BLOOD Routine 04/17/2025 5:20 AM CDT BASIC METABOLIC PANEL (CALCIUM TOTAL) Routine 04/17/2025 5:20 AM CDT MRI ORBITS OR FACE WO CONTRAST STAT 04/16/2025 6:14 PM CDT IIH (idiopathic intracranial hypertension) MRI ANGIO BRAIN VENOUS W CONT STAT 04/16/2025 6:12 PM CDT IIH (idiopathic intracranial hypertension) MRI BRAIN WO CONTRAST STAT 04/16/2025 2:19 PM CDT IIH (idiopathic intracranial hypertension) CBC W/O DIFFERENTIAL STAT 04/16/2025 6:43 AM CDT PHOSPHORUS BLOOD STAT 04/16/2025 6:43 AM CDT MAGNESIUM BLOOD STAT 04/16/2025 6:43 AM CDT BASIC METABOLIC PANEL (CALCIUM TOTAL) STAT 04/16/2025 6:43 AM CDT ERYTHROCYTE SEDIMENTATION RATE STAT 04/15/2025 8:37 PM CDT COMPREHENSIVE METABOLIC PANEL STAT 04/15/2025 8:37 PM CDT CBC W AUTO DIFFERENTIAL STAT 04/15/2025 8:[address] HEAD WO CONTRAST STAT 04/15/2025 8 :25 PM CDT Monocular vision loss IIH (idiopathic intracranial hypertension) FUNDUS PHOTO BOTH EYES Routine 04/03/2025 11:27 AM CDT Papilledema OPTIC NERVE ANALYSIS OCT Routine 04/03/2025 11:27 AM CDT Papilledema NYE AUTO VISUAL FIELD EXTENDED Routine 04/03/2025 11:27 AM CDT Papilledema PROTEIN CSF ADOLPH 03/11/2025 10:43 AM CDT GLUCOSE CSF Routine 03/11/2025 10:43 AM CDT CELL COUNT W DIFFERENTIAL CSF STAT 03/11/2025 10:43 AM CDT FL LUMBAR PUNCTURE Routine 03/11/2025 10 :40 AM CDT Vision changes BASIC METABOLIC PANEL (CALCIUM TOTAL) AM Draw 03/11/2025 3:26 AM CDT COMPREHENSIVE METABOLIC PANEL AM Draw 03/10/2025 3:11 PM CDT AMMONIA Routine 03/10/2025 3:11 PM CDT BASIC METABOLIC PANEL (CALCIUM TOTAL) AM Draw 03/08/2025 7:58 AM CDT Vision changes CBC W/O DIFFERENTIAL AM Draw 03/08/2025 7:58 AM CDT Vision changes MAGNESIUM BLOOD Routine 03/08/2025 7:58 AM CDT Vision changes PHOSPHORUS BLOOD Routine 03/08/2025 7:58 AM CDT Vision changes VITAMIN D 25-HYDROXY AM Draw 03/08/2025 7:58 AM CDT CARDIAC EKG ORDER 03/07/2025 10: 37 AM CDT LITHIUM LEVEL Routine 03/07/2025 8:37 AM CDT Vision changes PHOSPHORUS BLOOD Routine 03/07/2025 8:37 AM CDT Vision changes MAGNESIUM BLOOD Routine 03/07/2025 8:37 AM CDT Vision changes BASIC METABOLIC PANEL (CALCIUM TOTAL) AM Draw 03/07/2025 8:37 AM CDT Vision changes CBC W/O DIFFERENTIAL AM Draw 03/07/2025 8:37 AM CDT Vision changes MRI ANGIO BRAIN VENOUS W CONT STAT 03/06/2025 5:44 AM CDT Vision changes MRI ANGIO BRAIN ARTERIAL WO CONT STAT 03/06/2025 5:43 AM CDT Vision changes MRI ORBITS OR FACE WWO CONTRAST STAT 03/06/2025 5:42 AM CDT Vision changes MRI BRAIN WWO CONTRAST STAT 03/06/2025 5:42 AM CDT Vision changes PT-INR STAT 03/06/2025 3:17 AM CDT Vision changes LITHIUM LEVEL STAT 03/06/2025 1:28 AM CDT EKG 12-LEAD STAT 03/06/2025 1:23 AM CDT Vision changes CT HEAD WO CONTRAST STAT 03/05/2025 6 :21 PM CDT Vision changes C-REACTIVE PROTEIN ADOLPH 03/05/2025 5: 46 PM CDT ERYTHROCYTE SEDIMENTATION RATE STAT 03/05/2025 5:46 PM CDT COMPREHENSIVE METABOLIC PANEL STAT 03/05/2025 5:46 PM CDT CBC W AUTO DIFFERENTIAL STAT 03/05/2025 5:46 PM CDT OPTIC NERVE ANALYSIS OCT Routine 03/05/2025 1:17 PM CDT Papilledema FUNDUS PHOTO BOTH EYES Routine 03/05/2025 1:17 PM CDT Papilledema NYE AUTO VISUAL FIELD EXTENDED Routine 03/05/2025 1:17 PM CDT Vision, loss, sudden, bilateral COMPREHENSIVE METABOLIC PANEL STAT 02/23/2025 3:01 PM CDT CBC W AUTO DIFFERENTIAL STAT 02/23/2025 3:01 PM CDT CULTURE BLOOD STAT 02/23/2025 3:01 PM CDT CULTURE BLOOD STAT 02/23/2025 2:[address] HEAD WO CONTRAST STAT 02/23/2025 2 :00 PM CDT History of lumbar puncture from Last 3 Months Results * CT HEAD WO CONTRAST (05/05/2025 6:45 PM CDT) Only the most recent of4 resultswithin the time period is included. Anatomical Region Laterality Modality Head Computed Tomogra phy 05/05/2025 7:07 PM CDT Impressions 05/05/2025 8:31 PM CDT IMPRESSION: 1.No acute intracranial hemorrhage, midline shift, or significant mass effect. The report was drafted by Isidra Keenan MD (executive vice president and chief operating officer) 05/05/2025 7:10 PM. > Dictated by Isidra Keenan MD 05/05/2025 7:07 PM > Dictated by Health Consultant I, Edson Neely MD have personally reviewed and interpreted this examination/study. > Interpreting Provider: Edson Neely MD on 05/05/2025 8:31 PM Narrative 05/05/2025 8:31 PM CDT PROCEDURE: CT HEAD WO CONTRAST, DATE/TIME OF EXAM: 05/05/2025 6:45 PM, LOCATION [facility] INDICATION: R51.9: Acute intractable headache, unspecified headache type ADDITIONAL CLINICAL INFORMATION: Ordering Provider Reason For Exam: headache EXAMINATION: Computed tomography (CT) of the head without contrast TECHNIQUE: CT of the head was performed without contrast according to standard protocol. CT dose reduction technique was used, including Automated Exposure Control. COMPARISON: CT head without contrast from 04/15/2025 and MRI brain from 04/16/2025. FINDINGS: No acute intra- or extra-axial fluid collections are identified. The ventricles are of normal size, shape, and morphology. The basilar cisterns are patent. No mass effect or midline shift is seen. The medeiros-white matter differentiation is normal. Effacement of the sulci is likely a normal variant. Redemonstrated small calcifications along the lateral sclera compatible with sclerochoroidal calcifications, consider ophthalmology evaluation. Partially empty sella low-lying The liver The paranasal sinuses are clear. The mastoid air cells are clear. No soft tissue abnormality is identified. No acute osseous abnormality. Procedure Note Edson Neely MD - 05/05/2025 PROCEDURE: CT HEAD WO CONTRAST, DATE/TIME OF EXAM: 05/05/2025 6:45 PM, LOCATION [facility] INDICATION: R51.9: Acute intractable headache, unspecified headache type ADDITIONAL CLINICAL INFORMATION: Ordering Provider Reason For Exam: headache EXAMINATION: Computed tomography (CT) of the head without contrast TECHNIQUE: CT of the head was performed without contrast according to standard protocol. CT dose reduction technique was used, including Automated Exposure Control. COMPARISON: CT head without contrast from 04/15/2025 and MRI brain from 04/16/2025. FINDINGS: No acute intra- or extra-axial fluid collections are identified. The ventricles are of normal size, shape, and morphology. The basilarcisterns are patent. No mass effect or midline shift is seen. The medeiros-whitematter differentiation is normal. Effacement of the sulci is likely a normal variant. Redemonstrated small calcifications along the lateral sclera compatible with sclerochoroidal calcifications, consider ophthalmology evaluation. Partially empty sella low-lying The liver The paranasal sinuses are clear. The mastoid air cells areclear. No soft tissue abnormality is identified. No acute osseous abnormality. IMPRESSION: 1.No acute intracranial hemorrhage, midline shift, or significant mass effect. The report was drafted by Isidra Keenan MD (executive vice president and chief operating officer) 05/05/2025 7:10 PM. > Dictated by Isidra Keenan MD 05/05/2025 7:07 PM > Dictated by Health Consultant I, Edson Neely MD have personally reviewed and interpretedthis examination/study. > Interpreting Provider: Edson Neely MD on 05/05/2025 8:31 PM us Isa Castillo PA-C CT ORDERABLES Final Result * CBC W AUTO DIFFERENTIAL (05/05/2025 5:45 PM CDT) Only the most recent of4 resultswithin the time period is included. WBC 5.7 4.0 - 10.7 x10E9/L 05/05/2025 6:23 PM [facility] RBC Count 4.99 3.90 - 5.20 x10E12/L 05/05/2025 6:23 PM [facility] Hemoglobin 14.3 11.9 - 15.8 g/dL 05/05/2025 6:23 PM [facility] Hematocrit 41.5 34.8 - 46.1 % 05/05/2025 6:23 PM [facility] MCV 83.2 80.0 - 98.0 fL 05/05/2025 6:23 PM [facility] MCH 28.7 26.7 - 33.6 pg 05/05/2025 6:23 PM [facility] MCHC 34.5 31.7 - 36.3 g/dL 05/05/2025 6:23 PM [facility] RDW-CV 13.7 11.3 - 14.8 % 05/05/2025 6:23 PM [facility] Platelet Count 231 150 - 420 x10E9/L 05/05/2025 6:23 PM [facility] MPV 10.7 7.8 - 11.4 fL 05/05/2025 6:23 PM [facility] Neutrophil % 66.7 41.0 - 74.0 % 05/05/2025 6:23 PM [facility] Lymphocyte % 24.9 17.0 - 47.0 % 05/05/2025 6:23 PM [facility] Monocyte % 7.6 3.0 - 11.0 % 05/05/2025 6:23 PM [facility] Eosinophil % 0.2 0.0 - 7.0 % 05/05/2025 6:23 PM [facility] Basophil % 0.4 0.0 - 1.6 % 05/05/2025 6:23 PM [facility] Immature Granulocytes % 0.2 0.0 - 1.0 % 05/05/2025 6:23 PM [facility] Neutrophil Absolute 3.78 1.60 - 7.50 x10E9/L 05/05/2025 6:23 PM [facility] Lymphocyte Absolute 1.41 1.00 - 4.40 x10E9/L 05/05/2025 6:23 PM [facility] Monocyte Absolute 0.43 0.15 - 1.00 x10E9/L 05/05/2025 6:23 PM [facility] Eosinophil Absolute 0.01 0.00 - 0.60 x10E9/L 05/05/2025 6:23 PM [facility] Basophil Absolute 0.02 0.00 - 0.13 x10E9/L 05/05/2025 6:23 PM [facility] Blood BLOOD SPECIMEN / Unknown 05/05/2025 5:45 PM CDT 05/05/2025 6:18 PM CDT Isa Castillo PA-C LAB - HEMATOLOGY LACEY BRANDON Final Result [facility] [address] [place] [address], [facility] [phone] * (ABNORMAL) COMPREHENSIVE METABOLIC PANEL (05/05/2025 5:45 PM CDT) Only the most recent of5 resultswithin the time period is included. BUN 17 7 - 26 mg/dL 05/05/2025 6:45 PM [facility] Creatinine 0.88 0.56 - 0.96 mg/dL 05/05/2025 6:45 PM [facility] Sodium 137 136 - 145 mmol/L 05/05/2025 6:45 PM T [facility] Potassium 3.6 3.5 - 4.5 mmol/L 05/05/2025 6:45 PM [facility] Chloride 111(H) 98 - 107 mmol/L 05/05/2025 6:45 PM [facility] CO2 18(L) 22 - 29 mmol/L 05/05/2025 6:45 PM [facility] Glucose 85 70 - 99 mg/dL 05/05/2025 6:45 PM [facility] Calcium 10.1 8.4 - 10.2 mg/dL 05/05/2025 6:45 PM [facility] Protein Total 8.9(H) 6.0 - 8.3 g/dL 05/05/2025 6:45 PM [facility] Albumin 5.5(H) 3.4 - 5.0 g/dL 05/05/2025 6:45 PM [facility] Bilirubin Total 0.4 0.2 - 1.2 mg/dL 05/05/2025 6:45 PM [facility] Alkaline Phosphatase 103 40 - 150 U/L 05/05/2025 6:45 PM [facility] ALT 100(H) 5 - 55 U/L 05/05/2025 6:45 PM [facility] AST 42(H) 5 - 34 U/L 05/05/2025 6:45 PM [facility] Anion Gap 8 6 - 16 05/05/2025 6:45 PM [facility] BUN/Creatinine Ratio 19 7 - 23 05/05/2025 6:45 PM [facility] Osmolality Calculated 285 275 - 295 mOsm/kg 05/05/2025 6:45 PM [facility] Albumin/Globulin Ratio 1.6 1.1 - 2.3 05/05/2025 6:45 PM [facility] eGFR by CKD-EPI 88(L) >=90 mL/min/1.7 3 m2 05/05/2025 6:45 PM [facility] Comment:Estimated Glomerular Filtration Rate (eGFR) calculated using the CKD-EPI Creatinine Equation (2020), per the National Kidney Foundation and [place] [employer]ph[employer] recommendations. Blood BLOOD SPECIMEN / Unknown 05/05/2025 5:45 PM T 05/05/2025 6:18 PM CDT us Isa Castillo PA-C LAB - CHEMISTRY ORDER LEE Final Result [facility] [address] [place] [id number], [facility] [phone] * OPTIC NERVE ANALYSIS OCT (04/18/2025 8:09 AM CDT) Anatomical Region Laterality Modality Head External-Camera Photography Narrative 04/18/2025 9:06 AM CDT Images from the original result were not included. us Daniel Calix MD OPHTHALMOLOGY SCHED ORD W PAC S Edited Result - Final * CYTOLOGY NON-NUCLEAR MEDICAL TECHNOLOGIST PANEL (STL) (04/17/2025 1:13 PM CDT) Case Report Medical Cytology Report Case: [id number] Authorizing Provider: Aby Huffman MD Collected: 04/17/2025 01:13 PM Ordering Location: [facility] Early Admission Unit Received: 04/17/2025 01:35 PM Pathologist: Elias Guzman MD Specimen: CSF 04/18/2025 10:23 AM CDT [facility] Specimen Adequacy Adequate cellularity for evaluation. 04/18/2025 10:23 AM T [facility] Final Diagnosis Cerebrospinal fluid specimen: - Lymphocytes present. - No malignant cells identified. 04/18/2025 10:23 AM [facility] at 1023 CDT Clinical History Intractable headache and left eye pain 04/18/2025 10:23 AM [facility] Gross Description 1 Pap stained cytospin slide from 5 cc of clear, colorless fluid 04/18/2025 10:23 AM [facility] Microscopic Description Microscopic examination is performed and supports the final diagnosis. 04/18/2025 10:23 AM T [facility] Pathologist Location at [facility] 04/18/2025 10:23 AM CDT [facility] Disclaimer The performance characteristics of all immunohistochemical and indirect immunofluorescence stains (if any) cited in this report were determined by the Histopathology Laboratory of [facility]. Some of these tests rely on the use of analyte-specific reagents and are subject to specific labeling requirements by the US Food and Drug Administration. Such tests were developed by the [facility]ology Laboratory of [facility] and have not been cleared or approved by the FDA. The FDA has determined that such clearance and approval is not necessary. These tests are used for clinical purposes and should not be regarded as investigational or for research. This laboratory is certified under the Clinical Laboratory Improvement Amendments (CLIA) as qualified to perform high complexity clinical laboratory testing. This case has been personally reviewed and interpreted by the attending (teaching) pathologist. 04/18/2025 10:23 AM CDT [facility] Embedded Images 04/18/2025 10:23 AM CDT [facility] Pathology/Cytolo gy CEREBROSPINAL FLUID SPECIMEN / Unknown Collection / Unknown 04/17/2025 1:13 PM CDT 04/17/2025 1:35 PM CDT Aby Huffman MD LAB - PATHOLOGY/CYTOLOGY O RDERABLES Final Result [facility] [address] [phone] * CULTURE CSF+GRAM STAIN (04/17/2025 1:13 PM CDT) Culture No growth GRAZYNA 04/24/2025 7:05 AM CDT [facility] Gram Stain No organisms seen 025 7:05 AM CDT [facility] Gram Stain Rare Polymorphonuclear cells 04/24/2025 7:05 AM CDT [facility] Cerebral spinal fluid CEREBROSPINAL FLUID SPECIMEN / Unknown Collection / Unknown 04/17/2025 1:13 PM CDT 04/17/2025 1:21 PM CDT Narrative [facility] - 04/24/2025 7:05 AM CDT Components of this test may have been developed and performance characteristics determined by [facility]. The lab developed components have not been cleared or approved by the U.S. Food and Drug Administration. The FDA does not require this test go through premarket FDA review. This test is used for clinical purposes. It should not be regarded as investigation or for research. This laboratory is certified under the Clinical Laboratory Improvement Amendments (CLIA) as qualified to perform high complexity clinical laboratory testing. Aby Huffman MD LAB - MICROBIOLOGY ORDERAB LES Final Result Performing Organization Address City/[facility]/ZIP Co de Phone Number [facility] [address] [place] [address], [facility] [phone] * (ABNORMAL) CELL COUNT W DIFFERENTIAL CSF (04/17/2025 1:13 PM CDT) Only the most recent of2 resultswithin the time period is included. Tube Number [id number] 04/17/2025 1:44 PM CDT [facility] Xanthochromia ABSENT ABSENT 04/17/2025 1:44 PM CDT [facility] CSF Appearance CLEAR 04/17/2025 1:44 PM CDT [facility] CSF Color COLORLESS 04/17/2025 1:44 PM CDT [facility] Total Nucleated Cells CSF 2 <=5 x10E6/L 04/17/2025 1:44 PM CDT [facility] Comment:TNC less than or equ al to 5. No differential reported per policy. RBC Count CSF 64(H) 0 - 5 x10E6/L 04/17/2025 1:44 PM CDT [facility] Cerebral spinal fluid CEREBROSPINAL FLUID SPECIMEN / Unknown Collection / Unknown 04/17/2025 1:13 PM CDT 04/17/2025 1:21 PM CDT Aby Huffman MD LAB - BODY FLUID ORDERABLE S Final Result Performing Organization Address City/[facility]/ZIP Co de Phone Number [facility] [address] [place] [address], [place] [phone] * PROTEIN CSF (04/17/2025 1:13 PM CDT) Only the most recent of2 resultswithin the time period is included. Protein CSF 45 15 - 45 mg/dL 04/17/2025 2:07 PM CDT [facility] Cerebral spinal fluid CEREBROSPINAL FLUID SPECIMEN / Unknown Collection / Unknown 04/17/2025 1:13 PM CDT 04/17/2025 1:21 PM CDT Aby Huffman MD LAB - BODY FLUID ORDERABLE S Final Result [address] [address], [place] [phone] * GLUCOSE CSF (04/17/2025 1:13 PM CDT) Only the most recent of2 resultswithin the time period is included. Glucose CSF 60 40 - 70 mg/dL 04/17/2025 2:06 PM CDT [facility] Cerebral spinal fluid CEREBROSPINAL FLUID SPECIMEN / Unknown Collection / Unknown 04/17/2025 1:13 PM CDT 04/17/2025 1:21 PM CDT Aby Huffman MD LAB - BODY FLUID ORDERABLE S Final Result Performing Organization Address City/[facility]/ZIP Co de Phone Number [address] [address], [place] [phone] * FL Lumbar Puncture (04/17/2025 1:07 PM CDT) Only the most recent of2 resultswithin the time period is included. Anatomical Region Laterality Modality Spine Digital Radiogra phy 04/17/2025 1:19 PM CDT Impressions 05/12/2025 4:04 PM CDT IMPRESSION: 1.Successful lumbar puncture under fluoroscopic guidance at L2-3 with therapeutic and diagnostic CSF collection. 2.Opening Pressure: 22 cm H20 3.Closing Pressure: 15 cm H20 The report is dictated by Maulik Rogers Dr, (cath lab radiology technician) Attending Physician: Dr. Edson Neely Nozzle Tender: Dr. Maulik Rogers Dr, (cath lab radiology technician) The procedure was performed by the: The virtual customer assistant, and the attending radiologist was present for all critical and barkley portions of the procedure, and was immediately available to furnish services during the entire procedure. The attending radiologist performed the following procedural activities: Dr. Edson Andrade was there and supervised barkley portions of the procedure, not scrubbed. > Dictated by Health Consultant Edson Andrade MD have personally reviewed and interpreted this examination/study. > Interpreting Provider: Edson Neely MD on 05/12/2025 4:04 PM Narrative 05/12/2025 4:04 PM CDT PROCEDURE: FL LUMBAR PUNCTURE, DATE/TIME OF EXAM: 04/17/2025 1:14 PM, LOCATION [facility] INDICATION: G93.2: Pseudotumor cerebri syndrome G93.2: Pseudotumor cerebri H53.9: Vision changes ADDITIONAL CLINICAL INFORMATION: Ordering Provider Reason For Exam: Opening pressure - IIH Additional: Pre-existing history of idiopathic intracranial hypertension presenting with intractable headache and left eye pain EXAMINATION: Diagnostic lumbar puncture (LP) under fluoroscopic guidance TECHNIQUE: The risks and benefits of the lumbar puncture including, but not limited to, infection, bleeding, seizure, epidural hematoma, post spinal headache, cerebrospinal fluid (CSF) leak requiring blood patch procedure, nausea, vomiting, irritation or damage to nerves causing pain or permanent injury were discussed with the patient. After alternatives were discussed and the opportunity to ask questions was provided, the patient acknowledged understanding, gave verbal and written consent, and wished to proceed. Attending physician: Dr. Neely was present for the barkley portions of this procedure. The L3-4 level was localized with fluoroscopy. The skin overlying this level was then sterilely prepped, draped, and infiltrated with 1% lidocaine for local anesthesia. Under intermittent fluoroscopic guidance, a 20 gauge 5 inch spinal needle was inserted into the thecal sac at this level. Clear CSF was identified. A total of 19 ml of CSF was removed and placed into 4 specimen tubes. The patient tolerated the procedure well. The patient was then transferred to the career technical education instructor unit for further observation and two hours of bedrest. OPENING PRESSURE: 22 cm H20 CLOSING PRESSURE: 15 cm H20 FLUOROSCOPY TIME: 36.4 Procedure Note Edson Neely MD - 05/12/2025 PROCEDURE: FL LUMBAR PUNCTURE, DATE/TIME OF EXAM: 04/17/2025 1:14 PM, LOCATION [facility] INDICATION: G93.2: Pseudotumor cerebri syndrome G93.2: Pseudotumor cerebri H53.9: Vision changes ADDITIONAL CLINICAL INFORMATION: Ordering Provider Reason For Exam: Opening pressure - IIH Additional: Pre-existing history of idiopathic intracranial hypertension presenting with intractable headache and left eye pain EXAMINATION: Diagnostic lumbar puncture (LP) under fluoroscopic guidance TECHNIQUE: The risks and benefits of the lumbar puncture including, but not limited to, infection, bleeding, seizure, epidural hematoma, post spinal headache, cerebrospinal fluid (CSF) leak requiring blood patch procedure, nausea, vomiting, irritation or damage to nerves causing painor permanent injury were discussed with the patient. After alternativeswere discussed and the opportunity to ask questions was provided, the patient acknowledged understanding, gave verbal and written consent, and wishedto proceed. Attending physician: Dr. Neely was present for the barkley portions ofthis procedure. The L3-4 level was localized with fluoroscopy. The skin overlying this level was then sterilely prepped, draped, and infiltrated with 1%lidocaine for local anesthesia. Under intermittent fluoroscopic guidance, a 20gauge 5 inch spinal needle was inserted into the thecal sac at this level. Clear CSF was identified. A total of 19 ml of CSF was removed and placed into 4 specimen tubes. The patient tolerated the procedure well. The patient was then transferred to the career technical education instructor unit for further observation and two hours of bedrest. OPENING PRESSURE: 22 cm H20 CLOSING PRESSURE: 15 cm H20 FLUOROSCOPY TIME: 36.4 IMPRESSION: 1.Successful lumbar puncture under fluoroscopic guidance at L2-3 with therapeutic and diagnostic CSF collection. 2.Opening Pressure: 22 cm H20 3.Closing Pressure: 15 cm H20 The report is dictated by Maulik Rogers Dr, (cath lab radiology technician) Attending Physician: Dr. Edson Neely Nozzle Tender: Dr. Maulik Rogers Dr, (cath lab radiology technician) The procedure was performed by the: The virtual customer assistant, and the attending radiologist was present for allcritical and barkley portions of the procedure, and was immediately available [facility] services during the entire procedure. The attending radiologist performed the following procedural activities: Dr. Edson Andrade was there and supervised barkley portions of the procedure, not scrubbed. > Dictated by Health Consultant I, Edson Neely MD have personally reviewed and interpretedthis examination/study. > Interpreting Provider: Edson Neely MD on 05/12/2025 4:04 PM us Aby Huffman MD FLUOROSCOPY ORDERABLES Fin al Result * PT-INR (04/17/2025 9:54 AM CDT) Only the most recent of2 resultswithin the time period is included. PT 14.1 12.1 - 14.8 Seconds 04/17/2025 10:45 AM CDT [facility] INR 1.1 See Comment 04/17/2025 10:45 AM T [facility] Comment:The suggested therap eutic range for standard coumadin (warfarin) therapy is an INR of 2.0-3.0. For high-risk patients (Mechanical Mitral Valve Prosthesis, etc.), the suggested prophylactic therapeutic range is an INR of 2.5-3.5. Blood BLOOD SPECIMEN / Unknown Lab Venipuncture / Unknown 04/17/2025 9:54 AM CDT 04/17/2025 10:01 AM CDT us Aby Huffman MD LAB - COAGULATION ORDERABL ES Final Result [address] [address], [facility] [phone] * CBC W/O DIFFERENTIAL (04/17/2025 5:20 AM CDT) Only the most recent of4 resultswithin the time period is included. WBC 5.4 4.0 - 10.7 x10E9/L 04/17/2025 6:21 AM CDT [facility] RBC Count 4.26 3.90 - 5.20 x10E12/L 04/17/2025 6:21 AM CDT [facility] Hemoglobin 12.1 11.9 - 15.8 g/dL 04/17/2025 6:21 AM T [facility] Hematocrit 35.9 34.8 - 46.1 % 04/17/2025 6:21 AM [facility] MCV 84.3 80.0 - 98.0 fL 04/17/2025 6:21 AM [facility] MCH 28.4 26.7 - 33.6 pg 04/17/2025 6:21 AM [facility] MCHC 33.7 31.7 - 36.3 g/dL 04/17/2025 6:21 AM [facility] RDW-CV 13.9 11.3 - 14.8 % 04/17/2025 6:21 AM [facility] Platelet Count 219 150 - 420 x10E9/L 04/17/2025 6:21 AM [facility] MPV 10.3 7.8 - 11.4 fL 04/17/2025 6:21 AM [facility] Blood BLOOD SPECIMEN / Unknown Lab Venipuncture / Unknown 04/17/2025 5:20 AM CDT 04/17/2025 6:06 AM CDT us Rashad Chen MD LAB - HEMATOLOGY ORDERABLES F inal Result [address] [address], [facility] [phone] * (ABNORMAL) BASIC METABOLIC PANEL (CALCIUM TOTAL) (04/17/2025 5:20 AM T) Only the most recent of5 resultswithin the time period is included. BUN 16 7 - 26 mg/dL 04/17/2025 11:42 AM [facility] Creatinine 0.94 0.56 - 0.96 mg/dL 04/17/2025 11:42 AM [facility] Sodium 139 136 - 145 mmol/L 04/17/2025 11:42 AM [facility] Potassium 3.8 3.5 - 4.5 mmol/L 04/17/2025 11:42 AM [facility] Chloride 115(H) 98 - 107 mmol/L 04/17/2025 11:42 AM [facility] CO2 18(L) 22 - 29 mmol/L 04/17/2025 11:42 AM [facility] Glucose 88 70 - 99 mg/dL 04/17/2025 11:42 AM [facility] Calcium 9.4 8.4 - 10.2 mg/dL 04/17/2025 11:42 AM [facility] Anion Gap 6 6 - 16 04/17/2025 11:42 AM [facility] BUN/Creatinine Ratio 17 7 - 23 04/17/2025 11:42 AM [facility] Osmolality Calculated 289 275 - 295 mOsm/kg 04/17/2025 11:42 AM [facility] eGFR by CKD-EPI 81(L) >=90 mL/min/1.7 3 m2 04/17/2025 11:42 AM [facility] Comment:Estimated Glomerular Filtration Rate (eGFR) calculated using the CKD-EPI Creatinine Equation (2020), per the National Kidney Foundation and [place] [employer] recommendations. Blood BLOOD SPECIMEN / Unknown Lab Venipuncture / Unknown 04/17/2025 5:20 AM CDT 04/17/2025 6:07 AM CDT Rashad Chen MD LAB - CHEMISTRY ORDERABLES Fi nal Result [address] [address], [facility] [phone] * PHOSPHORUS BLOOD (04/17/2025 5:20 AM CDT) Only the most recent of4 resultswithin the time period is included. Phosphorus 4.0 2.9 - 5.1 mg/dL 04/17/2025 9:40 AM [facility] Blood BLOOD SPECIMEN / Unknown Lab Venipuncture / Unknown 04/17/2025 5:20 AM CDT 04/17/2025 6:07 AM CDT us Rashad Chen MD LAB - CHEMISTRY ORDERABLES Fi nal Result [address] [address], [facility] [phone] * MAGNESIUM BLOOD (04/17/2025 5:20 AM CDT) Only the most recent of4 resultswithin the time period is included. Magnesium 2.0 1.6 - 2.6 mg/dL 04/17/2025 9:40 AM CDT [facility] Blood BLOOD SPECIMEN / Unknown Lab Venipuncture / Unknown 04/17/2025 5:20 AM CDT 04/17/2025 6:07 AM CDT us Rashad Chen MD LAB - CHEMISTRY ORDERABLES Fi nal Result [facility] [address] [place] [address], [facility] [phone] * MRI Orbits or Face Wo Contrast (04/16/2025 6:14 PM CDT) Anatomical Region Laterality Modality Head Magnetic Resonan ce 04/17/2025 7:43 AM CDT Impressions 04/17/2025 11:13 AM CDT IMPRESSION: 1.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 Otherwise, the other dural sinuses appear normal without evidence of thrombus or stenosis. 2.Bilateral globes appear normal without optic nerve sheath edema. The report is dictated by Dick Moreland MD, (Health Consultant) > Dictated by Health Consultant I, Jasmina Donald MD have personally reviewed and interpreted this examination/study. > Interpreting Provider: Jasmina Donald MD on 04/17/2025 11:13 AM Narrative 04/17/2025 11:13 AM CDT PROCEDURE: MRI VENOUS BRAIN W CONT , MRI ORBITS OR FACE WO CONTRAST, DATE/TIME OF EXAM: 04/16/2025 6:14 PM, LOCATION [facility] INDICATION: G93.2: IIH (idiopathic intracranial hypertension) ADDITIONAL CLINICAL INFORMATION: Ordering Provider Reason For Exam: progression of IIH and venous sinus stenosis (accession [id number]), IIH progression (accession [id number]) EXAMINATION: Magnetic resonance imaging (MRI) of the orbits without contrast TECHNIQUE: MRI of the orbits was performed without intravenous contrast according to standard protocol. MRV of the head was performed utilizing contrast enhanced time-resolved technique after the uneventful administration of intravenous gadolinium. COMPARISON: MRI orbits and MRV 03/06/2025 FINDINGS: The globes and extraocular muscles appear normal. The lacrimal glands appear normal. The optic nerves are symmetric in size and signal. The optic chiasm and suprasellar cistern appear normal. Meckel's cave and the cavernous sinuses appear normal. The visible portions of the brain appear normal. The visible portions of the paranasal sinuses are clear. 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 Otherwise, the other dural sinuses appear normal without evidence of thrombus or stenosis. The internal cerebral veins, veins of Bruno, and visible portions of the internal jugular veins appear normal without evidence of thrombosis. Procedure Note Jasmina Donald MD - 04/17/2025 PROCEDURE: MRI VENOUS BRAIN W CONT , MRI ORBITS OR FACE WOCONTRAST, DATE/TIME OF EXAM: 04/16/2025 6:14 PM, LOCATION [facility] INDICATION: G93.2: IIH (idiopathic intracranial hypertension) ADDITIONAL CLINICAL INFORMATION: Ordering Provider Reason For Exam: progression of IIH and venous sinus stenosis (accession [id number]), IIH progression (accession [id number]) EXAMINATION: Magnetic resonance imaging (MRI) of the orbits without contrast TECHNIQUE: MRI of the orbits was performed without intravenous contrast according to standard protocol. MRV of the head was performed utilizing contrast enhanced time-resolved technique after the uneventful administration of intravenous gadolinium. COMPARISON: MRI orbits and MRV 03/06/2025 FINDINGS: The globes and extraocular muscles appear normal. The lacrimal glands appear normal. The optic nerves are symmetric in size and signal. Theoptic chiasm and suprasellar cistern appear normal. Meckel's cave and the cavernous sinuses appear normal. The visible portions of the brain appear normal. The visible portions of the paranasal sinuses are clear. 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 Otherwise, the other dural sinuses appear normalwithout evidence of thrombus or stenosis. The internal cerebral veins, veins of Bruno, and visible portions of the internal jugular veins appear normal without evidence of thrombosis. 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 Otherwise, the other dural sinuses appear normalwithout evidence of thrombus or stenosis. 2.Bilateral globes appear normal without optic nerve sheath edema. The report is dictated by Dick Moreland MD, (Health Consultant) > Dictated by Health Consultant I, Jasmina Donald MD have personally reviewed and interpreted this examination/study. > Interpreting Provider: Jasmina Donald MD on 04/17/2025 11:13 AM Rashad Chen MD MR ORDERABLES Final Result * MRI Angio Brain Venous W Cont (04/16/2025 6:12 PM CDT) Only the most recent of2 resultswithin the time period is included. 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 Otherwise, the other dural sinuses appear normal without evidence of thrombus or stenosis. 2.Bilateral globes appear normal without optic nerve sheath edema. The report is dictated by Dick Moreland MD, (Health Consultant) > Dictated by Health Consultant I, Jasmina Donald MD have personally reviewed and interpreted this examination/study. > Interpreting Provider: Jasmina Donald MD on 04/17/2025 11:13 AM Narrative 04/17/2025 11:13 AM CDT PROCEDURE: MRI VENOUS BRAIN W CONT , MRI ORBITS OR FACE WO CONTRAST, DATE/TIME OF EXAM: 04/16/2025 6:14 PM, LOCATION [facility] INDICATION: G93.2: IIH (idiopathic intracranial hypertension) ADDITIONAL CLINICAL INFORMATION: Ordering Provider Reason For Exam: progression of IIH and venous sinus stenosis (accession [id number]), IIH progression (accession [id number]) EXAMINATION: Magnetic resonance imaging (MRI) of the orbits without contrast TECHNIQUE: MRI of the orbits was performed without intravenous contrast according to standard protocol. MRV of the head was performed utilizing contrast enhanced time-resolved technique after the uneventful administration of intravenous gadolinium. COMPARISON: MRI orbits and MRV 03/06/2025 FINDINGS: The globes and extraocular muscles appear normal. The lacrimal glands appear normal. The optic nerves are symmetric in size and signal. The optic chiasm and suprasellar cistern appear normal. Meckel's cave and the cavernous sinuses appear normal. The visible portions of the brain appear normal. The visible portions of the paranasal sinuses are clear. 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 Otherwise, the other dural sinuses appear normal without evidence of thrombus or stenosis. The internal cerebral veins, veins of Bruno, and visible portions of the internal jugular veins appear normal without evidence of thrombosis. Procedure Note Jasmina Donald MD - 04/17/2025 PROCEDURE: MRI VENOUS BRAIN W CONT , MRI ORBITS OR FACE WOCONTRAST, DATE/TIME OF EXAM: 04/16/2025 6:14 PM, LOCATION [facility] INDICATION: G93.2: IIH (idiopathic intracranial hypertension) ADDITIONAL CLINICAL INFORMATION: Ordering Provider Reason For Exam: progression of IIH and venous sinus stenosis (accession [id number]), IIH progression (accession [id number]) EXAMINATION: Magnetic resonance imaging (MRI) of the orbits without contrast TECHNIQUE: MRI of the orbits was performed without intravenous contrast according to standard protocol. MRV of the head was performed utilizing contrast enhanced time-resolved technique after the uneventful administration of intravenous gadolinium. COMPARISON: MRI orbits and MRV 03/06/2025 FINDINGS: The globes and extraocular muscles appear normal. The lacrimal glands appear normal. The optic nerves are symmetric in size and signal. Theoptic chiasm and suprasellar cistern appear normal. Meckel's cave and the cavernous sinuses appear normal. The visible portions of the brain appear normal. The visible portions of the paranasal sinuses are clear. 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 Otherwise, the other dural sinuses appear normalwithout evidence of thrombus or stenosis. The internal cerebral veins, veins of Bruno, and visible portions of the internal jugular veins appear normal without evidence of thrombosis. 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 Otherwise, the other dural sinuses appear normalwithout evidence of thrombus or stenosis. 2.Bilateral globes appear normal without optic nerve sheath edema. The report is dictated by Dick Moreland MD, (Health Consultant) > Dictated by Health Consultant I, Jasmina Donald MD have personally reviewed and interpreted this examination/study. > Interpreting Provider: Jasmina Donald MD on 04/17/2025 11:13 AM us Rashad Chen MD MR ORDERABLES Final Result * MRI Brain Wo Contrast (04/16/2025 2:19 PM CDT) Anatomical Region Laterality Modality Head Magnetic Resonan ce 04/16/2025 2:58 PM CDT Impressions 04/16/2025 5:56 PM CDT IMPRESSION: 1.No evidence of acute intracranial findings are identified. 2.No evidence of restricted diffusion to suggest an acute infarction. 3.The patient has known idiopathic intracranial hypertension. > Dictated by Dick Moreland MD, (Health Consultant). > Dictated by Health Consultant I, Edson Neely MD have personally reviewed and interpreted this examination/study. > Interpreting Provider: Edson Neely MD on 04/16/2025 5:56 PM Narrative 04/16/2025 5:56 PM CDT PROCEDURE: MRI BRAIN WO CONTRAST, DATE/TIME OF EXAM: 04/16/2025 2:20 PM, LOCATION [facility] INDICATION: G93.2: IIH (idiopathic intracranial hypertension) ADDITIONAL CLINICAL INFORMATION: Ordering Provider Reason For Exam: Progression of IIH Technologist Note: Does the patient have a pacemaker or defibrillator?->No Does the patient have metal implants or stents?->No Additional: 34-year-old female with PMH of IIH (on topamax), TILA, PTSD, BPD (currently weaning off lithium) who presented to [facility] ED 04/15 for episodic L eye pain with b/l vision loss. She received Aimovig migraine injection Tuesday evening, and Tuesday @1600 experienced sensation of pressure like a bubble building up and popping behind her L eye and resulting in 10/10 pain and b/l vision loss for 15-20 minutes followed by 10/10 PEARSON. Vision returned 45 minutes later, accompanied by 5 minutes of hearing loss after which patient came to ED and experienced 2 more episodes proceeded by the same bubble popping sensation. Further endorsed non-pulsatile tinnitus that sounds like chewing. On Aimovig migraine injection since 2021. Patient diagnosed with IIH 03/2025 with opening pressure of 21 on prone LP 03/11. Trialed diamox and did not tolerate due to finger/toe/perioral paresthesias and burning sensation upon drinking water. Trialed and discharged on topamax 100 mg po bid. At ophthalmology f/u 04/03 patient reported episodic diplopia, postural vision changes, HAs. Exam demonstrated grade 1 papilledema and Topamax dose increased to 150 mg bid. EXAMINATION: Magnetic resonance imaging (MRI) of the brain without contrast TECHNIQUE: MRI of the brain was performed without contrast according to standard protocol. COMPARISON: CT head 04/15/2025, MRI brain 03/06/2025. FINDINGS: No evidence of acute or chronic hemorrhage is identified. No evidence of acute cerebral infarction is seen. The ventricles are of normal size, shape, and morphology. No mass lesion, edema, mass effect, or midline shift is seen. The pituitary height measures approximately 4.6 mm. The corpus callosum and sella appear otherwise grossly unremarkable. The posterior fossa, brainstem, and craniocervical junction appear normal. Suspected minimal flattening of the posterior globes. The paranasal sinuses are clear. The mastoid air cells are clear. Normal flow voids are demonstrated in the carotid arteries and basilar artery. The calvarium and visualized cervical spine appear grossly unremarkable. Procedure Note Edson Neely MD - 04/16/2025 PROCEDURE: MRI BRAIN WO CONTRAST, DATE/TIME OF EXAM: 04/16/2025 2:20 PM, LOCATION [facility] INDICATION: G93.2: IIH (idiopathic intracranial hypertension) ADDITIONAL CLINICAL INFORMATION: Ordering Provider Reason For Exam: Progression of IIH Technologist Note: Does the patient have a pacemaker ordefibrillator?->No Does the patient have metal implants or stents?->No Additional: 34-year-old female with PMH of IIH (on topamax), TILA, PTSD, BPD (currently weaning off lithium) who presented to [facility] ED 04/15 for episodic L eye pain with b/l vision loss. She received Aimovig migraine injection Tuesday evening, and Tuesday @1600 experienced sensation of pressure like a bubble building up and popping behind her L eye and resulting in 10/10 pain and b/l vision loss for 15-20 minutes followedby 10/10 PEARSON. Vision returned 45 minutes later, accompanied by 5 minutes of hearing loss after which patient came to ED and experienced 2 moreepisodes proceeded by the same bubble popping sensation. Further endorsed non-pulsatile tinnitus that sounds like chewing. On Aimovig migraine injection since 2021. Patient diagnosed with IIH 03/2025 with opening pressure of 21 on prone LP 03/11. Trialed diamox and did not tolerate dueto finger/toe/perioral paresthesias and burning sensation upon drinkingwater. Trialed and discharged on topamax 100 mg po bid. At ophthalmology /u04/03 patient reported episodic diplopia, postural vision changes, HAs. Exam demonstrated grade 1 papilledema and Topamax dose increased to 150 mgbid. EXAMINATION: Magnetic resonance imaging (MRI) of the brain withoutcontrast TECHNIQUE: MRI of the brain was performed without contrast according to standard protocol. COMPARISON: CT head 04/15/2025, MRI brain 03/06/2025. FINDINGS: No evidence of acute or chronic hemorrhage is identified. No evidence of acute cerebral infarction is seen. The ventricles are of normal size, shape, and morphology. No mass lesion, edema, mass effect, or midlineshift is seen. The pituitary height measures approximately 4.6 mm. The corpus callosum and sella appear otherwise grossly unremarkable. The posterior fossa, brainstem, and craniocervical junction appear normal. Suspected minimal flattening of the posterior globes. The paranasalsinuses are clear. The mastoid air cells are clear. Normal flow voids are demonstrated in the carotid arteries and basilar artery. The calvariumand visualized cervical spine appear grossly unremarkable. IMPRESSION: 1.No evidence of acute intracranial findings are identified. 2.No evidence of restricted diffusion to suggest an acute infarction. 3.The patient has known idiopathic intracranial hypertension. > Dictated by Dick Moreland MD, (Health Consultant). > Dictated by Health Consultant I, Edson Neely MD have personally reviewed and interpretedthis examination/study. > Interpreting Provider: Edson Neely MD on 04/16/2025 5:56 PM us Rashad Chen MD MR ORDERABLES Final Result * ERYTHROCYTE SEDIMENTATION RATE (04/15/2025 8:37 PM CDT) Only the most recent of2 resultswithin the time period is included. Erythrocyte Sedimentation Rate Westergren 14 0 - 20 MM/HR 04/16/2025 12:22 AM CDT [facility] Blood BLOOD SPECIMEN / Unknown Venipuncture / Unknown 04/15/2025 8:37 PM CDT 04/15/2025 8:53 PM CDT Rashad Chen MD LAB - HEMATOLOGY ORDERABLES F inal Result [facility] [address] [place] [address], [facility] [phone] * FUNDUS PHOTO BOTH EYES (04/03/2025 11:27 AM CDT) Anatomical Region Laterality Modality Head External-Camera Photography Narrative 04/03/2025 11:39 AM CDT Images from the original result were not included. Daniel Calix MD OPHTHALMOLOGY SCHED ORD W PAC S Edited Result - Final * OPTIC NERVE ANALYSIS OCT (04/03/2025 11:27 AM CDT) Anatomical Region Laterality Modality Head External-Camera Photography Narrative 04/03/2025 11:39 AM CDT Images from the original result were not included. Daniel Calix MD OPHTHALMOLOGY SCHED ORD W PAC S Edited Result - Final * NYE AUTO VISUAL FIELD EXTENDED (04/03/2025 11:27 AM CDT) Anatomical Region Laterality Modality Head External-Camera Photography Narrative 04/03/2025 11:40 AM CDT Images from the original result were not included. Daniel Calix MD OPHTHALMOLOGY SCHED ORD W PAC S Edited Result - Final * AMMONIA (03/10/2025 3:11 PM CDT) Ammonia 34 <=72 umol/L 03/10/2025 3:33 PM CDT [facility] Blood BLOOD SPECIMEN / Unknown Lab Venipuncture / Unknown 03/10/2025 3:11 PM CDT 03/10/2025 3:19 PM CDT us Rodney Crowell MD LAB - CHEMISTRY ORDERABLES Arlin l Result Performing Organization Address City/[facility]/ZIP Co de Phone Number [address] [address], [facility] [phone] * (ABNORMAL) VITAMIN D 25-HYDROXY (03/08/2025 7:58 AM CDT) Vitamin D, 25 Hydroxy 23.9(L) 30.0 - 80.0 ng/mL 03/08/2025 9:10 AM CDT [facility] Comment: The recommendations for 25-Hydroxy Vitamin D clinical decision points are as follows: Deficient: <20.0 ng/mL Insufficient: 20.0 - 29.9 ng/mL Sufficient: 30.0 - 100.0 ng/mL Potential Toxicity: >100 ng/mL Reference: The Endocrine Society Clinical Practice Guidelines. 2011 If the 25-Hydroxy Vitamin D results are inconsitent with clinical evidence, it is recommended that follow-up testing using a method such as LC/MS/MS be performed to confirm the result. Blood BLOOD SPECIMEN / Unknown Lab Venipuncture / Unknown 03/08/2025 7:58 AM CDT 03/08/2025 8:19 AM CDT us Rodney Crowell MD LAB - CHEMISTRY ORDERABLES Arlin l Result Performing Organization Address City/[facility]/ZIP Co de Phone Number [address] [address], [facility] [phone] * CARDIAC EKG ORDER (03/07/2025 10:37 AM CDT) Narrative 03/07/2025 10:37 AM CDT Ordered by an unspecified provider. us Scanned Document CARDIAC SERVICES ORDERABLES Fin al Result * LITHIUM LEVEL (03/07/2025 8:37 AM CDT) Only the most recent of2 resultswithin the time period is included. [employer], trough 0.50 0.50 - 1.20 mmol/L 03/07/2025 11:19 AM CDT [facility] Blood BLOOD SPECIMEN / Unknown Lab Venipuncture / Unknown 03/07/2025 8:37 AM CDT 03/07/2025 8:44 AM CDT Narrative [facility] - 03/07/2025 11:19 AM CDT There is no relationship between peak concentration and degree of intoxication. Response and side effects are individual. us Rodney Crowell MD LAB - CHEMISTRY ORDERABLES Arlin shen Result [facility] [address] [place] [id number], [facility] [phone] * MRI Angio Brain Arterial Wo Cont (03/06/2025 5:43 AM CDT) Anatomical Region Laterality Modality Head Magnetic Resonan ce 03/06/2025 7:48 AM CDT Impressions 03/06/2025 2:34 PM CDT IMPRESSION: 1.No evidence of acute intracranial hemorrhage or infarct. No intracranial mass. 2.Minimal bilateral flattening of the posterior globes and moderate tortuosity of both optic nerves may relate to intracranial hypertension. 3.No large arterial occlusions or significant stenoses identified in the head. 4.High-grade stenosis of the proximal left transverse sinus. The remaining dural venous sinuses appear grossly unremarkable. 5.No evidence of dural sinus thrombosis. 6.Overall findings are concerning for idiopathic intracranial hypertension. Clinical correlation is recommended. Fundus examination is recommended to exclude the possibility of papilledema. Report dictated by Curly Andrade MD (cath lab radiology technician). Preliminary findings reported by Mare King M.D. (cath lab radiology technician). > Dictated by Curly Andrade MD 03/06/2025 7:48 AM > Dictated by Health Consultant I, Edson Neely MD have personally reviewed and interpreted this examination/study. > Interpreting Provider: Edson Neely MD on 03/06/2025 2:34 PM Narrative 03/06/2025 2:34 PM CDT PROCEDURE: MRI BRAIN WWO CONTRAST, MRI ANGIO BRAIN VENOUS W CONT, MRI ANGIO BRAIN ARTERIAL WO CONT, MRI ORBITS OR FACE WWO CONTRAST, DATE/TIME OF EXAM: 03/06/2025 5:42 AM, LOCATION [facility] INDICATION: H53.9: Vision changes ADDITIONAL CLINICAL INFORMATION: Ordering Provider Reason For Exam: r/o cause for optic disc swelling and vision changes per ophtho Technologist Note: None Additional: None. CONTRAST: GADOBUTROL 1 MMOL/ML IV SSM SO:10 mL EXAMINATION: 1.Magnetic resonance imaging (MRI) of the brain without and with contrast 2.MRI of the orbits without and with contrast 3.Magnetic resonance venography (MRV) of the head with contrast 4.Magnetic resonance angiography (MRA) of the head without contrast HISTORY: H53.9: Vision changes TECHNIQUE: 1.MRI of the brain was performed prior to and following the uneventful administration of 10 mL Gadavist intravenous gadolinium contrast according to standard protocol. 2.MRI of the orbits was performed prior to and following the uneventful administration of 10 mL Gadavist intravenous gadolinium contrast according to standard protocol. 3.MRA of the head was performed without contrast. 4.MRV of the head was performed utilizing contrast enhanced time-resolved technique after the uneventful administration of 10 mL Gadavist intravenous gadolinium contrast. COMPARISON: CT of the head from CT 03/05/2025 FINDINGS: Brain: No evidence of acute or chronic hemorrhage is identified. No evidence of acute cerebral infarction is seen. The ventricles are of normal size, shape, and morphology. No mass effect or midline shift is seen. Trace periventricular white matter FLAIR hyperintensity is a nonspecific finding. No enhancing lesions are identified. The pituitary height measures approximately 4.9 mm. The corpus callosum and sella appear otherwise grossly unremarkable. The posterior fossa, brainstem, and craniocervical junction appear normal. The visualized portions of the mastoids appear normal. Normal flow voids are demonstrated in the carotid arteries and basilar artery. The calvarium and visualized cervical spine appear normal. Orbits: There is minimal flattening of the posterior globes, otherwise the globes appear normal. Extraocular muscles appear normal. The lacrimal glands appear normal. There is moderate tortuosity of the optic nerves bilaterally. No abnormal enhancement is identified in either optic nerve. The optic chiasm and suprasellar cistern appear normal. Meckel's cave and the cavernous sinuses appear normal. The visible portions of the paranasal sinuses are clear. Angiographic findings: The distal internal carotid arteries appear normal. The anterior and middle cerebral arteries appear normal. The distal vertebral arteries appear normal. The basilar artery and posterior cerebral arteries appear normal. No aneurysms, vascular occlusions, or intracranial stenoses are identified. Venographic findings: No evidence of dural sinus thrombosis. There is high-grade stenosis of the proximal left transverse sinus (Series 4, Image 14). The other dural venous sinuses appear normal. Decreased caliber of the left internal jugular vein with variant course. The internal cerebral veins, veins of Bruno, and visible portions of the internal jugular veins appear otherwise grossly unremarkable without evidence of thrombosis. Procedure Note Edson Neely MD - 03/06/2025 PROCEDURE: MRI BRAIN WWO CONTRAST, MRI ANGIO BRAIN VENOUS W CONT, MRI ANGIO BRAIN ARTERIAL WO CONT, MRI ORBITS OR FACE WWO CONTRAST, DATE/TIMEOF EXAM: 03/06/2025 5:42 AM, LOCATION [facility] INDICATION: H53.9: Vision changes ADDITIONAL CLINICAL INFORMATION: Ordering Provider Reason For Exam: r/o cause for optic disc swellingand vision changes per ophtho Technologist Note: None Additional: None. CONTRAST: GADOBUTROL 1 MMOL/ML IV SSM SO:10 mL EXAMINATION: 1.Magnetic resonance imaging (MRI) of the brain without and withcontrast 2.MRI of the orbits without and with contrast 3.Magnetic resonance venography (MRV) of the head with contrast 4.Magnetic resonance angiography (MRA) of the head without contrast HISTORY: H53.9: Vision changes TECHNIQUE: 1.MRI of the brain was performed prior to and following the uneventful administration of 10 mL Gadavist intravenous gadolinium contrastaccording to standard protocol. 2.MRI of the orbits was performed prior to and following the uneventful administration of 10 mL Gadavist intravenous gadolinium contrastaccording to standard protocol. 3.MRA of the head was performed without contrast. 4.MRV of the head was performed utilizing contrast enhancedtime-resolved technique after the uneventful administration of 10 mL Gadavistintravenous gadolinium contrast. COMPARISON: CT of the head from CT 03/05/2025 FINDINGS: Brain: No evidence of acute or chronic hemorrhage is identified. No evidence of acute cerebral infarction is seen. The ventricles are of normal size, shape, and morphology. No mass effect or midline shift is seen. Trace periventricular white matter FLAIR hyperintensity is a nonspecificfinding. No enhancing lesions are identified. The pituitary height measures approximately 4.9 mm. The corpus callosum and sella appear otherwise grossly unremarkable. The posterior fossa, brainstem, and craniocervical junction appear normal. The visualized portions of the mastoids appear normal. Normal flow voids are demonstrated in the carotid arteries and basilar artery. Thecalvarium and visualized cervical spine appear normal. Orbits: There is minimal flattening of the posterior globes, otherwise theglobes appear normal. Extraocular muscles appear normal. The lacrimal glands appear normal. There is moderate tortuosity of the optic nerves bilaterally. No abnormal enhancement is identified in either opticnerve. The optic chiasm and suprasellar cistern appear normal. Meckel's caveand the cavernous sinuses appear normal. The visible portions of the paranasal sinuses are clear. Angiographic findings: The distal internal carotid arteries appear normal. The anterior andmiddle cerebral arteries appear normal. The distal vertebral arteries appear normal. The basilar artery and posterior cerebral arteries appearnormal. No aneurysms, vascular occlusions, or intracranial stenoses areidentified. Venographic findings: No evidence of dural sinus thrombosis. There is high-grade stenosis ofthe proximal left transverse sinus (Series 4, Image 14). The other duralvenous sinuses appear normal. Decreased caliber of the left internal jugularvein with variant course. The internal cerebral veins, veins of Bruno, and visible portions of the internal jugular veins appear otherwise grossly unremarkable without evidence of thrombosis. IMPRESSION: 1.No evidence of acute intracranial hemorrhage or infarct. Nointracranial mass. 2.Minimal bilateral flattening of the posterior globes and moderate tortuosity of both optic nerves may relate to intracranial hypertension. 3.No large arterial occlusions or significant stenoses identified in the head. 4.High-grade stenosis of the proximal left transverse sinus. Theremaining dural venous sinuses appear grossly unremarkable. 5.No evidence of dural sinus thrombosis. 6.Overall findings are concerning for idiopathic intracranialhypertension. Clinical correlation is recommended. Fundus examination is recommendedto exclude the possibility of papilledema. Report dictated by Curly Andrade MD (cath lab radiology technician). Preliminary findings reported by Mare King M.D. (cath lab radiology technician). > Dictated by Curly Andrade MD 03/06/2025 7:48 AM > Dictated by Health Consultant Edson Andrade MD have personally reviewed and interpretedthis examination/study. > Interpreting Provider: Edson Neely MD on 03/06/2025 2:34 PM Rea Nash PA-C MR ORDERABLES Final Result * MRI Orbits or Face Wwo Contrast (03/06/2025 5:42 AM CDT) Anatomical Region Laterality Modality Head Magnetic Resonan ce 03/06/2025 7:48 AM CDT Impressions 03/06/2025 2:34 PM CDT IMPRESSION: 1.No evidence of acute intracranial hemorrhage or infarct. No intracranial mass. 2.Minimal bilateral flattening of the posterior globes and moderate tortuosity of both optic nerves may relate to intracranial hypertension. 3.No large arterial occlusions or significant stenoses identified in the head. 4.High-grade stenosis of the proximal left transverse sinus. The remaining dural venous sinuses appear grossly unremarkable. 5.No evidence of dural sinus thrombosis. 6.Overall findings are concerning for idiopathic intracranial hypertension. Clinical correlation is recommended. Fundus examination is recommended to exclude the possibility of papilledema. Report dictated by Curly Andrade MD (cath lab radiology technician). Preliminary findings reported by Mare King M.D. (cath lab radiology technician). > Dictated by Curly Andrade MD 03/06/2025 7:48 AM > Dictated by Health Consultant Edson Andrade MD have personally reviewed and interpreted this examination/study. > Interpreting Provider: Edson Neely MD on 03/06/2025 2:34 PM Narrative 03/06/2025 2:34 PM CDT PROCEDURE: MRI BRAIN WWO CONTRAST, MRI ANGIO BRAIN VENOUS W CONT, MRI ANGIO BRAIN ARTERIAL WO CONT, MRI ORBITS OR FACE WWO CONTRAST, DATE/TIME OF EXAM: 03/06/2025 5:42 AM, LOCATION [facility] INDICATION: H53.9: Vision changes ADDITIONAL CLINICAL INFORMATION: Ordering Provider Reason For Exam: r/o cause for optic disc swelling and vision changes per ophtho Technologist Note: None Additional: None. CONTRAST: GADOBUTROL 1 MMOL/ML IV SSM SO:10 mL EXAMINATION: 1.Magnetic resonance imaging (MRI) of the brain without and with contrast 2.MRI of the orbits without and with contrast 3.Magnetic resonance venography (MRV) of the head with contrast 4.Magnetic resonance angiography (MRA) of the head without contrast HISTORY: H53.9: Vision changes TECHNIQUE: 1.MRI of the brain was performed prior to and following the uneventful administration of 10 mL Gadavist intravenous gadolinium contrast according to standard protocol. 2.MRI of the orbits was performed prior to and following the uneventful administration of 10 mL Gadavist intravenous gadolinium contrast according to standard protocol. 3.MRA of the head was performed without contrast. 4.MRV of the head was performed utilizing contrast enhanced time-resolved technique after the uneventful administration of 10 mL Gadavist intravenous gadolinium contrast. COMPARISON: CT of the head from CT 03/05/2025 FINDINGS: Brain: No evidence of acute or chronic hemorrhage is identified. No evidence of acute cerebral infarction is seen. The ventricles are of normal size, shape, and morphology. No mass effect or midline shift is seen. Trace periventricular white matter FLAIR hyperintensity is a nonspecific finding. No enhancing lesions are identified. The pituitary height measures approximately 4.9 mm. The corpus callosum and sella appear otherwise grossly unremarkable. The posterior fossa, brainstem, and craniocervical junction appear normal. The visualized portions of the mastoids appear normal. Normal flow voids are demonstrated in the carotid arteries and basilar artery. The calvarium and visualized cervical spine appear normal. Orbits: There is minimal flattening of the posterior globes, otherwise the globes appear normal. Extraocular muscles appear normal. The lacrimal glands appear normal. There is moderate tortuosity of the optic nerves bilaterally. No abnormal enhancement is identified in either optic nerve. The optic chiasm and suprasellar cistern appear normal. Meckel's cave and the cavernous sinuses appear normal. The visible portions of the paranasal sinuses are clear. Angiographic findings: The distal internal carotid arteries appear normal. The anterior and middle cerebral arteries appear normal. The distal vertebral arteries appear normal. The basilar artery and posterior cerebral arteries appear normal. No aneurysms, vascular occlusions, or intracranial stenoses are identified. Venographic findings: No evidence of dural sinus thrombosis. There is high-grade stenosis of the proximal left transverse sinus (Series 4, Image 14). The other dural venous sinuses appear normal. Decreased caliber of the left internal jugular vein with variant course. The internal cerebral veins, veins of Bruno, and visible portions of the internal jugular veins appear otherwise grossly unremarkable without evidence of thrombosis. Procedure Note Edson Neely MD - 03/06/2025 PROCEDURE: MRI BRAIN WWO CONTRAST, MRI ANGIO BRAIN VENOUS W CONT, MRI ANGIO BRAIN ARTERIAL WO CONT, MRI ORBITS OR FACE WWO CONTRAST, DATE/TIMEOF EXAM: 03/06/2025 5:42 AM, LOCATION [facility] INDICATION: H53.9: Vision changes ADDITIONAL CLINICAL INFORMATION: Ordering Provider Reason For Exam: r/o cause for optic disc swellingand vision changes per ophtho Technologist Note: None Additional: None. CONTRAST: GADOBUTROL 1 MMOL/ML IV SSM SO:10 mL EXAMINATION: 1.Magnetic resonance imaging (MRI) of the brain without and withcontrast 2.MRI of the orbits without and with contrast 3.Magnetic resonance venography (MRV) of the head with contrast 4.Magnetic resonance angiography (MRA) of the head without contrast HISTORY: H53.9: Vision changes TECHNIQUE: 1.MRI of the brain was performed prior to and following the uneventful administration of 10 mL Gadavist intravenous gadolinium contrastaccording to standard protocol. 2.MRI of the orbits was performed prior to and following the uneventful administration of 10 mL Gadavist intravenous gadolinium contrastaccording to standard protocol. 3.MRA of the head was performed without contrast. 4.MRV of the head was performed utilizing contrast enhancedtime-resolved technique after the uneventful administration of 10 mL Gadavistintravenous gadolinium contrast. COMPARISON: CT of the head from CT 03/05/2025 FINDINGS: Brain: No evidence of acute or chronic hemorrhage is identified. No evidence of acute cerebral infarction is seen. The ventricles are of normal size, shape, and morphology. No mass effect or midline shift is seen. Trace periventricular white matter FLAIR hyperintensity is a nonspecificfinding. No enhancing lesions are identified. The pituitary height measures approximately 4.9 mm. The corpus callosum and sella appear otherwise grossly unremarkable. The posterior fossa, brainstem, and craniocervical junction appear normal. The visualized portions of the mastoids appear normal. Normal flow voids are demonstrated in the carotid arteries and basilar artery. Thecalvarium and visualized cervical spine appear normal. Orbits: There is minimal flattening of the posterior globes, otherwise theglobes appear normal. Extraocular muscles appear normal. The lacrimal glands appear normal. There is moderate tortuosity of the optic nerves bilaterally. No abnormal enhancement is identified in either opticnerve. The optic chiasm and suprasellar cistern appear normal. Meckel's caveand the cavernous sinuses appear normal. The visible portions of the paranasal sinuses are clear. Angiographic findings: The distal internal carotid arteries appear normal. The anterior andmiddle cerebral arteries appear normal. The distal vertebral arteries appear normal. The basilar artery and posterior cerebral arteries appearnormal. No aneurysms, vascular occlusions, or intracranial stenoses areidentified. Venographic findings: No evidence of dural sinus thrombosis. There is high-grade stenosis ofthe proximal left transverse sinus (Series 4, Image 14). The other duralvenous sinuses appear normal. Decreased caliber of the left internal jugularvein with variant course. The internal cerebral veins, veins of Bruno, and visible portions of the internal jugular veins appear otherwise grossly unremarkable without evidence of thrombosis. IMPRESSION: 1.No evidence of acute intracranial hemorrhage or infarct. Nointracranial mass. 2.Minimal bilateral flattening of the posterior globes and moderate tortuosity of both optic nerves may relate to intracranial hypertension. 3.No large arterial occlusions or significant stenoses identified in the head. 4.High-grade stenosis of the proximal left transverse sinus. Theremaining dural venous sinuses appear grossly unremarkable. 5.No evidence of dural sinus thrombosis. 6.Overall findings are concerning for idiopathic intracranialhypertension. Clinical correlation is recommended. Fundus examination is recommendedto exclude the possibility of papilledema. Report dictated by Curly Andrade MD (cath lab radiology technician). Preliminary findings reported by Mare King M.D. (cath lab radiology technician). > Dictated by Curly Andrade MD 03/06/2025 7:48 AM > Dictated by Health Consultant I, Edson Neely MD have personally reviewed and interpretedthis examination/study. > Interpreting Provider: Edson Neely MD on 03/06/2025 2:34 PM Rea Nash PA-C MR ORDERABLES Final Result * MRI Brain Wwo Contrast (03/06/2025 5:42 AM CDT) Anatomical Region Laterality Modality Head Magnetic Resonan ce 03/06/2025 7:48 AM CDT Impressions 03/06/2025 2:34 PM CDT IMPRESSION: 1.No evidence of acute intracranial hemorrhage or infarct. No intracranial mass. 2.Minimal bilateral flattening of the posterior globes and moderate tortuosity of both optic nerves may relate to intracranial hypertension. 3.No large arterial occlusions or significant stenoses identified in the head. 4.High-grade stenosis of the proximal left transverse sinus. The remaining dural venous sinuses appear grossly unremarkable. 5.No evidence of dural sinus thrombosis. 6.Overall findings are concerning for idiopathic intracranial hypertension. Clinical correlation is recommended. Fundus examination is recommended to exclude the possibility of papilledema. Report dictated by Curly Andrade MD (cath lab radiology technician). Preliminary findings reported by Mare King M.D. (cath lab radiology technician). > Dictated by Curly Andrdae MD 03/06/2025 7:48 AM > Dictated by Health Consultant I, Edson Neely MD have personally reviewed and interpreted this examination/study. > Interpreting Provider: Edson Neely MD on 03/06/2025 2:34 PM Narrative 03/06/2025 2:34 PM CDT PROCEDURE: MRI BRAIN WWO CONTRAST, MRI ANGIO BRAIN VENOUS W CONT, MRI ANGIO BRAIN ARTERIAL WO CONT, MRI ORBITS OR FACE WWO CONTRAST, DATE/TIME OF EXAM: 03/06/2025 5:42 AM, LOCATION [facility] INDICATION: H53.9: Vision changes ADDITIONAL CLINICAL INFORMATION: Ordering Provider Reason For Exam: r/o cause for optic disc swelling and vision changes per ophtho Technologist Note: None Additional: None. CONTRAST: GADOBUTROL 1 MMOL/ML IV SSM SO:10 mL EXAMINATION: 1.Magnetic resonance imaging (MRI) of the brain without and with contrast 2.MRI of the orbits without and with contrast 3.Magnetic resonance venography (MRV) of the head with contrast 4.Magnetic resonance angiography (MRA) of the head without contrast HISTORY: H53.9: Vision changes TECHNIQUE: 1.MRI of the brain was performed prior to and following the uneventful administration of 10 mL Gadavist intravenous gadolinium contrast according to standard protocol. 2.MRI of the orbits was performed prior to and following the uneventful administration of 10 mL Gadavist intravenous gadolinium contrast according to standard protocol. 3.MRA of the head was performed without contrast. 4.MRV of the head was performed utilizing contrast enhanced time-resolved technique after the uneventful administration of 10 mL Gadavist intravenous gadolinium contrast. COMPARISON: CT of the head from CT 03/05/2025 FINDINGS: Brain: No evidence of acute or chronic hemorrhage is identified. No evidence of acute cerebral infarction is seen. The ventricles are of normal size, shape, and morphology. No mass effect or midline shift is seen. Trace periventricular white matter FLAIR hyperintensity is a nonspecific finding. No enhancing lesions are identified. The pituitary height measures approximately 4.9 mm. The corpus callosum and sella appear otherwise grossly unremarkable. The posterior fossa, brainstem, and craniocervical junction appear normal. The visualized portions of the mastoids appear normal. Normal flow voids are demonstrated in the carotid arteries and basilar artery. The calvarium and visualized cervical spine appear normal. Orbits: There is minimal flattening of the posterior globes, otherwise the globes appear normal. Extraocular muscles appear normal. The lacrimal glands appear normal. There is moderate tortuosity of the optic nerves bilaterally. No abnormal enhancement is identified in either optic nerve. The optic chiasm and suprasellar cistern appear normal. Meckel's cave and the cavernous sinuses appear normal. The visible portions of the paranasal sinuses are clear. Angiographic findings: The distal internal carotid arteries appear normal. The anterior and middle cerebral arteries appear normal. The distal vertebral arteries appear normal. The basilar artery and posterior cerebral arteries appear normal. No aneurysms, vascular occlusions, or intracranial stenoses are identified. Venographic findings: No evidence of dural sinus thrombosis. There is high-grade stenosis of the proximal left transverse sinus (Series 4, Image 14). The other dural venous sinuses appear normal. Decreased caliber of the left internal jugular vein with variant course. The internal cerebral veins, veins of Bruno, and visible portions of the internal jugular veins appear otherwise grossly unremarkable without evidence of thrombosis. Procedure Note Edson Neely MD - 03/06/2025 PROCEDURE: MRI BRAIN WWO CONTRAST, MRI ANGIO BRAIN VENOUS W CONT, MRI ANGIO BRAIN ARTERIAL WO CONT, MRI ORBITS OR FACE WWO CONTRAST, DATE/TIMEOF EXAM: 03/06/2025 5:42 AM, LOCATION [facility] INDICATION: H53.9: Vision changes ADDITIONAL CLINICAL INFORMATION: Ordering Provider Reason For Exam: r/o cause for optic disc swellingand vision changes per ophtho Technologist Note: None Additional: None. CONTRAST: GADOBUTROL 1 MMOL/ML IV SSM SO:10 mL EXAMINATION: 1.Magnetic resonance imaging (MRI) of the brain without and withcontrast 2.MRI of the orbits without and with contrast 3.Magnetic resonance venography (MRV) of the head with contrast 4.Magnetic resonance angiography (MRA) of the head without contrast HISTORY: H53.9: Vision changes TECHNIQUE: 1.MRI of the brain was performed prior to and following the uneventful administration of 10 mL Gadavist intravenous gadolinium contrastaccording to standard protocol. 2.MRI of the orbits was performed prior to and following the uneventful administration of 10 mL Gadavist intravenous gadolinium contrastaccording to standard protocol. 3.MRA of the head was performed without contrast. 4.MRV of the head was performed utilizing contrast enhancedtime-resolved technique after the uneventful administration of 10 mL Gadavistintravenous gadolinium contrast. COMPARISON: CT of the head from CT 03/05/2025 FINDINGS: Brain: No evidence of acute or chronic hemorrhage is identified. No evidence of acute cerebral infarction is seen. The ventricles are of normal size, shape, and morphology. No mass effect or midline shift is seen. Trace periventricular white matter FLAIR hyperintensity is a nonspecificfinding. No enhancing lesions are identified. The pituitary height measures approximately 4.9 mm. The corpus callosum and sella appear otherwise grossly unremarkable. The posterior fossa, brainstem, and craniocervical junction appear normal. The visualized portions of the mastoids appear normal. Normal flow voids are demonstrated in the carotid arteries and basilar artery. Thecalvarium and visualized cervical spine appear normal. Orbits: There is minimal flattening of the posterior globes, otherwise theglobes appear normal. Extraocular muscles appear normal. The lacrimal glands appear normal. There is moderate tortuosity of the optic nerves bilaterally. No abnormal enhancement is identified in either opticnerve. The optic chiasm and suprasellar cistern appear normal. Meckel's caveand the cavernous sinuses appear normal. The visible portions of the paranasal sinuses are clear. Angiographic findings: The distal internal carotid arteries appear normal. The anterior andmiddle cerebral arteries appear normal. The distal vertebral arteries appear normal. The basilar artery and posterior cerebral arteries appearnormal. No aneurysms, vascular occlusions, or intracranial stenoses areidentified. Venographic findings: No evidence of dural sinus thrombosis. There is high-grade stenosis ofthe proximal left transverse sinus (Series 4, Image 14). The other duralvenous sinuses appear normal. Decreased caliber of the left internal jugularvein with variant course. The internal cerebral veins, veins of Bruno, and visible portions of the internal jugular veins appear otherwise grossly unremarkable without evidence of thrombosis. IMPRESSION: 1.No evidence of acute intracranial hemorrhage or infarct. Nointracranial mass. 2.Minimal bilateral flattening of the posterior globes and moderate tortuosity of both optic nerves may relate to intracranial hypertension. 3.No large arterial occlusions or significant stenoses identified in the head. 4.High-grade stenosis of the proximal left transverse sinus. Theremaining dural venous sinuses appear grossly unremarkable. 5.No evidence of dural sinus thrombosis. 6.Overall findings are concerning for idiopathic intracranialhypertension. Clinical correlation is recommended. Fundus examination is recommendedto exclude the possibility of papilledema. Report dictated by Curly Andrade MD (cath lab radiology technician). Preliminary findings reported by Mare King M.D. (cath lab radiology technician). > Dictated by Curly Andrade MD 03/06/2025 7:48 AM > Dictated by Health Consultant IEdson MD have personally reviewed and interpretedthis examination/study. > Interpreting Provider: Edson Neely MD on 03/06/2025 2:34 PM Rea Nash PA-C MR ORDERABLES Final Result * EKG 12-Lead (03/06/2025 1:23 AM CDT) Ventricular Rate 66 BPM [facility] Atrial Rate 66 BPM [facility] P-R Interval 128 ms [facility] QRS Duration ms 92 ms [facility] MUSE Q-T Interval ms 400 ms [facility] MUSE QTC Calculation (Bezet) 419 ms [facility] MUSE Calculated P [place] 13 degrees [facility] MUSE Calculated R [place] 4 degrees [facility] MUSE Calculated T [place] -2 degrees [facility] MUSE Interpretation EKG NORMAL SINUS RHYTHM WITH SINUS ARRHYTHMIA NONSPECIFIC ST AND T WAVE ABNORMALITY ABNORMAL ECG WHEN COMPARED WITH ECG OF 19-FEB-2025 15:00, NO SIGNIFICANT CHANGE WAS FOUND Confirmed by AUBREE BECERRA, SAMRONALD ([id number]) on 03/22/2025 3:51:50 PM [facility] 03/06/2025 1:23 AM CDT 03/22/2025 3:51 PM CDT Carol Munguia MD ECG ORDERABLES Edited Result - Final Performing Organization Address City/[facility]/ZIP Co de Phone Number [facility] * (ABNORMAL) C-REACTIVE PROTEIN (03/05/2025 5:46 PM CDT) C-Reactive Protein 1.2(H) <=0.5 mg/dL 03/05/2025 6:16 PM CDT [facility] Blood BLOOD SPECIMEN / Unknown Venipuncture / Unknown 03/05/2025 5:46 PM CDT 03/05/2025 5:51 PM CDT Rea Nash PA-C LAB - CHEMISTRY ORDERABLES Fi nal Result [facility] [address] [place] [address], [facility] [phone] * OPTIC NERVE ANALYSIS OCT (03/05/2025 1:17 PM CDT) Anatomical Region Laterality Modality Head External-Camera Photography Narrative 03/05/2025 3:17 PM CDT Images from the original result were not included. OD: nasal elevation artifcat OS: superior elevation us Daniel Calix MD OPHTHALMOLOGY SCHED ORD W PAC S Final Result * FUNDUS PHOTO BOTH EYES (03/05/2025 1:17 PM CDT) Anatomical Region Laterality Modality Head External-Camera Photography Narrative 03/05/2025 3:17 PM CDT Images from the original result were not included. OD: possible slight superior blurring, but very mild OS: superior and inferior blurring of the margins, more prominent Daniel Calix MD OPHTHALMOLOGY SCHED ORD W PAC S Final Result * NYE AUTO VISUAL FIELD EXTENDED (03/05/2025 1:17 PM CDT) Anatomical Region Laterality Modality Head External-Camera Photography Narrative 03/05/2025 3:16 PM CDT Images from the original result were not included. OD: very poor reliability with high Fns and FLs - unreliable OS: very poor reliability with high Fns and FLs - unreliable us Daniel Calix MD OPHTHALMOLOGY SCHED ORD W PAC S Final Result * CULTURE BLOOD (02/23/2025 3:01 PM CDT) Only the most recent of2 resultswithin the time period is included. Culture No growth day 5 GRAZYNA 02/28/2025 7:32 PM CDT [facility] Blood PERIPHERAL BLOOD / Unknown Venipuncture / Unknown 02/23/2025 3:01 PM CDT 02/23/2025 3:24 PM CDT Savanna Rust ADDICTIONS THERAPIST-RADIOGRAPHY TECHNICIAN LAB - MICROBIOLOGY O RDERABLES Final Result [facility] [address] [place], [place] [address], [facility] [phone] from Last 3 Months Insurance [facility] Advance Directives * Full Code (Latest Code Status on File) Date Activated Date Inactivated Comments 04/16/2025 2:52 AM 04/17/2025 9:23 PM * Full Code Date Activated Date Inactivated Comments 03/06/2025 1:48 AM 03/11/2025 3:09 PM Care Teams Roller Bearing Inspector Relationship Specialty Start Date End Date Mayelin Ruffin MD [address] [place] [id number] PCP - General Family Medicine 06/29/23
--- OUTSIDE RECORDS SUMMARY | 2025-05-24 20:18 | XMS_ITS | Encounter Summary ---
Author Organization [facility] Healthcare Address [address] [place] [address] Care Team Providers Care Lotus Notes Administrator Name Role Phone Mayelin Ruffin MD Primary Care Provider [phone] Encounter Details Date Type Department Care Team (Late st Contact Info) Description 02/21/2025 Telephone [facility] [address] [place] [address] Maya Ramírez RN Social History Tobacco Use Types Packs/Day Years [...] making you feel afraid or unsafe? 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
[2025-05-24 20:19] VITALS: BP 141/72; PULSE 57; RESP 18; TEMP 36.9; O2SAT 100
--- OUTSIDE RECORDS SUMMARY | 2025-05-24 20:19 | XMS_ITS | Encounter Summary ---
Author Organization [facility] Address [address] [facility] [place] [address] Care Team Providers Care Tire Balancer Name Role Phone Mayelin Ruffin MD Primary Care Provider [phone] Encounter Details Date Type Department Care Team (Late st Contact Info) Description 04/16/2025 Ophth Exam [facility] - Ophthalmology [address] [place] [address] Elias Lozano MD [address] [facility] [place] [address] Social History Tobacco Use Types Packs/Day Years [...] Recorded Patient Health Questionnaire-2 Score 0 02/27/2025 [place] [facility] - Occupational Stress [...] any time in the past 12 m [facility], were you homeless or living in a senior care (including now)? No 04/16/2025 Comments No Sex and Gender Information Value Date Recorded Sex Assigned at Female 07/05/2023 4:04 PM PRODUCT MARKETING SPECIALIST Legal Sex Female 4:40 PM CDT Gender Identity Female 07/05/2023 4:04 PM PRODUCT MARKETING SPECIALIST Sexual Orientation Bisexual 07/05/2023 4: 04 PM PRODUCT MARKETING SPECIALIST documented as of this encounter Functional Status * Functional and Cognitive Status Question Answer Date of Assessment Author Is person deaf or have vivian us hearing difficulty? No 04/16/2025 6:14 PM [place] Arlene Triana RN Is person blind or have seri ous difficulty seeing? No 04/16/2025 6:14 PM CDT Arlene Triana RN Does person have serious dif ficulty walking/climbing stairs? No 04/16/2025 6:14 PM [place]AC[place] Maya Triana RN Does person have difficulty dressing/bathing? No 04/16/2025 6:14 PM Arlene Alexander RN Does person have difficulty doing errands alone? No 04/16/2025 6:14 PM Arlene Alexander RN Does person have difficulty concentrating/remembering/making decisions? No 04/16/2025 6:14 PM Arlene Alexander RN * Question Answer Date of Assessment Author Q1: How often do you have a drink containing alcohol? Never 04/16/2025 6:13 PM Arlene Alexander RN Q2: How many drinks containing alcohol do you have on a typical day when you are drinking? Patient does not drink 04/16/2025 6:13 PM Arlene Alexander RN Q3: How often do you have six or more drinks on one occasion? Never 04/16/2025 6:13 PM Arlene Alexander RN * AUDIT-C Score Answer Date of Assessment Author 0 04/16/2025 6:13 PM Arlene Alexander RN * Is person deaf or have serious hearing difficulty? Answer Date of Assessment Author No 04/16/2025 6:14 PM Arlene Alexander RN * Is person blind or have serious difficulty seeing? Answer Date of Assessment Author No 04/16/2025 6:14 PM Arlene Alexander RN * Does person have serious difficulty walking/climbing stairs? Answer Date of Assessment Author No 04/16/2025 6:14 PM Arlene Alexander RN * Does person have difficulty dressing/bathing? Answer Date of Assessment Author No 04/16/2025 6:14 PM Arlene Alexander RN * Does person have difficulty doing errands alone? Answer Date of Assessment Author No 04/16/2025 6:14 PM Arlene Alexander RN documented as of this encounter Mental Status * Does person have difficulty concentrating/remembering/making decisions? Answer Entry Date Author No 04/16/2025 6:14 PM Arlene Alexander RN documented in this encounter Plan of Treatment Upcoming Encounters Date Type Department Care Team (Late st Contact Info) Description 06/26/2025 9:00 AM PRODUCT MARKETING SPECIALIST Office Visit [facility] - Neurology [address] [facility] [place] [phone] Eva Salinas PA-C [address] [place] [address] 07/03/2025 2:30 PM PRODUCT MARKETING SPECIALIST Office Visit [facility] - Pulmonology [address] [place] [address], [place] [phone] Zia Warner, [address] [place] [phone] 08/26/2025 3:00 PM PRODUCT MARKETING SPECIALIST Office Visit [facility] - Neurology [address] [place] [address], [place] [phone] Marie Parson, EMBOSSING PRESS OPERATOR-RN OPERATING ROOM [address] [place] [address] [address] [place] [phone] 09/25/2025 3:20 PM PRODUCT MARKETING SPECIALIST [facility] [address] [phone] Jeffery Dunaway MD [address] [phone] documented as of this encounter Visit Diagnoses Not on filedocumented in this encounter Care Teams Tire Balancer Relationship Specialty Start Date End Date Mayelin Ruffin MD [address] [place] [address] [address] [place] [phone] PCP - General Family Medicine 06/29/23 documented as of this encounter
--- OUTSIDE RECORDS SUMMARY | 2025-05-24 20:19 | XMS_ITS | Clinical Summary ---
Author Organization [facility] Address [address] [place] [address] Care Team Providers Care Data Entry Associate Name Role Phone Mayelin Ruffin MD Primary Care Provider [phone] Allergies Active Allergy Reactions Criticality Noted Date [...] mg total) by mouth daily 4 Active lithium ER (ESKALITH) 450 mg CR [...] NEEDED FOR NAUSEA AND VOMITING 5 Active Ubrelvy 100 mg tablet TAKE 1 TABLET BY MOUTH ONCE NEEDED FOR MIGRAINE, MAY REPEAT DOSE ONCE IN 2 HOURS IF NO RELIEF. MAX OF 2 TABLETS IN 24 HOURS 10 tablet 3 5 Active Active Problems Problem Noted Date [...] Encounters Date Type Department Care Team Description 02/22/2025 9:58 AM CDT - 02/22/2025 2:28 PM CDT Emergency [facility] Emergency Department [address] [place] [address] Convulsions, unspecified convulsion type (HCC) (Primary Dx) Discharge Disposition: Discharge to home or self care 02/22/2025 7:13 AM CDT - 02/22/2025 11:59 PM CDT Hospital Encounter [facility] [address] [place] [address] Rad, Amh Ir 1, Amh Rad Rn Rad, Amh Fluoro Pseudotumor cerebri syndrome Discharge Disposition: Discharge to home or self care 02/22/2025 Results Follow-Up [facility] [address] [place] [address] Javi Garcia NP Glucose, CSF, Protein, total, CSF, Bacterial culture and gram stain, CSF CSF, Manual Cell Count, CSF 02/21/2025 Telephone [facility] [address] [place] [address] Maya Ramírez, POLO from Last 3 Months Immunizations Immunization Administration Dates Next Due Pfizer SARS-CoV-2 Monovalent Vaccination (12+ Yrs) PURPLE 06/27/2021,06/06/2021 Surgical History Surgery Date Site/Laterality Comments HYSTERECTOMY PORTACATH PLACEMENT PORT REMOVAL FL FLUORO GUIDED LUMBAR PUNCTURE 02/22/2025 Right Medical History Medical History Date Comments Personal [...] 07/12, t ested pos 07/15 Heart failure H/O blood clots Chronic kidney disease Family [...] on file Legal Sex Female 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 Gender Identity Female 01/22/2021 5:39 PM CDT Sexual Orientation Bisexual 01/22/2021 5: 39 PM CDT Obstetrics History Para Term AB IAB SAB Ectopic Multiple Livin g Live Births 0 0 0 0 0 0 0 0 0 0 0 Last Filed Vital Signs Vital Sign Reading Time Taken Comments Blood Pressure 124/83 02/22/2025 1:00 PM CDT Pulse 96 02/22/2025 1:00 PM CDT Temperature 36.4 C (97.6 F) 02/22/2025 10:21 AM CDT Respiratory Rate 16 02/22/2025 1:00 PM CDT Oxygen Saturation 99% 02/22/2025 1:00 PM CDT Inhaled Oxygen Concentration - - Weight 122.5 kg (270 lb) 02/22/2025 10:06 AM CDT Height 162.6 cm (5' 4) 02/22/2025 10:06 AM CDT Body Mass Index 46.35 02/22/2025 10:06 AM CDT Plan of Treatment Health Maintenance Due Date Last Done Comments Depression Screening 1989 Hepatitis C Screening 1989 Varicella Vaccines (1 of 2 - 13+ 2-dose series) 2002 Hepatitis B Screening 2007 Regular Well Visit/Exam 18-64 2007 HPV Vaccines (1 - 3-dose SCD M series) 2016 Pneumococcal vaccine <65 (2 of 2 - PCV) 07/01/2021 07/01/2020 Covid-19 Vaccine (3 - 2024-2 6 season) 2025 06/27/2021, 06/06/2021 Influenza Vaccine (#1) 2025 , 05/05/2023, 05/31/2022, Additional history exists DTaP/Tdap/Td Vaccine (2 - Td or Tdap) 11/02/2027 11/01/2017 Procedures Procedure Name Priority Date/Time Associated Diagnosis Comments CT HEAD WO CONTRAST ED 02/22/2025 1 1:59 AM CDT URINALYSIS AND REFLEX TO MICROSCOPIC AND CULTURE STAT 02/22/2025 11:07 AM CDT EGFR STAT 02/22/2025 10:44 AM CDT DIFFERENTIAL AUTO STAT 02/22/2025 10: 44 AM CDT COMPREHENSIVE METABOLIC PANEL STAT 02/22/2025 10:44 AM CDT CBC WITH AUTO DIFFERENTIAL STAT 02/22/2025 10:44 AM CDT FL FLUORO GUIDED LUMBAR PUNCTURE Schedule ADOLPH, Read Routine (Patient lives out of area) 02/22/2025 8:55 AM CDT Pseudotumor cerebri syndrome MANUAL CELL COUNT, CSF Routine 02/22/2025 8:31 AM CDT CSF PROTEIN Routine 02/22/2025 8:31 AM CDT Pseudotumor cerebri syndrome GLUCOSE, CSF Routine 02/22/2025 8:31 AM CDT Pseudotumor cerebri syndrome BACTERIAL CULTURE AND GRAM STAIN, CSF Routine 02/22/2025 8:31 AM CDT Pseudotumor cerebri syndrome from Last 3 Months Results * CT Head WO Contrast (02/22/2025 11:59 AM CDT) Anatomical Region Laterality Modality Head and Neck N/A Computed Tomogra phy 02/22/2025 12:1 2 PM CDT Narrative 02/22/2025 12:20 PM CDT EXAM DESCRIPTION: CT HEAD WO CONTRAST REASON FOR STUDY: Seizure, new-onset, no history of trauma Headache post lumbar puncture today TECHNIQUE: Axial images acquired through the brain without intravenous contrast. Images stored on PACS. Automated exposure control was used as a dose optimization technique for this examination. COMPARISON: January 18, 2025 FINDINGS: BRAIN: No hemorrhage, edema or mass effect. No recent infarct. Normal white matter. EXTRA-AXIAL SPACES: No fluid collections. No masses. CALVARIUM: No fracture. SINUSES/MASTOIDS: No fluid or mucosal thickening. ORBITS: Unchanged focal calcification within the right orbital globe. Otherwise, no significant abnormality. OTHER: No other significant abnormality. IMPRESSION: 1. No acute intracranial abnormality. 2. Unchanged focal calcification within the right orbital globe. THIS IS AN ELECTRONICALLY VERIFIED FINAL REPORT 02/22/2025 12:20 PM - Electronically signed by Rahat Valencia M.D. RB: [place] Report ID: [id number] Reading Location: [id number] Procedure Note Rahat Valencia MD - 02/22/2025 EXAM DESCRIPTION: CT HEAD WO CONTRAST REASON FOR STUDY: Seizure, new-onset, no history of trauma Headache post lumbar puncture today TECHNIQUE: Axial images acquired through the brain without intravenous contrast. Images stored on PACS. Automated exposure control was used asa dose optimization technique for this examination. COMPARISON: January 18, 2025 FINDINGS: BRAIN: No hemorrhage, edema or mass effect. No recent infarct. Normal white matter. EXTRA-AXIAL SPACES: No fluid collections. No masses. CALVARIUM: No fracture. SINUSES/MASTOIDS: No fluid or mucosal thickening. ORBITS: Unchanged focal calcification within the right orbital globe. Otherwise, no significant abnormality. OTHER: No other significant abnormality. IMPRESSION: 1. No acute intracranial abnormality. 2. Unchanged focal calcification within the right orbital globe. THIS IS AN ELECTRONICALLY VERIFIED FINAL REPORT 02/22/2025 12:20 PM - Electronically signed by Rahat Valencia M.D. RB: [place] Report ID: [id number] Reading Location: [place] [address] Aby [facility] PROCEDURES Final Result * Urinalysis reflex to microscopic and culture Urine (02/22/2025 11:07 AM CDT) Color, ur Straw Yellow Clarity, ur Clear Clear [facility] ([place]) Specific gravity, ur 1.004 1.003 - 1.030 [facility] ([place]) pH, [...] tendency for uric acid stone formation. Source: [employer] Current Interpretive Data was last revised on [...] [facility]) Leukocyte esterase, ur Negative Negative [facility] ([place]) UA reflex comment Reflex conditions for microscopic UA and culture not met. [facility] ([place]) Urine 02/22/2025 11:0 7 AM CDT 02/22/2025 11:09 AM CDT Aby [facility] MICROBIOLOGY - GENERAL LACEY BRANDON Final Result [facility] ([place]) [address] Department [place] [address] * eGFR (02/22/2025 10:44 AM CDT) eGFR >90 >=60 mL/min/1. 73 m2 [...] interpretive data was last reviewed 2021. Blood 02/22/2025 10:4 4 AM CDT 02/22/2025 10:48 AM CDT us Aby [facility] BLOOD ORDERABLES Final Resu lt [facility] ([place] [address] Department [place] [address] * Differential, auto (02/22/2025 10:44 AM CDT) Neutrophil abs 3.25 1.50 - 6.50 K/cumm Imm gran abs 0.02 0.00 - 0.10 K/cumm [facility]) Lymphocyte abs 2.15 0.80 - 3.30 K/cumm [facility]) Monocyte abs 0.49 0.20 - 0.80 K/cumm [facility]) Eosinophil abs 0.22 0.00 - 0.50 K/cumm [facility]) Basophil abs 0.06 0.00 - 0.10 K/cumm [facility]) Neutrophil pct 52.5 % [facility] ([place]) Comment: Interpretive Data Percent cell count reference ranges are not reported, since discordance with absolute values may lead to misinterpretation of CBC data. Current Interpretive Data was last revised on 2017. Imm gran pct 0.3 % [facility]) Comment: Interpretive Data Percent cell count reference ranges are not reported, since discordance with absolute values may lead to misinterpretation of CBC data. Current Interpretive Data was last revised on 2017. Lymphocyte pct 34.7 % [facility]) Comment: Interpretive Data Percent cell count reference ranges are not reported, since discordance with absolute values may lead to misinterpretation of CBC data. Current Interpretive Data was last revised on 2017. Monocyte pct 7.9 % [facility]) Comment: Interpretive Data Percent cell count reference ranges are not reported, since discordance with absolute values may lead to misinterpretation of CBC data. Current Interpretive Data was last revised on 2017. Eosinophil pct 3.6 % [facility] ([place]) Comment: Interpretive Data Percent cell count reference ranges are not reported, since discordance with absolute values may lead to misinterpretation of CBC data. Current Interpretive Data was last revised on 2017. Basophil pct 1.0 % [facility] ([place]) Comment: Interpretive Data Percent cell count reference ranges are not reported, since discordance with absolute values may lead to misinterpretation of CBC data. Current Interpretive Data was last revised on 2017. Blood 02/22/2025 10:4 4 AM CDT 02/22/2025 10:48 AM CDT us Aby [facility] BLOOD ORDERABLES Final Resu lt [facility] ([place]) [address] [facility] [place] [address] * CBC with auto differential (02/22/2025 10:44 AM CDT) WBC 6.19 3.80 - 9.90 K/cumm Hgb 13.4 11.9 - 15.5 g/dL [facility]) Hct 40.3 35.6 - 45.5 % [facility]) Plt 231 150 - 400 K/cumm [facility]) MPV 9.8 9.1 - 12.3 fL [facility]) RBC 4.57 3.90 - 5.20 M/cumm [facility]) MCV 88.2 81.3 - 96.4 fL [facility]) MCH 29.3 27.1 - 33.3 pg [facility]) MCHC 33.3 32.3 - 35.7 g/dL [facility]) RDW CV 13.9 11.1 - 14.9 % [facility]) RDW SD 44.8 35.7 - 48.1 fL [facility]) NRBC abs 0.00 0.00 - 0.01 K/cumm [facility]) Blood 02/22/2025 10:4 4 AM CDT 02/22/2025 10:48 AM CDT Aby [facility] BLOOD ORDERABLES Final Resu lt [facility] ([place]) [address] [facility] [facility] Department [place] [address] * Comprehensive metabolic panel (02/22/2025 10:44 AM CDT) Sodium 140 135 - 145 mmol/L [facility]) Potassium, pl 3.9 3.3 - 4.9 mmol/L [facility]) Chloride 106 97 - 110 mmol/L [facility]) CO2 24 22 - 32 mmol/L [facility]) Anion gap 10 2 - 15 mmol/L [facility]) BUN 12 6 - 25 mg/dL [facility]) Creatinine 0.82 0.60 - 1.10 mg/dL [facility]) Glucose 80 70 - 199 mg/dL [facility] ([place] [...] interpretive data was last revised 2022. Calcium 9.9 8.5 - 10.3 mg/dL [facility]) Bilirubin, total 0.3 0.1 - 1.2 mg/dL [facility] ([place]) Protein, pl 7.2 6.5 - 8.5 g/dL [facility]) Albumin 4.2 3.5 - 5.0 g/dL [facility]) Alk phos 82 40 - 130 Units/L [facility]) ALT 33 7 - 45 Units/L [facility]) AST 33 10 - 45 Units/L [facility] ([place]) Comment:HEMOLYZED; Blood 02/22/2025 10:4 4 AM CDT 02/22/2025 10:48 AM CDT us Aby [facility] BLOOD ORDERABLES Final Resu lt [facility] [address] [facility] Department [place] [address] * FL Fluoro Guided Lumbar Puncture (02/22/2025 8:55 AM CDT) Anatomical Region Laterality Modality Spine Right Radio Fluoroscop y 02/22/2025 12:1 2 PM CDT Addenda Addendum by Isabella Cuevas DO on 02/22/2025 12:27 PM CDT ADDENDUM: This addendum report supersedes the original report dated Patient had headaches after the lumbar puncture, which was 05/17, and subsequently the patient was transferred to the ER after discussing the findings with the ordering clinician. Findings were discussed with Javi Garcia NP, at 0950 hours on 02/22/2025. Findings were discussed with ER physician, Dr. Aleman at 0955 hours on 02/22/2025. END OF ADDENDUM REPORT THIS IS AN ELECTRONICALLY VERIFIED FINAL REPORT 02/22/2025 12:27 PM Addendum Electronically signed by Isabella Cuevas D.O. PS: PS Report ID: [id number] Reading Location: [id number] Narrative 02/22/2025 12:15 PM CDT EXAM DESCRIPTION: FL FLUORO GUIDED LUMBAR PUNCTURE REASON FOR STUDY: idiopathic intracranial hypertension idiopathic intracranial hypertension, Pseudotumor cerebri syndrome FT: 23 SEC MGY: 10.671 COMPARISON: 09/16/2023 RADIATION DOSE: Dose: 0.4690 mGycm2 Dose Area Product (DAP) TECHNIQUE: Fluoroscopy guided diagnostic lumbar puncture. PROCEDURE/FINDINGS: Informed written consent was obtained from the patient or patient representative government relations after risks and benefits were discussed. After fluoroscopic localization, sterile skin prep was performed with Betadine. Local Anesthesia performed with 1% Lidocaine. Using fluoroscopic guidance, a 22-gauge spinal needle was advanced to the thecal sac via paracentral approach at the L4-L5 level. The opening pressure was 13 mm H2O. A total of 13 mL of clear CSF was collected in 4 vials and sent to pathology for evaluation. The stylet was replaced and subsequently the needle was removed and a bandage applied. Needle placement was documented with fluoroscopic images. No immediate neurologic changes or complications. Discharge instructions were provided. Estimated blood loss: <5 mL IMPRESSION: 1. Technically successful fluoroscopy guided diagnostic lumbar puncture. THIS IS AN ELECTRONICALLY VERIFIED FINAL REPORT 02/22/2025 12:15 PM - Electronically signed by Isabella Cuevas D.O. PS: PS Report ID: [id number] Reading Location: [id number] Procedure Note Isabella Cuevas, DO - 02/22/2025 EXAM DESCRIPTION: FL FLUORO GUIDED LUMBAR PUNCTURE REASON FOR STUDY: idiopathic intracranial hypertension idiopathic intracranial hypertension, Pseudotumor cerebri syndrome FT: 23SEC MGY: 10.671 COMPARISON: 09/16/2023 RADIATION DOSE: Dose: 0.4690 mGycm2 Dose Area Product (DAP) TECHNIQUE: Fluoroscopy guided diagnostic lumbar puncture. PROCEDURE/FINDINGS: Informed written consent was obtained from the patient or patient representative government relations after risks and benefits were discussed. Afterfluoroscopic localization, sterile skin prep was performed with Betadine. LocalAnesthesia performed with 1% Lidocaine. Using fluoroscopic guidance, a 22-gaugespinal needle was advanced to the thecal sac via paracentral approach at theL4-L5 level. The opening pressure was 13 mm H2O. A total of 13 mL of clearCSF was collected in 4 vials and sent to pathology for evaluation. The styletwas replaced and subsequently the needle was removed and a bandage applied. Needle placement was documented with fluoroscopic images. No immediate neurologic changes or complications. Discharge instructions were provided. Estimated blood loss: <5 mL IMPRESSION: 1. Technically successful fluoroscopy guided diagnostic lumbarpuncture. THIS IS AN ELECTRONICALLY VERIFIED FINAL REPORT 02/22/2025 12:15 PM - Electronically signed by Isabella Cuevas D.O. PS: PS Report ID: [id number] Reading Location: [id number] Javi Garcia MATERIAL HANDLER FLOORPERSON IMG FLUOROSCOPY PROCEDURES Edited Result - Final * (ABNORMAL) Manual Cell Count, CSF (02/22/2025 8:31 AM CDT) Tube Number, CSF Tube 3 Color, CSF Colorless Colorless [facility]) Clarity, CSF Clear Clear [facility] ([place]) Nucleated cells, CSF 2 0 - 5 /cumm [facility] ([place]) RBC, CSF 9(H) 0 - 0 /cumm [facility] ([place]) CSF 02/22/2025 8:31 AM CDT 02/22/2025 9:13 AM CDT Javi Garcia NP LAB BODY FLUIDS AND STOOLS ORDERABLES Final Result [facility] ([place]) [address] [facility] Department [place] [address] * Bacterial culture and gram stain, CSF CSF (02/22/2025 8:31 AM CDT) Direct Specimen Exam Stain: Cytospin Gram stain shows: No polymorphonuclear leukocytes seen. No organisms seen. Comment:Testing performed by : [facility], [address] [place]., [address] Report Final Report: No growth [facility] ([place]) Comment:Testing performed by : [facility], [address] [place]., [address] CSF 02/22/2025 8:31 AM CDT 02/22/2025 10:19 AM CDT Narrative [facility] ([place]) - 02/27/2025 9:14 AM CDT Fluid specimen received in sterile container. Pre-made cytospin gram stain received with specimen. Testing performed by [facility] ([phone]). Javi Garcia NP LAB MICROBIOLOGY - GENERAL ORDERABLES Final Result [facility] [address] [facility] [place] [address] * Protein, total, CSF (02/22/2025 8:31 AM CDT) Protein, CSF 32 5 - 45 mg/dL [facility] CSF 02/22/2025 8:31 AM CDT 02/22/2025 9:15 AM CDT Javi Garcia MATERIAL HANDLER FLOORPERSON LAB BODY FLUIDS AND STOOLS ORDERABLES Final Result Performing Organization Address [facility] de Phone Number [facility] [address] [facility] [place] [address] * Glucose, CSF (02/22/2025 8:31 AM CDT) Glucose, CSF 60 mg/dL [facility] Comment: Reference Interval Information: CSF Glucose should be 60-66% of the most current plasma glucose concentration (milligrams/deciliter) CLIN. CHEM. 41/3, 343-360 (1994), Clinical Utility of Biochemical Analysis of Cerebrospinal Fluid, Clifford Burgess and Luis Alston. Current interpretive data was last revised on 2019. CSF 02/22/2025 8:31 AM CDT 02/22/2025 9:15 AM CDT Javi Garcia MATERIAL HANDLER FLOORPERSON LAB BODY FLUIDS AND STOOLS ORDERABLES Final Result Performing Organization Address City/[facility]/ZIP Co de Phone Number [facility] [address] [facility] [place] [address] from Last 3 Months Insurance IDPA [facility] OPEN ACCESS [employer]LE[employer]ANCE Advance Directives For more information, please contact: [phone] * Full Code (Latest Code Status on File) Date Activated Date Inactivated Comments 02/22/2025 8:46 AM 02/22/2025 9:58 AM Care Teams Data Entry Associate Relationship Specialty Start Date End Date Mayelin Ruffin MD [address] [id number] PCP - General Family Medicine 07/12/23
--- OUTSIDE RECORDS SUMMARY | 2025-05-24 20:19 | XMS_ITS | Clinical Summary ---
Author Organization [facility] [employer] Address [address] [place] [address] [place] [address] Care Team Providers Care Elevator Constructor Electric Name Role Phone Mayelin Ruffin MD Primary Care Provider +1- [phone] Allergies Active Allergy Reactions Criticality Noted Date [...] mg by mouth daily. 3 Active Insulin [place], Disposable, (Abigail Pen Needle) 32 gauge x 5/32 [address] [facility].(Non-Drug; Combo Route) route daily. 30 Each 3 [...] COVID-19 VACCINE - EMERGENCY USE AUTHORIZATION, MRNA, [id number](PF) 30 MCG/0.3 ML IM SUSP 06/27/2021,06/06/2021 (PNEUMOVAX [...] 3 - 19+ 3-dose series) 2008 HPV VACCINES (1 - 3-dose SCD M series) 2016 INFLUENZA VACCINE (#1) 2025 , 05/05/2023, 05/31/2022, Additional history exists COVID-19 Vaccine (3 - 2024-2 6 season) 2025 06/27/2021, 06/06/2021 Pre-Diabetes and Diabetes Screening 11/18/2025 11/18/2022, 04/14/2022, 04/15/2021, Additional history exists DTAP/TDAP/TD VACCINES (2 - T d or Tdap) 11/02/2027 11/01/2017 Procedures Procedure Name [...] diagnosis of diabetes in children. According to [place] Diabetes Association (ADA) guidelines, hemoglobin A1c <7.0% represents optimal control in non- diabetic patients. Different metrics may apply to specific patient populations. Standards of Medical Care in Diabetes(ADA). ESTIMATED AVERAGE GLUCOSE (MG/DL) 111 mg/dL [facility] ESTIMATED AVERAGE GLUCOSE (MMOL/L) 6.2 mmol/L [facility] Comment: Test Performed at: [facility] [address] [address] Elma Stoll MD Blood 11/18/2022 8:55 AM CDT 11/19/2022 5:47 AM CDT Natalie Quintana TRAFFIC LINE PAINTER CHEMISTRY ORDERABLES F inal Result [facility] [phone] [employer] [address] [address] [address] from Last 3 Months or Most Recently Relevant to Health Maintenance Insurance [employer] [facility] [facility] OPEN ACCESS * Guarantor: [employer] Account Type Relation to Patient Date of Phone Billing Address Corporate Employer ATTN: ANNA MEHTA [address] [address] [facility] [place] [phone] Care Teams Elevator Constructor Electric Relationship Specialty Start Date End Date Mayelin Ruffin MD [address] [facility] [address] [place] [id number] PCP - General Family Practice 09/19/23
--- OUTSIDE RECORDS SUMMARY | 2025-05-24 23:54 | XMS_ITS | Clinical Summary ---
Author Organization [facility] Address [address] [place] [address] Phone Care Team Providers Care Adjudication Specialist Name Role Phone Mono García MD Primary Care Provider [phone] Allergies Active Allergy Reactions Criticality Noted Date Comments Acetaminophen Other (see Comments) Medium 11/12/2024 Anger/aggression Acetazolamide Other (see Comments) 03/21/2025 [place] like mouth was on fire also tingling of toes Amoxicillin Other (see Comments) Low 10/22/2020 PCP [...] every 6 hours. 30 Tablet 5 Active topiramate (Topamax) 100 MG Tablet Take 200 mg by mouth 2 times daily. Active Active Problems Problem Noted Date Diagnosed Date Pseudotumor cerebri syndrome 03/31/2025 Bipolar 1 disorder with moderate ruma 4 POTS (postural orthostatic tachycardia syndrome) 09/30/2023 Morbid obesity with body mass index of 40.0-49.9 04/13/2023 Fibromyalgia 04/20/2021 PTSD (post-traumatic stress disorder) 01/22/2020 Prediabetes 11/22/2019 Asthma 12/19/2013 Encounters Date Type Department Care Team Description 05/01/2025 3:35 PM CDT Urgent Care Visit [facility] [place] [address] [place] [address] Bonnie Jay, [employer] Viral URI (Primary Dx); Chills; Acute cough; Fever, unspecified fever cause; Exposure to influenza; Sore throat Discharge Disposition: Discharged to home or Selfcare 05/01/2025 Travel 03/31/2025 10:05 AM CDT Urgent Care Visit [facility] [place] [address] [place] [address] Bonnie Jay, [employer], [employer] Vaginal yeast infection (Primary Dx); Dysuria; POTS (postural orthostatic tachycardia syndrome); Morbid obesity with body mass index of 40.0-49.9 (HCC); Bipolar 1 disorder with moderate ruma (HCC); Pseudotumor cerebri syndrome Discharge Disposition: Discharged to home or Selfcare 03/31/2025 Travel from Last 3 Months Immunizations Immunization Administration Dates Next Due H1N1 Flu, Unspecified Formulation 04/10/2020 Influenza Vaccine 08/30/2024 Influenza Vaccine, Quadrivalent, PF 04/09,05/31/2022,07/22/2021,2019 Influenza, Injectable, Mdck, Preservative Free 06/16/2019 Influenza, Injectable, Quadrivalent 04/2019,05/26/2018,03/08/2018,2015 Influenza, Seasonal, Injecta [...] Sign Reading Time Taken Comments Blood Pressure 114/74 05/01/2025 3:41 PM CDT Pulse 57 05/01/2025 3:41 PM CDT Temperature 36.4 C (97.6 F) 05/01/2025 3:41 PM CDT Respiratory Rate 14 05/01/2025 3:41 PM CDT Oxygen Saturation 99% 05/01/2025 3:41 PM CDT Inhaled Oxygen Concentration - - Weight 122.5 kg (270 lb) 09/15/2024 9:12 PM [employer] Height 162.6 cm (5' 4) 09/15/2024 9:12 PM [employer] Body Mass Index 46.35 09/15/2024 9:12 PM [employer] Plan of Treatment Health Maintenance Due Date Last Done Comments Hepatitis C Virus (HCV) Screening 1989 Hepatitis B Immunization (1 of 3 - 19+ 3-dose series) 2008 Human Papillomavirus (HPV) Immunization (1 - 3-dose SCDM series) 2016 Pneumococcal Immunization Combined (2 of 2 - PCV) 07/01/2021 07/01/2020 Influenza Immunization (#1) 04/08/202508/09, 08/30/2024, 05/05/2023, Additional history exists SARS-COV-2 Immunization (2024- season) 2025 06/27/2021, 06/06/2021 Td Immunization Every 10 Years (Adults With 1 Tdap) 11/02/2027 11/01/2017 Respiratory Syncytial Virus (RSV) Immunization (Adult) (1 - 1-dose 75+ series) 2064 DTaP/Tdap/Td Immunization Discontinued 11/01/2017 TdaP Immunization Discontinued 11/01/2017 Meningococcal Immunization (ACWY) Aged Out No longer eligible based on patient's age to complete this topic Rotavirus Immunization Aged Out No lo nger eligible based on patient's age to complete this topic Procedures Procedure Name Priority Date/Time Associated Diagnosis Comments POC GROUP A STREP BY MOLECULAR Routine 05/01/2025 4:12 PM CDT Sore throat POC SARS-COV-2 BY MOLECULAR Routine 05/01/2025 3:53 PM CDT Chills Acute cough Fever, unspecified fever cause POC INFLUENZA A AND B BY MOLECULAR Routine 05/01/2025 3:52 PM CDT Chills Acute cough Fever, unspecified fever cause Exposure to influenza POCT UA AUTOMATED W/O MICRO Routine 03/31/2025 10:14 AM CDT Dysuria from Last 3 Months Results * POC GROUP A STREP BY MOLECULAR (05/01/2025 4:12 PM CDT) [facility] STREP A DNA Negative Negative, Invalid PROCEDURE CONTROL Valid 05/01/2025 4:12 PM CDT [employer] Bonnie L [employer], [employer] POINT OF CARE TESTI NG (MANUAL) Final Result * POC SARS-COV-2 BY MOLECULAR (05/01/2025 3:53 PM CDT) [facility] SARSCOV2 Negative Negative, INVALID PROCEDURE CONTROL Valid Swab NASOPHARYNGEAL SWAB / Unknown 05/01/2025 3:53 PM CDT [employer] Bonnie L [employer], [employer] POINT OF CARE TESTI NG (MANUAL) Final Result * POC INFLUENZA A AND B BY MOLECULAR (05/01/2025 3:52 PM CDT) [facility] INFLUENZA A RNA Negative Negative, Invalid INFLUENZA B RNA Negative Negative, Invalid PROCEDURE CONTROL Valid Swab 05/01/2025 3:52 PM CDT Bon[employer], [employer] POINT OF CARE TESTI NG (MANUAL) Final Result * POCT UA AUTOMATED W/O MICRO (03/31/2025 10:14 AM CDT) [facility] POC UA SPECIFIC GRAVITY 1.010 URINE PH 8.0 5.0 - 9.0 POC URINE LEUKOCYTES Negative Negative Ted/uL POC URINE NITRITE Negative Negative POC URINE PROTEIN Negative Negative mg/dL POC URINE GLUCOSE Norm Negative, Norm mg/dL POC URINE KETONE Negative Negative mg/dL POC URINE UROBILINOGEN Norm Norm, 0.2 E.U./dL (mg/dL), 1 E.U./dL (mg/dL) POC URINE BILIRUBIN Negative Negative mg/dL POC URINE BLOOD INSTRUMENT Negative Negative Manjeet/uL POC URINE COLOR Yellow POC URINE CLARITY Clear Urine 03/31/2025 10:1 4 AM CDT us Bonnie Jay [employer], [employer] POINT OF CARE TESTI UMAIR (MANUAL) Final Result from Last 3 Months Insurance [employer] [facility] Care Teams Adjudication Specialist Relationship Specialty Start Date End Date Mono García MD [address] [place] [address] PCP - General Emergency Medicine 11/24/20
--- OUTSIDE RECORDS SUMMARY | 2025-05-24 23:54 | XMS_ITS | Data Portability ---
[facility] Address [address] [place] [address] Assessment No assessment recorded. Plan of Treatment Reminders Order Date Submit Date Provider Last Modified By Organization Details Last Modified Time Details Appointments None recorded. Lab PPD (purified protein derivative ), skin test 2017 018 [place] In-Office Order, Internal Use Only DO Not Attach Compendium DO Not Attach Compendium, Do Not Delete/merge, [id number] 8 12:40:03 MMR immunity, serum 2017 018 [place] [facility], [address], [place], [address], 8 17:12:42 Referral urologist referral - please call patient to schedule appt. 2016 017 [email or web address] Not available 7 11:29:53 Procedures None recorded. Surgeries None recorded. Imaging None recorded. Medication Orders butalbital -acetamino phen-caffe ine 50 mg-325 mg-40 mg tablet [address] , [address], [place], [place], [id number], 8 13:20:41 amoxicilli n 500 mg capsule 2016 017 [id number] [address] [facility], [place], [place], [id number], 7 13:19:08 ibuprofen 800 mg tablet 2016 017 [facility], [id number], 7 13:22:34 Patient TargetsNo targets recorded. Patient [...] 0.99 Immun e >0.99 Not Available [facility] ([facility]) [address] [facility], [place], [address], 11/02/2017 17:12:42 11/02/19 18 11/02/2017 MMR immun ity, serum rubeola Ab, IgG 106.0 AU/mL immune >29.9 Negat randal <25.0 Equiv ocal 25.0 - 29.9 Posit randal >29.9 Prese nce of antib odies to Rubeo la is presu mptiv e evide nce of immun ity excep t when acute infec tion is suspe cted. Not Available [facility] ([facility]) [address] [facility], [place], [address], 11/02/2017 17:12:42 11/02/19 18 11/02/2017 MMR immun ity, serum mumps abs, IgG 12.8 AU/mL immune >10.9 Negat randal <9.0 Equiv ocal 9.0 - 10.9 Posit randal >10.9 A posit randal resul t gener ally indic ates past expos ure to Mumps virus or previ ous vacci natio n. Not Available [facility] ([facility]) [address] [facility], [place], [address], 11/02/2017 17:12:42 11/04/19 18 11/03/2017 PPD (nestor fied prote in deriv ative ), skin test Result Negati ve Not Available In-Office Order Internal Use Only DO Not Attach Compendium DO Not Attach Compendium, Do Not Delete/merge, [id number] 11/01/2017 12:51:45 04/27/20 17 04/26/2017 CT, abdom en + pelvi s, w/o contr ast No observ ation record ed. [address] [place], [address], 05/09/2017 14:37:18 10/12/19 18 10/11/2017 [place], kidne y No observ ation record ed. [address] (Imaging) [address] [place], [address], 10/20/2017 10:36:02 Result Notes None recorded. Problems Name Problem SNOMED Code Status Onset Date Resolution Date Notes Provider Name and Address Organization Details Recorded Time Bipolar disorder 96492388 Active Followe by Sybil Gonzalez in [facility] Roxanne Au PA-C Attn: Accounting ,[address], [place], [address] , [place] - [facility] 6 14:50:46 Asthma 693320351 Active Roxanne Au PA-C Attn: Accounting ,[address], [place], [address] , [place] 6 14:50:46 Chronic back pain 951594856 Active Laura Cooney MA null, [place] [facility] 6 15:56:47 Obesity 138218679 Active Roxanne Au PA-C Attn: Accounting ,[address], [place], [address] , [place] [facility] 6 11:52:16 Celiac disease 801837667 Active diagnosed as a baby and then re-dagnose d at 17 Roxanne Au PA-C Attn: Accounting ,[address] [place], [place], [address] [place] [address] , [place] [facility] 6 14:53:28 Upper respirato ry infection 53044082 Active Roxanne Au PA-C Attn: Accounting ,[address] [place], [place], [address] [place] [address] , [place] [facility] 6 11:52:16 Cramp in lower limb 641912098 Active Roxanne Au PA-C Attn: Accounting ,[address] [place], [place], [address] [place] [address] , [place] [facility] 6 14:50:46 Increased liver function 73081762 Active Roxanne Au PA-C Attn: Accounting ,[address] [place], [place], [address] [place] [address] , [place] [facility] 6 14:50:46 Allergic dispositi on 798201869 Active Roxanne Au PA-C Attn: Accounting ,[address] [place], [place], [address] [place] [address] , [place] [facility] 6 14:50:46 Low back pain 372647724 Active Maximo Taveras MD Attn: Accounting ,[address] [place], [place], [address] [place] [address] , [place] [facility] 6 13:11:57 Pharyngit is 362532132 Active Laura Cooney [place] null, [place] [facility] 6 15:56:47 Malignant neoplasm of ovary 906007554 Active 2008 Stage 3C when found; bilateral oophorecto my, hysterecto my with cervix and fallopian tubes - oncologist is at [facility] - s/p tumor removal - currently in remission since 10/10/2010 Roxanne Au PA-C Attn: Accounting ,[address] [place], [address] , [place] [facility] 6 11:52:16 Cyst of breast 240263192 Active 2011 has been told in the past d/t caffeine 2011 Roxanne Au PA-C Attn: Accounting ,[address], [place], [address] , [place] [facility] 6 14:53:28 Headache 91555387 Active 2016 Maximo Taveras MD Attn: Accounting ,[address], [place], [address] , [place] [facility] 7 13:05:26 Menopausa l syndrome 595019946 Active 2016 Clifford Breen [facility], [place] - [facility] 7 11:56:29 Apnea 9813779 Active 2016 Maximo Taveras MD Attn: Accounting ,[address], [place], [address] , [place] [facility] 7 14:43:44 Left flank pain 405301365 Active 2016 Maximo Taveras MD Attn: Accounting ,[address], [place], [address] , [place] [facility] 7 14:47:34 History of hematuria 482611477 Active 2016 Maximo Taveras MD Attn: Accounting ,[address] [place], [address] , [place] [facility] 7 14:48:04 Tendernes s of mastoid 431670456 Active 2016 left Maximo Taveras MD Attn: Accounting ,[address], [place], [address] , [place] [facility] 7 13:13:13 Active immunizat ion Active 2017 Maximo Taveras MD Attn: Accounting ,[address] [place], [address] , [place] [facility] 8 12:50:34 Tuberculo sis screening Active 2017 Maximo Taveras MD Attn: Accounting ,[address], [place], [address] , [facility] 8 12:51:05 Notes:Bleomycin toxicity - i n remission Problem Notes None recorded. Procedures Surgical History Date Name Laterality Status Provider Name and Address Organization Details Recorded Time 07/14/20 16 Date of Last Pap Smear completed Zaira Caraballo MA [facility] 09/02/2016 14:56:17 08/08/19 09 Hysterectomy completed Ebony Jade MA [facility] 08/19/2015 14:32:35 08/08/19 09 Other completed Ebony Jade MA [facility] 08/19/2015 14:32:35 Imaging Results None recorded. Procedure Notes None recorded. Medical Equipment None Reported. Allergies Allergen ID Allergen Name Allergen Category Reaction Reaction Severity Criticality Documentation Date Start Date Code Code System Note Provider Name and Address Organization Details Recorded Time 41518 Compazine medicatio n vomiting Not available Not available 08/19/2015 25326 6 RxNorm Ebony Jade MA null, [facility] 6 14:32:35 Medications Name Sig Start Date [...] Available Not Available Not Avai lable Evening [place] 500 mg capsule Take 1 capsule every [...] blood by Pulse oximetry Heart rate Systolic And Diastolic Provider Name and Address Organization Details Last Updated DateTime 8 165.1 cm 40.1 kg/m2 001246. 19 g 98.3 [degF] 99 % 99 % 60 /min 124/82 mm[Hg] Laura Cooney MA [facility] 8 11:50:18 Date Recorded Body height Body mass index (BMI) Body weight Body temperature Oxygen saturation Oxygen saturation in Arterial blood by Pulse oximetry Heart rate Systolic And Diastolic Provider Name and Address Organization Details Last Updated DateTime 8 165.1 cm 40.1 kg/m2 371945. 19 g 98.3 [degF] 99 % 99 % 102 /min 126/80 mm[Hg] Laura Cooney MA [facility] 8 12:10:01 Date Recorded Body height Body mass index (BMI) Body weight Body temperature Oxygen saturation Oxygen saturation in Arterial blood by Pulse oximetry Heart rate Systolic And Diastolic Provider Name and Address Organization Details Last Updated DateTime 7 165.1 cm 40.6 kg/m2 846088. 54 g 98.5 [degF] 99 % 99 % 81 /min 124/82 mm[Hg] Luara Cooney MA [place] - [facility] 7 14:19:35 Date Recorded Body height Body mass index (BMI) Body weight Body temperature Oxygen saturation Oxygen saturation in Arterial blood by Pulse oximetry Heart rate Systolic And Diastolic Provider Name and Address Organization Details Last Updated DateTime 7 165.1 cm 40.4 kg/m2 385708. 23 g 98.5 [degF] 99 % 99 % 82 /min 122/78 mm[Hg] Laura Cooney MA [place] - [facility] 7 12:53:44 Social History Question Answer Notes LastModified by Organizat ion Details LastModified Time Tobacco Smoking Status Never Smoker Ebony Jade MA [facility], [place] - [facility] 08/19/2015 14:32:35 Do You Have An Advance Directive? No [email or web address] Information not available 08/19/2015 Is Blood Transfusion Acceptable In An Emergency? Yes Information not available 09/02/2016 What Is Your Level Of Caffeine Consumption? Moderate [email or web address] Information not available 08/19/2015 How Much Tobacco Do You Chew? None Information not available 08/19/2015 What Type Of Diet Are You Following? REGULAR [email or web address] Information not available 08/19/2015 Which Illicit Or Recreational Drugs Have You Used? 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 No Information not available 08/19/2015 Hard Of Hearing Or Deaf In One Or Both Ears? No [email or web address] Information not available 08/19/2015 Legally Blind In One Or Both Eyes? No [email or web address] Information not available 08/19/2015 Live Alone Or With Others? With Others [email or web address] Information not available 08/19/2015 What Was The Date Of Your Most Recent Tobacco Screening? 11/01/2017 Information not available 03/01/2019 How Many Children Do You Have? 0 [email or web address] Information not available 08/19/2015 Performs Monthly Self-breast Exam? No Discuss Self Exams C Pt And Given Info To Pt, Cbma Information not available 09/02/2016 Do You Use Protection During Sex? Always [email or web address] Information not available 08/19/2015 Seat Belts Used Routinely Yes [email or web address] Information not available 08/19/2015 Are You Sexually Active? Yes [email or web address] Information not available 08/19/2015 Smoke Alarm In Home Yes Information not available 08/19/2015 At What Age Did You Start Smoking Tobacco? 0 Information not available 08/19/2015 Are You Passively Exposed To Smoke? No [email or web address] Information not available 08/19/2015 How Much Tobacco Do You Smoke? No [email or web address] Information not available 08/19/2015 General Stress Level Low [email or web address] Information not available 08/19/2015 How Many Years Have You Smoked Tobacco? 0 [email or web address] Information not available 08/19/2015 Sex: Unknown Functional Status Question Answer Note LastModified by [employer] ion Details LastModified Time What is your level of alcohol consumption? Occasional [email or web address] Information not available 08/19/2015 Are you currently employed? No Information not available 08/19/2015 Are you able to care for yourself independently? 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 None [email or web address] Information not available 08/19/2015 Mental Status None [...] [email or web address] Not available 2015 12:11:25 Father Malignant neoplasm of pancreas 65 65 [email or web address] Not available [...] Recorded Time Tdap 8 completed Not Available [facility] 08/25/2019 02:35:21 Influenza, split virus, quadrivalent, preservative 6 completed Not Available [facility] 08/25/2019 02:32:12 Past Encounters Encounter ID Performer Location Encounter Start Date Encounter Closed Date Diagnosis/Indication Diagnosis SNOMED-CT Code Diagnosis ICD10 Code Diagnosis IMO Codes Diagnosis Note [id number] Fred Soto MD [facility] (Adult Med) [address] [place] [address] 08/19/2015 13:57:36 08/19/2015 18:07:49 Chronic back pain 732323866 R52 Fell while doing chemo in 2008 and broke her back Obesity 947222971 E66.9 25YO F with a hx/o ovarian cancer s/p tumor, bilateral oophorecto my, JONAS with cervix removal in 2008 and is currently in remission here to establish care. Active or passive immunization 411564194 Z23 Upper resp iratory infection 21873810 J06.9 Advised to increase liquid intake Malignant neoplasm of ovary 285999587 C56.9 In remission Would like OBGYN to follow patient d/t hx/o cancer Oncology is also following patient and she f/u's with them yearly Bipolar disorder 3150433 4 F31.9 Followed by psych at [facility] [id number] Amelie Rae MD [facility] (Adult Med) [address] [place] [phone] 0 09/10/2015 14:24:24 09/10/2015 14:55:07 Asthma 193599958 J45.909 States she has been on Advair in the past but right now she only has a rescue inhaler - when she has a maintenanc e inhaler she does not have issues with cough Will try Asmanex because it is covered under her insurance Cramp in lower limb 4499 03664 R25.2 Flexeril has helped for leg spasms and cramping in the past Will use PRN for leg cramps [id number] MD Jerry Baca (Adult Med) [address] [place] [address] [phone] 0 11/11/2015 13:57:01 11/11/2015 14:52:22 Asthma 991231945 J45.909 States she has been on Advair in the past but right now she only has a rescue inhaler - when she has a maintenanc e inhaler she does not have issues with cough Will try Asmanex because it is covered under her insurance Bipolar disorder 0175349 4 F31.9 Followed by psych at [facility] Increased liver function 01346766 R94.5 Chronic back pain 782081 002 R52 WIll refer to PT - back pain worsens after working out - discussed she may need help strengthen ing her back muscles Allergic disposition 609 942335 Z91.09 Cramp in lower limb 4499 37885 R25.2 flexeril working well [id number] MD Jerry Soni (Adult Med) [address] [place] [address] [phone] 0 01/27/2016 11:55:00 01/27/2016 18:02:54 Low back pain 676226199 M54.5 [id number] MD Jerry Soni (Adult Med) [address] [place] [address] [phone] 0 04/19/2016 13:31:53 04/20/2016 10:00:29 Pharyngitis 534945120 J02.9 Strep screen negative Chronic back pain 787600 002 R52 Pain in throat 068644196 R07.0 [id number] MD Jerry Mchugh (RN MEDICARE) [address] [place] [address] [phone] 0 09/02/2016 14:04:49 09/06/2016 14:26:40 Bipolar disorder 67055990 F31.9 Menopausal syndrome 1237 65518 N95.9 Family alethea nning surveillance 669697724 Z30.09 Fibrocysti c disease of breast 32720093 N60.12 Malignant neoplasm of ovary 469858141 C56.9 [id number] MD Jerry Soni (Adult Med) [address] [place] [address] [phone] 0 03/08/2017 10:50:35 03/08/2017 13:14:41 Cramp in lower limb 033660938 R25.2 Will try other muscle relaxant Headache 53319717 R51 [id number] MD Jerry Mchugh (RN MEDICARE) [address] [place] [address] [phone] 0 03/21/2017 09:44:04 03/22/2017 16:14:54 Menopausal syndrome 760288929 N95.9 Malignant neoplasm of ovary 521035635 C56.9 Stage 3C when found; bilateral oophorecto my, hysterecto my with cervix and fallopian tubes - oncologist is at [facility] - s/p tumor removal - currently in remission since 10/10/2010 Obesity 678605766 E66.9 [id number] MD Jerry Soni (Adult Med) [address] [place] [address] [id number] 0 05/09/2017 12:53:17 05/09/2017 15:21:36 History of hematuria 027372305 Z87.448 Left flank pain 92291511 9 R10.9 [id number] MD Jerry Soni (Adult Med) [address] [place] [address] [phone] 07/12/2017 11:34:50 07/12/2017 13:58:33 Asthma 256028993 J45.909 Headache 77566060 R51 Tenderness of mastoid 27 7712240 H92.09 [id number] MD Jerry Soni (Adult Med) [address] [place] [address] [id number] 0 10/10/2017 11:21:06 10/10/2017 16:47:23 Headache 80427249 R51 Possible migraine. Discussed use of fioricet [id number] MD Jerry Soni [facility] (Adult Med) [address] [place] [address] 11/01/2017 11:52:51 11/01/2017 15:29:34 Active immunization 34633854 Z23 Tuberculos is screening 776414104 Z11.1 Health Concerns Section Related Observation LastModified by Organization Detai ls LastModified Time None Recorded Concern Status LastModified by Organization Details LastModified Time None Recorded Advance Directives Directive N: Payers Insurance Date Sequence Insurance Name Policy Number Policy Christianson Covered Member ID Christianson Member ID Guarantor Name 12/11/2019 2 MEDICARE-[place] (MEDICARE) Svitlana [place] [id number] Svitlana [place] 04/16/2018 PAYMENT PLAN Svitlana [place] 12/11/2019 1 MEDICAID-[place]: [facility] Svitlana [place] [id number] Svitlana [place] 07/31/2017 PAYMENT PLAN Svitlana [place] Notes Date Note Type Note Provider Name and Address Organization Details Recorded Time 05/09/2017 text/html Persist left flank pain x3wks. CT abdomen non-revealing. Pain persists. Hx of renal stones about two years ago Maximo Taveras MD Attn: Accounting,[address] [place], [address], [facility] 05/09/2017 14:56:22 07/12/2017 text/html Headaches have recurred since last visit. She has had to use her inhalers and has experienced left ear pain. Denies sore throat. Maximo Taveras MD Attn: Accounting[address] [place], [address], [facility] 07/12/2017 13:20:15 10/10/2017 text/html Seen in urgent care one week ago for three day headache associated with photophobia, noise sensitivity and nausea. Pain in frontal and occipital areas. This was first episode. Maximo Taveras MD Attn: Accounting,[address] [place], [address], [facility] 10/10/2017 12:19:21 11/01/2017 text/html Needs pre-employment physical Maximo Taveras MD Attn: Accounting,[address] [place], [address], [place] [facility] 11/01/2017 12:54:35 OBGyn Episode No OBEpisode recorded.
--- OUTSIDE RECORDS SUMMARY | 2025-05-24 23:54 | XMS_ITS | Encounter Summary ---
Author Organization [facility] Address [address] [facility] [place] [address] Care Team Providers Care Padder Cushion Name Role Phone Mayelin Ruffin MD Primary Care Provider [phone] Encounter Details Date Type Department Care Team (Late st Contact Info) Description 04/16/2025 Ophth Exam [facility] - Ophthalmology [address] [place] [address] Elias Lozano MD [address] [facility] [place] [address] Social History Tobacco Use Types [...] Recorded Patient Health Questionnaire-2 Score 0 02/27/2025 [facility] [facility] - Occupational Stress [...] any time in the past [address] [facility], were you homeless or living in a skilled nursing (including now)? 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 No 04/16/2025 6:14 PM [facility]AC[facility] Maya Tirana RN Does person have difficulty dressing/bathing? No [...] one occasion? Never 04/16/2025 6:13 PM Arlene Aelxander RN * AUDIT-C Score Answer Date of [...] st Contact Info) Description 06/26/2025 9:00 AM TURNING SANDER OPERATOR Office Visit [facility] - Neurology [address] [facility] [place] [phone] Eva Salinas PA-C [address] [place] [address] 07/03/2025 2:30 PM TURNING SANDER OPERATOR Office Visit [facility] - Pulmonology [address] [place] [address], [place] [phone] Zia Warner, [address] [place] [phone] 08/26/2025 3:00 PM TURNING SANDER OPERATOR Office Visit [facility] - Neurology [address] [place] [address], [place] [phone] Marie Parson, OFFICE SUPPORT SPECIALIST-DISPATCHER [place] [address] [place] [address] [address] [place] [phone] 09/25/2025 3:20 PM TURNING SANDER OPERATOR Office Visit [facility] - Sleep Services [address] [phone] Jeffery Dunaway MD [address] [phone] documented as of this encounter Visit Diagnoses Not on filedocumented in this encounter Care Teams Padder Cushion Relationship Specialty Start Date End Date Mayelin Ruffin MD [address] [place] [address] [address] [place] [phone] PCP - General Family Medicine 06/29/23 documented as of this encounter
--- OUTSIDE RECORDS SUMMARY | 2025-05-24 23:54 | XMS_ITS | Encounter Summary ---
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
--- OUTSIDE RECORDS SUMMARY | 2025-05-24 23:54 | XMS_ITS | Clinical Summary ---
Author Organization [facility] [employer] Address [address] [place] [address] Care Team Providers Care Occupational Health Nursing Director Name Role Phone Mayelin Ruffin MD Primary Care Provider [phone] Source Comments [facility],non-owned Affiliates and Associated Physician Practices is amultiple site organization consisting of ambulatory clinics and hospital sitesin [place], [place], [place] and [place]. This disclosure is being madepursuant to the Care Everywhere program and may not contain all information available regarding this patient. 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 EMERGENCY DEPARTMENT [address] [place] [address] Marcus Sloan MD Acute intractable headache, unspecified headache type; Migraine with status migrainosus, not intractable, unspecified migraine type Discharge Disposition: Home or Self Care 05/04/2025 Telephone [facility] - Neurology [address] [place] [phone] Lilly Rome DO Headache 04/29/2025 Travel 04/25/2025 9:00 AM CDT Office Visit [facility] - Neurology [address] [place] [phone] Marie Parson, METALLURGY LABORATORY TECHNICIAN-GALLERY ASSISTANT Migraine without aura and without status migrainosus, not intractable (Primary Dx); Insomnia, unspecified type; Psychogenic nonepileptic seizure; IIH (idiopathic intracranial hypertension); Migraine with aura and without status migrainosus, not intractable 04/25/2025 Travel 04/19/2025 Orders Only [facility] - Family Medicine [address] [place] [phone] Cleo Daniel 04/19/2025 Refill [facility] Family Medicine [address] [place] [phone] Mayelin Ruffin MD Headache; Refill Request; Patient Requested Call 04/19/2025 Telephone [facility] - Centralized Scheduling [address] [place] [address] Mayelin Ruffin MD Patient Requested Call 04/18/2025 8:20 AM CDT Clinical Support [facility] - Ophthalmology [address] [place] [phone] Daniel Calix MD IIOsorio (idiopathic intracranial hypertension) (Primary Dx); Papilledema 04/18/2025 8:15 AM CDT Office Visit [facility] - Ophthalmology [address] [place] [phone] Daniel Calix MD II (idiopathic intracranial hypertension) (Primary Dx); Papilledema 04/18/2025 8:10 AM CDT Clinical Support [facility] - Ophthalmology [address] [place] [phone] Daniel Calix MD II (idiopathic intracranial hypertension) (Primary Dx); Papilledema 04/18/2025 Travel 04/16/2025 Ophth Exam [facility] Ophthalmology [address] [place] [phone] Elias Lozano MD 04/15/2025 10:22 PM CDT - 04/17/2025 7:45 PM CDT Hospital Encounter [facility] Early Admission Unit [address] [place] [address] [facility] Discharge Disposition: Home or Self Care 04/15/2025 Telephone [facility] - Ophthalmology [address] [place] [phone] Elias Lozano MD Eye Problem 04/09/2025 Telephone [facility] - Ophthalmology [address] [place] [phone] Carlos Youngblood MD Eye Problem 04/03/2025 11:40 AM CDT Clinical Support [facility] - Ophthalmology [address] [place] [phone] Daniel Calix MD Papilledema (Primary Dx) 04/03/2025 11:35 AM CDT Clinical [facility] [address] [place] [phone] Daniel Calix MD Papilledema (Primary Dx) 04/03/2025 11:30 AM CDT Clinical Support [facility] - Ophthalmology [address] [place] [phone] Daniel Calix MD Papilledema (Primary Dx) 04/03/2025 10:45 AM CDT Office Visit [facility] - Ophthalmology [address] [place] [phone] Daniel Calix MD Papilledema (Primary Dx); IIH (idiopathic intracranial hypertension) 04/03/2025 Travel 04/03/2025 Telephone [facility] - Family Medicine [facility] [place] [address] Nuvia Butler PA-C Vision Change 04/02/2025 Travel 04/01/2025 Telephone [facility] - Neurology [address] [place] [phone] Ceci Lr MD Follow-up 03/27/2025 Telephone [facility] - Ophthalmology [address] [place] [phone] Sanam Buck Question (Patient was calling back to see about scheduling she said she spoke to the exceptional student education aide physician last night message sent to Dr Youngblood to follow up) 03/26/2025 Telephone [facility] - Ophthalmology [address] [place] [phone] Carlos Youngblood MD Eye Problem 03/21/2025 4:00 PM CDT Office Visit [facility] Physician [facility] - Family Medicine [address] [place] [phone] Mayelin Ruffin MD Pseudotumor cerebri (Primary Dx); Morbid obesity (HCC); Dilated cardiomyopathy (HCC); Bipolar 1 disorder with moderate ruma (HCC) 03/21/2025 Travel 03/12/2025 Travel 03/12/2025 Transitional Care [facility] - Family Medicine [address] [place] [phone] Erica Conteh RN Hospital Follow-up 03/11/[address] [facility] 5N ACUTE [address] [place] [address] Josy Phillips MD Refill Request 03/06/2025 12:17 AM CDT - 03/11/2025 2:09 PM CDT Hospital Encounter [facility] 5N ACUTE [address] [place] [address] Carol Munguia MD Atilgan, Deniz, MD Kafaie, Jafar, MD Neurology Discharge Disposition: Home or Self Care 03/05/2025 1:45 PM CDT Office Visit [facility] - Ophthalmology [address] [place] [phone] Daniel Calix MD Edema of optic disc of left eye (Primary Dx); Partial optic atrophy of right eye; Vision, loss, sudden, bilateral 03/05/2025 1:30 PM CDT Clinical Support [facility] - Ophthalmology [address] [place] [phone] Daniel Calix MD Papilledema (Primary Dx) 03/05/2025 1:25 PM CDT Clinical Support [facility] - Ophthalmology [address] [place] [phone] Daniel Calix MD Papilledema (Primary Dx) 03/05/2025 1:20 PM CDT Clinical Support [facility] - Ophthalmology [address] [place] [phone] Daniel Calix MD Vision, loss, sudden, bilateral (Primary Dx) 03/05/2025 Travel 03/02/2025 Orders Only [facility] - Family Medicine [address] [facility], [place] [address] Wild Patricio MD 02/28/2025 Travel 02/27/2025 2:40 PM CDT Video Visit [facility] Family Medicine [address] [place] [address], [place] [address] Mayelin Ruffin MD Chronic intractable headache, unspecified headache type ; Vision, loss, sudden, bilateral 02/26/2025 Telephone [facility] - Centralized Scheduling [address] [place] [address] Mayelin Ruffin MD Patient Requested Call 02/23/2025 2:30 PM CDT - 02/23/2025 11:[address] [facility] EMERGENCY DEPARTMENT [address] [place] [address] Philippe Garcia MD History of lumbar puncture; Acute nonintractable headache, unspecified headache type Discharge Disposition: Home or Self Care 02/23/2025 Travel 02/22/2025 Telephone [facility] - Centralized Scheduling [facility] [place] [address] Mayelin Ruffin MD Patient Requested Call from Last 3 Months Immunizations Immunization Administration Dates Next Due INFLUENZA VACCINE, TRIV. (AF LURIA, FLUZONE TRIVALENT; 6MO+) (IIV3) 04/14/2020 FLU VACCINE QUAD IIV4 SPLIT 0.25 ML IM 06/16/2019,05/26/2018,08/19/2015 INFLUENZA A G3K8-50 VACCINE 04/10/2020 INFLUENZA VACCINE, CELL CULT URE, [...] Recorded Patient Health Questionnaire-2 Score 0 02/27/2025 [facility] - Occupational Stress [...] any time in the past 12 m [facility], were you homeless or living in a fci (including now)? No 04/16/2025 Comments No Sex and Gender Information Value Date Recorded Sex Assigned at Female 07/05/2023 4:04 PM ROLLING MILL OPERATOR Legal Sex Female 4:40 PM CDT Gender Identity Female 07/05/2023 4:04 PM ROLLING MILL OPERATOR Sexual Orientation Bisexual 07/05/2023 4: 04 PM ROLLING MILL OPERATOR Last Filed Vital Signs Vital Sign [...] st Contact Info) Description 06/26/2025 9:00 AM ROLLING MILL OPERATOR Office Visit [facility] - Neurology [address] [facility] [place] [address] Eva Salinas PA-C [address] [place] [address] 07/03/2025 2:30 PM ROLLING MILL OPERATOR Office Visit [facility] - Pulmonology [address] [facility] [place] [phone] Zia Warner DO [address] [place] [phone] 08/26/2025 3:00 PM ROLLING MILL OPERATOR Office Visit [facility] - Neurology [address] [facility] [place] [phone] Marie Parson, METALLURGY LABORATORY TECHNICIAN-GALLERY ASSISTANT [facility] [place] [phone] 09/25/2025 3:20 PM ROLLING MILL OPERATOR Office Visit [facility] - Sleep Services [address] [facility] [address] [place] [phone] Jeffery Dunaway MD [address] [facility] [address] [place] [address] Health Maintenance Due Date Last Done Comments [...] CDT Papilledema IIH (idiopathic intracranial hypertension) CYTOLOGY NON-ANY COMMODITY SALES DELIVERER PANEL (STL) STAT 04/17/2025 1:13 PM CDT [...] report was drafted by Isidra Keenan MD (vice president of customer service) 05/05/2025 7:10 PM. > Dictated by Isidra Keenan MD 05/05/2025 7:07 PM > Dictated by Icer Hand I, Edson Neely MD have personally reviewed and interpreted this examination/study. > Interpreting Provider: Edson Neely MD on 05/05/2025 8:31 PM Narrative 05/05/2025 8:31 PM CDT PROCEDURE: CT HEAD WO CONTRAST, DATE/TIME OF EXAM: 05/05/2025 6:45 PM, LOCATION [facility] INDICATION: R51.9: Acute intractable headache, unspecified headache [...] DATE/TIME OF EXAM: 05/05/2025 6:45 PM, LOCATION [facility] INDICATION: R51.9: Acute intractable headache, unspecified headache [...] report was drafted by Isidra Keenan MD (vice president of customer service) 05/05/2025 7:10 PM. > Dictated by Isidra Keenan MD 05/05/2025 7:07 PM > Dictated by Icer Hand I, Edson Neely MD have personally reviewed and interpretedthis examination/study. > Interpreting Provider: Edson Neely MD on 05/05/2025 8:31 PM us Isa Castillo PA-C CT ORDERABLES Final Result * CBC W AUTO DIFFERENTIAL (05/05/2025 5:45 PM CDT) Only the most recent of4 resultswithin the time period is included. WBC 5.7 4.0 - 10.7 x10E9/L 05/05/2025 6:23 PM [facility] RBC Count 4.99 3.90 - 5.20 x10E12/L 05/05/2025 6:23 PM [facility] Hemoglobin 14.3 11.9 - 15.8 g/dL 05/05/2025 6:23 PM [facility] Hematocrit 41.5 34.8 - 46.1 % 05/05/2025 6:23 PM [facility] MCV 83.2 80.0 - 98.0 fL 05/05/2025 6:23 PM [facility] MCH 28.7 26.7 - 33.6 pg 05/05/2025 6:23 PM [facility] MCHC 34.5 31.7 - 36.3 g/dL 05/05/2025 6:23 PM [facility] RDW-CV 13.7 11.3 - 14.8 % 05/05/2025 6:23 PM [facility] Platelet Count 231 150 - 420 x10E9/L 05/05/2025 6:23 PM [facility] MPV 10.7 7.8 - 11.4 fL 05/05/2025 6:23 PM [facility] Neutrophil % 66.7 41.0 - 74.0 % 05/05/2025 6:23 PM [facility] Lymphocyte % 24.9 17.0 - 47.0 % 05/05/2025 6:23 PM [facility] Monocyte % 7.6 3.0 - 11.0 % 05/05/2025 6:23 PM [facility] Eosinophil % 0.2 0.0 - 7.0 % 05/05/2025 6:23 PM [facility] Basophil % 0.4 0.0 - 1.6 % 05/05/2025 6:23 PM [facility] Immature Granulocytes % 0.2 0.0 - 1.0 % 05/05/2025 6:23 PM [facility] Neutrophil Absolute 3.78 1.60 - 7.50 x10E9/L 05/05/2025 6:23 PM [facility] Lymphocyte Absolute 1.41 1.00 - 4.40 x10E9/L 05/05/2025 6:23 PM [facility] Monocyte Absolute 0.43 0.15 - 1.00 x10E9/L 05/05/2025 6:23 PM [facility] Eosinophil Absolute 0.01 0.00 - 0.60 x10E9/L 05/05/2025 6:23 PM [facility] Basophil Absolute 0.02 0.00 - 0.13 x10E9/L 05/05/2025 6:23 PM [facility] Blood BLOOD SPECIMEN / Unknown 05/05/2025 5:45 PM CDT 05/05/2025 6:18 PM CDT Isa Castillo PA-C LAB - HEMATOLOGY LACEY BRANDON Final Result [facility] [address] [place] [address], [facility] [phone] * (ABNORMAL) COMPREHENSIVE METABOLIC PANEL (05/05/2025 5:45 PM CDT) Only the most recent of5 resultswithin the time period is included. BUN 17 7 - 26 mg/dL 05/05/2025 6:45 PM [facility] Creatinine 0.88 0.56 - 0.96 mg/dL 05/05/2025 6:45 PM [facility] Sodium 137 136 - 145 mmol/L 05/05/2025 6:45 PM T [facility] Potassium 3.6 3.5 - 4.5 mmol/L 05/05/2025 6:45 PM [facility] Chloride 111(H) 98 - 107 mmol/L 05/05/2025 6:45 PM [facility] CO2 18(L) 22 - 29 mmol/L 05/05/2025 6:45 PM [facility] Glucose 85 70 - 99 mg/dL 05/05/2025 6:45 PM [facility] Calcium 10.1 8.4 - 10.2 mg/dL 05/05/2025 6:45 PM [facility] Protein Total 8.9(H) 6.0 - 8.3 g/dL 05/05/2025 6:45 PM [facility] Albumin 5.5(H) 3.4 - 5.0 g/dL 05/05/2025 6:45 PM [facility] Bilirubin Total 0.4 0.2 - 1.2 mg/dL 05/05/2025 6:45 PM [facility] Alkaline Phosphatase 103 40 - 150 U/L 05/05/2025 6:45 PM [facility] ALT 100(H) 5 - 55 U/L 05/05/2025 6:45 PM [facility] AST 42(H) 5 - 34 U/L 05/05/2025 6:45 PM [facility] Anion Gap 8 6 - 16 05/05/2025 6:45 PM [facility] BUN/Creatinine Ratio 19 7 - 23 05/05/2025 6:45 PM [facility] Osmolality Calculated 285 275 - 295 mOsm/kg 05/05/2025 6:45 PM [facility] Albumin/Globulin Ratio 1.6 1.1 - 2.3 05/05/2025 6:45 PM [facility] eGFR by CKD-EPI 88(L) >=90 mL/min/1.7 3 m2 05/05/2025 6:45 PM [facility] Comment:Estimated Glomerular Filtration Rate (eGFR) calculated using the CKD-EPI Creatinine Equation (2020), per the National Kidney Foundation and [place] Society of Nephrology recommendations. Blood BLOOD SPECIMEN / Unknown 05/05/2025 5:45 PM T 05/05/2025 6:18 PM CDT us Isa Castillo PA-C LAB - CHEMISTRY ORDER LEE Final Result [facility] [address] [place] [address], [facility] [phone] * OPTIC NERVE ANALYSIS OCT (04/18/2025 8:09 AM CDT) Anatomical Region Laterality Modality Head External-Camera Photography Narrative 04/18/2025 9:06 AM CDT Images from the original result were not included. us Daniel Calix MD OPHTHALMOLOGY SCHED ORD W PAC S Edited Result - Final * CYTOLOGY NON-ANY COMMODITY SALES DELIVERER PANEL (STL) (04/17/2025 1:13 PM CDT) Case Report Medical Cytology Report Case: [id number] Authorizing Provider: Aby Huffman MD Collected: 04/17/2025 01:13 PM Ordering Location: [facility] Early Admission Unit Received: 04/17/2025 01:35 PM Pathologist: Elias Guzman MD Specimen: CSF 04/18/2025 10:23 AM CDT [facility] Specimen Adequacy Adequate cellularity for evaluation. 04/18/2025 10:23 AM T [facility] Final Diagnosis Cerebrospinal fluid specimen: - Lymphocytes present. - No malignant cells identified. 04/18/2025 10:23 AM [facility] at 1023 CDT Clinical History Intractable headache and left eye pain 04/18/2025 10:23 AM [facility] Gross Description 1 Pap stained cytospin slide from 5 cc of clear, colorless fluid 04/18/2025 10:23 AM [facility] Microscopic Description Microscopic examination is performed and supports the final diagnosis. 04/18/2025 10:23 AM T [facility] Pathologist Location at [facility] 04/18/2025 10:23 AM CDT [facility] Disclaimer The performance characteristics of all immunohistochemical and indirect immunofluorescence stains (if any) cited in this report were determined by the Histopathology Laboratory of [facility]. Some of these tests rely on the use of analyte-specific reagents and are subject to specific labeling requirements by the [place] Food and Drug Administration. Such tests were developed by the Histology Laboratory of [facility] and have not been cleared or approved [...] attending (teaching) pathologist. 04/18/2025 10:23 AM CDT [facility] Embedded Images 04/18/2025 10:23 AM CDT [facility] Pathology/Cytolo gy CEREBROSPINAL FLUID SPECIMEN / Unknown Collection / Unknown 04/17/2025 1:13 PM CDT 04/17/2025 1:35 PM CDT Aby Huffman MD LAB - PATHOLOGY/CYTOLOGY O RDERABLES Final Result [facility] [address] [phone] * CULTURE CSF+GRAM STAIN (04/17/2025 1:13 PM CDT) Culture No growth GRAZYNA 04/24/2025 7:05 AM CDT [facility] Gram Stain No organisms seen 025 7:05 AM CDT [facility] Gram Stain Rare Polymorphonuclear cells 04/24/2025 7:05 AM CDT [facility] Cerebral spinal fluid CEREBROSPINAL FLUID SPECIMEN / Unknown Collection / Unknown 04/17/2025 1:13 PM CDT 04/17/2025 1:21 PM CDT Narrative [facility] - 04/24/2025 7:05 AM CDT Components of this test may have been developed and performance characteristics determined by [facility]. The lab developed components have [...] ORDERAB LES Final Result Performing Organization Address City/[facility]/ZIP Co de Phone Number [facility] [address] [place] [address], [facility] [phone] * (ABNORMAL) CELL COUNT W DIFFERENTIAL CSF (04/17/2025 1:13 PM CDT) Only the most recent of2 resultswithin the time period is included. Tube Number [id number] 04/17/2025 1:[address] [facility] [employer] ABSENT ABSENT 04/17/2025 1:44 PM CDT [facility] CSF Appearance CLEAR 04/17/2025 1:44 PM CDT [facility] CSF Color COLORLESS 04/17/2025 1:[address] [facility] Total Nucleated Cells CSF 2 <=5 x10E6/L 04/17/2025 1:44 PM CDT [facility] Comment:TNC less than or equ al to 5. No differential reported per policy. RBC Count CSF 64(H) 0 - 5 x10E6/L 04/17/2025 1:44 PM CDT [facility] Cerebral spinal fluid CEREBROSPINAL FLUID SPECIMEN / Unknown Collection / Unknown 04/17/2025 1:13 PM CDT 04/17/2025 1:21 PM CDT Aby Huffman MD LAB - BODY FLUID ORDERABLE S Final Result Performing Organization Address City/[facility]/ZIP Co de Phone Number [facility] [address] [place] [address], [place] [phone] * PROTEIN CSF (04/17/2025 1:13 PM CDT) Only the most recent of2 resultswithin the time period is included. Protein CSF 45 15 - 45 mg/dL 04/17/2025 2:07 PM CDT [facility] Cerebral spinal fluid CEREBROSPINAL FLUID SPECIMEN / Unknown Collection / Unknown 04/17/2025 1:13 PM CDT 04/17/2025 1:21 PM CDT Aby Huffman MD LAB - BODY FLUID ORDERABLE S Final Result [address] [address], [place] [phone] * GLUCOSE CSF (04/17/2025 1:13 PM CDT) Only the most recent of2 resultswithin the time period is included. Glucose CSF 60 40 - 70 mg/dL 04/17/2025 2:06 PM CDT [facility] Cerebral spinal fluid CEREBROSPINAL FLUID SPECIMEN / Unknown Collection / Unknown 04/17/2025 1:13 PM CDT 04/17/2025 1:21 PM CDT Aby Huffman MD LAB - BODY FLUID ORDERABLE S Final Result Performing Organization Address City/[facility]/ZIP Co de Phone Number [address] [address], [place] [phone] * FL Lumbar Puncture (04/17/2025 1:07 PM [...] report is dictated by Maulik Rogers Dr, (residential energy auditor) Attending Physician: Dr. Edson Neely Resident Intern: Dr. Maluik Rogers Dr, (residential energy auditor) The procedure was performed by the: The chef's assistant, and the attending radiologist was present for all critical and barkley portions of the procedure, and was immediately available to furnish services during the entire procedure. The attending radiologist performed the following procedural activities: Dr. Edson Andrade was there and supervised barkley portions of the procedure, not scrubbed. > Dictated by Icer Hand Edson Andrade MD have personally reviewed and interpreted this examination/study. > Interpreting Provider: Edson Neely MD on 05/12/2025 4:04 PM Narrative 05/12/2025 4:04 PM CDT PROCEDURE: FL LUMBAR PUNCTURE, DATE/TIME OF EXAM: 04/17/2025 1:14 PM, LOCATION [facility] INDICATION: G93.2: Pseudotumor cerebri syndrome G93.2: Pseudotumor [...] The patient was then transferred to the hospice care consultant unit for further observation and two hours of bedrest. OPENING PRESSURE: 22 cm H20 CLOSING PRESSURE: 15 cm H20 FLUOROSCOPY TIME: 36.4 Procedure Note Edson Neely MD - 05/12/2025 PROCEDURE: FL LUMBAR PUNCTURE, DATE/TIME OF EXAM: 04/17/2025 1:14 PM, LOCATION [facility] INDICATION: G93.2: Pseudotumor cerebri syndrome G93.2: Pseudotumor [...] The patient was then transferred to the hospice care consultant unit for further observation and two hours of bedrest. OPENING PRESSURE: 22 cm H20 CLOSING PRESSURE: 15 cm H20 FLUOROSCOPY TIME: 36.4 IMPRESSION: 1.Successful lumbar puncture under fluoroscopic guidance at L2-3 with therapeutic and diagnostic CSF collection. 2.Opening Pressure: 22 cm H20 3.Closing Pressure: 15 cm H20 The report is dictated by Maulik Rogers Dr, (residential energy auditor) Attending Physician: Dr. Edson Neely Resident Intern: Dr. Maulik Rogers Dr, (residential energy auditor) The procedure was performed by the: The chef's assistant, and the attending radiologist was present for allcritical and barkley portions of the procedure, and was immediately available the neuromedical center services during the entire procedure. The attending radiologist performed the following procedural activities: Dr. Edson Andrade was there and supervised barkley portions of the procedure, not scrubbed. > Dictated by Icer Hand I, Edson Neely MD have personally reviewed and interpretedthis examination/study. > Interpreting Provider: Edson Neely MD on 05/12/2025 4:04 PM us Aby Huffman MD FLUOROSCOPY ORDERABLES Fin al Result * PT-INR (04/17/2025 9:54 AM CDT) Only the most recent of2 resultswithin the time period is included. PT 14.1 12.1 - 14.8 Seconds 04/17/2025 10:[address] [facility] [facility] INR 1.1 See Comment 04/17/2025 10:45 AM T [facility] Comment:The suggested therap eutic range for standard coumadin (warfarin) therapy is an INR of 2.0-3.0. For high-risk patients (Mechanical Mitral Valve Prosthesis, etc.), the suggested prophylactic therapeutic range is an INR of 2.5-3.5. Blood BLOOD SPECIMEN / Unknown Lab Venipuncture / Unknown 04/17/2025 9:54 AM CDT 04/17/2025 10:01 AM CDT us Aby Huffman MD LAB - COAGULATION ORDERABL ES Final Result [address] [address], [facility] [phone] * CBC W/O DIFFERENTIAL (04/17/2025 5:20 AM CDT) Only the most recent of4 resultswithin the time period is included. WBC 5.4 4.0 - 10.7 x10E9/L 04/17/2025 6:21 AM CDT [facility] RBC Count 4.26 3.90 - 5.20 x10E12/L 04/17/2025 6:21 AM CDT [facility] Hemoglobin 12.1 11.9 - 15.8 g/dL 04/17/2025 6:21 AM T [facility] Hematocrit 35.9 34.8 - 46.1 % 04/17/2025 6:21 AM [facility] MCV 84.3 80.0 - 98.0 fL 04/17/2025 6:21 AM [facility] MCH 28.4 26.7 - 33.6 pg 04/17/2025 6:21 AM [facility] MCHC 33.7 31.7 - 36.3 g/dL 04/17/2025 6:21 AM [facility] RDW-CV 13.9 11.3 - 14.8 % 04/17/2025 6:21 AM [facility] Platelet Count 219 150 - 420 x10E9/L 04/17/2025 6:21 AM [facility] MPV 10.3 7.8 - 11.4 fL 04/17/2025 6:21 AM [facility] Blood BLOOD SPECIMEN / Unknown Lab Venipuncture / Unknown 04/17/2025 5:20 AM CDT 04/17/2025 6:06 AM CDT us Rashad Chen MD LAB - HEMATOLOGY ORDERABLES F inal Result [address] [address], [facility] [phone] * (ABNORMAL) BASIC METABOLIC PANEL (CALCIUM TOTAL) (04/17/2025 5:20 AM T) Only the most recent of5 resultswithin the time period is included. BUN 16 7 - 26 mg/dL 04/17/2025 11:42 AM [facility] Creatinine 0.94 0.56 - 0.96 mg/dL 04/17/2025 11:42 AM [facility] Sodium 139 136 - 145 mmol/L 04/17/2025 11:42 AM [facility] Potassium 3.8 3.5 - 4.5 mmol/L 04/17/2025 11:42 AM [facility] Chloride 115(H) 98 - 107 mmol/L 04/17/2025 11:42 AM [facility] CO2 18(L) 22 - 29 mmol/L 04/17/2025 11:42 AM [facility] Glucose 88 70 - 99 mg/dL 04/17/2025 11:42 AM [facility] Calcium 9.4 8.4 - 10.2 mg/dL 04/17/2025 11:42 AM [facility] Anion Gap 6 6 - 16 04/17/2025 11:42 AM [facility] BUN/Creatinine Ratio 17 7 - 23 04/17/2025 11:42 AM [facility] Osmolality Calculated 289 275 - 295 mOsm/kg 04/17/2025 11:42 AM [facility] eGFR by CKD-EPI 81(L) >=90 mL/min/1.7 3 m2 04/17/2025 11:42 AM [facility] Comment:Estimated Glomerular Filtration Rate (eGFR) calculated using the CKD-EPI Creatinine Equation (2020), per the National Kidney Foundation and [place] Society [employer] Nephrology recommendations. Blood BLOOD SPECIMEN / Unknown Lab Venipuncture / Unknown 04/17/2025 5:20 AM CDT 04/17/2025 6:07 AM CDT Rashad Chen MD LAB - CHEMISTRY ORDERABLES Fi nal Result [address] [address], [facility] [phone] * PHOSPHORUS BLOOD (04/17/2025 5:20 AM CDT) Only the most recent of4 resultswithin the time period is included. Phosphorus 4.0 2.9 - 5.1 mg/dL 04/17/2025 9:40 AM [facility] Blood BLOOD SPECIMEN / Unknown Lab Venipuncture / Unknown 04/17/2025 5:20 AM CDT 04/17/2025 6:07 AM CDT us Rashad Chen MD LAB - CHEMISTRY ORDERABLES Fi nal Result [address] [address], [facility] [phone] * MAGNESIUM BLOOD (04/17/2025 5:20 AM CDT) Only the most recent of4 resultswithin the time period is included. Magnesium 2.0 1.6 - 2.6 mg/dL 04/17/2025 9:[address] [facility] Blood BLOOD SPECIMEN / Unknown Lab Venipuncture / Unknown 04/17/2025 5:20 AM CDT 04/17/2025 6:07 AM CDT us Rashad Chen MD LAB - CHEMISTRY ORDERABLES Fi nal Result [facility] [address] [place] [address], [facility] [phone] * MRI Orbits or Face Wo Contrast [...] report is dictated by Dick Moreland MD, (Icer Hand) > Dictated by Icer Hand I, Jasmina Donald MD have personally reviewed and interpreted this examination/study. > Interpreting Provider: Jasmina Donald MD on 04/17/2025 11:13 AM Narrative 04/17/2025 11:13 AM CDT PROCEDURE: MRI VENOUS BRAIN W CONT , MRI ORBITS OR FACE WO CONTRAST, DATE/TIME OF EXAM: 04/16/2025 6:14 PM, LOCATION [facility] INDICATION: G93.2: IIH (idiopathic intracranial hypertension) ADDITIONAL CLINICAL INFORMATION: Ordering Provider Reason For Exam: progression of IIH and venous sinus stenosis (accession [id number]), IIH progression (accession [id number]) EXAMINATION: Magnetic resonance imaging (MRI) of the [...] DATE/TIME OF EXAM: 04/16/2025 6:14 PM, LOCATION [facility] INDICATION: G93.2: IIH (idiopathic intracranial hypertension) ADDITIONAL CLINICAL INFORMATION: Ordering Provider Reason For Exam: progression of IIH and venous sinus stenosis (accession [id number]), IIH progression (accession [id number]) EXAMINATION: Magnetic resonance imaging (MRI) of the [...] report is dictated by Dick Moreland MD, (Icer Hand) > Dictated by Icer Hand I, Jasmina Donald MD have personally reviewed [...] report is dictated by Dick Moreland MD, (Icer Hand) > Dictated by Icer Hand I, Jasmina Donald MD have personally reviewed and interpreted this examination/study. > Interpreting Provider: Jasmina Donald MD on 04/17/2025 11:13 AM Narrative 04/17/2025 11:13 AM CDT PROCEDURE: MRI VENOUS BRAIN W CONT , MRI ORBITS OR FACE WO CONTRAST, DATE/TIME OF EXAM: 04/16/2025 6:14 PM, LOCATION [facility] INDICATION: G93.2: IIH (idiopathic intracranial hypertension) ADDITIONAL CLINICAL INFORMATION: Ordering Provider Reason For Exam: progression of IIH and venous sinus stenosis (accession [id number]), IIH progression (accession [id number]) EXAMINATION: Magnetic resonance imaging (MRI) of the [...] DATE/TIME OF EXAM: 04/16/2025 6:14 PM, LOCATION [facility] INDICATION: G93.2: IIH (idiopathic intracranial hypertension) ADDITIONAL CLINICAL INFORMATION: Ordering Provider Reason For Exam: progression of IIH and venous sinus stenosis (accession [id number]), IIH progression (accession [id number]) EXAMINATION: Magnetic resonance imaging (MRI) of the [...] report is dictated by Dick Moreland MD, (Icer Hand) > Dictated by Icer Hand I, Jasmina Donald MD have personally reviewed [...] hypertension. > Dictated by Dick Moreland MD, (Icer Hand). > Dictated by Icer Hand I, Edson Neely MD have personally reviewed and interpreted this examination/study. > Interpreting Provider: Edson Neely MD on 04/16/2025 5:56 PM Narrative 04/16/2025 5:56 PM CDT PROCEDURE: MRI BRAIN WO CONTRAST, DATE/TIME OF EXAM: 04/16/2025 2:20 PM, LOCATION [facility] INDICATION: G93.2: IIH (idiopathic intracranial hypertension) ADDITIONAL CLINICAL INFORMATION: Ordering Provider Reason For Exam: Progression of IIH Technologist Note: Does the patient have a pacemaker or defibrillator?->No Does the patient have metal implants or stents?->No Additional: 34-year-old female with PMH of IIH (on topamax), TILA, PTSD, BPD (currently weaning off lithium) who presented to [facility] ED 04/15 for episodic L eye pain [...] DATE/TIME OF EXAM: 04/16/2025 2:20 PM, LOCATION [facility] INDICATION: G93.2: IIH (idiopathic intracranial hypertension) ADDITIONAL CLINICAL INFORMATION: Ordering Provider Reason For Exam: Progression of IIH Technologist Note: Does the patient have a pacemaker ordefibrillator?->No Does the patient have metal implants or stents?->No Additional: 34-year-old female with PMH of IIH (on topamax), TILA, PTSD, BPD (currently weaning off lithium) who presented to [facility] ED 04/15 for episodic L eye pain [...] hypertension. > Dictated by Dick Moreland MD, (Icer Hand). > Dictated by Icer Hand I, Edson Neely MD have personally reviewed and interpretedthis examination/study. > Interpreting Provider: Edson Neely MD on 04/16/2025 5:56 PM us Rashad Chen MD MR ORDERABLES Final Result * ERYTHROCYTE SEDIMENTATION RATE (04/15/2025 8:37 PM CDT) Only the most recent of2 resultswithin the time period is included. Erythrocyte Sedimentation Rate Westergren 14 0 - 20 MM/HR 04/16/2025 12:22 AM CDT [facility] Blood BLOOD SPECIMEN / Unknown Venipuncture / Unknown 04/15/2025 8:37 PM CDT 04/15/2025 8:53 PM CDT Rashad Chen MD LAB - HEMATOLOGY ORDERABLES F inal Result [facility] [address] [place] [address], [facility] [phone] * FUNDUS PHOTO BOTH EYES (04/03/2025 11:27 [...] 34 <=72 umol/L 03/10/2025 3:33 PM CDT [facility] Blood BLOOD SPECIMEN / Unknown Lab Venipuncture / Unknown 03/10/2025 3:11 PM CDT 03/10/2025 3:19 PM CDT us Rodney Crowell MD LAB - CHEMISTRY ORDERABLES Arlin l Result Performing Organization Address City/[facility]/ZIP Co de Phone Number [address] [address], [facility] [phone] * (ABNORMAL) VITAMIN D 25-HYDROXY (03/08/2025 7:58 AM CDT) Vitamin D, 25 Hydroxy 23.9(L) 30.0 - 80.0 ng/mL 03/08/2025 9:10 AM CDT [facility] Comment: The recommendations for 25-Hydroxy Vitamin D [...] ORDERABLES Arlin l Result Performing Organization Address [facility]/ZIP Co de Phone Number [address] [address], [facility] [phone] * CARDIAC EKG ORDER (03/07/2025 10:37 AM CDT) Narrative 03/07/2025 10:37 AM CDT Ordered by an unspecified provider. us Scanned Document CARDIAC SERVICES ORDERABLES Fin al Result * LITHIUM LEVEL (03/07/2025 8:37 AM CDT) Only the most recent of2 resultswithin the time period is included. [place], trough 0.50 0.50 - 1.20 mmol/L 03/07/2025 11:19 AM CDT [facility] Blood BLOOD SPECIMEN / Unknown Lab Venipuncture / Unknown 03/07/2025 8:37 AM CDT 03/07/2025 8:44 AM CDT Narrative [facility] - 03/07/2025 11:19 AM CDT There is no relationship between peak concentration and degree of intoxication. Response and side effects are individual. us Rodney Crowell MD LAB - CHEMISTRY ORDERABLES Arlin shne Result [facility] [address] [place] [phone], [facility] [phone] * MRI Angio Brain Arterial Wo Cont [...] papilledema. Report dictated by Curly Andrade MD (residential energy auditor). Preliminary findings reported by Mare King M.D. (residential energy auditor). > Dictated by Curly Andrade MD 03/06/2025 7:48 AM > Dictated by Icer Hand I, Edson Neely MD have personally reviewed and interpreted this examination/study. > Interpreting Provider: Edson Neely MD on 03/06/2025 2:34 PM Narrative 03/06/2025 2:34 PM CDT PROCEDURE: MRI BRAIN WWO CONTRAST, MRI ANGIO BRAIN VENOUS W CONT, MRI ANGIO BRAIN ARTERIAL WO CONT, MRI ORBITS OR FACE WWO CONTRAST, DATE/TIME OF EXAM: 03/06/2025 5:42 AM, LOCATION [facility] INDICATION: H53.9: Vision changes ADDITIONAL CLINICAL INFORMATION: [...] CONTRAST, DATE/TIMEOF EXAM: 03/06/2025 5:42 AM, LOCATION [facility] INDICATION: H53.9: Vision changes ADDITIONAL CLINICAL INFORMATION: [...] papilledema. Report dictated by Curly Andrade MD (residential energy auditor). Preliminary findings reported by Mare King M.D. (residential energy auditor). > Dictated by Curly Andrade MD 03/06/2025 7:48 AM > Dictated by Icer Hand Edson Andrade MD have personally reviewed and [...] papilledema. Report dictated by Curly Andrade MD (residential energy auditor). Preliminary findings reported by Mare King M.D. (residential energy auditor). > Dictated by Curly Andrade MD 03/06/2025 7:48 AM > Dictated by Icer Hand Edson Andrade MD have personally reviewed and interpreted this examination/study. > Interpreting Provider: Edson Neely MD on 03/06/2025 2:34 PM Narrative 03/06/2025 2:34 PM CDT PROCEDURE: MRI BRAIN WWO CONTRAST, MRI ANGIO BRAIN VENOUS W CONT, MRI ANGIO BRAIN ARTERIAL WO CONT, MRI ORBITS OR FACE WWO CONTRAST, DATE/TIME OF EXAM: 03/06/2025 5:42 AM, LOCATION [facility] INDICATION: H53.9: Vision changes ADDITIONAL CLINICAL INFORMATION: [...] CONTRAST, DATE/TIMEOF EXAM: 03/06/2025 5:42 AM, LOCATION [facility] INDICATION: H53.9: Vision changes ADDITIONAL CLINICAL INFORMATION: [...] papilledema. Report dictated by Curly Andrade MD (residential energy auditor). Preliminary findings reported by Mare King M.D. (residential energy auditor). > Dictated by Curly Andrade MD 03/06/2025 7:48 AM > Dictated by Icer Hand I, Edson Neely MD have personally reviewed [...] papilledema. Report dictated by Curly Andrade MD (residential energy auditor). Preliminary findings reported by Mare King M.D. (residential energy auditor). > Dictated by Curly Andrade MD 03/06/2025 7:48 AM > Dictated by Icer Hand I, Edson Neely MD have personally reviewed and interpreted this examination/study. > Interpreting Provider: Edson Neely MD on 03/06/2025 2:34 PM Narrative 03/06/2025 2:34 PM CDT PROCEDURE: MRI BRAIN WWO CONTRAST, MRI ANGIO BRAIN VENOUS W CONT, MRI ANGIO BRAIN ARTERIAL WO CONT, MRI ORBITS OR FACE WWO CONTRAST, DATE/TIME OF EXAM: 03/06/2025 5:42 AM, LOCATION [facility] INDICATION: H53.9: Vision changes ADDITIONAL CLINICAL INFORMATION: [...] CONTRAST, DATE/TIMEOF EXAM: 03/06/2025 5:42 AM, LOCATION [facility] INDICATION: H53.9: Vision changes ADDITIONAL CLINICAL INFORMATION: [...] papilledema. Report dictated by Curly Andrade MD (residential energy auditor). Preliminary findings reported by Mare King M.D. (residential energy auditor). > Dictated by Curly Andrade MD 03/06/2025 7:48 AM > Dictated by Icer Hand IEdson MD have personally reviewed and interpretedthis examination/study. > Interpreting Provider: Edson Neely MD on 03/06/2025 2:34 PM Rea Nash PA-C MR ORDERABLES Final Result * EKG 12-Lead (03/06/2025 1:23 AM CDT) Ventricular Rate 66 BPM [facility] Atrial Rate 66 BPM [facility] P-R Interval 128 ms [facility] QRS Duration ms [address] [facility] Q-T Interval ms [address] [facility] QTC Calculation (Bezet) [address] [facility] M[facility] Calculated P [place] [address] [facility] M[facility] Calculated R [place] [address] [facility] M[facility] Calculated T [place] -[address] [facility] M[facility] Interpretation EKG NORMAL SINUS RHYTHM WITH SINUS ARRHYTHMIA NONSPECIFIC ST AND T WAVE ABNORMALITY ABNORMAL ECG WHEN COMPARED WITH ECG OF 19-FEB-2025 15:00, NO SIGNIFICANT CHANGE WAS FOUND Confirmed by AUBREE BECERRA, SAMRONALD ([id number]) on 03/22/2025 3:51:50 PM [facility] 03/06/2025 1:23 AM CDT 03/22/2025 3:51 PM CDT Carol Munguia MD ECG ORDERABLES Edited Result - Final Performing Organization Address [facility]/ZIP Co de Phone Number [facility] * (ABNORMAL) C-REACTIVE PROTEIN (03/05/2025 5:46 PM CDT) C-Reactive Protein 1.2(H) <=0.5 mg/dL 03/05/2025 6:16 PM CDT [facility] Blood BLOOD SPECIMEN / Unknown Venipuncture / Unknown 03/05/2025 5:46 PM CDT 03/05/2025 5:51 PM CDT Rea Nash PA-C LAB - CHEMISTRY ORDERABLES Fi nal Result [facility] [address] [place] [address], [facility] [phone] * [employer] NERVE ANALYSIS OCT (03/05/2025 1:17 [...] ORD W PAC S Final Result * YNE AUTO VISUAL FIELD EXTENDED (03/05/2025 1:17 PM [...] day 5 GRAZYNA 02/28/2025 7:32 PM CDT [facility] Blood PERIPHERAL BLOOD / Unknown Venipuncture / Unknown 02/23/2025 3:01 PM CDT 02/23/2025 3:24 PM CDT Savanna Rust METALLURGY LABORATORY TECHNICIAN-GALLERY ASSISTANT LAB - MICROBIOLOGY O RDERABLES Final Result [facility] [address] [place], [place] [address], [facility] [phone] from Last 3 Months Insurance [facility] Advance Directives * Full Code (Latest Code Status on File) Date Activated Date Inactivated Comments 04/16/2025 2:52 AM 04/17/2025 9:23 PM * Full Code Date Activated Date Inactivated Comments 03/06/2025 1:48 AM 03/11/2025 3:09 PM Care Teams Occupational Health Nursing Director Relationship Specialty Start Date End Date Mayelin Ruffin MD [address] [place] [phone] PCP - General Family Medicine 06/29/23
--- OUTSIDE RECORDS SUMMARY | 2025-05-24 23:54 | XMS_ITS | Encounter Summary ---
Author Organization [facility] Address [address] [place] [address] Phone Care Team Providers Care Technical Service Engineer Name Role Phone Mono García MD Primary Care Provider Terry Looney MD Primary Care Provider Mayelin Ruffin MD Primary Care Provider [phone]- [phone] Encounter Details Date Type Department Care Team (Late st Contact Info) Description 01/12/2021 Telephone [facility] Cardiology [address] 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 07/25/2022 07/27/2022 10/23/2022 3:05 AM C DT COVID: Suspected 07/06/2023 07/06/2023 07/06/2023 5:14 PM KNITTING TEACHER COVID: Suspected 02/28/2024 02/28/2024 02/28/2024 6:59 PM CDT documented as of this encounter Care Teams Technical Service Engineer Relationship Specialty Start Date End Date Mono García MD [address] [place] [address] PCP - General 11/05/20 03/28/22 Terry Looney MD [address] [facility] [address] [place] [address] PCP - General Family Medicine 03/29/22 07/11/23 Mayelin Ruffin MD [address] [place] [phone] PCP - General Family Medicine 07/12/23 documented as of this encounter
--- OUTSIDE RECORDS SUMMARY | 2025-05-24 23:54 | XMS_ITS ---
Author Organization [facility] Address [address] [place] [address] Care Team Providers Care Medical Supervisor Name Role Phone Mayelin Ruffin MD Primary Care Provider [phone]- [phone] Active Problems Problem Noted Date Diagnosed Date [...]
--- OUTSIDE RECORDS SUMMARY | 2025-05-24 23:54 | XMS_ITS | Clinical Summary ---
Author Organization [facility] Address [address] [place] [address] Care Team Providers Care Cellophane Press Operator Name Role Phone Mayelin Ruffin MD Primary Care Provider [phone]- [phone] Allergies Active Allergy Reactions Criticality Noted Date [...] CDT - 02/22/2025 2:28 PM CDT Emergency [facility] Emergency Department [address] [place] [address] Convulsions, unspecified convulsion type (HCC) (Primary Dx) Discharge Disposition: Discharge to home or self care 02/22/2025 7:13 AM CDT - 02/22/2025 11:59 PM CDT Hospital Encounter [facility] [address] [place] [address] Rad, Amh Ir 1, Amh Rad Rn Rad, Amh Fluoro Pseudotumor cerebri syndrome Discharge Disposition: Discharge to home or self care 02/22/2025 Results Follow-Up [facility] [address] [facility] [address] [place] [address] Javi Garcia NP Glucose, CSF, Protein, total, CSF, Bacterial culture and gram stain, CSF CSF, Manual Cell Count, CSF 02/21/2025 Telephone [facility] [address] [place] [address] Maya Ramírez, POLO from Last 3 Months [...] on file Legal Sex Female 8:28 AM CCNP Gender Identity Female 01/22/2021 5:39 PM CDT [...] Rahat Valencia M.D. RB: [place] Report ID: [id number] Reading Location: [id number] Procedure Note Rahat Valencia MD - 02/22/2025 [...] Rahat Valencia M.D. RB: [place] Report ID: [id number] Reading Location: [place] [address] [place]by [facility] [place] [place]ED[place] Final Result * Urinalysis reflex [...] tendency for uric acid stone formation. Source: [employer] Current Interpretive Data was last revised on [...] BRANDON Final Result [facility] ([place]) [address] [facility] Department [place] [address] * eGFR (02/22/2025 10:44 AM CDT) eGFR [...] BLOOD ORDERABLES Final Resu lt [facility] ([place]) [address] [facility] Department [place] [address] * Differential, auto (02/22/2025 10:44 AM CDT) Neutrophil abs 3.25 1.50 - 6.50 K/cumm Imm gran abs 0.02 0.00 - 0.10 K/cumm [facility] ([place]) Lymphocyte abs 2.15 0.80 - 3.30 K/cumm [facility] ([place]) Monocyte abs 0.49 0.20 - 0.80 K/cumm [facility] ([place]) Eosinophil abs 0.22 0.00 - 0.50 K/cumm [facility] ([place]) Basophil abs 0.06 0.00 - 0.10 K/cumm [facility] ([place]) Neutrophil pct 52.5 % [facility] ([place]) Comment: Interpretive Data Percent cell count reference ranges are not reported, since discordance with absolute values may lead to misinterpretation of CBC data. Current Interpretive Data was last revised on 2017. Imm gran pct 0.3 % [facility] ([place]) Comment: Interpretive Data Percent cell count reference ranges are not reported, since discordance with absolute values may lead to misinterpretation of CBC data. Current Interpretive Data was last revised on 2017. Lymphocyte pct 34.7 % [facility] ([place]) Comment: Interpretive Data Percent cell count reference ranges are not reported, since discordance with absolute values may lead to misinterpretation of CBC data. Current Interpretive Data was last revised on 2017. Monocyte pct 7.9 % [facility] ([place]) Comment: Interpretive Data Percent cell count reference [...] Final Resu lt [facility] ([place]) 1 [facility] [place] [address] * CBC with auto differential (02/22/2025 10:44 [...] AM CDT 02/22/2025 10:48 AM CDT Aby [facility] BLOOD ORDERABLES Final Resu lt [facility] ([place]) [address] [facility] Department [place] [address] * Comprehensive metabolic panel (02/22/2025 10:44 AM [...] BLOOD ORDERABLES Final Resu lt [facility] ([place]) 1 [facility] Department [place] [address] * FL Fluoro Guided Lumbar Puncture (02/22/2025 [...] Isabella Cuevas D.O. PS: PS Report ID: [id number] Reading Location: [id number] Narrative 02/22/2025 12:15 PM CDT EXAM DESCRIPTION: FL FLUORO GUIDED LUMBAR PUNCTURE REASON FOR STUDY: idiopathic intracranial hypertension idiopathic intracranial hypertension, Pseudotumor cerebri syndrome FT: 23 SEC MGY: 10.671 COMPARISON: 09/16/2023 RADIATION DOSE: Dose: 0.4690 mGycm2 Dose Area Product (DAP) TECHNIQUE: Fluoroscopy guided diagnostic lumbar puncture. PROCEDURE/FINDINGS: Informed written consent was obtained from the patient or patient licensing representative after risks and benefits were discussed. After [...] Isabella Cuevas D.O. PS: PS Report ID: [id number] Reading Location: [id number] Procedure Note Isabella Cuevas, DO - 02/22/2025 EXAM DESCRIPTION: FL FLUORO GUIDED LUMBAR PUNCTURE REASON FOR STUDY: idiopathic intracranial hypertension idiopathic intracranial hypertension, Pseudotumor cerebri syndrome FT: 23SEC MGY: 10.671 COMPARISON: 09/16/2023 RADIATION DOSE: Dose: 0.4690 mGycm2 Dose Area Product (DAP) TECHNIQUE: Fluoroscopy guided diagnostic lumbar puncture. PROCEDURE/FINDINGS: Informed written consent was obtained from the patient or patient licensing representative after risks and benefits were discussed. Afterfluoroscopic [...] Isabella Cuevas D.O. PS: PS Report ID: [id number] Reading Location: [id number] Javi Garcia HEEL GUMMER IMG FLUOROSCOPY PROCEDURES Edited Result - Final [...] ORDERABLES Final Result [facility] ([place]) [address] [facility] Department [place] [address] * Bacterial culture and gram stain, CSF CSF (02/22/2025 8:31 AM CDT) Direct Specimen Exam Stain: Cytospin Gram stain shows: No polymorphonuclear leukocytes seen. No organisms seen. Comment:Testing performed by : [facility], [address] [facility] [place]., [address] Report Final Report: No growth [facility] ([place]) Comment:Testing performed by : [facility], [address] [place]., [address] CSF 02/22/2025 8:31 AM CDT 02/22/2025 10:19 AM CDT Narrative [facility] ([place]) - 02/27/2025 9:14 AM CDT Fluid specimen received in sterile container. Pre-made cytospin gram stain received with specimen. Testing performed by [facility] Microbiology Laboratory ([phone]). Javi Garcia NP LAB MICROBIOLOGY - GENERAL ORDERABLES Final Result [facility] ([place]) 1 [facility] [place] [address] * Protein, total, CSF (02/22/2025 8:31 AM CDT) Protein, CSF 32 5 - 45 mg/dL [facility] ([place]) CSF 02/22/2025 8:31 AM CDT 02/22/2025 9:15 AM CDT Javi Garcia HEEL GUMMER LAB BODY FLUIDS AND STOOLS ORDERABLES Final Result Performing Organization Address [facility] de Phone Number [facility] ([place]) 1 [facility] [place] [address] * Glucose, CSF (02/22/2025 8:31 AM CDT) Glucose, CSF 60 mg/dL [facility] ([place]) Comment: Reference Interval Information: CSF Glucose should be 60-66% of the most current plasma glucose concentration (milligrams/deciliter) CLIN. CHEM. 41/3, 343-360 (1994), Clinical Utility of Biochemical Analysis of Cerebrospinal Fluid, Clifford Burgess and Luis Alston. Current interpretive data was last revised on 2019. CSF 02/22/2025 8:31 AM CDT 02/22/2025 9:15 AM CDT Javi Garcia HEEL GUMMER LAB BODY FLUIDS AND STOOLS ORDERABLES Final Result Performing Organization Address City/[facility]/ZIP Co de Phone Number [facility] ([place]) 1 [facility] [place] [address] from Last 3 Months Insurance [facility] OPEN ACCESS [facility] [employer]ANCE Advance Directives For more information, please contact: [phone] * Full Code (Latest Code Status on File) Date Activated Date Inactivated Comments 02/22/2025 8:46 AM 02/22/2025 9:58 AM Care Teams Cellophane Press Operator Relationship Specialty Start Date End Date Mayelin Ruffin MD [address] [place] [phone] PCP - General Family Medicine 07/12/23
--- OUTSIDE RECORDS SUMMARY | 2025-05-24 23:54 | XMS_ITS | Clinical Summary ---
Author Organization [facility] [employer] Address [address] [place] [address] [place] [address] Care Team Providers Care Power Plant Inspector Name Role Phone Mayelin Ruffin MD Primary Care Provider +1- [phone] Allergies Active Allergy Reactions Criticality Noted Date [...] mg by mouth daily. 3 Active Insulin [place], Disposable, (Abigail Pen Needle) 32 gauge x 5/32 Needle [address] [facility].(Non-Drug; Combo Route) route daily. 30 Each 3 [...] COVID-19 VACCINE - EMERGENCY USE AUTHORIZATION, MRNA, [id number](PF) 30 MCG/0.3 ML IM SUSP 06/27/2021,06/06/2021 (PNEUMOVAX [...] diagnosis of diabetes in children. According to [place] Diabetes Association (ADA) guidelines, hemoglobin A1c <7.0% represents optimal control in non- diabetic patients. Different metrics may apply to specific patient populations. Standards of Medical Care in Diabetes(ADA). ESTIMATED AVERAGE GLUCOSE (MG/DL) 111 mg/dL [facility] ESTIMATED AVERAGE GLUCOSE (MMOL/L) 6.2 mmol/L [facility] Comment: Test Performed at: [facility] [address] [address] Elma Stoll MD Blood 11/18/2022 8:55 AM CDT 11/19/2022 5:47 AM CDT Natalie Quintana TELECOMMUNICATIONS REPAIRER CHEMISTRY ORDERABLES F inal Result [facility] [phone] [employer] [address] [address] from Last 3 Months or Most Recently Relevant to Health Maintenance Insurance [facility] OPEN ACCESS * Guarantor: [employer] Account Type Relation to Patient Date of Phone Billing Address Corporate Employer ATTN: ANNA MEHTA [address] [address] [facility] [place] [id number] Care Teams Power Plant Inspector Relationship Specialty Start Date End Date Mayelin Ruffin MD [address] [facility] [address] [place] [phone] PCP - General Family Practice 09/19/23
== END 2025-05-25 02:53 | disposition left against medical advice (07) ==
DX: S09.90XA Unspecified injury of head, initial encounter (principal)
CPT/HCPCS: 99199

== ENCOUNTER 2025-06-08 13:45 | Emergency (ER) | payer OTHER, SELFPAY ==
--- OUTSIDE RECORDS SUMMARY | 2025-04-01 04:00 | XMS_ITS ---
Author Organization [facility] [employer] [facility] Address [facility] [address] [address] Care Team Providers Care Research Group Director Name Role Phone LEE BECERRA, RICHARD Primary Care Provider Unavailab andry Kendall Xiang Unavailable [phone] Maya Cabrera Unavailable [phone] REASON FOR VISIT Therapy Follow Up Social History Sex Assigned At : Social History Observation Description Sex Assigned At Female Encounters Encounter Location Date Provider Diagnosis [facility] [employer] [address] [address] 04/01/2025 Maya Cabrera Plan Of Treatment No Information Progress Notes * LAWSON ZAVALETA CDOB:[birth year] (34 yo F)Acc No.[id number]:04/01/2025 Patient: LAWSON RAGLAND Provider: James CABRERA LCSW :1990 A ge:34 Y S ex:Female Date:04/01/2025 Address:[address] [place], [place] [id number] Pcp:RICHARD HOWARD MD Data: * Chief Complaints: * T herapy Follow Up Billing Information: * Procedure Codes: * Electronic signature of Maya Cabrera LCSW on 06/08/2025 at 01:48 PM CDT Sign off status: Pending Signatures: No Ad Hoc Signature Added * Provider: James CABRERA LCSW Date: 0 04/01/2025 Generated for Sridhar ramírez/Rosina/eTransmmacy on: 08/08/2024 01:48 PM CDT
--- OUTSIDE RECORDS SUMMARY | 2025-05-08 09:30 | XMS_ITS ---
Author Organization [facility] [employer] [facility] Address [address] [place] [address] [address] Care Team Providers Care Network Operations Technician Name Role Phone LEE BECERRA, RICHARD Primary Care Provider Unavailab Xiang Lala Unavailable [phone] REASON FOR VISIT Has other doctor's appt Social History Sex Assigned At : Social History Observation Description Sex Assigned At Female Encounters Encounter Location Date Provider Diagnosis [facility] [employer] [address] [address] 05/08/2025 Xiang Argueta Plan Of Treatment No Information Progress Notes * LAWSON ZAVALETA CDOB:[birth year] (34 yo F)Acc No.[id number]:05/08/2025 Patient: LAWSON RAGLAND Provider: XIOMY GUZMAN :1990 A ge:34 Y S ex:Female Date:05/08/2025 Address:[address] [place], [place] [id number] Pcp:RICHARD HOWARD MD Subjective: * Chief Complaints: * H as other doctor's appt * Electronic signature of XIOMY Lora on 06/08/2025 at 01:48 PM CDT Sign off status: Pending * Provider: XIOMY GUZMAN Date: Generated for Printi ng/Faxing/eTransmitting on: 08/08/2024 01:48 PM CDT
--- OUTSIDE RECORDS SUMMARY | 2025-06-08 13:48 | XMS_ITS | Patient Health Record ---
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 Name Role Phone RICHARD HOWARD MD Primary Care Provider Unavailab Xiang Lala Unavailable [phone] Maya Mojica Unavailable [phone] Bishop Natarajan Unavailable [phone] Allergies Allergen (clinical drug ingredient) Drug/Non Drug [...] Duration) Notes Start Date End Date Status Pregabalin 100 MG Capsule Oral 12/08/2023 Active Nurtec 75 MG Tablet Disintegrating Oral *Reorder from [facility] for eRx and Interaction Alerts* 12/08/2023 Active hydrOXYzine HCl 25 MG Tablet 1 tablet Orally three times a day; Duration: 30 days As needed 05/09/2025 Active clonazePAM 0.5 MG Tablet 1 tablet Oral Once a day; Duration: 30 days As needed 05/09/2025 Active Caplyta 42 MG Capsule 1 capsule Orally Once a day; Duration: 30 days 05/09/2025 Active Topamax Active Albuterol Sulfate (2.5 MG/3ML) 0.083% Nebulization Solution Inhalation 12/08/2023 Active AIMOVIG AUTOINJECTOR 140 MG/ML SUBCUTANEOUS AUTO-INJECTOR *Reorder from [facility] for eRx and Interaction Alerts* 12/08/2023 Active Cetirizine HCl 10 MG Tablet Oral 12/08/2023 Active Immunizations Vaccine Route Administration Date Status [...] spl it virus Unknown 06/16/2019 Administered Novel [id number], preservative free Unknown 04/10/2020 Administered Pfizer Biontech [...] decision-maker Yes Do you have Power of Customer Pricing Manager for Health or [facility]? No Drug/Alcohol: Social Info Question Answer Notes [...] Problem Bipolar affective disorder, currently depressed, mild (936337470) Bipolar disorder, current episode depressed, mild (F31.31) Active confirmed Problem Bipolar affective disorder, currently depressed, moderate (946512363) Bipolar disorder, current episode depressed, moderate (F31.32) 12/08/19 24 Active confirmed Problem Mixed bipolar affective disorder, moderate (934861509) Bipolar disorder, current episode mixed, moderate (F31.62) Active confirmed Problem Generalized anxiety disorder (40621740) Generalized anxiety disorder (F41.1) 12/08/19 24 Active confirmed Problem Posttraumatic stress disorder (02601028) Post-traumatic stress disorder, chronic (F43.12) 12/08/19 24 Active confirmed Problem Primary insomnia (7247432) Primary insomnia (F51.01) 12/08/19 24 Active confirmed Problem Attention deficit hyperactivity disorder, predominantly inattentive type (disorder) (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) Attention and concentration deficit (R41.840) Active confirmed Problem Attention deficit hyperactivity disorder (573915282) ADHD (attention deficit hyperactivity disorder) (F90.9) Active confirmed Vital Signs Heart Rate 80 /min 01/07/2025 Height-cm 162.56 cm 05/28/2025 Blood pressure diastolic 95 mm Hg 01/07/2025 Weight-kg 122.47 kg 01/07/2025 Height 64.00 in 05/28/2025 Blood pressure systolic 142 mm Hg 01/07/2025 Weight 270 lbs 01/07/2025 BMI 46.34 kg/m2 01/07/2025 Procedures Procedure Date Ordered Date Performed Result Body Sit e ADHD Testing 11/06/2024 11/19/2024 N/A Encounters Encounter Location Date Provider Diagnosis [facility], [facility] [address] [place] [address] 01/08/2025 X[facility], [facility] [address] [place] [address] 03/08/2025 Xiang Argueta [facility], [facility] [address] [place] [address] 03/08/2025 Maya Mojica [facility], [facility] [address] [place] [address] 09/14/2024 Xiang Argueta [facility], [facility] [address] [place] [address] 09/14/[address] [facility] [place] [place] [address] [place] [address] 10/01/[address] [facility] [place] [address] [place] [address] 10/01/2024 Xiang [facility], [facility] [address] [place] [address] 10/01/2024 Xiang [facility], [facility] [address] [place] [address] 11/22/2024 Xiang [facility], [facility] [address] [place] [address] 11/28/[address] [facility] [place] [place] [address] [place] [address] 11/29/2024 Xiang Argueta [facility], [facility] [address] [place] [address] 12/14/2024 Xiang Argueta [facility], [facility] [address] [place] [address] 02/13/2025 Xiang Argueta Generalized anxiety disorder F41.1 [facility], [facility] [address] [place] [address] 03/07[facility], [facility] [address] [place] [address] 03/07/2025 Xiang Argueta [facility], [facility] [address] [place] [address] 03/08/2025 [facility][1], [facility] [address] [place] [address] 03/08/2025 [facility][1], [facility] [address] [place] [address] 03/11/2025 [facility][1], [facility] [address] [place] [address] 03/11/2025 [facility][1], [facility] [address] [place] [address] 03/13/2025 [facility][1], [facility] [address] [place] [address] 04/16/2025 [facility][1], [facility] [address] [place] [address] 05/28/2025 [facility][1], [facility] [address] [place] [address] 05/28/2025 [facility][1], [facility] [address] [place] [address] 11/19/2024 Bishop Delgado Sho of concentratio n R41.840 [facility], [facility] [address] [place] [address] 08/20/2024 Maya Hemann Bipolar disorder, current episode depressed, moderate F31.32 ; Post-traumatic stress disorder, chronic F43.12 and Generalized anxiety disorder F41.1 [facility], [facility] [address] [place] [address] 08/31/2024 Maya Hemann Bipolar disorder, current episode depressed, moderate F31.32 ; Post-traumatic stress disorder, chronic F43.12 and Generalized anxiety disorder F41.1 [facility], [facility] [address] [place] [address] 08/15/2024 Xiang Argueta Post-traumatic stres s disorder, chronic F43.12 ; Generalized anxiety disorder F41.1 ; Primary insomnia F51.01 ; Bipolar disorder, current episode mixed, moderate F31.62 and Other technician terminal and repeater (current) drug therapy Z79.899 [facility], [facility] [address] [facility] [address] [place] [address] 01/07/2025 Xiangsteven Shaha Encounter for screen ing for depression Z13.31 ; Encounter for screening for cardiovascular disorders Z13.6 ; Dietary counseling and surveillance Z71.3 ; Bipolar disorder, current episode mixed, moderate F31.62 ; Post-traumatic stress disorder, chronic F43.12 ; Generalized anxiety disorder F41.1 ; Primary insomnia F51.01 ; Other technician terminal and repeater (current) drug therapy Z79.899 ; Major depressive disorder, recurrent severe without psychotic features 296.33 and Attention and concentration deficit R41.840 [facility] [employer] [facility] [address] [facility] [address] [place] [address] 12/07/2024 Xiang Argueta Bipolar disorder, current episode mixed, moderate F31.62 ; Post-traumatic stress disorder, chronic F43.12 ; Generalized anxiety disorder F41.1 ; Primary insomnia F51.01 ; Other nursing home (current) drug therapy Z79.899 ; Major depressive disorder, recurrent severe without psychotic features 296.33 and Attention and concentration deficit R41.840 [facility] [employer] [facility] [address] [facility] [address] [facility] [address] [place] [address] 11/21/2024 Xiang Argueta Bipolar disorder, current episode mixed, moderate F31.62 ; Post-traumatic stress disorder, chronic F43.12 ; Generalized anxiety disorder F41.1 ; Primary insomnia F51.01 ; Other nursing home (current) drug therapy Z79.899 ; Major depressive disorder, recurrent severe without psychotic features 296.33 and ADHD (attention deficit hyperactivity disorder) F90.9 [facility] [employer] [facility] [address] [facility] [address] [facility] [address] [place] [address] 09/12/2024 Xiangsteven Negrooza Post-traumatic stres s disorder, chronic F43.12 ; Generalized anxiety disorder F41.1 ; Primary insomnia F51.01 ; Bipolar disorder, current episode mixed, moderate F31.62 ; Other technician terminal and repeater (current) drug therapy Z79.899 and Major depressive disorder, recurrent severe without psychotic features 296.33 [facility] [employer] [facility] [address] [place] [address] 07/04/2024 Xiang Argueta Post-traumatic stres s disorder, chronic F43.12 ; Generalized anxiety disorder F41.1 ; Primary insomnia F51.01 and Bipolar disorder, current episode mixed, moderate F31.62 [facility] [employer], [facility] [address] [place] [address] 10/22/2024 Xiang Shaha [facility], [facility] [address] [place] [address] 11/06/2024 Xiang Argueta Bipolar disorder, current episode mixed, moderate F31.62 ; Post-traumatic stress disorder, chronic F43.12 ; Generalized anxiety disorder F41.1 ; Primary insomnia F51.01 ; Other nursing home (current) drug therapy Z79.899 ; Major depressive disorder, recurrent severe without psychotic features 296.33 and Attention and concentration deficit R41.840 [facility], [facility] [address] [facility] [address] [place] [address] 02/18/2025 Xiang Argueta Bipolar disorder, current episode mixed, moderate F31.62 ; Post-traumatic stress disorder, chronic F43.12 ; Generalized anxiety disorder F41.1 ; Primary insomnia F51.01 and Attention and concentration deficit R41.840 [facility] [employer], [facility] [address] [place] [address] 03/13/2025 Xiang Argueta Bipolar disorder, current episode mixed, moderate F31.62 ; Post-traumatic stress disorder, chronic F43.12 ; Generalized anxiety disorder F41.1 ; Primary insomnia F51.01 and Attention and concentration deficit R41.840 [facility] [employer], [facility] [address] [facility] [address] [place] [address] 04/04/2025 Xiang Argueta Bipolar disorder, current episode mixed, moderate F31.62 ; Post-traumatic stress disorder, chronic F43.12 ; Generalized anxiety disorder F41.1 ; Primary insomnia F51.01 and Attention and concentration deficit R41.840 [facility] [employer], [facility] [address] [place] [address] 05/09/2025 Xiang Argueta Bipolar disorder, current episode mixed, moderate F31.62 ; Post-traumatic stress disorder, chronic F43.12 ; Generalized anxiety disorder F41.1 ; Primary insomnia F51.01 and Attention and concentration deficit R41.840 [place] [address] [address] 05/28/2025 Maya Hemann Post-traumatic stres s disorder, chronic F43.12 and ADHD (attention deficit hyperactivity disorder) F90.9 [facility] [address] [address] 03/21/2025 Maya Hemann Bipolar disorder, current episode depressed, moderate F31.32 ; Post-traumatic stress disorder, chronic F43.12 ; Generalized anxiety disorder F41.1 and ADHD (attention deficit hyperactivity disorder) F90.9 [place] [address] [address] 06/26/2024 Maya Hemann Bipolar disorder, current episode depressed, moderate F31.32 ; Post-traumatic stress disorder, chronic F43.12 and Generalized anxiety disorder F41.1 [place] [address] [address] 11/14/2024 Maya Hemann Bipolar disorder, current episode depressed, moderate F31.32 ; Post-traumatic stress disorder, chronic F43.12 and Generalized anxiety disorder F41.1 [place] [address] [address] 2024 Maya Hemann Bipolar disorder, current episode depressed, moderate F31.32 ; Post-traumatic stress disorder, chronic F43.12 and Generalized anxiety disorder F41.1 [place] [address] [address] 09/14/2024 Maya Hemann Bipolar disorder, current episode depressed, moderate F31.32 ; Post-traumatic stress disorder, chronic F43.12 and Generalized anxiety disorder F41.1 [place] [address] [address] 10/03/2024 Maya Hemann Bipolar disorder, current episode depressed, moderate F31.32 ; Post-traumatic stress disorder, chronic F43.12 and Generalized anxiety disorder F41.1 [place] [address] [address] 11/23/2024 Maya Hemann Bipolar disorder, current episode depressed, moderate F31.32 ; Post-traumatic stress disorder, chronic F43.12 ; Generalized anxiety disorder F41.1 and ADHD (attention deficit hyperactivity disorder) F90.9 [employer] [facility] [address] [place] [address] 01/08/2025 Maya Hemann Bipolar disorder, current episode depressed, moderate F31.32 ; Post-traumatic stress disorder, chronic F43.12 ; Generalized anxiety disorder F41.1 ; ADHD (attention deficit hyperactivity disorder) F90.9 and Encounter for screening for depression Z13.31 [facility] [employer] [facility] [address] [facility] [address] [place] [address] 01/16/2025 Maya Hemann Bipolar disorder, current episode depressed, moderate F31.32 ; Post-traumatic stress disorder, chronic F43.12 ; Generalized anxiety disorder F41.1 and ADHD (attention deficit hyperactivity disorder) F90.9 [facility] [employer] [place] [address] [facility] [address] [place] [address] 02/14/2025 Maya Hemann Bipolar disorder, current episode depressed, moderate F31.32 ; Post-traumatic stress disorder, chronic F43.12 ; Generalized anxiety disorder F41.1 and ADHD (attention deficit hyperactivity disorder) F90.9 Assessments Encounter Date Diagnosis (ICD Code) Assessment Notes Treatment Notes Treatment Clinical Notes Section Notes 03/13/2025 Bipolar disorder, current episode mixed, moderate (ICD-10 - F31.62) [place] level:Performed on: 03/07/25 Result: 0.5 mmol/L (within normal range). CancelRx Response got Denied on 2025-05-09 12:01:51 for '[place] Carbonate ER 450 MG Tablet Extended Release'Pharmacy Notes: Unable to Cancel Rx. Please contact Pharmacy 03/13/2025 Post-traumatic stress disorder, chronic (ICD-10 - F43.12) 04/04/2025 Bipolar disorder, current episode mixed, moderate (ICD-10 - F31.62) [place] level:Performed on: 03/07/25 Result: 0.5 mmol/L (within normal range). 04/04/2025 Post-traumatic stress disorder, chronic (ICD-10 - F43.12) 05/09/2025 Bipolar disorder, current episode mixed, moderate (ICD-10 - F31.62) 05/28/2025 Post-traumatic stress disorder, chronic (ICD-10 - F43.12) 03/21/2025 Bipolar disorder, current episode depressed, moderate (ICD-10 - F31.32) 03/21/2025 Post-traumatic stress disorder, chronic (ICD-10 - F43.12) 02/14/2025 Bipolar disorder, current episode depressed, moderate (ICD-10 - F31.32) 02/14/2025 Post-traumatic stress disorder, chronic (ICD-10 - F43.12) 02/13/2025 Generalized anxiety disorder (ICD-10 - F41.1) 01/16/2025 Bipolar disorder, current episode depressed, moderate (ICD-10 - F31.32) 01/16/2025 Post-traumatic stress disorder, chronic (ICD-10 - F43.12) 01/08/2025 Bipolar disorder, current episode depressed, moderate [...] a healthy diet and exercise routine. 6. [place] level monitoring: Plan: - Have patient check lithium level at least a week after starting, preferably 10-12 hours after the night dose. - Monitor levels routinely to ensure therapeutic range. 7. Follow-up: Plan: - Schedule a follow-up appointment to assess patient's response to lithium and overall mental health status. - Adjust treatment plan as needed. 06/26/2024 Bipolar disorder, current episode depressed, moderate (ICD-10 - F31.32) 06/26/2024 Post-traumatic stress disorder, chronic (ICD-10 - F43.12) 02/18/2025 Bipolar disorder, current episode mixed, moderate (ICD-10 - F31.62) [place] level:Performed on: 2024-11-27 09:17:21Result: 0.6 mmol/L (within normal range). 12/07/2024 Bipolar disorder, current episode mixed, moderate (ICD-10 - F31.62) [place] level:Performed on: 2024-11-27 09:17:21Result: 0.6 mmol/L (within normal range). 11/21/2024 Bipolar disorder, current episode mixed, moderate [...] Cognitive Training Working Memory: Use apps like [employer], n-back tasks, or strategic sequencing games. Attention [...] and low-distraction workspaces to optimize baseline attention. 11/14/2024 Bipolar disorder, current episode depressed, moderate (ICD-10 - F31.32) 11/14/2024 Post-traumatic stress disorder, chronic (ICD-10 - F43.12) 11/06/2024 Bipolar disorder, current episode mixed, moderate (ICD-10 - F31.62) 2024 Bipolar disorder, current episode depressed, moderate [...] conducted via telehealth if the patient prefers. 07/04/2024 Generalized anxiety disorder (ICD-10 - F41.1) [...] via telehealth if the patient prefers. 2024 Generalized anxiety disorder (ICD-10 - F41.1) 11/14/2024 Generalized anxiety disorder (ICD-10 - F41.1) 11/06/2024 Post-traumatic stress disorder, chronic (ICD-10 - F43.12) 11/21/2024 Post-traumatic stress disorder, chronic (ICD-10 - F43.12) 12/07/2024 Post-traumatic stress disorder, chronic (ICD-10 - F43.12) 02/18/2025 Post-traumatic stress disorder, chronic (ICD-10 - F43.12) 06/26/2024 Generalized anxiety disorder (ICD-10 - F41.1) 09/12/2024 Generalized anxiety disorder (ICD-10 - F41.1) clonazepam 0.5mg daily prn, hydroxyzine 25mg tid prn 08/15/2024 Generalized anxiety disorder (ICD-10 - F41.1) [...] a healthy diet and exercise routine. 6. [place] level monitoring: Plan: - Have patient check lithium level at least a week after starting, preferably 10-12 hours after the night dose. - Monitor levels routinely to ensure therapeutic range. 7. Follow-up: Plan: - Schedule a follow-up appointment to assess patient's response to lithium and overall mental health status. - Adjust treatment plan as needed. 08/20/2024 Generalized anxiety disorder (ICD-10 - F41.1) 08/31/2024 Generalized anxiety disorder (ICD-10 - F41.1) 09/14/2024 Generalized anxiety disorder (ICD-10 - F41.1) 10/03/2024 Generalized anxiety disorder (ICD-10 - F41.1) 11/23/2024 Generalized anxiety disorder (ICD-10 - F41.1) 01/07/2025 Encounter for screening for cardiovascular disorders (ICD-10 - Z13.6) 01/08/2025 Generalized anxiety disorder (ICD-10 - F41.1) 01/16/2025 Generalized anxiety disorder (ICD-10 - F41.1) 02/14/2025 Generalized anxiety disorder (ICD-10 - F41.1) 03/21/2025 Generalized anxiety disorder (ICD-10 - F41.1) 05/28/2025 ADHD (attention deficit hyperactivity disorder) (ICD-10 - F90.9) 05/09/2025 Post-traumatic stress disorder, chronic (ICD-10 - F43.12) 04/04/2025 Generalized anxiety disorder (ICD-10 - F41.1) clonazepam 0.5mg daily prn, hydroxyzine 25mg tid prn 03/13/2025 Generalized anxiety disorder (ICD-10 - F41.1) clonazepam 0.5mg daily prn, hydroxyzine 25mg tid prn 03/13/2025 Primary insomnia (ICD-10 - F51.01) 04/04/2025 Primary insomnia (ICD-10 - F51.01) 05/09/2025 Generalized anxiety disorder (ICD-10 - F41.1) clonazepam 0.5mg daily prn, hydroxyzine 25mg tid prn 03/21/2025 ADHD (attention deficit hyperactivity disorder) (ICD-10 - F90.9) 02/14/2025 ADHD (attention deficit hyperactivity disorder) (ICD-10 - F90.9) 01/16/2025 ADHD (attention deficit hyperactivity disorder) (ICD-10 - F90.9) 01/08/2025 ADHD (attention deficit hyperactivity disorder) (ICD-10 - F90.9) 01/07/2025 Dietary counseling and surveillance (ICD-10 - Z71.3) 11/23/2024 ADHD (attention deficit hyperactivity disorder) (ICD-10 - F90.9) 09/12/2024 Primary insomnia (ICD-10 - F51.01) 08/15/2024 Primary insomnia (ICD-10 - F51.01) 1. [...] a healthy diet and exercise routine. 6. [place] level monitoring: Plan: - Have patient check lithium level at least a week after starting, preferably 10-12 hours after the night dose. - Monitor levels routinely to ensure therapeutic range. 7. Follow-up: Plan: - Schedule a follow-up appointment to assess patient's response to lithium and overall mental health status. - Adjust treatment plan as needed. 02/18/2025 Generalized anxiety disorder (ICD-10 - F41.1) clonazepam 0.5mg daily prn, hydroxyzine 25mg tid prn 12/07/2024 Generalized anxiety disorder (ICD-10 - F41.1) clonazepam 0.5mg daily prn, hydroxyzine 25mg tid prn 11/21/2024 Generalized anxiety disorder (ICD-10 - F41.1) clonazepam 0.5mg daily prn, hydroxyzine 25mg tid prn 11/06/2024 Generalized anxiety disorder (ICD-10 - F41.1) clonazepam 0.5mg daily prn, hydroxyzine 25mg tid prn 07/04/2024 Primary insomnia (ICD-10 - F51.01) 1. [...] conducted via telehealth if the patient prefers. 07/04/2024 Bipolar disorder, current episode mixed, moderate [...] via telehealth if the patient prefers. 11/06/2024 Primary insomnia (ICD-10 - F51.01) 11/21/2024 Primary insomnia (ICD-10 - F51.01) 12/07/2024 Primary insomnia (ICD-10 - F51.01) 02/18/2025 Primary insomnia (ICD-10 - F51.01) 08/15/2024 Bipolar [...] a healthy diet and exercise routine. 6. [place] level monitoring: Plan: - Have patient check lithium level at least a week after starting, preferably 10-12 hours after the night dose. - Monitor levels routinely to ensure therapeutic range. 7. Follow-up: Plan: - Schedule a follow-up appointment to assess patient's response to lithium and overall mental health status. - Adjust treatment plan as needed. 09/12/2024 Bipolar disorder, current episode mixed, moderate (ICD-10 - F31.62) 01/07/2025 Bipolar disorder, current episode mixed, moderate (ICD-10 - F31.62) [place] level:Performed on: 2024-11-27 09:17:21Result: 0.6 mmol/L (within normal range). 05/09/2025 Primary insomnia (ICD-10 - F51.01) 04/04/2025 Attention and concentration deficit (ICD-10 - R41.840) Negative reaction to Concerta. DO NOT recommend stimulant use. 03/13/2025 Attention and concentration deficit (ICD-10 - R41.840) Negative reaction to Concerta. DO NOT recommend stimulant use. 05/09/2025 Attention and concentration deficit (ICD-10 - R41.840) Negative reaction to Concerta. DO NOT recommend stimulant use. 01/08/2025 Encounter for screening for depression (ICD-10 - Z13.31) 01/07/2025 Post-traumatic stress disorder, chronic (ICD-10 - F43.12) 08/15/2024 Other nursing home (current) drug therapy (ICD-10 - Z79.899) 1. [...] a healthy diet and exercise routine. 6. [place] level monitoring: Plan: - Have patient check lithium level at least a week after starting, preferably 10-12 hours after the night dose. - Monitor levels routinely to ensure therapeutic range. 7. Follow-up: Plan: - Schedule a follow-up appointment to assess patient's response to lithium and overall mental health status. - Adjust treatment plan as needed. 09/12/2024 Other nursing home (current) drug therapy (ICD-10 - Z79.899) 02/18/2025 Attention and concentration deficit (ICD-10 - R41.840) Negative reaction to Concerta. DO NOT recommend stimulant use. 11/21/2024 Other technician terminal and repeater (current) drug therapy (ICD-10 - Z79.899) 12/07/2024 Other technician terminal and repeater (current) drug therapy (ICD-10 - Z79.899) 11/06/2024 Other nursing home (current) drug therapy (ICD-10 - Z79.899) 11/06/2024 Major depressive disorder, recurrent severe without [...] prn 01/07/2025 Primary insomnia (ICD-10 - F51.01) 11/21/2024 ADHD (attention deficit hyperactivity disorder) (ICD-10 - F90.9) Use task chunking with brief timed intervals to manage attention.Incorpor ate checklists, reminder systems, and external structure to reduce cognitive load.Include exercise, sleep hygiene, and low-distraction workspaces to optimize baseline attention. Working Memory: Use apps like [employer], n-back tasks, or strategic sequencing games.Attention and Inhibition: Engage with attention games (e.g., Stroop or Go/No-Go tasks) and mindfulness-based focus practices.Consiste ncy and Self-Monitoring: Build routines with break points and visual feedback to maintain consistent effort over time. 12/07/2024 Attention and concentration deficit (ICD-10 - R41.840) Negative reaction to Concerta. DO NOT recommend stimulant use. 11/06/2024 Attention and concentration deficit (ICD-10 - R41.840) 01/07/2025 Other technician terminal and repeater (current) drug therapy (ICD-10 - Z79.899) 01/07/2025 Major depressive disorder, recurrent severe without psychotic features (ICD9-CM - 296.33) 01/07/2025 Attention and concentration deficit (ICD-10 - R41.840) Negative reaction to Concerta. DO NOT recommend stimulant use. 11/06/2024 Other Svitlana Zavaleta, female patient with [...] the evenings. No current manic symptoms reported. [place] level in August was 0.5, prompting a dosage increase. Recent labs from hospital stay are pending. Plan: - Continue [place] ER 450 mg PO daily - Continue [...] of taking extra medication to calm down. [place] level was 0.6 on November 26. Patient's [...] one more potential increase allowed by the [place]. Patient is being considered for shunt placement, with conflicting recommendations between neurology (head shunt) and ophthalmology (concerns about increased optical nerve pressure from surgical swelling with head shunt). Plan: - Increase Topamax to next dosage level as permitted by [place] - Follow up with clinical neurologist on April 25 - Follow up with [place] [employer] [place] in 2-3 weeks - Continue monitoring for vision changes and IIH symptoms Medication Management - [place] Assessment: Patient is currently on lithium 450 [...] efforts have been made to correct them. 09/12/2024 Other 1. Bipolar Disorder: - Patient [...] lithium dose and overall mental health status. 11/21/2024 Girish Zavaleta, adult female, presents with symptoms of ADHD including feeling overwhelmed, difficulty keeping schedule on track, and trouble with task management. Attention Deficit Hyperactivity Disorder (ADHD) Assessment: Patient completed [place] ADHD test on November 19, 2024, which [...] efforts have been made to correct them. 05/09/2025 Girish Zavaleta, a patient with bipolar disorder and idiopathic intracranial hypertension (IIH), presents with concerns about lithium side effects, recent ER visit for migraine, and emotional distress. Bipolar Disorder Assessment: Patient is currently stable on Caplyta for bipolar disorder management. Recent discontinuation of lithium due to side effects may be contributing to increased emotional lability. Patient reports tearfulness, which could be related to lithium withdrawal or underlying mood symptoms. Currently engaged in counseling, but frequency of sessions is limited. Plan: - Continue Caplyta - Monitor for mood changes and stability following lithium discontinuation - Encourage continuation of counseling - Provided resources for additional support: - [facility] website for support groups and information - Depression [facility]ipolar [employer] [place] (DBSA) website for resources and support groups - Follow-up appointment scheduled with Maya (counselor) - Reassess need for medication adjustments in 2 weeks Idiopathic Intracranial Hypertension (IIH) with Migraines Assessment: Patient reports recent ER visit for severe migraine, possibly related to IIH. Currently taking Topamax for migraine prevention. The combination of IIH and migraines is contributing to cognitive issues and overall functional impairment. Plan: - Continue Topamax - Monitor effectiveness of current migraine management - Encourage self-care techniques for headache management - Reassess headache control at follow-up appointment Weight Management Assessment: Patient reports significant appetite suppression and weight loss, likely due to the combination of Zepbound (weight loss medication) and Topamax. This is impacting nutritional intake, with patient reporting difficulty eating more than a few bites at a time. Plan: - Continue Zepbound - Monitor weight and nutritional status - Educate patient on the appetite-suppressi ng effects of both Zepbound and Topamax - Encourage small, frequent meals as tolerated Disability Application Assessment: Patient is considering reapplying for disability benefits. Previous application was denied due to insufficient work hours. Current medical conditions, including bipolar disorder, IIH, migraines, and associated cognitive issues, may support the application. Plan: - Provide support for disability application process if patient decides to reapply - Document functional limitations related to bipolar disorder, IIH, migraines, and cognitive issues to support potential disability claim the note is transcribed using speech recognition [...] have been made to correct them. 03/13/2025 Girish Zavaleta, female patient with a history of [...] management proves ineffective - [place] up with [place] [employer] [place] as scheduled on March 21 Mood Disorder [...] Test Name Order Date LITHIUM (613) 09/18/2024 Insurance Providers Payer Name Payer Address Payer Phone Subscriber Number Group Number Insured Name Patient Relationship to Insured Coverage Start Date Coverage End Date Gw-Cig na - [employer] [address] [place] [phone] [id number] [id number] Spouse - patient is the [...] had multiple encounters with healthcare providers at [facility]. The patient was seen by Dr. [...] an emergency visit on 11/26/2024 at [facility], attended by Dr. Sussy Narayan, due to syncope and collapse. The following day, 11/27/2024, the patient had a hospital encounter, followed by a results follow-up with Dr. Arash Abdullahi at [facility]. During an office visit on the same day with Dr. Abdullahi, several issues were identified: bacteria in urine, dilated cardiomyopathy, dysuria, and psychogenic syncope. The patient was also followed up after hospital discharge. Additionally, the patient has uncomplicated asthma of unspecified severity and persistence. Surgical History Surgery Date(Month/Year) Hysterectomy/revise vagina ([id number]) 08/08 Other 03/08/2009
--- OUTSIDE RECORDS SUMMARY | 2025-06-08 13:48 | XMS_ITS | Clinical Summary ---
Author Organization [facility] [employer] Address [address] [place] [address] Care Team Providers Care Hospital Nurse Name Role Phone Mayelin Ruffin MD Primary Care Provider [phone] Source Comments [facility],non-owned Affiliates and Associated Physician Practices is amultiple site organization consisting of ambulatory clinics and hospital sitesin [place], [place], [place]. This disclosure is being madepursuant to the Care Everywhere program and may not contain all information available regarding this patient. Last updated 18.[facility] [employer] Allergies Active Allergy Reactions Criticality Noted Date Comments Adhesive Sensitivity Rash Medium 03/31/2021 Amoxicillin Other Low 10/22/2020 PCP prefers pt Does not take PCP prefers pt Does not take Compazine Unknown 12/08/2023 Acetazolamide Other 03/21/2025 [place] like mouth was on fire also tingling [...] times daily as needed 04/25/20 23 Active albuterol HFA (Proventil; Ventolin; Proair) 108 (90 Base) MCG/ACT inhaler INHALE 2 PUFFS BY MOUTH EVERY 4 HOURS NEEDED 6.7 g 2 08/23/19 24 Active acetaminophen (Tylenol) 325 MG tablet Take 2 (two) tablets by mouth every 6 hours as needed for Pain Maximum allowable Acetaminophen amount = 4 Grams (4000 mg) / 24 hours. 30 tablet 11/03/19 25 Active fluticasone-salm eterol (Advair Diskus) 250-50 MCG/ACT inhalerIndicatio ns:Moderate persistent asthma without complication (HCC) Inhale 1 (one) puff by mouth 2 times daily 60 Each 1 02/01/20 25 Active Caplyta 42 MG capsule Take 1 (one) capsule by mouth once daily 03/01/20 25 Active topiramate (Topamax) 200 MG tablet Take 1 (one) tablet by mouth 2 times daily 180 tablet 2 04/17/20 25 Active ondansetron, disintegrating, (Zofran ODT) 4 MG tablet Take 1 (one) tablet by mouth every 6 hours as needed for Nausea/Vomiting Allow tablet to dissolve on the tongue 60 tablet 1 04/17/20 25 Active fremanezumab-vfr m (Ajovy) 225 MG/1.5ML injectionIndicat ions:Insomnia, unspecified type,Migraine without aura and without status migrainosus, not intractable Inject 1.5 mL subcutaneously every 30 days 1.5 mL 5 04/25/20 25 Active butalbital-aceta minophen-caffein e (Fioricet) 50-300-40 MG capsuleIndicatio ns:Migraine without aura and without status migrainosus, not intractable Take 1 (one) capsule by mouth once daily as needed for Headache 20 capsule 2 04/25/20 25 Active Ubrelvy 100 MG tabletIndication s:Insomnia, unspecified type,Psychogenic nonepileptic seizure,Migraine without aura and without status migrainosus, not intractable Take 1 (one) tablet by mouth daily as needed - may repeat one time for Migraine No more than 2 doses in 24 hours. 12 tablet 4 04/25/20 25 Active esomeprazole (NexIUM) 20 MG capsule Take 1 (one) capsule by mouth daily before breakfast 30 capsule 2 05/09/20 25 Active tirzepatide (Zepbound) 7.5 MG/0.5ML injectionIndicat ions:Obesity,idi opathic intracranial hypertension Inject 7.5 (seven and one-half) mg subcutaneously every 7 days (once a week) Reasons: Obesity, idiopathic intracranial hypertension 2 mL 06/05/20 25 Active tirzepatide (Zepbound) 5 MG/0.5ML injectionIndicat ions:Obesity,idi opathic intracranial hypertension Inject 5 (five) mg subcutaneously every 7 days (once a week) Reasons: Obesity, idiopathic intracranial hypertension 2 mL 04/29/20 25 025 Discontin ued(Reord er) Active Problems Problem Noted Date Diagnosed Date Complicated migraine 05/06/2025 Encounter for medication management 04/16/2025 Hip injury 04/16/2025 Binocular vision loss 04/16/2025 Pseudotumor cerebri syndrome 03/31/2025 Pseudotumor cerebri 03/21/2025 Vision changes 03/06/2025 Dilated cardiomyopathy 11/27/2024 Biliary dyskinesia 10/17/2024 Bipolar 1 disorder with moderate ruma 4 POTS (postural orthostatic tachycardia syndrome) 09/30/2023 11/14/2023 Inflammatory arthritis 07/06/2023 4 PTSD (post-traumatic stress disorder) 06/29/2023 Chronic migraine [...] and fallopian tubes - oncologist is at [facility] - s/p tumor removal - currently in [...] Encounters Date Type Department Care Team Description 05/29/2025 Telephone [facility] - Centralized Scheduling [address] [place] [address] Mayelin Ruffin MD Appointment 05/14/2025 Travel 05/13/2025 Telephone [facility] - Internal Med [address] [facility], [facility] [place] [address] Mayelin Ruffin MD Referral (To pulmonary) 05/08/2025 Telephone [facility] - Centralized Scheduling [address] [place] [address] Mayelin Ruffin MD Patient Requested Call 05/05/2025 11:35 PM CDT - 05/06/2025 3:11 AM CDT Emergency [facility] EMERGENCY DEPARTMENT [address] [place] [address] Marcus Sloan MD Acute intractable headache, unspecified headache type; Migraine with status migrainosus, not intractable, unspecified migraine type Discharge Disposition: Home or Self Care 05/04/2025 Telephone [facility] - Neurology [address] [place] [phone] Elaine RomenaDO Headache 04/29/2025 Travel 04/25/2025 9:00 AM CDT [facility] [address] [place] [phone] Marie Parson, VAMP PRESSER-SCREEN REPAIRER CRUSHER Migraine without aura and without status migrainosus, not intractable (Primary Dx); Insomnia, unspecified type; Psychogenic nonepileptic seizure; IIH (idiopathic intracranial hypertension); Migraine with aura and without status migrainosus, not intractable 04/25/2025 Travel 04/19/2025 Orders Only [facility] - Family Medicine [address] [place] [phone] Fredy, Cleo 04/19/20[facility] [address] [place] [phone] Mayelin Ruffin MD Headache; Refill Request; Patient Requested Call 04/19/2025 Telephone [facility] - Central[facility] Scheduling [address] [place] [phone] Mayelin Ruffin MD Patient Requested Call 04/18/2025 8:20 AM CDT Clinical Support [facility] - Ophthalmology [address] [place] [phone] Daniel Calix MD IIOsorio (idiopathic intracranial hypertension) (Primary Dx); Papilledema 04/18/2025 8:15 AM CDT [facility] Ophthalmology [address] [place] [phone] Daniel Calix MD IIOsorio (idiopathic intracranial hypertension) (Primary Dx); Papilledema 04/18/2025 8:10 AM CDT Clinical Support [facility] - Ophthalmology [address] [place] [phone] Fifi, Daniel A, MD IIH (idiopathic intracranial hypertension) (Primary Dx); Papilledema 04/18/2025 Travel 04/16/2025 Ophth Exam [facility] - Ophthalmology [address] [place] [phone] Elias Lozano MD 04/15/2025 10:22 PM CDT - 04/17/2025 7:45 PM CDT Hospital Encounter [facility] Early Admission Unit [address] [place] [address] Rashad Chen MD Chappidi, Maithreyi, MD Neurology Discharge Disposition: Home or Self Care 04/15/2025 Telephone [facility] - Ophthalmology [address] [place] [phone] Elias Lozano MD Eye Problem 04/09/2025 Telephone [facility] - Ophthalmology [address] [place] [phone] Carlos Youngblood MD Eye Problem 04/03/2025 11:40 AM CDT Clinical Support [facility] - Ophthalmology [address] [place] [phone] Daniel Calix MD Papilledema (Primary Dx) 04/03/2025 11:35 AM CDT Clinical Support [facility] - Ophthalmology [address] [place] [phone] Daniel Calix MD Papilledema (Primary Dx) 04/03/2025 11:30 AM CDT Clinical Support [facility] - Ophthalmology [address] [place] [phone] Daniel Calix MD Papilledema (Primary Dx) 04/03/2025 10:45 AM CDT [facility] Ophthalmology [address] [place] [phone] Daniel Calix MD Papilledema (Primary Dx); IIH (idiopathic intracranial hypertension) 04/03/2025 Travel 04/03/2025 Telephone [facility] - Family Medicine [address] [place] [address] Nuvia Butler PA-C Vision Change 04/02/2025 Travel 04/01/2025 Telephone [facility] Physician [facility] - Neurology [address] [place] [phone] Ceci Lr MD Follow-up 03/27/2025 Telephone [facility] Physician [facility] - Ophthalmology [address] [place] [phone] Sanam Buck Question (Patient was calling back to see about scheduling she said she spoke to the sanitation inspector physician last night message sent to Dr Youngblood to follow up) 03/26/2025 Telephone [facility] Physician [facility] - Ophthalmology [address] [place] [phone] Carlos Youngblood MD Eye Problem 03/21/2025 4:00 PM CDT Office Visit [facility] Family Medicine [address] [place] [phone] Mayelin Ruffin MD Pseudotumor cerebri (Primary Dx); Morbid obesity (HCC); Dilated cardiomyopathy (HCC); Bipolar 1 disorder with moderate ruma (HCC) 03/21/2025 Travel 03/12/2025 Travel 03/12/2025 Transitional Care [address] [phone] Erica Conteh, POLO Hospital Follow-up 03/11/2025 Refill [facility] 5N ACUTE [address] [place] [address] Josy Phillips MD Refill Request 03/06/2025 12:17 AM CDT - 03/11/2025 2:09 PM CDT Hospital Encounter [facility] 5N ACUTE [address] [place] [address] Carol Munguia MD Atilgan, Deniz, MD Kafaie, Jafar, MD Neurology Discharge Disposition: Home or Self Care from Last 3 Months Immunizations Immunization Administration Dates Next Due INFLUENZA VACCINE, TRIV. (AF LURIA, FLUZONE TRIVALENT; 6MO+) (IIV3) 04/14/2020 FLU VACCINE QUAD IIV4 SPLIT 0.25 ML IM 06/16/2019,05/26/2018,08/19/2015 INFLUENZA A Q7G8-20 VACCINE 04/10/2020 INFLUENZA VACCINE, CELL CULT URE, [...] Recorded Patient Health Questionnaire-2 Score 0 02/27/2025 [facility] - Occupational Stress Questionnaire Answer Date Recorded [...] any time in the past 12 m the rehabilitation institute, were you homeless or living in a custodial (including now)? No 04/16/2025 Comments No Sex and Gender Information Value Date Recorded Sex Assigned at Female 07/05/2023 4:04 PM CALCULATOR OPERATOR Legal Sex Female 4:40 PM CDT Gender Identity Female 07/05/2023 4:04 PM CALCULATOR OPERATOR Sexual Orientation Bisexual 07/05/2023 4: 04 PM CALCULATOR OPERATOR Last Filed Vital Signs Vital Sign [...] st Contact Info) Description 06/26/2025 9:00 AM CALCULATOR OPERATOR [facility] - Neurology [address] [place] [phone] Eva Salinas PA-C [address] [place] [address] 07/03/2025 2:30 PM CALCULATOR OPERATOR Office Visit [facility] - Pulmonology [address] [place] [address], [place] [address] Zia Warner DO [address] [place] [address] 08/26/2025 3:00 PM CALCULATOR OPERATOR Office Visit [facility] - Neurology [address] [place] [phone] Marie Parson, VAMP PRESSER-SCREEN REPAIRER CRUSHER [address] [place] [address] [place] [address] 09/25/2025 3:20 PM CALCULATOR OPERATOR Office Visit [facility] - Sleep Services [address] [phone] Jeffery Dunaway MD [address] [phone] Health Maintenance Due Date Last Done Comments HIV SCREENING 2004 HEPATITIS C SCREENING 07/22/2007 HEPATITIS B VACCINE (1 of 3 - 19+ 3-dose series) 2008 HPV VACCINE (1 - 3-dose SCDM series) 2016 PNEUMOCOCCAL VACCINE (2 of 2 - PCV) 07/01/2021 07/01/2020 COVID-19 VACCINE (3 - 2024- season) 2025 06/27/2021, 06/06/2021 INFLUENZA VACCINE (#1) [...] CDT Papilledema IIH (idiopathic intracranial hypertension) CYTOLOGY NON-SPRINKLER TENDER PANEL (STL) STAT 04/17/2025 1:13 PM CDT [...] 5:20 AM CDT PHOSPHORUS BLOOD Routine 04/17/2025 5:20 AM CDT MAGNESIUM BLOOD Routine 04/17/2025 5:20 [...] 25-HYDROXY AM Draw 03/08/2025 7:58 AM CDT from Last 3 Months Results * CT HEAD WO CONTRAST (05/05/2025 6:45 PM CDT) Only the most recent of2 resultswithin the time period is included. Anatomical Region Laterality Modality Head Computed Tomogra phy 05/05/2025 7:07 PM CDT Impressions 05/05/2025 8:31 PM CDT IMPRESSION: 1.No acute intracranial hemorrhage, midline shift, or significant mass effect. The report was drafted by Isidra Keenan MD (president financial institution) 05/05/2025 7:10 PM. > Dictated by Isidra Keenan MD 05/05/2025 7:07 PM > Dictated by Rehabilitation Center Manager I, Edson Neely MD have personally reviewed and interpreted this examination/study. > Interpreting Provider: Edson Neely MD on 05/05/2025 8:31 PM Narrative 05/05/2025 8:31 PM CDT PROCEDURE: CT HEAD WO CONTRAST, DATE/TIME OF EXAM: 05/05/2025 6:45 PM, LOCATION [facility] INDICATION: R51.9: Acute intractable headache, unspecified headache [...] DATE/TIME OF EXAM: 05/05/2025 6:45 PM, LOCATION [facility] INDICATION: R51.9: Acute intractable headache, unspecified headache [...] report was drafted by Isidra Keenan MD (president financial institution) 05/05/2025 7:10 PM. > Dictated by Isidra Keenan MD 05/05/2025 7:07 PM > Dictated by Rehabilitation Center Manager I, Edson Neely MD have personally reviewed and interpretedthis examination/study. > Interpreting Provider: Edson Neely MD on 05/05/2025 8:31 PM Isa Castillo PA-C CT ORDERABLES Final Result * CBC W AUTO DIFFERENTIAL (05/05/2025 5:45 PM CDT) Only the most recent of2 resultswithin the time period is included. WBC 5.7 4.0 - 10.7 x10E9/L 05/05/2025 6:23 PM [facility] RBC Count 4.99 3.90 - 5.20 x10E12/L 05/05/2025 6:23 PM [facility] Hemoglobin 14.3 11.9 - 15.8 g/dL 05/05/2025 6:23 PM [facility] Hematocrit 41.5 34.8 - 46.1 % 05/05/2025 6:23 PM [facility] MCV 83.2 80.0 - 98.0 fL 05/05/2025 6:23 PM [facility] MCH 28.7 26.7 - 33.6 pg 05/05/2025 6:23 PM [facility] MCHC 34.5 31.7 - 36.3 g/dL 05/05/2025 6:23 PM [facility] RDW-CV 13.7 11.3 - 14.8 % 05/05/2025 6:23 PM [facility] Platelet Count 231 150 - 420 x10E9/L 05/05/2025 6:23 PM [facility] MPV 10.7 7.8 - 11.4 fL 05/05/2025 6:23 PM [facility] Neutrophil % 66.7 41.0 - 74.0 % 05/05/2025 6:23 PM [facility] Lymphocyte % 24.9 17.0 - 47.0 % 05/05/2025 6:23 PM [facility] Monocyte % 7.6 3.0 - 11.0 % 05/05/2025 6:23 PM [facility] Eosinophil % 0.2 0.0 - 7.0 % 05/05/2025 6:23 PM [facility] Basophil % 0.4 0.0 - 1.6 % 05/05/2025 6:23 PM [facility] Immature Granulocytes % 0.2 0.0 - 1.0 % 05/05/2025 6:23 PM [facility] Neutrophil Absolute 3.78 1.60 - 7.50 x10E9/L 05/05/2025 6:23 PM [facility] Lymphocyte Absolute 1.41 1.00 - 4.40 x10E9/L 05/05/2025 6:23 PM T [facility] Monocyte Absolute 0.43 0.15 - 1.00 x10E9/L 05/05/2025 6:23 PM [facility] Eosinophil Absolute 0.01 0.00 - 0.60 x10E9/L 05/05/2025 6:23 PM [facility] Basophil Absolute 0.02 0.00 - 0.13 x10E9/L 05/05/2025 6:23 PM [facility] Blood BLOOD SPECIMEN / Unknown 05/05/2025 5:45 PM CDT 05/05/2025 6:18 PM CDT Isa Castillo PA-C LAB - HEMATOLOGY LACEY BRANDON Final Result [facility] [address] [place] [phone], [facility] [phone] * (ABNORMAL) COMPREHENSIVE METABOLIC PANEL (05/05/2025 5:45 PM CDT) Only the most recent of3 resultswithin the time period is included. BUN 17 7 - 26 mg/dL 05/05/2025 6:45 PM [facility] Creatinine 0.88 0.56 - 0.96 mg/dL 05/05/2025 6:45 PM [facility] Sodium 137 136 - 145 mmol/L 05/05/2025 6:45 PM [facility] Potassium 3.6 3.5 - 4.5 mmol/L 05/05/2025 6:45 PM [facility] Chloride 111(H) 98 - 107 mmol/L 05/05/2025 6:45 PM [facility] CO2 18(L) 22 - 29 mmol/L 05/05/2025 6:45 PM [facility] Glucose 85 70 - 99 mg/dL 05/05/2025 6:45 PM [facility] Calcium 10.1 8.4 - 10.2 mg/dL 05/05/2025 6:45 PM [facility] Protein Total 8.9(H) 6.0 - 8.3 g/dL 05/05/2025 6:45 PM [facility] Albumin 5.5(H) 3.4 - 5.0 g/dL 05/05/2025 6:45 PM [facility] Bilirubin Total 0.4 0.2 - 1.2 mg/dL 05/05/2025 6:45 PM [facility] Alkaline Phosphatase 103 40 - 150 U/L 05/05/2025 6:45 PM [facility] ALT 100(H) 5 - 55 U/L 05/05/2025 6:45 PM [facility] AST 42(H) 5 - 34 U/L 05/05/2025 6:45 PM [facility] Anion Gap 8 6 - 16 05/05/2025 6:45 PM [facility] BUN/Creatinine Ratio 19 7 - 23 05/05/2025 6:45 PM [facility] Osmolality Calculated 285 275 - 295 mOsm/kg 05/05/2025 6:45 PM [facility] Albumin/Globulin Ratio 1.6 1.1 - 2.3 05/05/2025 6:45 PM [facility] eGFR by CKD-EPI 88(L) >=90 mL/min/1.7 3 m2 05/05/2025 6:45 PM [facility] Comment:Estimated Glomerular Filtration Rate (eGFR) calculated using the CKD-EPI Creatinine Equation (2020), per the National Kidney Foundation and [place] [employer]ph[employer] recommendations. Blood BLOOD SPECIMEN / Unknown 05/05/2025 5:45 PM CDT 05/05/2025 6:18 PM CDT us Isa Castillo PA-C LAB - CHEMISTRY ORDER LEE Final Result [facility] [address] [place] [address], [facility] [phone] * OPTIC NERVE ANALYSIS OCT (04/18/2025 8:09 AM CDT) Anatomical Region Laterality Modality Head External-Camera Photography Narrative 04/18/2025 9:06 AM CDT Images from the original result were not included. us Daniel Calix MD OPHTHALMOLOGY SCHED ORD W JANINA S Edited Result - Final * CYTOLOGY NON-SPRINKLER TENDER PANEL (STL) (04/17/2025 1:13 PM CDT) Case Report Medical Cytology Report Case: [id number] Authorizing Provider: Aby Huffman MD Collected: 04/17/2025 01:13 PM Ordering Location: [facility] Early Admission Unit Received: 04/17/2025 01:35 PM Pathologist: Elias Guzman MD Specimen: CSF 04/18/2025 10:23 AM CDT [facility] PATHOLOGY LAB Specimen Adequacy Adequate cellularity for evaluation. 04/18/2025 10:23 AM T [facility] PATH[facility]Y LAB Final Diagnosis Cerebrospinal fluid specimen: - Lymphocytes present. - No malignant cells identified. 04/18/2025 10:[address] [facility] PATHOLOGY LAB at 1023 CDT Clinical History Intractable headache and left eye pain 04/18/2025 10:[address] [facility] PATHOLOGY LAB Gross Description 1 Pap stained cytospin slide from 5 cc of clear, colorless fluid 04/18/2025 10:[address] [facility] PATHOLOGY LAB Microscopic Description Microscopic examination is performed and supports the final diagnosis. 04/18/2025 10:23 AM T [facility] PATHOLOGY LAB Pathologist Location at [facility] 04/18/2025 10:23 AM CDT [facility] PATHOLOGY LAB Disclaimer The performance characteristics of all immunohistochemical and indirect immunofluorescence stains (if any) cited in this report were determined by the Histopathology Laboratory of [facility]. Some of these tests rely on the use of analyte-specific reagents and are subject to specific labeling requirements by the US Food and Drug Administration. Such tests were developed by the Histology Laboratory of [facility] and have not been cleared or approved [...] attending (teaching) pathologist. 04/18/2025 10:23 AM CDT [facility] PATHOLOGY LAB Embedded Images 04/18/2025 10:23 AM CDT [facility] PATH[facility] LAB Pathology/Cytolo gy CEREBROSPINAL FLUID SPECIMEN / Unknown Collection / Unknown 04/17/2025 1:13 PM CDT 04/17/2025 1:35 PM CDT Aby Huffman MD LAB - PATHOLOGY/CYTOLOGY O RDERABLES Final Result [facility] PATHOLOGY LAB [address] [place], [place] [address] [phone] * CULTURE CSF+GRAM STAIN (04/17/2025 1:13 PM CDT) Culture No growth GRAZYNA 04/24/2025 7:05 AM CDT [facility] Gram Stain No organisms seen 025 7:05 AM CDT [facility] Gram Stain Rare Polymorphonuclear cells 04/24/2025 7:05 AM CDT [facility] Cerebral spinal fluid CEREBROSPINAL FLUID SPECIMEN / Unknown Collection / Unknown 04/17/2025 1:13 PM CDT 04/17/2025 1:21 PM CDT Narrative [facility] - 04/24/2025 7:05 AM CDT Components of this test may have been developed and performance characteristics determined by [facility]. The lab developed components have not [...] LAB - MICROBIOLOGY ORDERAB LES Final Result [facility] [address] [place], [place] [address] [phone] * (ABNORMAL) CELL COUNT W DIFFERENTIAL CSF (04/17/2025 1:13 PM CDT) Only the most recent of2 resultswithin the time period is included. Tube Number [id number] 04/17/2025 1:44 PM CDT [facility] Xanthochromia ABSENT ABSENT 04/17/2025 1:44 PM CDT [facility] CSF Appearance CLEAR 04/17/2025 1:44 PM CDT [facility] CSF Color COLORLESS 04/17/2025 1:44 PM CDT [facility] Total Nucleated Cells CSF 2 <=5 x10E6/L 04/17/2025 1:44 PM CDT [facility] Comment:TNC less than or equ al to 5. No differential reported per policy. RBC Count CSF 64(H) 0 - 5 x10E6/L 04/17/2025 1:44 PM CDT [facility] Cerebral spinal fluid CEREBROSPINAL FLUID SPECIMEN / Unknown Collection / Unknown 04/17/2025 1:13 PM CDT 04/17/2025 1:21 PM CDT us Aby Huffman MD LAB - BODY FLUID ORDERABLE S Final Result Performing Organization Address City/Va Hospital/ZIP Co de Phone Number [address] [address], [facility] [phone] * PROTEIN CSF (04/17/2025 1:13 PM CDT) Only the most recent of2 resultswithin the time period is included. Protein CSF 45 15 - 45 mg/dL 04/17/2025 2:07 PM CDT [facility] Cerebral spinal fluid CEREBROSPINAL FLUID SPECIMEN / Unknown Collection / Unknown 04/17/2025 1:13 PM CDT 04/17/2025 1:21 PM CDT us Aby Huffman MD LAB - BODY FLUID ORDERABLE S Final Result [address] [place] [place] [address], [facility] [phone] * GLUCOSE CSF (04/17/2025 1:13 PM CDT) Only the most recent of2 resultswithin the time period is included. Glucose CSF 60 40 - 70 mg/dL 04/17/2025 2:06 PM CDT [facility] Cerebral spinal fluid CEREBROSPINAL FLUID SPECIMEN / Unknown Collection / Unknown 04/17/2025 1:13 PM CDT 04/17/2025 1:21 PM CDT us Aby Huffman MD LAB - BODY FLUID ORDERABLE S Final Result [address] [address], [facility] [phone] * FL Lumbar Puncture (04/17/2025 1:07 PM [...] is dictated by Maulik Rogers Dr, (residential case manager) Attending Physician: Dr. Edson Neely Manager Winter: Dr. Maulik Rogers Dr, (residential case manager) The procedure was performed by the: The speech therapy assistant, and the attending radiologist was present for all critical and barkley portions of the procedure, and was immediately available to furnish services during the entire procedure. The attending radiologist performed the following procedural activities: Dr. Edson Andrade was there and supervised barkley portions of the procedure, not scrubbed. > Dictated by Rehabilitation Center Manager Edson Andrade MD have personally reviewed and interpreted this examination/study. > Interpreting Provider: Edson Neely MD on 05/12/2025 4:04 PM Narrative 05/12/2025 4:04 PM CDT PROCEDURE: FL LUMBAR PUNCTURE, DATE/TIME OF EXAM: 04/17/2025 1:14 PM, LOCATION [facility] INDICATION: G93.2: Pseudotumor cerebri syndrome G93.2: Pseudotumor [...] The patient was then transferred to the director of health care marketing unit for further observation and two hours of bedrest. OPENING PRESSURE: 22 cm H20 CLOSING PRESSURE: 15 cm H20 FLUOROSCOPY TIME: 36.4 Procedure Note Edson Neely MD - 05/12/2025 PROCEDURE: FL LUMBAR PUNCTURE, DATE/TIME OF EXAM: 04/17/2025 1:14 PM, LOCATION [facility] INDICATION: G93.2: Pseudotumor cerebri syndrome G93.2: Pseudotumor [...] The patient was then transferred to the director of health care marketing unit for further observation and two hours of bedrest. OPENING PRESSURE: 22 cm H20 CLOSING PRESSURE: 15 cm H20 FLUOROSCOPY TIME: 36.4 IMPRESSION: 1.Successful lumbar puncture under fluoroscopic guidance at L2-3 with therapeutic and diagnostic CSF collection. 2.Opening Pressure: 22 cm H20 3.Closing Pressure: 15 cm H20 The report is dictated by Maulik Rogers Dr, (residential case manager) Attending Physician: Dr. Edson Neely Manager Winter: Dr. Maulik Rogers Dr, (residential case manager) The procedure was performed by the: The speech therapy assistant, and the attending radiologist was present for allcritical and barkley portions of the procedure, and was immediately available [facility] services during the entire procedure. The attending radiologist performed the following procedural activities: Dr. Edson Andrade was there and supervised barkley portions of the procedure, not scrubbed. > Dictated by Rehabilitation Center Manager Edson Andrade MD have personally reviewed and interpretedthis examination/study. > Interpreting Provider: Edson Neely MD on 05/12/2025 4:04 PM us Aby Huffman MD FLUOROSCOPY ORDERABLES Fin al Result * PT-INR (04/17/2025 9:54 AM CDT) PT 14.1 12.1 - 14.8 Seconds 04/17/2025 10:45 AM [facility] INR 1.1 See Comment 04/17/2025 10:45 AM [facility] Comment:The suggested therap eutic range for standard coumadin (warfarin) therapy is an INR of 2.0-3.0. For high-risk patients (Mechanical Mitral Valve Prosthesis, etc.), the suggested prophylactic therapeutic range is an INR of 2.5-3.5. Blood BLOOD SPECIMEN / Unknown Lab Venipuncture / Unknown 04/17/2025 9:54 AM CDT 04/17/2025 10:01 AM CDT us Aby Huffman MD LAB - COAGULATION ORDERABL ES Final Result [facility] [address] [place] [address], [facility] [phone] * CBC W/O DIFFERENTIAL (04/17/2025 5:20 AM T) Only the most recent of3 resultswithin the time period is included. WBC 5.4 4.0 - 10.7 x10E9/L 04/17/2025 6:21 AM [facility] RBC Count 4.26 3.90 - 5.20 x10E12/L 04/17/2025 6:21 AM [facility] Hemoglobin 12.1 11.9 - 15.8 g/dL 04/17/2025 6:21 AM [facility] Hematocrit 35.9 34.8 - 46.1 % 04/17/2025 6:21 AM [facility] MCV 84.3 80.0 - 98.0 fL 04/17/2025 6:21 AM [facility] MCH 28.4 26.7 - 33.6 pg 04/17/2025 6:21 AM [facility] MCHC 33.7 31.7 - 36.3 g/dL 04/17/2025 6:21 AM [facility] RDW-CV 13.9 11.3 - 14.8 % 04/17/2025 6:21 AM [facility] Platelet Count 219 150 - 420 x10E9/L 04/17/2025 6:21 AM [facility] MPV 10.3 7.8 - 11.4 fL 04/17/2025 6:21 AM [facility] Blood BLOOD SPECIMEN / Unknown Lab Venipuncture / Unknown 04/17/2025 5:20 AM CDT 04/17/2025 6:06 AM CDT us Rashad Chen MD LAB - HEMATOLOGY ORDERABLES F inal Result [facility] [address] [place] [address], [facility] [phone] * (ABNORMAL) BASIC METABOLIC PANEL (CALCIUM TOTAL) (04/17/2025 5:20 AM T) Only the most recent of4 resultswithin the time period is included. BUN 16 7 - 26 mg/dL 04/17/2025 11:42 AM [facility] Creatinine 0.94 0.56 - 0.96 mg/dL 04/17/2025 11:42 AM [facility] Sodium 139 136 - 145 mmol/L 04/17/2025 11:42 AM [facility] Potassium 3.8 3.5 - 4.5 mmol/L 04/17/2025 11:42 AM [facility] Chloride 115(H) 98 - 107 mmol/L 04/17/2025 11:42 AM [facility] CO2 18(L) 22 - 29 mmol/L 04/17/2025 11:42 AM [facility] Glucose 88 70 - 99 mg/dL 04/17/2025 11:42 AM [facility] Calcium 9.4 8.4 - 10.2 mg/dL 04/17/2025 11:42 AM [facility] Anion Gap 6 6 - 16 04/17/2025 11:42 AM [facility] BUN/Creatinine Ratio 17 7 - 23 04/17/2025 11:42 AM [facility] Osmolality Calculated 289 275 - 295 mOsm/kg 04/17/2025 11:42 AM CDT [facility] eGFR by CKD-EPI 81(L) >=90 mL/min/1.7 3 m2 04/17/2025 11:42 AM CDT [facility] Comment:Estimated Glomerular Filtration Rate (eGFR) calculated using the CKD-EPI Creatinine Equation (2020), per the National Kidney Foundation and [place] [employer]ph[employer] recommendations. Blood BLOOD SPECIMEN / Unknown Lab Venipuncture / Unknown 04/17/2025 5:20 AM CDT 04/17/2025 6:07 AM CDT Rashad Chen MD LAB - CHEMISTRY ORDERABLES Fi nal Result [address] [address], [place] [phone] * PHOSPHORUS BLOOD (04/17/2025 5:20 AM CDT) Only the most recent of3 resultswithin the time period is included. Phosphorus 4.0 2.9 - 5.1 mg/dL 04/17/2025 9:40 AM CDT [facility] Blood BLOOD SPECIMEN / Unknown Lab Venipuncture / Unknown 04/17/2025 5:20 AM CDT 04/17/2025 6:07 AM CDT us Rashad Chen MD LAB - CHEMISTRY ORDERABLES Fi nal Result [address] [address], [place] [phone] * MAGNESIUM BLOOD (04/17/2025 5:20 AM CDT) Only the most recent of3 resultswithin the time period is included. Magnesium 2.0 1.6 - 2.6 mg/dL 04/17/2025 9:40 AM CDT [facility] Blood BLOOD SPECIMEN / Unknown Lab Venipuncture / Unknown 04/17/2025 5:20 AM CDT 04/17/2025 6:07 AM CDT us Rashad Chen MD LAB - CHEMISTRY ORDERABLES Fi nal Result [facility] [address] [place] [address], [facility] [phone] * MRI Orbits or Face Wo Contrast [...] sheath edema. The report is dictated by Dcik Moreland MD, (Rehabilitation Center Manager) > Dictated by Rehabilitation Center Manager I, Jasmina Donald MD have personally reviewed and interpreted this examination/study. > Interpreting Provider: Jasmina Donald MD on 04/17/2025 11:13 AM Narrative 04/17/2025 11:13 AM CDT PROCEDURE: MRI VENOUS BRAIN W CONT , MRI ORBITS OR FACE WO CONTRAST, DATE/TIME OF EXAM: 04/16/2025 6:14 PM, LOCATION [facility] INDICATION: G93.2: IIH (idiopathic intracranial hypertension) ADDITIONAL CLINICAL INFORMATION: Ordering Provider Reason For Exam: progression of IIH and venous sinus stenosis (accession [id number]), IIH progression (accession [id number]) EXAMINATION: Magnetic resonance imaging (MRI) of the [...] DATE/TIME OF EXAM: 04/16/2025 6:14 PM, LOCATION [facility] INDICATION: G93.2: IIH (idiopathic intracranial hypertension) ADDITIONAL CLINICAL INFORMATION: Ordering Provider Reason For Exam: progression of IIH and venous sinus stenosis (accession [id number]), IIH progression (accession [id number]) EXAMINATION: Magnetic resonance imaging (MRI) of the [...] report is dictated by Dick Moreland MD, (Rehabilitation Center Manager) > Dictated by Rehabilitation Center Manager I, Jasmina Donald MD have personally reviewed and interpreted this examination/study. 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 Otherwise, the other dural sinuses appear normal without evidence of thrombus or stenosis. 2.Bilateral globes appear normal without optic nerve sheath edema. The report is dictated by Dick Moreland MD, (Rehabilitation Center Manager) > Dictated by Rehabilitation Center Manager I, Jasmina Donald MD have personally reviewed and interpreted this examination/study. > Interpreting Provider: Jasmina Donald MD on 04/17/2025 11:13 AM Narrative 04/17/2025 11:13 AM CDT PROCEDURE: MRI VENOUS BRAIN W CONT , MRI ORBITS OR FACE WO CONTRAST, DATE/TIME OF EXAM: 04/16/2025 6:14 PM, LOCATION [facility] INDICATION: G93.2: IIH (idiopathic intracranial hypertension) ADDITIONAL CLINICAL INFORMATION: Ordering Provider Reason For Exam: progression of IIH and venous sinus stenosis (accession [id number]), IIH progression (accession [id number]) EXAMINATION: Magnetic resonance imaging (MRI) of the [...] DATE/TIME OF EXAM: 04/16/2025 6:14 PM, LOCATION [facility] INDICATION: G93.2: IIH (idiopathic intracranial hypertension) ADDITIONAL CLINICAL INFORMATION: Ordering Provider Reason For Exam: progression of IIH and venous sinus stenosis (accession [id number]), IIH progression (accession [id number]) EXAMINATION: Magnetic resonance imaging (MRI) of the [...] report is dictated by Dick Moreland MD, (Rehabilitation Center Manager) > Dictated by Rehabilitation Center Manager I, Jasmina Donald MD have personally reviewed [...] hypertension. > Dictated by Dick Moreland MD, (Rehabilitation Center Manager). > Dictated by Rehabilitation Center Manager I, Edson Neely MD have personally reviewed and interpreted this examination/study. > Interpreting Provider: Edson Neely MD on 04/16/2025 5:56 PM Narrative 04/16/2025 5:56 PM CDT PROCEDURE: MRI BRAIN WO CONTRAST, DATE/TIME OF EXAM: 04/16/2025 2:20 PM, LOCATION [facility] INDICATION: G93.2: IIH (idiopathic intracranial hypertension) ADDITIONAL CLINICAL INFORMATION: Ordering Provider Reason For Exam: Progression of IIH Technologist Note: Does the patient have a pacemaker or defibrillator?->No Does the patient have metal implants or stents?->No Additional: 34-year-old female with PMH of IIH (on topamax), TILA, PTSD, BPD (currently weaning off lithium) who presented to [facility] ED 04/15 for episodic L eye pain [...] DATE/TIME OF EXAM: 04/16/2025 2:20 PM, LOCATION [facility] INDICATION: G93.2: IIH (idiopathic intracranial hypertension) ADDITIONAL CLINICAL INFORMATION: Ordering Provider Reason For Exam: Progression of IIH Technologist Note: Does the patient have a pacemaker ordefibrillator?->No Does the patient have metal implants or stents?->No Additional: 34-year-old female with PMH of IIH (on topamax), TILA, PTSD, BPD (currently weaning off lithium) who presented to [facility] ED 04/15 for episodic L eye pain [...] topamax 100 mg po bid. At ophthalmology f/u8/27 patient reported episodic diplopia, postural vision changes, [...] hypertension. > Dictated by Dick Moreland MD, (Rehabilitation Center Manager). > Dictated by Rehabilitation Center Manager I, Edson Neely MD have personally reviewed and interpretedthis examination/study. > Interpreting Provider: Edson Neely MD on 04/16/2025 5:56 PM Rashad Chen MD MR ORDERABLES Final Result * ERYTHROCYTE SEDIMENTATION RATE (04/15/2025 8:37 PM CDT) Erythrocyte Sedimentation Rate Westergren 14 0 - 20 MM/HR 04/16/2025 12:22 AM CDT [facility] Blood BLOOD SPECIMEN / Unknown Venipuncture / Unknown 04/15/2025 8:37 PM CDT 04/15/2025 8:53 PM CDT Rashad Chen MD LAB - HEMATOLOGY ORDERABLES F inal Result [facility] [address] [place] [address], [facility] [phone] * FUNDUS PHOTO BOTH EYES (04/03/2025 11:27 [...] 34 <=72 umol/L 03/10/2025 3:33 PM CDT [facility] Blood BLOOD SPECIMEN / Unknown Lab Venipuncture / Unknown 03/10/2025 3:11 PM CDT 03/10/2025 3:19 PM CDT us Rodney Crowell MD LAB - CHEMISTRY ORDERABLES Arlin l Result [facility] [address] [place] [address], [facility] [phone] * (ABNORMAL) VITAMIN D 25-HYDROXY (03/08/2025 7:58 AM CDT) Vitamin D, 25 Hydroxy 23.9(L) 30.0 - 80.0 ng/mL 03/08/2025 9:10 AM CDT [facility] Comment: The recommendations for 25-Hydroxy Vitamin D [...] 7:58 AM CDT 03/08/2025 8:19 AM CDT Rodney Crowell MD LAB - CHEMISTRY ORDERABLES Arlin shen Result [facility] [address] [place] [address], [facility] [phone] from Last 3 Months Insurance [facility] Advance Directives * Full Code (Latest Code Status on File) Date Activated Date Inactivated Comments 04/16/2025 2:52 AM 04/17/2025 9:23 PM * Full Code Date Activated Date Inactivated Comments 03/06/2025 1:48 AM 03/11/2025 3:09 PM Care Teams Hospital Nurse Relationship Specialty Start Date End Date Mayelin Ruffin MD [address] [place] [id number] PCP - General Family Medicine 06/29/23
--- OUTSIDE RECORDS SUMMARY | 2025-06-08 13:48 | XMS_ITS ---
Author Organization [facility] Address [address] [place] [address] Care Team Providers Care Marketing Data Specialist Name Role Phone Mayelin Ruffin MD Primary Care Provider [phone]- [phone] Active Problems Problem Noted Date Diagnosed Date [...]
--- OUTSIDE RECORDS SUMMARY | 2025-06-08 13:48 | XMS_ITS | Clinical Summary ---
Author Organization [facility] Address [address] [place] [address] Care Team Providers Care Special Education Bus Driver Name Role Phone Mayelin Ruffin MD Primary Care Provider [phone]- [phone] Allergies Active Allergy Reactions Criticality Noted Date [...] Encounters Date Type Department Care Team Description 05/25/2025 4:57 PM CDT - 05/25/2025 5:56 PM CDT Emergency [facility] Emergency Department [address] [place] [address] Fall, initial encounter (Primary Dx); Head injury, initial encounter; Strain of left shoulder, initial encounter Discharge Disposition: Discharge to home or self [...] making you feel afraid or unsafe? 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 Gender Identity Female 01/22/2021 5:39 PM CDT Sexual Orientation Bisexual 01/22/2021 5: 39 PM CDT Obstetrics History Para Term AB IAB SAB Ectopic Multiple Livin g Live Births 0 0 0 0 0 0 0 0 0 0 0 Last Filed Vital Signs Vital Sign Reading Time Taken Comments Blood Pressure 141/102 05/25/2025 3:51 PM CDT Pulse 70 05/25/2025 3:51 PM CDT Temperature 36.4 C (97.6 F) 05/25/2025 3:51 PM CDT Respiratory Rate 18 05/25/2025 3:51 PM CDT Oxygen Saturation 100% 05/25/2025 3:51 PM CDT Inhaled Oxygen Concentration - - Weight 117.9 kg (260 lb) 05/25/2025 3:51 PM CDT Height 162.6 cm (5' 4) 05/25/2025 3:51 PM CDT Body Mass Index 44.63 05/25/2025 3:51 PM CDT Plan of Treatment Health Maintenance [...] Name Priority Date/Time Associated Diagnosis Comments CT CERVICAL SPINE WO CONTRAST ED 05/25/2025 4:[address] HEAD WO CONTRAST ED 05/25/2025 4 :53 PM CDT XR SHOULDER LEFT 2 OR MORE VIEWS ED 05/25/2025 4:37 PM CDT XR CHEST 1 VIEW ED 05/25/2025 4:37 PM CDT EGFR STAT 05/25/2025 3:57 PM CDT DIFFERENTIAL AUTO STAT 05/25/2025 3:5 7 PM CDT COMPREHENSIVE METABOLIC PANEL STAT 05/25/2025 3:57 PM CDT CBC WITH AUTO DIFFERENTIAL STAT 05/25/2025 3:57 PM CDT from Last 3 Months Results * CT Cervical Spine WO Contrast (05/25/2025 4:53 PM CDT) Anatomical Region Laterality Modality Spine N/A Computed Tomogra phy 05/25/2025 4:56 PM CDT Narrative 05/25/2025 5:15 PM CDT EXAM DESCRIPTION: CT HEAD WO CONTRAST; CT CERVICAL SPINE WO CONTRAST REASON FOR STUDY: Head trauma, moderate-severe Recent fall, struck head on bed frame, has left sided neck pain ; Neck trauma, dangerous injury mechanism (Age 16-64y) Recent fall, struck head on bed frame, has left sided neck pain TECHNIQUE: Axial images acquired through the brain without intravenous contrast. Images stored on PACS. Automated exposure control was used as a dose optimization technique for this examination. Axial images acquired through the cervical spine without intravenous contrast. Images stored on PACS. Automated exposure control was used as a dose optimization technique for this examination. COMPARISON: 02/23/2024 FINDINGS: Head: BRAIN: No hemorrhage, edema or mass effect. No recent infarct. The medeiros-white matter differentiation is preserved. Normal size and morphology of the ventricular system. No acute intraventricular hemorrhage. Basal cisterns are patent. No midline shift. EXTRA-AXIAL SPACES: No fluid collections. No masses. CALVARIUM: No fracture. SINUSES/MASTOIDS: No fluid or mucosal thickening. ORBITS: No significant abnormality. OTHER: No other significant abnormality. Cervical spine: Mild cervical kyphosis. The cervical spine alignment is otherwise normal. Vertebral body heights are normal. There is no acute fracture. The intervertebral disc spaces are preserved. The facet and uncovertebral joints are intact. No osseous neural foraminal or osseous central canal stenosis. No acute osseous abnormality imaged upper thoracic spine. No aggressive bone lesions. Neck soft tissues demonstrate no acute abnormality. No cervical mass or cervical lymphadenopathy. Imaged lung apices demonstrate mild atelectasis. IMPRESSION: 1. No acute intracranial findings. 2. No CT evidence acute traumatic injury to cervical spine. THIS IS AN ELECTRONICALLY VERIFIED FINAL REPORT 05/25/2025 5:15 PM - Electronically signed by Kelvin Levy M.D. AT: AT Report ID: [id number] Reading Location: [id number] Procedure Note Kelvin Levy MD - 05/25/2025 EXAM DESCRIPTION: CT HEAD WO CONTRAST; CT CERVICAL SPINE WO CONTRAST REASON FOR STUDY: Head trauma, moderate-severe Recent fall, struck head on bed frame, has left sided neck pain ; Neck trauma, dangerous injury mechanism (Age 16-64y) Recent fall, struck head on bed frame, has left sided neck pain TECHNIQUE: Axial images acquired through the brain without intravenous contrast. Images stored on PACS. Automated exposure control was used asa dose optimization technique for this examination. Axial images acquired through the cervical spine without intravenouscontrast. Images stored on PACS. Automated exposure control was used as a dose optimization technique for this examination. COMPARISON: 02/23/2024 FINDINGS: Head: BRAIN: No hemorrhage, edema or mass effect. No recent infarct. The medeiros-white matter differentiation is preserved. Normal size andmorphology of the ventricular system. No acute intraventricular hemorrhage. Basalcisterns are patent. No midline shift. EXTRA-AXIAL SPACES: No fluid collections. No masses. CALVARIUM: No fracture. SINUSES/MASTOIDS: No fluid or mucosal thickening. ORBITS: No significant abnormality. OTHER: No other significant abnormality. Cervical spine: Mild cervical kyphosis. The cervical spine alignment is otherwise normal. Vertebral body heights are normal. There is no acute fracture. The intervertebral disc spaces are preserved. The facet and uncovertebraljoints are intact. No osseous neural foraminal or osseous central canalstenosis. No acute osseous abnormality imaged upper thoracic spine. No aggressivebone lesions. Neck soft tissues demonstrate no acute abnormality. No cervical mass or cervical lymphadenopathy. Imaged lung apices demonstrate mildatelectasis. IMPRESSION: 1. No acute intracranial findings. 2. No CT evidence acute traumatic injury to cervical spine. THIS IS AN ELECTRONICALLY VERIFIED FINAL REPORT 05/25/2025 5:15 PM - Electronically signed by Kelvin Levy M.D. AT: AT Report ID: [id number] Reading Location: [id number] [facility] CT PROCEDURES Final R esult * CT Head WO Contrast (05/25/2025 4:53 PM CDT) Anatomical Region Laterality Modality Head and Neck N/A Computed Tomogra phy 05/25/2025 4:56 PM CDT Narrative 05/25/2025 5:15 PM CDT EXAM DESCRIPTION: CT HEAD WO CONTRAST; CT CERVICAL SPINE WO CONTRAST REASON FOR STUDY: Head trauma, moderate-severe Recent fall, struck head on bed frame, has left sided neck pain ; Neck trauma, dangerous injury mechanism (Age 16-64y) Recent fall, struck head on bed frame, has left sided neck pain TECHNIQUE: Axial images acquired through the brain without intravenous contrast. Images stored on PACS. Automated exposure control was used as a dose optimization technique for this examination. Axial images acquired through the cervical spine without intravenous contrast. Images stored on PACS. Automated exposure control was used as a dose optimization technique for this examination. COMPARISON: 02/23/2024 FINDINGS: Head: BRAIN: No hemorrhage, edema or mass effect. No recent infarct. The medeiros-white matter differentiation is preserved. Normal size and morphology of the ventricular system. No acute intraventricular hemorrhage. Basal cisterns are patent. No midline shift. EXTRA-AXIAL SPACES: No fluid collections. No masses. CALVARIUM: No fracture. SINUSES/MASTOIDS: No fluid or mucosal thickening. ORBITS: No significant abnormality. OTHER: No other significant abnormality. Cervical spine: Mild cervical kyphosis. The cervical spine alignment is otherwise normal. Vertebral body heights are normal. There is no acute fracture. The intervertebral disc spaces are preserved. The facet and uncovertebral joints are intact. No osseous neural foraminal or osseous central canal stenosis. No acute osseous abnormality imaged upper thoracic spine. No aggressive bone lesions. Neck soft tissues demonstrate no acute abnormality. No cervical mass or cervical lymphadenopathy. Imaged lung apices demonstrate mild atelectasis. IMPRESSION: 1. No acute intracranial findings. 2. No CT evidence acute traumatic injury to cervical spine. THIS IS AN ELECTRONICALLY VERIFIED FINAL REPORT 05/25/2025 5:15 PM - Electronically signed by Kelvin Levy M.D. AT: AT Report ID: [id number] Reading Location: [id number] Procedure Note Kelvin Levy MD - 05/25/2025 EXAM DESCRIPTION: CT HEAD WO CONTRAST; CT CERVICAL SPINE WO CONTRAST REASON FOR STUDY: Head trauma, moderate-severe Recent fall, struck head on bed frame, has left sided neck pain ; Neck trauma, dangerous injury mechanism (Age 16-64y) Recent fall, struck head on bed frame, has left sided neck pain TECHNIQUE: Axial images acquired through the brain without intravenous contrast. Images stored on PACS. Automated exposure control was used asa dose optimization technique for this examination. Axial images acquired through the cervical spine without intravenouscontrast. Images stored on PACS. Automated exposure control was used as a dose optimization technique for this examination. COMPARISON: 02/23/2024 FINDINGS: Head: BRAIN: No hemorrhage, edema or mass effect. No recent infarct. The medeiros-white matter differentiation is preserved. Normal size andmorphology of the ventricular system. No acute intraventricular hemorrhage. Basalcisterns are patent. No midline shift. EXTRA-AXIAL SPACES: No fluid collections. No masses. CALVARIUM: No fracture. SINUSES/MASTOIDS: No fluid or mucosal thickening. ORBITS: No significant abnormality. OTHER: No other significant abnormality. Cervical spine: Mild cervical kyphosis. The cervical spine alignment is otherwise normal. Vertebral body heights are normal. There is no acute fracture. The intervertebral disc spaces are preserved. The facet and uncovertebraljoints are intact. No osseous neural foraminal or osseous central canalstenosis. No acute osseous abnormality imaged upper thoracic spine. No aggressivebone lesions. Neck soft tissues demonstrate no acute abnormality. No cervical mass or cervical lymphadenopathy. Imaged lung apices demonstrate mildatelectasis. IMPRESSION: 1. No acute intracranial findings. 2. No CT evidence acute traumatic injury to cervical spine. THIS IS AN ELECTRONICALLY VERIFIED FINAL REPORT 05/25/2025 5:15 PM - Electronically signed by Kelvin Levy M.D. AT: AT Report ID: [id number] Reading Location: [id number] [facility] IM CT PROCEDURES Final R esult * XR Chest 1 Vw Portable (05/25/2025 4:37 PM CDT) Anatomical Region Laterality Modality Body, Chest N/A Computed Radiogr aphy 05/25/2025 4:40 PM CDT Narrative 05/25/2025 4:42 PM CDT EXAM DESCRIPTION: XR CHEST 1 VIEW REASON FOR STUDY: pain C/o fall this last night. Pt stated that she has hx her vision going out. Pt stated that she tried to stand up and tripped on her pant legs and hit her head on the bed frame. Went to [facility] but they didn't do anything. Reports left sided neck pain. TECHNIQUE: Single frontal radiographic view(s) of the chest. COMPARISON: 12/17/2022 FINDINGS: The heart, mediastinum, and pulmonary vasculature are grossly unremarkable. There is no definite evidence of pneumothorax. There is no definite evidence of a focal consolidation or pleural effusion. The osseous structures are acutely grossly stable. IMPRESSION: 1. No acute cardiopulmonary abnormality. THIS IS AN ELECTRONICALLY VERIFIED FINAL REPORT 05/25/2025 4:42 PM - Electronically signed by Isabella Cuevas D.O. PS: PS Report ID: [id number] Reading Location: [id number] Procedure Note Isabella Cuevas, DO - 05/25/2025 EXAM DESCRIPTION: XR CHEST 1 VIEW REASON FOR STUDY: pain C/o fall this last night. Pt stated that she has hx her vision going out. Pt stated that she tried to stand up and tripped on her pant legs and hither head on the bed frame. Went to [facility] but they didn't do anything. Reports left sided neck pain. TECHNIQUE: Single frontal radiographic view(s) of the chest. COMPARISON: 12/17/2022 FINDINGS: The heart, mediastinum, and pulmonary vasculature are grosslyunremarkable. There is no definite evidence of pneumothorax. There is no definiteevidence of a focal consolidation or pleural effusion. The osseous structures are acutely grossly stable. IMPRESSION: 1. No acute cardiopulmonary abnormality. THIS IS AN ELECTRONICALLY VERIFIED FINAL REPORT 05/25/2025 4:42 PM - Electronically signed by Isabella Cuevas D.O. PS: PS Report ID: [id number] Reading Location: [id number] [facility] XR PROCEDURES Final R esult * XR Shoulder Left 2 or More Views (05/25/2025 4:37 PM CDT) Anatomical Region Laterality Modality Upper Extremities, Shoulder Left Comp uted Radiography 05/25/2025 4:42 PM CDT Narrative 05/25/2025 4:42 PM CDT EXAM DESCRIPTION: XR SHOULDER LEFT 2 OR MORE VIEWS REASON FOR STUDY: fall C/o fall this last night. Pt stated that she has hx her vision going out. Pt stated that she tried to stand up and tripped on her pant legs and hit her head on the bed frame. Went to [facility] but they didn't do anything. Reports left sided neck pain. TECHNIQUE: 4 radiographic view(s) of the left shoulder . COMPARISON: None FINDINGS: There is no definite evidence of acute displaced fracture or dislocation involving the left shoulder. There are mild degenerative changes of the left glenohumeral joint with joint space narrowing and mild sclerosis. There are mild degenerative changes left acromioclavicular joint with joint space narrowing. IMPRESSION: 1. Mild degenerative changes of the left shoulder without definite evidence of acute displaced fracture or dislocation. THIS IS AN ELECTRONICALLY VERIFIED FINAL REPORT 05/25/2025 4:42 PM - Electronically signed by Isabella Cuevas D.O. PS: PS Report ID: [id number] Reading Location: [id number] Procedure Note Isabella Cuevas, DO - 05/25/2025 EXAM DESCRIPTION: XR SHOULDER LEFT 2 OR MORE VIEWS REASON FOR STUDY: fall C/o fall this last night. Pt stated that she has hx her vision going out. Pt stated that she tried to stand up and tripped on her pant legs and hither head on the bed frame. Went to [facility] but they didn't do anything. Reports left sided neck pain. TECHNIQUE: 4 radiographic view(s) of the left shoulder . COMPARISON: None FINDINGS: There is no definite evidence of acute displaced fracture or dislocation involving the left shoulder. There are mild degenerative changes of theleft glenohumeral joint with joint space narrowing and mild sclerosis. Thereare mild degenerative changes left acromioclavicular joint with joint space narrowing. IMPRESSION: 1. Mild degenerative changes of the left shoulder without definiteevidence of acute displaced fracture or dislocation. THIS IS AN ELECTRONICALLY VERIFIED FINAL REPORT 05/25/2025 4:42 PM - Electronically signed by Isabella Cuevas D.O. PS: PS Report ID: [id number] Reading Location: [id number] [id number] [facility] XR PROCEDURES Final R esult * eGFR (05/25/2025 3:57 PM CDT) eGFR 90 >=60 mL/min/1. 73 [...] interpretive data was last reviewed 2021. Blood 05/25/2025 3:57 PM CDT 05/25/2025 3:59 PM CDT [facility] BLOOD ORDERABLES Arlin shen Result [facility] J[facility]) [address] [facility] [email or web address] [address] [phone] * Differential, auto (05/25/2025 3:57 PM CDT) Neutrophil abs 2.11 1.50 - 6.50 K/cumm Imm gran abs 0.01 0.00 - 0.10 K/cumm [facility] ([facility]) Lymphocyte abs 1.47 0.80 - 3.30 K/cumm [facility] ([place]) Monocyte abs 0.33 0.20 - 0.80 K/cumm [facility] ([place]) Eosinophil abs 0.15 0.00 - 0.50 K/cumm [facility] ([place]) Basophil abs 0.05 0.00 - 0.10 K/cumm [facility] ([place]) Neutrophil pct 51.3 % [facility] ([place]) Comment: Interpretive Data Percent cell count reference ranges are not reported, since discordance with absolute values may lead to misinterpretation of CBC data. Current Interpretive Data was last revised on 2017. Imm gran pct 0.2 % [facility] ([place]) Comment: Interpretive Data Percent cell count reference ranges are not reported, since discordance with absolute values may lead to misinterpretation of CBC data. Current Interpretive Data was last revised on 2017. Lymphocyte pct 35.7 % [facility] ([place]) Comment: Interpretive Data Percent cell count reference ranges are not reported, since discordance with absolute values may lead to misinterpretation of CBC data. Current Interpretive Data was last revised on 2017. Monocyte pct 8.0 % [facility] ([place]) Comment: Interpretive Data [...] was last revised on 2017. Basophil pct 1.2 % [facility] ([place]) Comment: Interpretive Data Percent cell count reference ranges are not reported, since discordance with absolute values may lead to misinterpretation of CBC data. Current Interpretive Data was last revised on 2017. Blood 05/25/2025 3:57 PM CDT 05/25/2025 3:59 PM CDT [facility] BLOOD ORDERABLES Arlin l Result [facility] ([facility]) 1 [facility] [email or web address] [address] * CBC with auto differential (05/25/2025 3:57 PM CDT) WBC 4.12 3.80 - 9.90 K/cumm Hgb 13.8 11.9 - 15.5 g/dL [facility] ([place]) Hct 41.6 35.6 - 45.5 % [facility] ([place]) Plt 195 150 - 400 K/cumm [facility] ([place]) MPV 10.4 9.1 - 12.3 fL [facility] ([place]) RBC 4.83 3.90 - 5.20 M/cumm [facility] ([place]) MCV 86.1 81.3 - 96.4 fL [facility] ([place]) MCH 28.6 27.1 - 33.3 pg [facility] ([place]) MCHC 33.2 32.3 - 35.7 g/dL [facility] ([place]) RDW CV 14.0 11.1 - 14.9 % [facility] ([place]) RDW SD 43.6 35.7 - 48.1 fL [facility] ([place]) NRBC abs 0.00 0.00 - 0.01 K/cumm [facility] ([facility]) Blood 05/25/2025 3:57 PM CDT 05/25/2025 3:59 PM CDT [facility] BLOOD ORDERABLES Arlin l Result [facility] ([place]) 1 [facility] [email or web address] [address] * (ABNORMAL) Comprehensive metabolic panel (05/25/2025 3:57 PM CDT) Sodium 138 135 - 145 mmol/L Potassium, pl 3.7 3.3 - 4.9 mmol/L [facility] ([facility]) Chloride 107 97 - 110 mmol/L [facility] ([place]) CO2 22 22 - 32 mmol/L [facility] ([place]) Anion gap 9 2 - 15 mmol/L [facility] ([place]) BUN 17 6 - 25 mg/dL [facility] ([place]) Creatinine 0.86 0.60 - 1.10 mg/dL [facility] ([place]) Glucose 76 70 - 199 mg/dL [facility] ([place]) [...] classification and Diagnosis of Diabetes Diabetes Care 202; 46: S19-S40. Current interpretive data was last revised 2022. Calcium 9.9 8.5 - 10.3 mg/dL [facility] ([place]) Bilirubin, total 0.2 0.1 - 1.2 mg/dL [facility] ([place]) Protein, pl 7.1 6.5 - 8.5 g/dL [facility] ([place]) Albumin 4.6 3.5 - 5.0 g/dL [facility] ([place]) Alk phos 75 40 - 130 Units/L [facility] ([place]) ALT 47(H) 7 - 45 Units/L [facility] ([place]) AST 29 10 - 45 Units/L [facility] ([facility]) Blood 05/25/2025 3:57 PM CDT 05/25/2025 3:59 PM CDT [facility] BLOOD ORDERABLES Arlin shen Result [facility] ([place]) [address] [facility] [place] [address] from Last 3 Months Insurance [facility] OPEN ACCESS CIGNA ALLEGIANCE CIGNA LUANNEGIANCE [facility] [place], [place] CIGNA LUANNEGIANCE Advance Directives For more information, please contact: [phone] * Full Code (Latest Code Status on File) Date Activated Date Inactivated Comments 02/22/2025 8:46 AM 02/22/2025 9:58 AM Care Teams Special Education Bus Driver Relationship Specialty Start Date End Date Mayelin Ruffin MD [address] [place] [id number] PCP - General Family Medicine 07/12/23
--- OUTSIDE RECORDS SUMMARY | 2025-06-08 13:48 | XMS_ITS | Encounter Summary ---
Author Organization [facility] Address [address] [place] [address] Phone Care Team Providers Care Contact Center Professional Name Role Phone Mono García MD Primary Care Provider Terry Looney MD Primary Care Provider Mayelin Ruffin MD Primary Care Provider [phone]- [phone] Encounter Details Date Type Department Care Team (Late st Contact Info) Description 01/12/2021 Telephone [facility] [address] [facility] 8th [place] [address] [place] [address] Aleta Do Social History Tobacco Use Types Packs/Day Years Used Date Smoking Tobacco: Never Smokeless Tobacco: Never Alcohol Use Standard Drinks/Week Comments Not Currently 0 (1 standard drink = 0.6 oz pur e alcohol) Comments No Sex and Gender Information Value Date Recorded Sex Assigned at Not on file 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 07/25/2022 07/27/2022 10/23/2022 3:05 AM C DT COVID: Suspected 07/06/2023 07/06/2023 07/06/2023 5:14 PM DRY KILN BURNER COVID: Suspected 02/28/2024 02/28/2024 02/28/2024 6:59 PM CDT documented as of this encounter Care Teams Contact Center Professional Relationship Specialty Start Date End Date Mono García MD [address] [place] [address] PCP - General 11/05/20 03/28/22 Terry Looney MD [address] [facility] [address] [place] [address] PCP - General Family Medicine 03/29/22 07/11/23 Mayelin Ruffin MD [address] [place] [id number] PCP - General Family Medicine 07/12/23 documented as of this encounter
--- OUTSIDE RECORDS SUMMARY | 2025-06-08 13:48 | XMS_ITS | Encounter Summary ---
Author Organization [facility] Address [address] [facility] [place] [address] Care Team Providers Care Bondactor Machine Operator Name Role Phone Mayelin Ruffin MD Primary Care Provider [phone] Encounter Details Date Type Department Care Team (Late st Contact Info) Description 04/16/2025 Ophth Exam [facility] - Ophthalmology [address] [place] [address] Elias Lozano MD [address] [facility] [place] [address] Social History Tobacco Use Types [...] Recorded Patient Health Questionnaire-2 Score 0 02/27/2025 [place] [facility] - Occupational Stress [...] any time in the past 12 m [facility], were you homeless or living in a care home (including now)? 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 Legal Sex Female 4:40 PM CDT Gender Identity Female 07/05/2023 4:04 PM SERVICE STATION EQUIPMENT MECHANIC Sexual Orientation Bisexual 07/05/2023 4: 04 PM SERVICE STATION EQUIPMENT MECHANIC documented as of this encounter Functional Status [...] st Contact Info) Description 06/26/2025 9:00 AM SERVICE STATION EQUIPMENT MECHANIC Office Visit [facility] - Neurology [address] [facility], [place] [phone] Eva Salinas PA-C [address] [place] [address] 07/03/2025 2:30 PM SERVICE STATION EQUIPMENT MECHANIC Office Visit [facility] - Pulmonology [address] [place] [address], [place] [phone] Zia Warner, [address] [place] [phone] 08/26/2025 3:00 PM SERVICE STATION EQUIPMENT MECHANIC Office Visit [facility] - Neurology [address] [place] [address], [place] [phone] Marie Parson, PRINT SUPPORT SPECIALIST-HEEL SORTER [address] [place] [address] [address] [place] [phone] 09/25/2025 3:20 PM SERVICE STATION EQUIPMENT MECHANIC Office Visit [facility] [address] [phone] Jeffery Dunaway MD [address] [phone] documented as of this encounter Visit Diagnoses Not on filedocumented in this encounter Care Teams Bondactor Machine Operator Relationship Specialty Start Date End Date Mayelin Ruffin MD [address] [place] [address] [address] [place] [phone] PCP - General Family Medicine 06/29/23 documented as of this encounter
--- OUTSIDE RECORDS SUMMARY | 2025-06-08 13:48 | XMS_ITS | Encounter Summary ---
Author Organization [facility] Address [address] [place] [address] Care Team Providers Care Cut Off Tender Glass Name Role Phone Mayelin Ruffin MD Primary Care Provider [phone] Encounter Details Date Type Department Care Team (Late st Contact Info) Description 02/21/2025 Telephone [facility] [address] [place] [address] Maya Ramírez RN Social History Tobacco Use [...] on file Legal Sex Female 8:28 AM [employer] Gender Identity Female 01/22/2021 5:39 PM CDT Sexual Orientation Bisexual 01/22/2021 5: 39 PM CDT documented as of this encounter Plan of Treatment Not on file documented as of this encounter Visit Diagnoses Not on filedocumented in this encounter Care Teams Cut Off Tender Glass Relationship Specialty Start Date End Date Mayelin Ruffin MD [address] [place] [address] PCP - General Family Medicine 07/12/23 documented as of this encounter
--- OUTSIDE RECORDS SUMMARY | 2025-06-08 13:49 | XMS_ITS | Data Portability ---
[facility] [address] [place] [address] Assessment No assessment recorded. Plan of Treatment Reminders Order Date Submit Date Provider Last Modified By Organization Details Last Modified Time Details Appointments None recorded. Lab PPD (purified protein derivative ), skin test 2017 018 [place] In-Office Order, Internal Use Only DO Not Attach Compendium DO Not Attach Compendium, Do Not Delete/merge, [id number] 8 12:40:03 MMR immunity, serum 2017 018 [place] [facility], [address], [place], [address], 8 17:12:42 Referral urologist referral - please call patient to schedule appt. 2016 017 [email or web address] Not available 7 11:29:53 Procedures None recorded. Surgeries None recorded. Imaging None recorded. Medication Orders butalbital -acetamino phen-caffe ine 50 mg-325 mg-40 mg tablet [address] , [address], [place], [place], [id number], 8 13:20:41 amoxicilli n 500 mg capsule 2016 017 [id number], [address] [facility], [place], [place], [id number], 7 13:19:08 ibuprofen 800 mg tablet 2016 017 [facility], [address], [id number], 7 13:22:34 Patient TargetsNo targets recorded. Patient [...] 0.99 Immun e >0.99 Not Available [facility] ([facility]) [address] [facility], [place], [address], 11/02/2017 17:12:42 11/02/19 18 11/02/2017 MMR immun ity, serum rubeola Ab, IgG 106.0 AU/mL immune >29.9 Negat randal <25.0 Equiv ocal 25.0 - 29.9 Posit randal >29.9 Prese nce of antib odies to Rubeo la is presu mptiv e evide nce of immun ity excep t when acute infec tion is suspe cted. Not Available [facility] ([facility]) [address] [facility], [place], [address], 11/02/2017 17:12:42 11/02/19 18 11/02/2017 MMR immun ity, serum mumps abs, IgG 12.8 AU/mL immune >10.9 Negat randal <9.0 Equiv ocal 9.0 - 10.9 Posit randal >10.9 A posit randal resul t gener ally indic ates past expos ure to Mumps virus or previ ous vacci natio n. Not Available [facility] ([facility]) [address] [facility], [place], [address], 11/02/2017 17:12:42 11/04/19 18 11/03/2017 PPD (nestor fied prote in deriv ative ), skin test Result Negati ve Not Available In-Office Order Internal Use Only DO Not Attach Compendium DO Not Attach Compendium, Do Not Delete/merge, [id number] 11/01/2017 12:51:45 04/27/20 17 04/26/2017 CT, abdom en + pelvi s, w/o contr ast No observ ation record ed. [address] [place], [address], 05/09/2017 14:37:18 10/12/19 18 10/11/2017 [place], kidne y No observ ation record ed. [address] (Imaging) [address] [place], [address], 10/20/2017 10:36:02 Result Notes None recorded. Problems Name Problem SNOMED Code Status Onset Date Resolution Date Notes Provider Name and Address Organization Details Recorded Time Bipolar disorder 62232316 Active Followe by Sybil Gonzalez in [facility] Roxanne Au PA-C Attn: Accounting ,[address] [facility], [place], [address] , [place] - [facility] 6 14:50:46 Asthma 384424737 Active Roxanne Au PA-C Attn: Accounting ,[address] [facility], [place], [address] , [place] 6 14:50:46 Chronic back pain 070932203 Active Laura Cooney MA null, [place] [facility] 6 15:56:47 Obesity 918786714 Active Roxanne Au PA-C Attn: Accounting ,[address] [facility], [place], [address] , [place] [facility] 6 11:52:16 Celiac disease 201296486 Active diagnosed as a baby and then re-dagnose d at 17 Roxanne Au PA-C Attn: Accounting ,[address] [place], [place], [address] [place] [address] , [place] [facility] 6 14:53:28 Upper respirato ry infection 97359193 Active Roxanne Au PA-C Attn: Accounting ,[address] [place], [place], [address] [place] [address] , [place] [facility] 6 11:52:16 Cramp in lower limb 866144389 Active Roxanne Au PA-C Attn: Accounting ,[address] [place], [place], [address] [place] [address] , [place] [facility] 6 14:50:46 Increased liver function 09063233 Active Roxanne Au PA-C Attn: Accounting ,[address] [place], [place], [address] [place] [address] , [place] [facility] 6 14:50:46 Allergic dispositi on 697082845 Active Roxanne Au PA-C Attn: Accounting ,[address] [place], [place], [address] [place] [address] , [place] [facility] 6 14:50:46 Low back pain 022897998 Active Maximo Taveras MD Attn: Accounting ,[address] [place], [place], [address] [place] [address] , [place] [facility] 6 13:11:57 Pharyngit is 959816883 Active Laura Cooney [place] null, [place] [facility] 6 15:56:47 Malignant neoplasm of ovary 358426430 Active 2008 Stage 3C when found; bilateral oophorecto my, hysterecto my with cervix and fallopian tubes - oncologist is at [facility] - s/p tumor removal - currently in remission since 10/10/2010 Roxanne Au PA-C Attn: Accounting ,[address] [place], [address] , [place] [facility] 6 11:52:16 Cyst of breast 257898963 Active 2011 has been told in the past d/t caffeine 2011 Roxanne Au PA-C Attn: Accounting ,[address] [facility], [place], [address] , [place] [facility] 6 14:53:28 Headache 05449467 Active 2016 Maximo Taveras MD Attn: Accounting ,[address] [facility], [place], [address] , [place] [facility] 7 13:05:26 Menopausa l syndrome 737898929 Active 2016 Clifford Breen [facility], [place] - [facility] 7 11:56:29 Apnea 3185069 Active 2016 Maximo Taveras MD Attn: Accounting ,[address] [facility], [place], [address] , [place] [facility] 7 14:43:44 Left flank pain 056836166 Active 2016 Maximo Taveras MD Attn: Accounting ,[address] [facility], [place], [address] , [place] [facility] 7 14:47:34 History of hematuria 163231946 Active 2016 Maximo Taveras MD Attn: Accounting ,[address] [place], [address] , [place] [facility] 7 14:48:04 Tendernes s of mastoid 101302983 Active 2016 left Maximo Taveras MD Attn: Accounting ,[address] [facility], [place], [address] , [place] [facility] 7 13:13:13 Active immunizat ion Active 2017 Maximo Taveras MD Attn: Accounting ,[address] [place], [address] , [place] [facility] 8 12:50:34 Tuberculo sis screening Active 2017 Maximo Taveras MD Attn: Accounting ,[address] [facility], [place], [address] , [facility] 8 12:51:05 Notes:Bleomycin toxicity - i n remission Problem Notes None recorded. Procedures Surgical History Date Name Laterality Status Provider Name and Address Organization Details Recorded Time 07/14/20 16 Date of Last Pap Smear completed Zaira Caraballo MA [facility] 09/02/2016 14:56:17 08/08/19 09 Hysterectomy completed Ebony Jade MA [facility] 08/19/2015 14:32:35 08/08/19 09 Other completed Ebony Jade MA [facility] 08/19/2015 14:32:35 Imaging Results None recorded. Procedure Notes None recorded. Medical Equipment None Reported. Allergies Allergen ID Allergen Name Allergen Category Reaction Reaction Severity Criticality Documentation Date Start Date Code Code System Note Provider Name and Address Organization Details Recorded Time 08586 Compazine medicatio n vomiting Not available Not available 08/19/2015 14553 6 RxNorm Ebony Jade MA null, [facility] 6 14:32:35 Medications Name Sig Start Date [...] Available Not Available Not Avai lable Evening [place] 500 mg capsule Take 1 capsule every [...] Updated DateTime 8 165.1 cm 40.1 kg/m2 713473. 19 g 98.3 [degF] 99 % 99 % 60 /min 124/82 mm[Hg] Laura Cooney MA [facility] 8 11:50:18 Date Recorded Body height Body mass index (BMI) Body weight Body temperature Oxygen saturation Oxygen saturation in Arterial blood by Pulse oximetry Heart rate Systolic And Diastolic Provider Name and Address Organization Details Last Updated DateTime 8 165.1 cm 40.1 kg/m2 435538. 19 g 98.3 [degF] 99 % 99 % 102 /min 126/80 mm[Hg] Laura Cooney MA [facility] 8 12:10:01 Date Recorded Body height Body mass index (BMI) Body weight Body temperature Oxygen saturation Oxygen saturation in Arterial blood by Pulse oximetry Heart rate Systolic And Diastolic Provider Name and Address Organization Details Last Updated DateTime 7 165.1 cm 40.6 kg/m2 569666. 54 g 98.5 [degF] 99 % 99 % 81 /min 124/82 mm[Hg] Laura Cooney MA [place] 7 14:19:35 Date Recorded Body height Body mass index (BMI) Body weight Body temperature Oxygen saturation Oxygen saturation in Arterial blood by Pulse oximetry Heart rate Systolic And Diastolic Provider Name and Address Organization Details Last Updated DateTime 7 165.1 cm 40.4 kg/m2 424231. 23 g 98.5 [degF] 99 % 99 % 82 /min 122/78 mm[Hg] Laura Cooney MA [place] 7 12:53:44 Social History Question Answer Notes LastModified by Organizat ion Details LastModified Time Tobacco Smoking Status Never Smoker Ebony Jade MA [facility], [place] - [place] 08/19/2015 14:32:35 Do You Have An Advance Directive? No [email or web address] Information not available 08/19/2015 Is Blood Transfusion Acceptable In An Emergency? Yes Information not available 09/02/2016 What Is Your Level Of Caffeine Consumption? Moderate [email or web address] Information not available 08/19/2015 How Much Tobacco Do You Chew? None [email or web address] Information not available 08/19/2015 What Type Of Diet Are You Following? REGULAR Information not available 08/19/2015 Which Illicit Or Recreational Drugs Have You Used? 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 No [email or web address] Information not available 08/19/2015 Hard Of Hearing Or Deaf In One Or Both Ears? No [email or web address] Information not available 08/19/2015 Legally Blind In One Or Both Eyes? No Information not available 08/19/2015 Live Alone Or With Others? With Others [email or web address] Information not available 08/19/2015 What Was The Date Of Your Most Recent Tobacco Screening? 11/01/2017 Information not available 03/01/2019 How Many Children Do You Have? 0 [email or web address] Information not available 08/19/2015 Performs Monthly Self-breast Exam? No Discuss Self Exams C Pt And Given Info To Pt, Cbma Information not available 09/02/2016 Do You Use Protection During Sex? Always [email or web address] Information not available 08/19/2015 Seat Belts Used Routinely Yes Information not available 08/19/2015 Are You Sexually Active? Yes [email or web address] Information not available 08/19/2015 Smoke Alarm In Home Yes [email or web address] Information not available 08/19/2015 At What Age Did You Start Smoking Tobacco? 0 [email or web address] Information not available 08/19/2015 Are You Passively Exposed To Smoke? No [email or web address] Information not available 08/19/2015 How Much Tobacco Do You Smoke? No [email or web address] Information not available 08/19/2015 General Stress Level Low Information not available 08/19/2015 How Many Years Have You Smoked Tobacco? 0 Information not available 08/19/2015 Sex: Unknown Functional Status Question Answer Note LastModified by [employer] ion Details LastModified Time What is your level of alcohol consumption? Occasional [email or web address] Information not available 08/19/2015 Are you currently employed? No Information not available 08/19/2015 Are you able to care for yourself independently? 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 None [email or web address] Information not available 08/19/2015 Mental Status None [...] available 2015 14:50:21 Medical History Condition Response Blood Clots Y Muscle, Joint, or Bone Problems Y Acid Reflux (GERD) Y Cancer Y Seizures/Epilepsy Y Asthma Y Gynecological History Statement/Question Response [...] Recorded Time Tdap 8 completed Not Available [facility] 08/25/2019 02:35:21 Influenza, split virus, quadrivalent, preservative 6 completed Not Available [facility] 08/25/2019 02:32:12 Past Encounters Encounter ID Performer Location Encounter Start Date Encounter Closed Date Diagnosis/Indication Diagnosis SNOMED-CT Code Diagnosis ICD10 Code Diagnosis IMO Codes Diagnosis Note [id number] Fred Soto MD [facility] (Adult Med) [address] [place] [phone] 08/19/2015 13:57:36 08/19/2015 18:07:49 Chronic back pain 333473330 R52 Fell while doing chemo in 2008 and broke her back Obesity 680846290 E66.9 25YO F with a hx/o ovarian cancer s/p tumor, bilateral oophorecto my, JONAS with cervix removal in 2008 and is currently in remission here to establish care. Active or passive immunization 855956564 Z23 Upper resp iratory infection 46934540 J06.9 Advised to increase liquid intake Malignant neoplasm of ovary 331311645 C56.9 In remission Would like OBGYN to follow patient d/t hx/o cancer Oncology is also following patient and she f/u's with them yearly Bipolar disorder 1498732 4 F31.9 Followed by psych at [place] [id number] Amelie Rae MD [facility] (Adult Med) [address] [place] [address] [phone] 0 09/10/2015 14:24:24 09/10/2015 14:55:07 Asthma 332284641 J45.909 States she has been on Advair in the past but right now she only has a rescue inhaler - when she has a maintenanc e inhaler she does not have issues with cough Will try Asmanex because it is covered under her insurance Cramp in lower limb 4499 30626 R25.2 Flexeril has helped for leg spasms and cramping in the past Will use PRN for leg cramps [id number] MD Jerry Baca (Adult Med) [address] [place] [address] [phone] 0 11/11/2015 13:57:01 11/11/2015 14:52:22 Asthma 441811714 J45.909 States she has been on Advair in the past but right now she only has a rescue inhaler - when she has a maintenanc e inhaler she does not have issues with cough Will try Asmanex because it is covered under her insurance Bipolar disorder 0541528 4 F31.9 Followed by psych at [place] Increased liver function 74486129 R94.5 Chronic back pain 113121 002 R52 WIll refer to PT - back pain worsens after working out - discussed she may need help strengthen ing her back muscles Allergic disposition 609 381711 Z91.09 Cramp in lower limb 4499 20364 R25.2 flexeril working well [id number] MD Jerry Soni (Adult Med) [address] [place] [address] [phone] 01/27/2016 11:55:00 01/27/2016 18:02:54 Low back pain 483944551 M54.5 [id number] MD Jerry Soni (Adult Med) [address] [place] [address] [id number] 0 04/19/2016 13:31:53 04/20/2016 10:00:29 Pharyngitis 299095865 J02.9 Strep screen negative Chronic back pain 987833 002 R52 Pain in throat 781436629 R07.0 [id number] MD Jerry Mchugh (HUMANITIES COORDINATOR) [address] [place] [address] [id number] 09/02/2016 14:04:49 09/06/2016 14:26:40 Bipolar disorder 46254233 F31.9 Menopausal syndrome 1237 64138 N95.9 Family alethea nning surveillance 243809523 Z30.09 Fibrocysti c disease of breast 14263762 N60.12 Malignant neoplasm of ovary 779703917 C56.9 [id number] MD Jerry Soni (Adult Med) [address] [place] [address] [phone] 0 03/08/2017 10:50:35 03/08/2017 13:14:41 Cramp in lower limb 311820014 R25.2 Will try other muscle relaxant Headache 23078990 R51 [id number] MD Jerry Mchugh (HUMANITIES COORDINATOR) [address] [place] [address] [id number] 03/21/2017 09:44:04 03/22/2017 16:14:54 Menopausal syndrome 029690504 N95.9 Malignant neoplasm of ovary 721655835 C56.9 Stage 3C when found; bilateral oophorecto my, hysterecto my with cervix and fallopian tubes - oncologist is at [facility] - s/p tumor removal - currently in remission since 10/10/2010 Obesity 215866873 E66.9 [id number] MD Jerry Soni (Adult Med) [address] [place] [address] [id number] 05/09/2017 12:53:17 05/09/2017 15:21:36 History of hematuria 796682293 Z87.448 Left flank pain 01967522 9 R10.9 [id number] MD Jerry Soni (Adult Med) [address] [place] [address] [id number] 07/12/2017 11:34:50 07/12/2017 13:58:33 Asthma 055809115 J45.909 Headache 78838698 R51 Tenderness of mastoid 27 5953019 H92.09 [id number] MD Jerry Soni (Adult Med) [address] [place] [address] [id number] 10/10/2017 11:21:06 10/10/2017 16:47:23 Headache 81259586 R51 Possible migraine. Discussed use of fioricet [id number] MD Jerry Soni [facility] (Adult Med) [address] [place] [address] 11/01/2017 11:52:51 11/01/2017 15:29:34 Active immunization 61583155 Z23 Tuberculos is screening 945538544 Z11.1 Health Concerns Section Related Observation LastModified by Organization Detai ls LastModified Time None Recorded Concern Status LastModified by Organization Details LastModified Time None Recorded Advance Directives Directive N: Payers Insurance Date Sequence Insurance Name Policy Number Policy Christianson Covered Member ID Christianson Member ID Guarantor Name 12/11/2019 2 [place] Svitlana Arkdale [id number] Svitlana Arkdale 04/16/2018 PAYMENT PLAN Svitlana Arkdale 12/11/2019 1 [place] [facility] Svitlana Arkdale [id number] Svitlana Arkdale 07/31/2017 PAYMENT PLAN Svitlana Arkdale Notes Date Note Type Note Provider Name and Address Organization Details Recorded Time 05/09/2017 text/html Persist left flank pain x3wks. CT abdomen non-revealing. Pain persists. Hx of renal stones about two years ago Maximo Taveras MD Attn: Accounting,[address] [place], [address], [facility] 05/09/2017 14:56:22 07/12/2017 text/html Headaches have recurred since last visit. She has had to use her inhalers and has experienced left ear pain. Denies sore throat. Maximo Taveras MD Attn: Accounting,[address] [place], [address], [facility] 07/12/2017 13:20:15 10/10/2017 text/html Seen in urgent care one week ago for three day headache associated with photophobia, noise sensitivity and nausea. Pain in frontal and occipital areas. This was first episode. Maximo Taveras MD Attn: Accounting,[address] [place], [address], [facility] 10/10/2017 12:19:21 11/01/2017 text/html Needs pre-employment physical Maximo Taveras MD Attn: Accounting,[address] [place], [address], [place] [facility] 11/01/2017 12:54:35 OBGyn Episode No OBEpisode recorded.
--- OUTSIDE RECORDS SUMMARY | 2025-06-08 13:49 | XMS_ITS | Clinical Summary ---
Author Organization [facility] Address [address] [place] [address] Phone Care Team Providers Care Cost Control Specialist Name Role Phone Mono García MD Primary Care Provider [phone] Allergies Active Allergy Reactions Criticality Noted Date Comments Acetaminophen Other (see Comments) Medium 11/12/2024 Anger/aggression Acetazolamide Other (see Comments) 03/21/2025 Whitmore like mouth was on fire also tingling [...] Wound Dressing Adhesive Rash Medium 03/31/2021 Medications ondansetron (ZOFRAN-ODT) 4 MG TABLET DISPERSIBLE 12/19/19 20 Active albuterol 108 (90 Base) MCG/ACT Aerosol Solution take 2 Puffs by inhalation. 01/13/20 18 Active hydrOXYzine (ATARAX) 25 MG Tablet Take 25 mg by mouth 3 times daily as needed for Anxiety. 09/06/19 25 Active omeprazole (PriLOSEC) 40 MG CAPSULE DELAYED RELEASE Take 1 Capsule by mouth daily. 01/18/20 24 Active Ubrogepant 100 MG Tablet Take 100 mg by mouth as needed for Other (Migraine). 08/16/19 25 Active clonazePAM (KlonoPIN) 0.5 MG Tablet Take 0.5 mg by mouth as needed for Anxiety. Active Caplyta 42 MG Capsule Take 1 Capsule by mouth daily. 05/10/20 24 Active pregabalin (LYRICA) 150 MG Capsule Take 150 mg by mouth 2 times daily. Active ibuprofen (MOTRIN) 200 MG Tablet Take 200 mg by mouth every 8 hours as needed for Moderate or more severe pain. Active acetaminophen (TYLENOL) 500 MG Tablet Take 500 mg by mouth every 4 hours as needed for Moderate or more severe pain. Active topiramate (Topamax) 100 MG Tablet Take 200 mg by mouth 2 times daily. Active Ajovy 225 MG/1.5ML Solution Auto-injector ADMINISTER 1.5 ML UNDER THE SKIN EVERY 30 DAYS 04/30/20 Active Butalbital-APAP -Caffeine 50-300-40 MG Capsule Take 1 Capsule by mouth as needed. 06/03/20 25 Active Tirzepatide-Hudson ght Management (Zepbound) 5 MG/0.5ML Solution Auto-injector 5 mg by Subcutaneous route once a week. Active neomycin-polymy estella-dexamethaso ne (MAXITROL) 3.5-71460-9.1 SuspensionIndic ations:Other infective acute otitis externa of right ear Place 2 Drops in right ear 2 times daily for 7 days. 5 mL 06/04/20 Active midodrine (PROAMATINE) 5 MG Tablet 10/05/19 22 025 Discontin ued(Thera py completed ) lithium (ESKALITH) 450 MG Tablet Controlled Release Take 450 mg by mouth daily. Discontin ued(Thera py completed ) Nurtec 75 MG TABLET DISPERSIBLE Take 75 mg by mouth as needed for Other (Migraine). 08/14/19 25 025 Discontin ued(Thera py completed ) Aimovig 140 MG/ML Solution Auto-injector by Subcutaneous route every 30 days. 04/06/20 24 025 Discontin ued(Thera py completed ) dicyclomine (BENTYL) 20 MG Tablet Take 1 Tablet by mouth every 6 hours. 30 Tablet 09/16/19 025 Discontin ued(Thera py completed ) ciprofloxacin-d examethasone (CIPRODEX) 0.3-0.1 % SuspensionIndic ations:Other infective acute otitis externa of right ear Apply 4 drops to affected ear(s) BID x 7 days 7.5 mL 05/30/20 025 Discontin ued(Thera py completed ) Active Problems Problem Noted Date Diagnosed Date Pseudotumor cerebri syndrome 03/31/2025 Bipolar 1 disorder with moderate ruma POTS (postural orthostatic tachycardia syndrome) 09/30/2023 Morbid obesity with body mass index of 40.0-49.9 04/13/2023 Fibromyalgia 04/20/2021 PTSD (post-traumatic stress disorder) 01/22/2020 Prediabetes 11/22/2019 Asthma 12/19/2013 Encounters Date Type Department Care Team Description 06/04/2025 4:00 PM CDT Urgent Care Visit [facility] [address] [place] [address] Bonnie Jay APRN, GIANT TIRE REPAIRER Other infective acute otitis externa of right ear (Primary Dx); Sore throat; POTS (postural orthostatic tachycardia syndrome); Mild asthma without complication, unspecified whether persistent; Morbid obesity with body mass index of 40.0-49.9; Fibromyalgia Discharge Disposition: Discharged to home or Selfcare 06/04/2025 Travel 05/30/2025 4:00 PM CDT Urgent Care Visit [facility] [address] [place] [address] Bonnie Jay APRN, GIANT TIRE REPAIRER Other infective acute otitis externa of right ear (Primary Dx); POTS (postural orthostatic tachycardia syndrome); Mild asthma without complication, unspecified whether persistent; Morbid obesity with body mass index of 40.0-49.9; Bipolar 1 disorder with moderate ruma; Acute pain of left shoulder Discharge Disposition: Discharged to home or Selfcare 05/30/2025 Travel 05/25/2025 2:55 PM CDT Urgent Care Visit [facility] [address] [place] [phone] Debby Quintana APRN, CNP Injury of head, initial encounter (Primary Dx); Shoulder injury, left, initial encounter Discharge Disposition: Discharged to home or Selfcare 05/25/2025 Travel 05/01/2025 3:35 PM CDT Urgent Care Visit [facility] [address] [place] [address] Bonnie Jay APRN, ABIDA Viral URI (Primary Dx); Chills; Acute cough; Fever, unspecified fever cause; Exposure to influenza; Sore throat Discharge Disposition: Discharged to home or Selfcare 05/01/2025 Travel 03/31/2025 10:05 AM CDT Urgent Care Visit [facility] [address] [facility] [place] [phone] Bonnie Jay APRN, CNP Vaginal yeast infection (Primary Dx); Dysuria; POTS (postural orthostatic tachycardia syndrome); Morbid obesity with body mass index of 40.0-49.9 ([facility]); Bipolar 1 disorder with moderate ruma ([facility]); Pseudotumor cerebri syndrome Discharge Disposition: Discharged to [...] you have a drink containing alcohol? Never 06/04/2025 Q2: How many drinks containi ng alcohol do you have on a typical day when you are drinking? Patient does not drink Q3: How often do you have si x or more drinks on one occasion? Never 06/04/2025 Sexually Active Control Partners Comments Yes Comments No Sex and Gender Information Value Date Recorded Sex Assigned at Not on file Legal Sex Female 11:37 PM CDT Gender Identity Not on file Sexual Orientation Not on file Last Filed Vital Signs Vital Sign Reading Time Taken Comments Blood Pressure 104/80 06/04/2025 4:14 PM CDT Pulse 74 06/04/2025 4:14 PM CDT Temperature 37.1 C (98.8 F) 06/04/2025 4:14 PM CDT Respiratory Rate 16 06/04/2025 4:14 PM CDT Oxygen Saturation 98% 06/04/2025 4:14 PM CDT Inhaled Oxygen Concentration - - Weight 114.3 kg (252 lb) 06/04/2025 4:14 PM CDT Height 162.6 cm (5' 4) 09/15/2024 9:12 PM RIVERBOAT CAPTAIN Body Mass Index 43.26 09/15/2024 9:12 PM RIVERBOAT CAPTAIN Plan of Treatment Health Maintenance Due Date [...] POC GROUP A STREP BY MOLECULAR Routine 06/04/2025 4:53 PM CDT Sore throat POC GROUP A STREP BY MOLECULAR Routine [...] * POC GROUP A STREP BY MOLECULAR (06/04/2025 4:53 PM CDT) Only the most recent of2 resultswithin the time period is included. STREP A DNA Negative Negative, Invalid PROCEDURE CONTROL Valid 06/04/2025 4:53 PM CDT us Bonnie Jay SLITTING MACHINE OPERATOR, GIANT TIRE REPAIRER POINT OF CARE TESTI NG (MANUAL) Final Result * POC SARS-COV-2 BY MOLECULAR (05/01/2025 3:53 PM CDT) SARSCOV2 Negative Negative, INVALID PROCEDURE CONTROL Valid Swab NASOPHARYNGEAL SWAB / Unknown 05/01/2025 3:53 PM CDT Bonnie Jay SLITTING MACHINE OPERATOR, GIANT TIRE REPAIRER POINT OF CARE TESTI NG (MANUAL) Final Result * POC INFLUENZA A AND B BY MOLECULAR (05/01/2025 3:52 PM CDT) Pathologist [facility] INFLUENZA A RNA Negative Negative, Invalid INFLUENZA B RNA Negative Negative, Invalid PROCEDURE CONTROL Valid Swab 05/01/2025 3:52 PM CDT Bonnie Jay SLITTING MACHINE OPERATOR, GIANT TIRE REPAIRER POINT OF CARE TESTI NG (MANUAL) Final Result * POCT UA AUTOMATED W/O MICRO (03/31/2025 10:14 AM CDT) Pathologist [facility] POC UA SPECIFIC GRAVITY 1.010 URINE [...] Clear Urine 03/31/2025 10:1 4 AM CDT Bonnie Jay APRN, ABIDA POINT OF CARE TESTI NG (MANUAL) Final Result from Last 3 Months Insurance Care Teams Cost Control Specialist Relationship Specialty Start Date End Date Mono García MD [address] [place] [id number] PCP - General Emergency Medicine 11/24/20
--- OUTSIDE RECORDS SUMMARY | 2025-06-08 13:49 | XMS_ITS | Clinical Summary ---
Author Organization [facility] [employer] Address [address] [place] [address] [place] [address] Care Team Providers Care General Farmworker Name Role Phone Mayelin Ruffin MD Primary Care Provider [phone] Allergies Active Allergy Reactions Criticality Noted Date [...] mg by mouth daily. 3 Active Insulin [place], Disposable, (Abigail Pen Needle) 32 gauge x 5/32 Needle 30 Each by [facility].(Non-Drug; Combo Route) route daily. 30 Each 3 [...] COVID-19 VACCINE - EMERGENCY USE AUTHORIZATION, MRNA, [id number](PF) 30 MCG/0.3 ML IM SUSP 06/27/2021,06/06/2021 (PNEUMOVAX [...] diagnosis of diabetes in children. According to [place] Diabetes Association (ADA) guidelines, hemoglobin A1c <7.0% represents optimal control in non- diabetic patients. Different metrics may apply to specific patient populations. Standards of Medical Care in Diabetes(ADA). ESTIMATED AVERAGE GLUCOSE (MG/DL) 111 mg/dL [facility] ESTIMATED AVERAGE GLUCOSE (MMOL/L) 6.2 mmol/L [facility] Comment: Test Performed at: [facility] [address] [place] [address] Elma Stoll MD Blood 11/18/2022 8:55 AM CDT 11/19/2022 5:47 AM CDT Natalie Quintana CREATIVE ARTS MUSIC THERAPIST CHEMISTRY ORDERABLES F inal Result [facility] [phone] [facility] [address] [place] [address] from Last 3 Months or Most Recently Relevant to Health Maintenance Insurance [employer] OPEN ACCESS * Guarantor: [employer] Account Type Relation to Patient Date of Phone Billing Address Corporate Employer ATTN: ANNA MEHTA [address] [address] [facility] [place] [phone] Care Teams General Farmworker Relationship Specialty Start Date End Date Mayelin Ruffin MD [address] [facility] [address] [place] [id number] PCP - General Family Practice 09/19/23
[2025-06-08 13:58] VITALS: BP 122/75; PULSE 74; RESP 16; TEMP 36.5; O2SAT 99
--- NOTE | 2025-06-08 14:04 | ED.EAR ---
HPI - Ear Problem General Chief complaint: Ear Stated complaint: ear infection patient presents to the Express Care accompanied by significant other with complaints of continued right ear pain and intermittent swelling of right ear canal with drainage. Patient reports she has been to a different Express Care 2 times in the last week and been on 2 different drops as well as cold medications without relief of symptoms. Patient reports long history of ear infections, does have a referral to Ear N[facility] Throat at [facility]. Denies fever chills, body aches, headache, dizziness, or nausea, vomiting, diarrhea, sore throat. Related Data Home Medications ?Medication ?Instructions ?Recorded ?Confirmed ?Last Taken ?Type albuterol sulfate 90 mcg/actuation 1 puff inhalation Q4H PRN Dyspnea 06/06/20 06/19/21 Unknown History aerosol inhaler aripiprazole 2 mg tablet (Abilify) 15 mg PO DAILY 06/06/20 06/19/21 Unknown History divalproex 250 mg tablet,delayed 250 mg PO ONCE 06/06/20 06/19/21 Unknown History release (Depakote) amitriptyline 25 mg tablet 25 mg PO HS 06/19/21 06/19/21 Unknown History atomoxetine 25 mg capsule mg PO 01/15/25 Unknown History erenumab-aooe 140 mg/mL mg subcut 01/15/25 Unknown History subcutaneous auto-injector (Aimovig Autoinjector) lithium carbonate 300 mg mg PO 01/15/25 Unknown History tablet,extended release lithium carbonate 450 mg mg PO 01/15/25 Unknown History tablet,extended release lumateperone 42 mg capsule mg PO 01/15/25 Unknown History (Caplyta) midodrine 5 mg tablet mg 01/15/25 Unknown History pregabalin 150 mg capsule mg 01/15/25 Unknown History mjzxosaycb-ygjouwbymdvzf-llbiqanh cap 06/08/25 Unknown History 50 mg-300 mg-40 mg capsule fremanezumab-vfrm 225 mg/1.5 mL mg subcut 06/08/25 Unknown History subcutaneous auto-injector (Ajovy) myacygke-hrhuwpyod-zbyeqenq 3.5 drp 06/08/25 Unknown History mg/mL-10,000 unit/mL-0.1% eye drops ubrogepant 100 mg tablet (Ubrelvy) mg 06/08/25 Unknown History Allergies Allergy/AdvReac Type Severity Reaction Status Date / Time adhesive tape Allergy Mild Rash Verified 05/17/25 19:33 gluten Allergy Mild Nausea and Verified 05/17/25 19:33 Vomiting prochlorperazine Allergy Unknown Nausea and Verified 05/17/25 19:33 Vomiting Review of Systems Constitutional: Constitutional: Reports as per HPI, Denies chills, Reports fatigue, Denies fever(s) and Denies weakness Eyes: Eyes: Reports no additional eye complaints ENT: Reports as per HPI, Denies vertigo, Denies dizziness, Reports nasal congestion and Denies sore throat Comments: right ear pain with drainage Cardiovascular: Cardiovascular: Reports no additional cardiovascular complaints Respiratory: Respiratory: Reports no additional respiratory complaints Gastrointestinal: Gastrointestinal: Reports no additional gastrointestinal complaints Genitourinary: Genitourinary: Reports no additional female genitourinary complaints Musculoskeletal: Musculoskeletal: Reports no additional musculoskeletal complaints Integumentary/Breasts: Skin/Breast: Reports as per HPI, Denies pruritus, Denies erythema and Denies rash Neurologic: Reports as per HPI, Denies vertigo, Denies dizziness, Denies headache(s) and Denies weakness Psychiatric: Psychiatric: Reports no additional psychiatric complaints Endocrine: Endocrine: Reports no additional endocrine complaints Hematologic/Lymphatic: Hematologic/Lymphatic: Reports no additional hematologic/lymphatic complaints Allergic/Immunologic: Allergic/Immunologic: Reports as per HPI Comments: seasonal allergies PMFSH Past Medical History Medical History Vitamin D deficiency Inflammatory arthritis Ovarian cancer Celiac disease Anxiety Bipolar 1 disorder PTSD (post-traumatic stress disorder) Surgical History Surgical History H/O: hysterectomy Family History Family History Grandparent Diabetes mellitus Mother Lupus Fibromyalgia Raynaud disease Rheumatoid arthritis Sibling Meningitis Sibling Autism Social History Social History Smoking status: Never smoker Alcohol intake: current Alcohol use details: 1 drink every 6 motnhs Substance use: never Living arrangements: with family Occupation/Education: occupation Additional occupation/education comments: [employer] Gender identity (if verbalized by the patient): Female Course Course Level of Care: Express Care Visit Vital Signs Vital signs: Vital Signs Temperature 97.7 F 06/08/25 13:58 Pulse Rate 74 06/08/25 13:58 Respiratory Rate 16 06/08/25 13:58 Blood Pressure 122/75 06/08/25 13:58 Pulse Oximetry 99 06/08/25 13:58 Oxygen Delivery Room Air 06/08/25 13:58 Temperature 97.7 F 06/08/25 13:58 Pulse Rate 74 06/08/25 13:58 Respiratory Rate 16 06/08/25 13:58 Blood Pressure 122/75 06/08/25 13:58 Pulse Oximetry 99 06/08/25 13:58 Oxygen Delivery Room Air 06/08/25 13:58 Medical Decision Making MDM Narrative Medical decision making narrative: Continued after ear infection. Will place patient on oral medications with steroid The patient was evaluated by myself in the express care. History is obtained from patient who is an independent historian and physical exam was performed. Available medical records were reviewed at this time. Exam findings show no acute concerns or changes; patient is non-toxic appearing and is in no distress. Patient is appropriate for outpatient treatment and follow-up. I have evaluated and discussed social determinants of health with the patient that could potentially impact subsequent diagnosis and treatment plans. Differential diagnosis and treatment plan were discussed with the patient. Patient agrees with discussion and after shared medical decision making agrees with plan of care. All questions were answered to the patient's satisfaction. Differential Diagnosis Differential Diagnosis: otitis media, otitis externa, headache, sinusitis, allergy Medical Records Medical records reviewed: Yes I reviewed the external patient's medical records. Vital Signs Vital Signs: Vital Signs Temperature 97.7 F 06/08/25 13:58 Pulse Rate 74 06/08/25 13:58 Respiratory Rate 16 06/08/25 13:58 Blood Pressure 122/75 06/08/25 13:58 Pulse Oximetry 99 06/08/25 13:58 Oxygen Delivery Room Air 06/08/25 13:58 Temperature 97.7 F 06/08/25 13:58 Pulse Rate 74 06/08/25 13:58 Respiratory Rate 16 06/08/25 13:58 Blood Pressure 122/75 06/08/25 13:58 Pulse Oximetry 99 06/08/25 13:58 Oxygen Delivery Room Air 06/08/25 13:58 Discharge Plan Discharge Clinical Impression: Diffuse otitis externa, right ear Patient Disposition: Home Condition: Stable Instructions: Antibiotic Form, Swimmer's Ear (ED), Ear Infection (ED) Additional Instructions: take the antibiotics until gone. May use probiotics or yogurt daily to help with upset stomach /diarrhea with antibiotic use. May use Tylenol and ibuprofen to help with pain or fever. May use warm compresses to the outside of the ear to help with pain. Can also use Sudafed and Flonase nasal spray to help with symptoms associated with ear infection and help the ears drain. Follow-up with primary care physician if symptoms not improving or worsen. Patient Language: Khmer Prescriptions: New amoxicillin-pot clavulanate 875-125 mg tablet 1 tablet PO Q12H Qty: 20 0RF methylprednisolone [Medrol (Floyd)] 4 mg tablets,dose pack See Rx Instructions .ROUTE .COMPLEX Qty: 21 0RF Rx Instructions: for 6 days No Action amitriptyline 25 mg Tablet 25 mg PO HS neomycin-polymyxin B-dexameth 3.5mg/mL-10,000 unit/mL-0.1 % drops,suspension heoyyubrdd-iweshkrvbtfcm-iutd 50-300-40 mg capsule Ubrelvy 100 mg tablet Ajovy Autoinjector 225 mg/1.5 mL auto-injector SUBCUT midodrine 5 mg tablet Patient Comments: PT TAKING FOR LOW BLOOD PRESSURE. DOCTOR IS HOLDING MEDICINE 01/14/25,01/15/25 DUE TO ELEVATED BLOOD PRESSURE. lithium carbonate 300 mg tablet extended release PO lithium carbonate 450 mg tablet extended release PO atomoxetine 25 mg capsule PO pregabalin 150 mg capsule Aimovig Autoinjector 140 mg/mL auto-injector SUBCUT Caplyta 42 mg capsule PO pseudoephedrine HCl [12 Hour Decongestant] 120 mg tablet extended release 120 mg PO Q12H PRN (Reason: nasal congestion) Qty: 20 0RF ipratropium bromide 21 mcg (0.03 %) spray,non-aerosol 2 spray NASAL TID PRN (Reason: nasal drainage) Qty: 30 0RF Rx Instructions: administer into each nostril divalproex [Depakote] 250 mg tablet,delayed release (DR/EC) 250 mg PO ONCE aripiprazole [Abilify] 2 mg tablet 15 mg PO DAILY albuterol sulfate 90 mcg/actuation HFA aerosol inhaler 1 puff inhalation Q4H PRN (Reason: Dyspnea) dicyclomine 20 mg tablet 20 mg PO TID PRN (Reason: Abdominal Discomfort) Qty: 10 0RF Follow-up/Referrals: PHYSICIAN NOT ON STAFF,NONSTAFF [Primary Care Provider]
== END 2025-06-08 14:13 | disposition home or self-care (01) ==
PROVIDERS: Emergency Provider Nurse Practitioner Family
DX: H60.311 Diffuse otitis externa, right ear (principal); K90.0 Celiac disease; M19.90 Unspecified osteoarthritis, unspecified site; F31.9 Bipolar disorder, unspecified; Z85.43 Personal history of malignant neoplasm of ovary
CPT/HCPCS: 99213; G0463